=== PATIENT | female | born 1950 | race Caucasian/White ===

== ENCOUNTER 2017-03-11 03:55 | Emergency (ER) | payer MEDICARE ==
[2017-03-11] MEDS ORDERED: ETOMIDATE INJ/PF 20 MG/10 ML SDV IV ONE ×2 (04:20→04:28)
--- NOTE | 2017-03-11 04:35 | ER Document Report ---
ED General - General Chief Complaint: Back Pain Stated Complaint: SHOULDER PAIN Time Seen by Provider: 03/11/17 04:09 Notes: Patient is a 67-year-old female who says she woke up with diaphoresis and sweating and feeling pain to her shoulder blades. Chest pain. She did feel short of breath. When she arrived her blood pressure systolically was in the 70s and her EKG showed a wide complex tachycardia. Patient denies any history of SVT. She is unsure if she has a previous history of left bundle branch block. She does have history of coronary disease. She had 2 stents placed. She had coronary bypass approximately 8 years ago. No heart catheterization since then. This was performed in [place]. She only takes aspirin. No other blood thinners. No other complaints at this time. TRAVEL OUTSIDE OF THE [place] IN LAST 30 DAYS: No - Related Data Allergies/Adverse Reactions: Sulfa (Sulfonamide Antibiotics) Allergy (Verified 03/11/17 04:07) Past Medical History - Social History Smoking Status: Unknown if Ever Smoked Frequency of alcohol use: None Drug Abuse: None Family History: Reviewed & Not Pertinent Patient has suicidal ideation: No Patient has homicidal ideation: No Renal/ Medical History: Denies: Hx Peritoneal Dialysis Review of Systems - Review of Systems Notes: My Normal Review Basic REVIEW OF SYSTEMS: CONSTITUTIONAL : Denies fever, chills, or sweats. Denies recent illness. EENT: Denies eye, ear, throat, or mouth pain or symptoms. Denies nasal or sinus congestion. CARDIOVASCULAR: Denies chest pain. RESPIRATORY: Shortness of breath. GASTROINTESTINAL: Denies abdominal pain. Denies nausea, vomiting, or diarrhea. Denies constipation. Last BM: MUSCULOSKELETAL: Back pain. SKIN: Denies rash or skin lesions. NEUROLOGICAL: Denies altered mental status or loss of consciousness. Denies headache. Denies weakness or paralysis or loss of use of either side. Denies problems with gait or speech. Denies sensory or motor loss. ALL OTHER SYSTEMS REVIEWED AND NEGATIVE. Physical Exam - Vital signs Vitals: Pulse Resp BP Pulse Ox 78 24 H 77/51 L 98 03/11/17 04:03 03/11/17 04:03 03/11/17 04:03 03/11/17 04:03 - Notes Notes: General Appearance: Well nourished, alert, cooperative, no acute distress, no obvious discomfort. Vitals: reviewed, See vital signs table. Head: no swelling or tenderness to the head Eyes: PERRL, EOMI, Conjuctiva clear Mouth: No decreasd moisture Neck: Supple, no neck tenderness Lungs: No wheezing, No rales, No rhonci, No accessory muscle use, good air exchange bilaterally. Heart: Rapid rate, Regular rythm, No murmur, no rub Abdomen: Normal BS, soft, No rigidity, No abdominal tenderness, No guarding, no rebound, no abdominal masses, no organomegaly Extremities: strength 5/5 in all extremities, good pulses in all extremities, no swelling or tenderness in the extremities, no edema. Skin: warm, dry, appropriate color, no rash Neuro: speech clear, oriented x 3, normal affect, responds appropriately to questions. Course - Re-evaluation Re-evalutation: 03/11/17 04:51 After the cardioversion patient's abdomen is back in sinus rhythm. Her pain is completely resolved. She says she feels much improved and is asymptomatic at this time. 03/11/17 09:04 I initially spoke with Drs. Sawyer, hospitalist at [facility], who feels the patient should be in the ICU. I spoke with the explosive ordnance handler, Dr. Moe Flores, who agrees to accept the patient for transfer. I again explained to the patient however transferring her. Explained to her that there is a mass on the CT scan and this could potentially be irritating her heart and causing the ventricular tachycardia. Patient is understanding of this and agreeable to transfer. 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 The Ventricular tachycardia as well as history of coronary disease requires offset plate maker duration which may lead to cardiac catheterization. EKG the patient presented with was wide-complex tachycardia. This could represent SVT with aberrancy versus V. tach. I think SVT with aberrancy is unlikely being the patient has no history of SVT and is years old. After the patient was cardioverted she did not have left bundle branch block or aberrantly on her sinus rhythm. I suspect that she was indeed an ventricular tachycardia when she first arrived. Since cardioversion patient has been normotensive and asymptomatic. Dictation of this chart was performed using voice recognition software; therefore, there may be some unintended grammatical errors. - Vital Signs Vital signs: Temp Pulse Resp BP Pulse Ox 78 16 179/63 H 96 03/11/17 04:03 03/11/17 08:46 03/11/17 08:46 03/11/17 08:46 - Laboratory Result Diagrams: 03/11/17 04:15 03/11/17 05:50 Laboratory results interpreted by me: 03/11/17 03/11/17 04:15 05:50 MCHC 31.4 L Sodium 134.3 L Glucose 112 H AST 54 H Creatine Kinase 21 L - EKG Interpretation by Me Additional EKG results interpreted by me: 03/11/17 04:34 EKG #1 is reviewed and interpreted by me. EKG shows wide complex tachycardia with a rate of 187 bpm. Wide complexes consistent with possible left bundle branch block. QRS duration QT intervals are prolonged. No old EKG available for comparison. 03/11/17 04:41 EKG #2 is reviewed reviewed and interpreted by me. His EKG is post cardioversion. EKG shows sinus bradycardia with a rate of [address] segment elevation in lead III. ST segment depression in leads I and aVL.. IA interval, QRS duration, QTc intervals are within normal range. 03/11/17 05:59 T #3 is reviewed and interpreted by me. EKG shows a rate of [address] segment elevation or depression. No ischemic T-wave inversions. IA interval, QRS duration, QTc intervals are within normal range. No old EKG available for comparison. Procedures - Conscious Sedation Conscious sedation Consent obtained: Yes - verbal Indication: cardioversion Prior complications: Procedural sedation Pt with a severe systemic disease.: P3. - ASA Classification. Airway Evaluation: Normal anatomy Mallampati Classification: Class 1 Used during procedure: Suction available, IV access obtained, Pulse ox on pt., rollway worker on pt. Medications administered: Etomidate Reversal agents: None I personally performed/intraservice time: Sedation, 30 min or less Complications: No Notes: Patient given a total of 10mg of Etomidate. This provided good sedation for the cardioversion. - Additional Procedures Cardioversion/Defib Additional Procedures: Cardioversion/defib Notes: 03/11/17 05:46 Patient sedate and was synchronized cardioversion on the first attempt with 100J. Patient converted to sinus rythm. Discharge - Discharge Clinical Impression: Ventricular tachycardia, Pericardial mass Condition: Stable Disposition: [facility]
[2017-03-11 04:46] LABS: ABSOLUTE BASOPHILS # (AUTO) 0.1 10^3/uL (0.0-0.2); ABSOLUTE EOSINOPHILS # (AUTO) 0.1 10^3/uL (0.0-0.6); ABSOLUTE LYMPHOCYTES (AUTO) 2.5 10^3/uL (0.5-4.7); ABSOLUTE MONOCYTES (AUTO) 0.6 10^3/uL (0.1-1.4); ABSOLUTE NEUT (AUTO) 6.5 10^3/uL (1.7-8.2); BASOPHILS % (AUTO) 0.5 % (0-2); EOSINOPHILS % (AUTO) 1.3 % (0-6); HEMATOCRIT 38.8 % (36.0-47.0); HEMOGLOBIN 12.2 g/dL (12.0-15.5); HGB HCT DIFFERENCE -2.2; LYMPHOCYTES % (AUTO) 25.8 % (13-45); MEAN CORPUSCULAR HEMOGLOBIN 29.4 pg (27.0-33.4); MEAN CORPUSCULAR HGB CONC 31.4 g/dL (32.0-36.0); MEAN CORPUSCULAR VOLUME 94 fl (80-97); RED BLOOD COUNT 4.15 10^6/uL (3.72-5.28); SEGMENTED NEUTROPHILS % (AUTO) 66.4 % (42-78); WHITE BLOOD COUNT 9.8 10^3/uL (4.0-10.5)
--- NOTE | 2017-03-11 05:14 | RADIOLOGY REPORT (SQ) ---
EXAM DESCRIPTION: CHEST SINGLE VIEW COMPLETED DATE/TIME: 03/11/2017 4:53 am REASON FOR STUDY: ventricular tachycardia COMPARISON: None. EXAM PARAMETERS: NUMBER OF VIEWS: One view. TECHNIQUE: Single frontal radiographic view of the chest acquired. RADIATION DOSE: NA LIMITATIONS: A pacemaker pad is partially obscuring the right upper thorax. FINDINGS: LUNGS AND PLEURA: No pneumothorax or pleural effusion. There is a 3.8 x 2.1 cm oval shape opacity adjacent to the right cardiac border. MEDIASTINUM AND HILAR STRUCTURES: No obvious masses. HEART AND VASCULAR STRUCTURES: The heart is moderately enlarged. No overt vascular congestion. BONES: No acute findings. HARDWARE: Sternotomy wires are present. Pacemaker pad partially obscuring the right upper thorax. IMPRESSION: Moderate cardiomegaly, pericardial effusion is not excludable. 3.8 x 2.1 cm oval-shaped opacity adjacent to the right cardiac border, may represent an enlarged bloo d vessel versus a pulmonary mass. Evaluation with CT thorax may be worthwhile. TECHNICAL DOCUMENTATION: JOB ID: [id number]
[2017-03-11 06:12] LABS: ALANINE AMINOTRANSFERASE 38 U/L (9-52); ALBUMIN 3.6 g/dL (3.5-5.0); ALKALINE PHOSPHATASE 55 U/L (38-126); ANION GAP 9 (5-19); ASPARTATE AMINO TRANSFERASE 54 U/L (14-36); BILIRUBIN,DIRECT 0.2 mg/dL (0.0-0.4); BILIRUBIN,TOTAL 0.5 mg/dL (0.2-1.3); BLOOD UREA NITROGEN 13 mg/dL (7-20); CALCIUM 9.4 mg/dL (8.4-10.2); CARBON DIOXIDE 24 mmol/L (22-30); CHLORIDE 101 mmol/L (98-107); CREATINE KINASE 21 U/L (30-135); CREATININE RESULT 0.78 mg/dL (0.52-1.25); GLUCOSE 112 mg/dL (75-110); POTASSIUM 4.3 mmol/L (3.6-5.0); SODIUM 134.3 mmol/L (137-145); TOTAL PROTEIN 6.4 g/dL (6.3-8.2)
[2017-03-11] MEDS ORDERED: NORMAL SALINE 500 ML IV ONE (06:16)
[2017-03-11 06:23] LABS: CREATINE KINASE MB 0.7 ng/mL (<4.55)
[2017-03-11 06:26] LABS: TROPONIN I 0.056 ng/mL
--- NOTE | 2017-03-11 07:29 | RADIOLOGY REPORT (SQ) ---
EXAM DESCRIPTION: CTA CHEST COMPLETED DATE/TIME: 03/11/2017 7:05 am REASON FOR STUDY: abnormal finding on CXR. COMPARISON: Chest x-ray 03/11/2016. TECHNIQUE: CT scan of the chest performed using helical scanning technique with dynamic intravenous contrast injection. Images reviewed with lung, soft tissue and bone windows. Reconstructed coronal and sagittal MPR images reviewed. Additional 3 dimensional post-processing performed to develop Maximal Intensity Projection images (IL P). All images stored on PACS. All CT scanners at this facility use dose modulation, iterative reconstruction, and/or weight based d osing when appropriate to reduce radiation dose to as low as reasonably achievable (ALARA). [facility]: Dose Right [facility]: CareDose [facility]: Dose Right [facility]: Teradose 4D [facility]: 3DMGAME CONTRAST TYPE AND DOSE: contrast/concentration: Isovue 370.00 mg/ml; Total Contrast Delivered: 71.0 ml; Total Saline Delivered: 110.0 ml RENAL FUNCTION: Creatinine 0.78 RADIATION DOSE: Up-to-date CT equipment and radiation dose reduction techniques were employed. CTDIv ol: 18.4 - 23.2 mGy. DLP: 709 mGy-cm. . LIMITATIONS: None. FINDINGS: LUNGS AND PLEURA: There is a 4.8 x 4.2 cm lobulated mass extending inferiorly from the rig ht perihilar region along the medial aspect of the right lower lobe and the right heart border. Mild atelectatic changes at the bilateral lower lobes. No pleural effusion or pneumothorax. 5 mm nodule in the right upper lobe (image 19/134). 5 mm pleural-based nodule in the anterior right middle lobe (image 56/134). AORTA AND GREAT VESSELS: No thoracic aortic aneurysm. Calcified and noncalcified plaque within the a luciana. HEART: The patient is status post open heart surgery. The heart is moderately enlarged. No pericar dial effusion. PULMONARY ARTERIES: No emboli visualized in the main pulmonary arteries or the segmental branches. HILAR AND MEDIASTINAL STRUCTURES: Right paratracheal lymph node measuring 13 mm in short axis. Right hilar lymph node measuring 17 mm in short axis. Left hilar lymph node measuring 11 mm in short axis . HARDWARE: None in the chest. UPPER ABDOMEN: There is a 1.6 cm ill defined low-attenuation area in the left hepatic lobe (image 1 07/134). Mild pericholecystic soft tissue stranding. There is a small hiatal hernia. THYROID AND OTHER SOFT TISSUES: Small low-attenuation nodules in the right lobe of the thyroid gland measuring up to 8 mm. BONES: Degenerative changes in the spine. 3D MIPS: Confirm above findings. IMPRESSION: No pulmonary emboli. Soft tissue mass extending inferiorly from the right perihilar region along the medial aspect of the right lower lobe and along the right heart border, worrisome for malignancy. Mediastinal and hilar a denopathy, metastasis cannot be excluded. PET/CT recommended for further evaluation. 5 mm pulmonary nodules in the right lung. CT thorax in 6 months recommended to re-evaluate. Subcentimeter low-attenuation nodules in the right lobe of the thyroid gland. These can be better ev aluated with dedicated ultrasound. 1.6 cm ill-defined low attenuation area in the left hepatic lobe. Contrast enhanced MRI can be obtai lisa for further evaluation. Mild pericholecystic soft tissue stranding. Please correlate with concern for acute cholecystitis. Small hiatal hernia. TECHNICAL DOCUMENTATION: JOB ID: [id number] [facility] Quality ID # [id number]: Final reports with documentation of one or more dose reduction techniques (e.g., Au tomated exposure control, adjustment of the mA and/or kV according to patient size, use of iterative reconstruction technique) 2010 [employer]- All Rights Reserved
[2017-03-11] MEDS ORDERED: LEVALBUTEROL HCL NEB 0.63 MG/3 ML AMPUL NEB ONE (09:08)
--- NOTE | 2017-03-11 09:52 | EKG REPORT ---
SEVERITY:- ABNORMAL ECG - SINUS RHYTHM ATRIAL PREMATURE COMPLEX INFERIOR INFARCT, AGE INDETERMINATE CONSIDER ANTERIOR INFARCT : Confirmed by: Hunter Castañeda MD 11-Mar-2017 09:51:52
--- NOTE | 2017-03-11 09:53 | EKG REPORT ---
SEVERITY:- ABNORMAL ECG - SINUS RHYTHM RIGHT AXIS DEVIATION INFERIOR INFARCT, AGE INDETERMINATE CONSIDER ANTERIOR INFARCT : Confirmed by: Hunter Castañeda MD 11-Mar-2017 09:52:30
--- NOTE | 2017-03-11 09:54 | EKG REPORT ---
SEVERITY:- ABNORMAL ECG - WIDE COMPLEX TACHYCARDIA LEFT BUNDLE BRANCH BLOCK : Confirmed by: Hunter Castañeda MD 11-Mar-2017 09:53:25
[2017-03-11] MEDS ORDERED: CARVEDILOL 6.25 MG TABLET PO ONE (11:27)
[2017-03-11] MEDS ORDERED: DILTIAZEM HCL 240 MG CAPSULE.CR PO ONE (11:27)
[2017-03-11] MEDS ORDERED: HYDRALAZINE HCL 50 MG TABLET PO ONE (11:27)
[2017-03-11 11:44] VITALS: BP 180/63
== END 2017-03-11 12:28 | disposition short-term general hospital (02) ==
LOC: ER 03:55
DX: I47.2 Ventricular tachycardia (principal); R22.2 Localized swelling, mass and lump, trunk; M54.9 Dorsalgia, unspecified; M25.511 Pain in right shoulder; M25.512 Pain in left shoulder
CPT/HCPCS: 93005; 99285; 99153; 99152; 36415; 82553; 82962; 82550; 83735; 85025; 80053; 84484; 71010; 71275; 93010; A9270 ×4; J7040; J7614

== ENCOUNTER 2017-03-28 11:00 | Emergency (ER) | payer MEDICARE ==
--- NOTE | 2017-03-28 11:21 | ER Document Report ---
ED Syncope and Near Syncope - General Stated Complaint: DIFFICULTY BREATHING Time Seen by Provider: 03/28/17 11:08 Mode of Arrival: Stretcher Information source: Emergency Med Personnel TRAVEL OUTSIDE OF THE U.S. IN LAST 30 DAYS: No - HPI Patient complains to provider of: Fainting Episode witnessed (by whom): Yes - daughter Symptoms prior to episode: None Position/Activity at time of episode: Lying down Quality of pain: No pain Context: Became unresponsive Injury location: None Current symptoms: None/feels back to normal Notes: Patient is a 67-year-old female who presents to the emergency room via EMS for period of unresponsiveness, according to EMS patient's daughter found her unresponsive, with bluish discoloration, not breathing, patient is currently wearing a life pack that was recently placed while at [facility], daughter reports that the [employer] was alerting and advising not to touch patient that a shock would be delivered, however no shock was delivered, patient reports last thing she remembers is eating some toast, sitting on her bed and grabbing some water to take her pills, she does not have any recollection of nausea, vomiting , chest pain or shortness of breath, dizziness or lightheadedness prior to the syncopal event, at time of my evaluation she reports feeling no symptoms as well - Related Data Allergies/Adverse Reactions: Sulfa (Sulfonamide Antibiotics) Allergy (Verified 03/11/17 04:07) Home Medications: Current Home Medications Albuterol Sulfate [Albuterol Sulfate 2.5mg/3 mL] 2 puff IN Q6 03/28/17 [History] Amiodarone HCl [Cordarone 200 mg Tablet] 2 tab PO DAILY 03/28/17 [History] Amox Tr/Potassium Clavulanate [Augmentin 875-125 mg Tablet] 1 tab PO BID [History] Aspirin [Ecotrin 81 mg EC Tablet] 1 tab PO DAILY 03/28/17 [History] Budesonide/Formoterol Fumarate [Symbicort HFA 160-4.5 mcg Inhaler 6 gm] 2 puff IN BID 03/28/17 [History] Carvedilol 1 tab PO DAILY 03/28/17 [History] Hydralazine HCl 1 tab PO BID 03/28/17 [History] Magnesium Oxide 1 tab PO DAILY 03/28/17 [History] Metformin HCl 1 tab PO DAILY 03/28/17 [History] Simvastatin 1 tab PO DAILY 03/28/17 [History] Tiotropium Tionesta [Spiriva Handihaler 18 mcg/dose (30 Dose)] 1 puff IN DAILY [History] Past Medical History - General Information source: Patient, Emergency Med Personnel - Social History Smoking Status: Former Smoker Family History: Reviewed & Not Pertinent Renal/ Medical History: Denies: Hx Peritoneal Dialysis Review of Systems - Review of Systems Constitutional: No symptoms reported EENT: No symptoms reported Cardiovascular: Syncope Respiratory: No symptoms reported Gastrointestinal: No symptoms reported Genitourinary: No symptoms reported Female Genitourinary: No symptoms reported Musculoskeletal: No symptoms reported Skin: No symptoms reported Hematologic/Lymphatic: No symptoms reported Neurological/Psychological: No symptoms reported -: Yes All other systems reviewed and negative Physical Exam - Vital signs Vitals: Resp BP Pulse Ox 18 163/65 H 94 03/28/17 11:10 03/28/17 11:10 03/28/17 11:10 Interpretation: Normal - General General appearance: Appears well, Alert - HEENT Head: Normocephalic, Atraumatic Eyes: Normal Pupils: PERRL - Respiratory Respiratory status: No respiratory distress Chest status: Nontender Breath sounds: Normal Chest palpation: Normal - Cardiovascular Rhythm: Regular Heart sounds: Normal auscultation Murmur: No - Abdominal Inspection: Normal Distension: No distension Bowel sounds: Normal Tenderness: Nontender Organomegaly: No organomegaly - Back Back: Normal, Nontender - Extremities General upper extremity: Normal inspection, Nontender, Normal color, Normal ROM , Normal temperature General lower extremity: Normal inspection, Nontender, Normal color, Normal ROM , Normal temperature, Normal weight bearing. No: Charlie's sign - Neurological Neuro grossly intact: Yes Cognition: Normal Orientation: AAOx4 Toño Coma Scale Eye Opening: Spontaneous [place]ño Coma Scale Verbal: Oriented [place] Coma Scale Motor: Obeys Commands [place] Coma Scale Total: 15 Speech: Normal Motor strength normal: LUE, RUE, LLE, RLE Sensory: Normal - Psychological Associated symptoms: Normal affect, Normal mood - Skin Skin Temperature: Warm Skin Moisture: Dry Skin Color: Normal Course - Re-evaluation Re-evalutation: 03/28/17 14:46 A call was placed to [facility], discussed patient with Catalina, requested callback from EP physician Dr. Granados I received a call from IRVIN Andrea, works with Dr. Granados, patient's event strips were faxed over, requested callback once he has an opportunity to speak with Dr. Granados to formulate a plan regarding likely transfer of patient to [facility] 03/28/17 15:[address] Rodriguez from [facility], hospitalist, who states that she spoke with the EP service who requested patient be transferred to their hospital for further evaluation and treatment 03/28/17 18:24 Rhythm strips that were provided by [employer], short period of approximately 2 minutes where patient had EKG changes consistent with ventricular tachycardia, her daughter does report that the [employer] was advising that a shock would be delivered, patient regained consciousness just prior to this occurring, the report from [facility] confirms that patient did not receive a defibrillation, patient remained stable at this point in time with no complaints, awaiting transfer to [facility] - Vital Signs Vital signs: Temp Pulse Resp BP Pulse Ox 44 L 20 169/50 H 99 03/28/17 13:45 03/28/17 18:02 03/28/17 18:02 03/28/17 18:02 - Laboratory Result Diagrams: 03/28/17 13:06 03/28/17 12:10 Laboratory results interpreted by me: 03/28/17 03/28/17 03/28/17 12:10 12:10 13:06 RBC 3.50 L Hgb 10.6 L Hct 31.5 L Sodium 123.7 L Chloride 89 L Glucose 163 H Magnesium 1.4 L Urine Protein Ur Leukocyte Esterase 03/28/17 14:00 RBC Hgb Hct Sodium Chloride Glucose Magnesium Urine Protein >=500 H Ur Leukocyte Esterase LARGE H - Diagnostic Test Radiology reviewed: Image reviewed, Reports reviewed - EKG Interpretation by Me EKG shows normal: Sinus rhythm Rate: Bradycardia Critical Care Note - Critical Care Note Total time excluding time spent on procedures (mins): 45 Comments: EKG rhythm strips from [employer] life vest confirmed patient had a brief period of cardiac arrest with ventricular tachycardia, while in the emergency room required close monitoring, frequent reevaluation's, consultation with EP physician as well as transfer to tertiary care center Discharge - Discharge Clinical Impression: Nontraumatic cardiac arrest Condition: Stable Disposition: [facility]
[2017-03-28 12:51] LABS: ALANINE AMINOTRANSFERASE 28 U/L (9-52); ALBUMIN 3.5 g/dL (3.5-5.0); ALKALINE PHOSPHATASE 46 U/L (38-126); ANION GAP 10 (5-19); ASPARTATE AMINO TRANSFERASE 35 U/L (14-36); BILIRUBIN,DIRECT 0.4 mg/dL (0.0-0.4); BILIRUBIN,TOTAL 0.5 mg/dL (0.2-1.3); BLOOD UREA NITROGEN 9 mg/dL (7-20); CALCIUM 8.9 mg/dL (8.4-10.2); CARBON DIOXIDE 25 mmol/L (22-30); CHLORIDE 89 mmol/L (98-107); CREATINE KINASE 30 U/L (30-135); CREATININE RESULT 0.59 mg/dL (0.52-1.25); GLUCOSE 163 mg/dL (75-110); POTASSIUM 4.5 mmol/L (3.6-5.0); SODIUM 123.7 mmol/L (137-145); TOTAL PROTEIN 6.3 g/dL (6.3-8.2)
[2017-03-28] MEDS ORDERED: NORMAL SALINE 1000 ML 1,000 ML IV PRN (13:05)
[2017-03-28 13:07] LABS: CREATINE KINASE MB 0.83 ng/mL (<4.55)
[2017-03-28 13:10] LABS: TROPONIN I 0.04 ng/mL
[2017-03-28 13:13] LABS: ABSOLUTE BASOPHILS # (AUTO) 0.1 10^3/uL (0.0-0.2); ABSOLUTE LYMPHOCYTES (AUTO) 1.4 10^3/uL (0.5-4.7); ABSOLUTE MONOCYTES (AUTO) 0.5 10^3/uL (0.1-1.4); ABSOLUTE NEUT (AUTO) 6.6 10^3/uL (1.7-8.2); BASOPHILS % (AUTO) 0.6 % (0-2); EOSINOPHILS % (AUTO) 0.3 % (0-6); HEMATOCRIT 31.5 % (36.0-47.0); HEMOGLOBIN 10.6 g/dL (12.0-15.5); HGB HCT DIFFERENCE 0.3; LYMPHOCYTES % (AUTO) 15.9 % (13-45); MEAN CORPUSCULAR HEMOGLOBIN 30.3 pg (27.0-33.4); MEAN CORPUSCULAR HGB CONC 33.6 g/dL (32.0-36.0); MONOCYTES % (AUTO) 6.4 % (3-13); RED CELL DISTRIBUTION WIDTH 13.3 % (11.5-14.0); SEGMENTED NEUTROPHILS % (AUTO) 76.8 % (42-78); WHITE BLOOD COUNT 8.6 10^3/uL (4.0-10.5)
[2017-03-28 13:21] LABS: MEAN CORPUSCULAR VOLUME 90 fl (80-97)
--- NOTE | 2017-03-28 13:32 | RADIOLOGY REPORT (SQ) ---
EXAM DESCRIPTION: CHEST SINGLE VIEW COMPLETED DATE/TIME: 03/28/2017 1:22 pm REASON FOR STUDY: syncope COMPARISON: 03/11/2017 EXAM PARAMETERS: NUMBER OF VIEWS: One view. TECHNIQUE: Single frontal radiographic view of the chest acquired. RADIATION DOSE: NA LIMITATIONS: None. FINDINGS: LUNGS AND PLEURA: Again identified is the 3 cm ovoid shaped lesion seen in the right lung base. Small right-sided pleural effusion associated atelectasis. No pneumothorax. Left lung remain s clear. . MEDIASTINUM AND HILAR STRUCTURES: No masses. Contour normal. HEART AND VASCULAR STRUCTURES: Cardiomegaly. No vascular congestion BONES: No acute findings. HARDWARE: Median sternotomy wires noted and intact. EKG leads overlie the chest. OTHER: No other significant finding. IMPRESSION: Stable ovoid mass seen in the right lung base measuring approximately 3 cm. Small right -sided pleural effusion associated atelectasis. Stable cardiomegaly. TECHNICAL DOCUMENTATION: JOB ID: [id number]
[2017-03-28 14:20] LABS: APPEARANCE,URINE CLOUDY; BILIRUBIN,URINE NEGATIVE (NEGATIVE); GLUCOSE, URINE NEGATIVE (NEGATIVE); KETONES,URINE NEGATIVE (NEGATIVE); LEUKOCYTE ESTERASE,URINE LARGE (NEGATIVE); NITRITE,URINE NEGATIVE (NEGATIVE); PROTEIN,URINE >=500 mg/dL (NEGATIVE); URINE SPECIFIC GRAVITY 1.009; UROBILINOGEN,URINE NEGATIVE mg/dL (<2.0)
[2017-03-28] MEDS ORDERED: MAGNESIUM SULFATE/D5W 1 GM/100 ML RTUPB IV ONE (16:08)
[2017-03-28] MEDS ORDERED: ALBUTEROL SULFATE 0.083% NEB 2.5 MG/3 ML AMPUL NEB ONE (18:22)
[2017-03-28 21:21] VITALS: BP 189/66
--- NOTE | 2017-03-30 08:17 | EKG REPORT ---
SEVERITY:- ABNORMAL ECG - SINUS BRADYCARDIA INCOMPLETE RIGHT BUNDLE BRANCH BLOCK INFERIOR INFARCT, OLD NONSPECIFIC ST-T CHANGES LATERAL LEADS : Confirmed by: Hunter Castañeda MD 30-Mar-2017 08:17:15
== END 2017-03-28 21:32 | disposition short-term general hospital (02) ==
LOC: ER 11:00
DX: I46.9 Cardiac arrest, cause unspecified (principal); I47.2 Ventricular tachycardia; Z88.2 Allergy status to sulfonamides; Z87.891 Personal history of nicotine dependence; Z95.810 Presence of automatic (implantable) cardiac defibrillator
CPT/HCPCS: 93005; 94640; 99291; 96361; 96374; 36415; 82553; 82550; 83735; 85025; 80053; 81001; 84484; 71010; 93010; J3475; J7030; A9270

== ENCOUNTER 2017-05-18 13:01 | Outpatient (CLI) | payer MEDICARE ==
[~2017-05-18 13:01] MED LIST: PEGFILGRASTIM INJ 6 MG/0.6 ML DISP.SYRIN SUBCUT PRN
[2017-05-18 13:21] VITALS: BP 150/83
== END 2017-05-18 13:50 | disposition home or self-care (01) ==
LOC: II 13:01 → 5TH 13:06 → II 13:50
PROVIDERS: ATTEND Internal Medicine
PROC: 3E0130M Introduction of Antineoplastic, Monoclonal Antibody, into Subcutaneous Tissue, Percutaneous Approach (ICD-10-PCS; principal; 2017-05-18)
DX: Z76.89 Persons encountering health services in other specified circumstances (principal); C34.11 Malignant neoplasm of upper lobe, right bronchus or lung; D70.1 Agranulocytosis secondary to cancer chemotherapy
CPT/HCPCS: 96372; J2505

== ENCOUNTER 2017-06-01 13:01 | Outpatient (CLI) | payer MEDICARE ==
[~2017-06-01 13:01] MED LIST changes: +FERRIC CARBOXYMALTOSE 750 MG in NORMAL SALINE 250 ML IV PRN; +NORMAL SALINE 250 ML IV PRN; -PEGFILGRASTIM INJ 6 MG/0.6 ML DISP.SYRIN SUBCUT PRN
[2017-06-01 13:15] VITALS: BP 149/63
== END 2017-06-01 14:15 | disposition home or self-care (01) ==
LOC: II 13:01 → 5TH 13:05 → II 14:15
PROVIDERS: ATTEND Internal Medicine
PROC: 3E043GC Introduction of Other Therapeutic Substance into Central Vein, Percutaneous Approach (ICD-10-PCS; principal; 2017-06-01)
DX: D50.8 Other iron deficiency anemias (principal); K90.9 Intestinal malabsorption, unspecified
CPT/HCPCS: 96367; 96375; J7050; J1439; 96365

== ENCOUNTER 2017-06-08 14:01 | Outpatient (CLI) | payer MEDICARE ==
[~2017-06-08 14:01] MED LIST changes: +PEGFILGRASTIM INJ 6 MG/0.6 ML DISP.SYRIN SUBCUT PRN
[2017-06-08 14:47] VITALS: BP 138/53
== END 2017-06-08 14:54 | disposition home or self-care (01) ==
LOC: II 14:01 → 5TH 14:02 → II 14:54
PROVIDERS: ATTEND Internal Medicine
PROC: 3E0130M Introduction of Antineoplastic, Monoclonal Antibody, into Subcutaneous Tissue, Percutaneous Approach (ICD-10-PCS; principal; 2017-06-08)
PROC: 3E043GC Introduction of Other Therapeutic Substance into Central Vein, Percutaneous Approach (ICD-10-PCS; 2017-06-08)
DX: Z76.89 Persons encountering health services in other specified circumstances (principal); D50.8 Other iron deficiency anemias; K90.9 Intestinal malabsorption, unspecified; C34.11 Malignant neoplasm of upper lobe, right bronchus or lung; D70.1 Agranulocytosis secondary to cancer chemotherapy
CPT/HCPCS: 96367; 96375; J2505; J7050; J1439; 96372; 96374

== ENCOUNTER → 2017-06-22 | Outpatient (CLI) | payer MEDICARE ==
--- NOTE | 2017-06-22 12:37 | RADIOLOGY REPORT (SQ) ---
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 PET-CT from [facility] dated 04/04/2017. TECHNIQUE: CT scan of the chest performed using helical scanning technique with dynamic intravenous contrast injection. Images reviewed with lung, soft tissue and bone windows. Reconstructed coronal and sagittal MPR images reviewed. All images stored on PACS. All CT scanners at this facility use dose modulation, iterative reconstruction, and/or weight based d osing when appropriate to reduce radiation dose to as low as reasonably achievable (ALARA). [facility]: Dose Right [facility]: CareDose [facility]: Dose Right [facility]: Teradose 4D [facility]: Veosearch CONTRAST TYPE AND DOSE: 89 mL Isovue 370- low osmolar. RENAL FUNCTION: BUN 6 creatinine 0.6. RADIATION DOSE: . LIMITATIONS: None. FINDINGS: LUNGS AND PLEURA: The right perihilar mass has decreased in size. Current measurement 2.4 x 3.6 cm with prior measurement 4.2 x 4.8 cm (February 2017), and 5.1 x 5.3 cm (March 2017). Tiny, 3- 4 mm, subpleural nodules in the right upper lobe and right middle lobe are unchanged. Moderate right pleural effusion unchanged since the most recent study (March 2017). No new nodules or masses. HILAR AND MEDIASTINAL STRUCTURES: 1.2 cm right paratracheal lymph node unchanged, prior measurement 1 .3 cm. Borderline hilar adenopathy no longer present. These lymph nodes were not FDG avid on the re cent PET scan. HEART AND VASCULAR STRUCTURES: No aneurysm or dissection. No central pulmonary emboli. No pericardi al effusion. HARDWARE: Vascular access port, defibrillator, sternotomy wires. UPPER ABDOMEN: See separate report of the CT of the abdomen. THYROID AND OTHER SOFT TISSUES: No masses. No adenopathy. BONES: No significant finding. OTHER: No other significant finding. IMPRESSION: DECREASE IN SIZE OF THE RIGHT PERIHILAR MASS. MODERATE RIGHT PLEURAL EFFUSION UNCHANGED . NO NEW NODULES OR MASSES. NO OTHER SIGNIFICANT FINDINGS. TECHNICAL DOCUMENTATION: JOB ID: [id number] Quality ID # [id number]: Final reports with documentation of one or more dose reduction techniques (e.g., Au tomated exposure control, adjustment of the mA and/or kV according to patient size, use of iterative reconstruction technique) 2010 [employer]- All Rights Reserved
--- NOTE | 2017-06-22 12:56 | RADIOLOGY REPORT (SQ) ---
EXAM DESCRIPTION: CT ABD/PELVIS WITH IV ONLY COMPLETED DATE/TIME: 06/22/2017 10:26 am REASON FOR STUDY: LUNG CA C34.11 MALIGNANT NEOPLASM OF UPPER LOBE, RIGHT BRONCHUS OR L COMPAR[facility] TECHNIQUE: CT scan of the abdomen and pelvis performed using helical scanning technique with dynamic intravenous contrast injection. No oral contrast. Images reviewed with lung, soft tissue, and bone windows. Reconstructed coronal and sagittal MPR images reviewed. Delayed images for evaluation of the urinary system also acquired. All images stored on PACS. All CT scanners at this facility use dose modulation, iterative reconstruction, and/or weight based d osing when appropriate to reduce radiation dose to as low as reasonably achievable (ALARA). [facility]: Dose Right [facility]: CareDose [facility]: Dose Right [facility]: Teradose 4D [facility]: [employer] CONTRAST TYPE AND DOSE: contrast/concentration: Isovue 370.00 mg/ml; Total Contrast Delivered: 89.0 ml; Total Saline Delivered: 70.0 ml RENAL FUNCTION: BUN 6 creatinine 0.6. RADIATION DOSE: Up-to-date CT equipment and radiation dose reduction techniques were employed. CTDIv ol: 7.0 - 9.8 mGy. DLP: 1222 mGy-cm.. LIMITATIONS: None. FINDINGS: LOWER CHEST: See separate report of the CT of the chest. LIVER: Normal size. No masses. No dilated ducts. SPLEEN: Normal size. No focal lesions. PANCREAS: No masses. No significant calcifications. No adjacent inflammation or peripancreatic fluid collections. Pancreatic duct not dilated. GALLBLADDER: No identified stones by CT criteria. No inflammatory changes to suggest cholecystitis. ADRENAL GLANDS: No significant masses or asymmetry. RIGHT KIDNEY AND URETER: Ill-defined low-attenuation mass in the lower pole, measuring 3.7 cm. Not c ystic. No significant calcifications. No hydronephrosis or hydroureter. LEFT KIDNEY AND URETER: Ill-defined low-attenuation mass in the medial kidney, measuring 1.3 cm. Not clearly cystic. No significant calcifications. No hydronephrosis or hydroureter. AORTA AND VESSELS: No aneurysm. No dissection. Renal arteries, SMA, celiac without stenosis. RETROPERITONEUM: No retroperitoneal adenopathy, hemorrhage or masses. BOWEL AND PERITONEAL CAVITY: Scattered colonic diverticuli, particularly in the descending and sigmoi d colon. No masses or inflammatory changes. No free fluid or peritoneal masses. APPENDIX: Not visualized. PELVIS: No mass. No free fluid. Normal bladder. ABDOMINAL WALL: No masses. No hernias. BONES: No significant or acute findings. OTHER: No other significant finding. IMPRESSION: 1. ILL-DEFINED RENAL MASSES DESCRIBED. THESE APPEAR SOLID AND NOT CYSTIC. THESE WERE NOT ADEQUAT JACINTO VISUALIZED ON THE PRIOR PET-CT DUE TO ARTIFACT FROM THE PATIENT'S ARMS. MAY CONSIDER FURTHER JIMBO LUATION WITH ULTRASOUND. MR CONTRAINDICATED DUE TO DEFIBRILLATOR. 2. COLONIC DIVERTICULOSIS. NO CT FINDINGS OF ACUTE DIVERTICULITIS. 3. NO OTHER SIGNIFICANT OR ACUTE FINDING IN THE ABDOMEN OR PELVIS ON CT SCAN WITH IV CONTRAST. TECHNICAL DOCUMENTATION: JOB ID: [id number] Quality ID # [id number]: Final reports with documentation of one or more dose reduction techniques (e.g., Au tomated exposure control, adjustment of the mA and/or kV according to patient size, use of iterative reconstruction technique) 2010 [employer]- All Rights Reserved
== END ==
LOC: RAD 09:24
PROVIDERS: ATTEND Internal Medicine
DX: C34.11 Malignant neoplasm of upper lobe, right bronchus or lung (principal)
CPT/HCPCS: 71260; 74177

== ENCOUNTER 2017-08-13 09:27 | Outpatient (CLI) | payer MEDICARE ==
[~2017-08-13 09:27] MED LIST changes: +ACETAMINOPHEN 325 MG TABLET PO PRN; +DIPHENHYDRAMINE HCL 25 MG CAPSULE PO PRN; -FERRIC CARBOXYMALTOSE 750 MG in NORMAL SALINE 250 ML IV PRN; -NORMAL SALINE 250 ML IV PRN; -PEGFILGRASTIM INJ 6 MG/0.6 ML DISP.SYRIN SUBCUT PRN
[2017-08-13 10:51] LABS: HEMATOCRIT 25.8 % (36.0-47.0); HEMOGLOBIN 8.9 g/dL (12.0-15.5); HGB HCT DIFFERENCE 0.9; MEAN CORPUSCULAR HEMOGLOBIN 35.9 pg (27.0-33.4); MEAN CORPUSCULAR HGB CONC 34.5 g/dL (32.0-36.0); MEAN CORPUSCULAR VOLUME 104 fl (80-97); RED BLOOD COUNT 2.48 10^6/uL (3.72-5.28); RED CELL DISTRIBUTION WIDTH 18.4 % (11.5-14.0); WHITE BLOOD COUNT 4.2 10^3/uL (4.0-10.5)
[2017-08-13 15:53] VITALS: BP 127/58
== END 2017-08-13 15:35 | disposition home or self-care (01) ==
LOC: II 09:27 → 2N 10:34 → II 15:35
PROVIDERS: ATTEND Physician Assistant
PROC: 30233R1 Transfusion of Nonautologous Platelets into Peripheral Vein, Percutaneous Approach (ICD-10-PCS; principal; 2017-08-13)
DX: D69.6 Thrombocytopenia, unspecified (principal)
CPT/HCPCS: 86900; 86901; 36415; 36430; P9035; A9270 ×2

== ENCOUNTER 2017-08-15 11:18 | Outpatient (CLI) | payer MEDICARE ==
[2017-08-15 11:52] LABS: HEMATOCRIT 24.7 % (36.0-47.0); HEMOGLOBIN 8.7 g/dL (12.0-15.5); HGB HCT DIFFERENCE 1.4; MEAN CORPUSCULAR VOLUME 103 fl (80-97); RED BLOOD COUNT 2.41 10^6/uL (3.72-5.28); WHITE BLOOD COUNT 4.3 10^3/uL (4.0-10.5)
[2017-08-15] MEDS ORDERED: ACETAMINOPHEN 325 MG TABLET PO PRN (11:54)
[2017-08-15] MEDS ORDERED: DIPHENHYDRAMINE HCL 25 MG CAPSULE PO PRN (11:54)
[2017-08-15 13:10] VITALS: BP 125/51
[2017-08-15 14:21] LABS: HEMATOCRIT 24.3 % (36.0-47.0); HEMOGLOBIN 8.3 g/dL (12.0-15.5); HGB HCT DIFFERENCE 0.6; MEAN CORPUSCULAR HEMOGLOBIN 35.8 pg (27.0-33.4); MEAN CORPUSCULAR HGB CONC 34.3 g/dL (32.0-36.0); MEAN CORPUSCULAR VOLUME 104 fl (80-97); RED BLOOD COUNT 2.33 10^6/uL (3.72-5.28); RED CELL DISTRIBUTION WIDTH 17.8 % (11.5-14.0); WHITE BLOOD COUNT 4.9 10^3/uL (4.0-10.5)
[2017-08-15] MEDS ORDERED: NORMAL SALINE 250 ML IV PRN (15:03)
== END 2017-08-15 15:20 | disposition home or self-care (01) ==
LOC: II 11:18 → 2N 11:19 → II 15:20
PROVIDERS: ATTEND Internal Medicine Hematology & Oncology
PROC: 30243R1 Transfusion of Nonautologous Platelets into Central Vein, Percutaneous Approach (ICD-10-PCS; principal; 2017-08-15)
DX: D69.6 Thrombocytopenia, unspecified (principal)
CPT/HCPCS: 86900; 86901; 36415; 36430; 85027; P9035; A9270 ×2; J7050

== ENCOUNTER 2017-08-17 12:32 | Outpatient (CLI) | payer MEDICARE ==
[~2017-08-17 12:32] MED LIST changes: +FUROSEMIDE INJ/PF 20 MG/2 ML SDV IV PRN
[2017-08-17] MEDS ORDERED: NORMAL SALINE 250 ML IV PRN (13:17)
[2017-08-17 13:18] LABS: HEMATOCRIT 24.2 % (36.0-47.0); HEMOGLOBIN 8.4 g/dL (12.0-15.5); MEAN CORPUSCULAR HEMOGLOBIN 35.5 pg (27.0-33.4); MEAN CORPUSCULAR HGB CONC 34.7 g/dL (32.0-36.0); MEAN CORPUSCULAR VOLUME 102 fl (80-97); RED BLOOD COUNT 2.37 10^6/uL (3.72-5.28); RED CELL DISTRIBUTION WIDTH 17.2 % (11.5-14.0); WHITE BLOOD COUNT 3.6 10^3/uL (4.0-10.5)
[2017-08-17] MEDS ORDERED: DILTIAZEM HCL 30 MG TABLET PO ONE (16:00)
[2017-08-17 21:28] VITALS: BP 134/84
== END 2017-08-17 21:39 | disposition home or self-care (01) ==
LOC: II 12:32 → 5 12:37 → II 21:39
PROVIDERS: ATTEND Internal Medicine
PROC: 30243R1 Transfusion of Nonautologous Platelets into Central Vein, Percutaneous Approach (ICD-10-PCS; principal; 2017-08-17)
PROC: 30243N1 Transfusion of Nonautologous Red Blood Cells into Central Vein, Percutaneous Approach (ICD-10-PCS; 2017-08-17)
DX: D50.9 Iron deficiency anemia, unspecified (principal)
CPT/HCPCS: 86900; 86901; 36415; 36430; 86850; 86920; P9016; P9035; A9270 ×2

== ENCOUNTER 2017-08-21 09:33 | Outpatient (CLI) | payer MEDICARE ==
[~2017-08-21 09:33] MED LIST changes: -FUROSEMIDE INJ/PF 20 MG/2 ML SDV IV PRN
[2017-08-21 10:16] LABS: HEMATOCRIT 30.1 % (36.0-47.0); MEAN CORPUSCULAR HEMOGLOBIN 34.2 pg (27.0-33.4); MEAN CORPUSCULAR HGB CONC 33.3 g/dL (32.0-36.0); MEAN CORPUSCULAR VOLUME 103 fl (80-97); RED BLOOD COUNT 2.93 10^6/uL (3.72-5.28); RED CELL DISTRIBUTION WIDTH 19.3 % (11.5-14.0); WHITE BLOOD COUNT 3.9 10^3/uL (4.0-10.5)
[2017-08-21 10:52] LABS: PLATELET COUNT 9 10^3/uL (150-450)
[2017-08-21] MEDS ORDERED: NORMAL SALINE 250 ML IV PRN (11:04)
[2017-08-21 16:40] VITALS: BP 122/71
== END 2017-08-21 18:44 | disposition home or self-care (01) ==
LOC: II 09:33 → 4W 10:03 → II 10:03 → 4W 10:40 → II 18:44
PROVIDERS: ATTEND Internal Medicine
PROC: 30243R1 Transfusion of Nonautologous Platelets into Central Vein, Percutaneous Approach (ICD-10-PCS; principal; 2017-08-21)
DX: D69.6 Thrombocytopenia, unspecified (principal)
CPT/HCPCS: 86900; 86901; 36415; 36430; P9035; A9270 ×2

== ENCOUNTER 2017-08-24 11:28 | Outpatient (CLI) | payer MEDICARE ==
[2017-08-24 12:16] LABS: HEMATOCRIT 29.4 % (36.0-47.0); HEMOGLOBIN 9.9 g/dL (12.0-15.5); MEAN CORPUSCULAR HEMOGLOBIN 34.5 pg (27.0-33.4); MEAN CORPUSCULAR HGB CONC 33.8 g/dL (32.0-36.0); MEAN CORPUSCULAR VOLUME 102 fl (80-97); RED BLOOD COUNT 2.88 10^6/uL (3.72-5.28); RED CELL DISTRIBUTION WIDTH 18.7 % (11.5-14.0); WHITE BLOOD COUNT 4.3 10^3/uL (4.0-10.5)
[2017-08-24 12:36] LABS: PLATELET COUNT 12 10^3/uL (150-450)
[2017-08-24 13:50] VITALS: BP 117/74
== END 2017-08-24 14:25 | disposition home or self-care (01) ==
LOC: II 11:28 → 2N 11:29 → II 14:25
PROVIDERS: ATTEND Internal Medicine
PROC: 30243R1 Transfusion of Nonautologous Platelets into Central Vein, Percutaneous Approach (ICD-10-PCS; principal; 2017-08-24)
DX: D69.6 Thrombocytopenia, unspecified (principal)
CPT/HCPCS: 86900; 86901; 36415; 36430; P9035

== ENCOUNTER 2017-09-13 08:13 | Outpatient (CLI) | payer MEDICARE ==
[~2017-09-13 08:13] MED LIST changes: +DEXTROSE 5%-WATER 250 ML IV PRN; -DIPHENHYDRAMINE HCL 25 MG CAPSULE PO PRN; +DIPHENHYDRAMINE HCL 50 MG/ML VIAL IV PRN; +FUROSEMIDE INJ/PF 20 MG/2 ML SDV IV PRN; +IMMUNE GLOB GAM CAPRYLATE IV PRN; +NORMAL SALINE 250 ML IV PRN; +[UNRECOGNIZED DRUG - OTHER] IV PRN
[2017-09-13 08:59] VITALS: BP 105/63
== END 2017-09-13 12:42 | disposition home or self-care (01) ==
LOC: II 08:13 → 5TH 08:13 → II 12:42
PROVIDERS: ATTEND Internal Medicine
PROC: 30243S1 Transfusion of Nonautologous Globulin into Central Vein, Percutaneous Approach (ICD-10-PCS; principal; 2017-09-13)
PROC: 3E043GC Introduction of Other Therapeutic Substance into Central Vein, Percutaneous Approach (ICD-10-PCS; 2017-09-13)
DX: D69.3 Immune thrombocytopenic purpura (principal)
CPT/HCPCS: 96365; 96366; 96375; J1561 ×2; A9270 ×2; J1200; J1940; 96409; 96411; 96413; 96415; 96417; J3490

== ENCOUNTER 2017-09-16 05:54 | Inpatient (IN) | payer MEDICARE ==
[2017-09-16 06:57] LABS: ABSOLUTE LYMPHOCYTES (AUTO) 1.4 10^3/uL (0.5-4.7); ABSOLUTE MONOCYTES (AUTO) 0.6 10^3/uL (0.1-1.4); ABSOLUTE NEUT (AUTO) 2.1 10^3/uL (1.7-8.2); BASOPHILS % (AUTO) 0.6 % (0-2); EOSINOPHILS % (AUTO) 0.8 % (0-6); HEMOGLOBIN 10.5 g/dL (12.0-15.5); LYMPHOCYTES % (AUTO) 33.3 % (13-45); MEAN CORPUSCULAR HEMOGLOBIN 35.3 pg (27.0-33.4); MEAN CORPUSCULAR HGB CONC 33.8 g/dL (32.0-36.0); MEAN CORPUSCULAR VOLUME 104 fl (80-97); MONOCYTES % (AUTO) 13.9 % (3-13); RED BLOOD COUNT 2.97 10^6/uL (3.72-5.28); RED CELL DISTRIBUTION WIDTH 16.9 % (11.5-14.0); SEGMENTED NEUTROPHILS % (AUTO) 51.4 % (42-78); TOTAL CELLS COUNTED % (AUTO) 100 %; WHITE BLOOD COUNT 4.1 10^3/uL (4.0-10.5)
[2017-09-16 07:27] LABS: ALANINE AMINOTRANSFERASE 27 U/L (9-52); ALBUMIN 3.6 g/dL (3.5-5.0); ALKALINE PHOSPHATASE 126 U/L (38-126); ASPARTATE AMINO TRANSFERASE 35 U/L (14-36); BILIRUBIN,DIRECT 0.6 mg/dL (0.0-0.4); BILIRUBIN,TOTAL 1.1 mg/dL (0.2-1.3); BLOOD UREA NITROGEN 16 mg/dL (7-20); CARBON DIOXIDE 29 mmol/L (22-30); CHLORIDE 84 mmol/L (98-107); GLUCOSE 117 mg/dL (75-110); TOTAL PROTEIN 6.8 g/dL (6.3-8.2)
[2017-09-16 07:28] LABS: ANION GAP 5 (5-19)
[2017-09-16 07:31] LABS: SODIUM 117.6 mmol/L (137-145)
[2017-09-16 07:32] LABS: PLATELET COUNT 25 10^3/uL (150-450)
--- NOTE | 2017-09-16 08:15 | RADIOLOGY REPORT (SQ) ---
EXAM DESCRIPTION: CHEST PA/LAT COMPLETED DATE/TIME: 09/16/2017 7:08 am REASON FOR STUDY: resp distress COMPARISON: 03/28/2017 NUMBER OF VIEWS: Two views. TECHNIQUE: Frontal and lateral radiographic views of the chest acquired. LIMITATIONS: None. FINDINGS: LUNGS AND PLEURA: Interstitial edema with stable small to moderate right pleural effusion. Likely small left pleural effusion. Previous identified masses not confidently seen on this study. MEDIASTINUM AND HILAR STRUCTURES: Stable in size and contour. HEART AND VASCULAR STRUCTURES: Cardiac enlargement. Vascular congestion. BONES: No acute findings. HARDWARE: There has been interval placement of a right-sided port in good AICD. Hardware otherwise s table. OTHER: No other significant finding. IMPRESSION: CARDIAC ENLARGEMENT. VASCULAR CONGESTION WITH RIGHT GREATER THAN LEFT PLEURAL EFFUSIONS . TECHNICAL DOCUMENTATION: JOB ID: [id number] [employer] All Rights Reserved
[2017-09-16] MEDS ORDERED: FUROSEMIDE INJ/PF 40 MG/4 ML SDV IV ONE (08:34)
--- NOTE | 2017-09-16 08:38 | ER Document Report ---
ED General - General Chief Complaint: Respiratory Distress Stated Complaint: RESPIRATORY DISTRESS Time Seen by Provider: 09/16/17 06:02 Information source: Patient TRAVEL OUTSIDE OF THE [place] IN LAST 30 DAYS: No - HPI Patient complains to provider of: sob Onset: Just prior to arrival Onset/Duration: Gradual Quality of pain: No pain Associated symptoms: Leg swelling, Other - abd swelling Exacerbated by: Movement Relieved by: Denies Similar symptoms previously: Yes Recently seen / treated by doctor: Yes - chemo for lung cancer - Related Data Allergies/Adverse Reactions: Sulfa (Sulfonamide Antibiotics) Allergy (Verified 03/11/17 04:07) Past Medical History - General Information source: Patient - Social History Smoking Status: Former Smoker Chew tobacco use (# tins/day): No Frequency of alcohol use: None Drug Abuse: None Lives with: Family - daughter Family History: Reviewed & Not Pertinent Patient has suicidal ideation: No Patient has homicidal ideation: No - Past Medical History Cardiac Medical History: Reports: Hx Heart Attack, Hx Hypertension, Other - vtach/afib Denies: Hx Congestive Heart Failure Pulmonary Medical History: Reports: Hx COPD Denies: Hx Asthma, Hx Bronchitis, Hx Pneumonia, Hx Tuberculosis EENT Medical History: Reports: None Neurological Medical History: Reports: None. Denies: Hx Seizures Endocrine Medical History: Reports: Hx Diabetes Mellitus Type 2 Renal/ Medical History: Denies: Hx End Stage Renal Disease, Hx Kidney Stones, Hx Peritoneal Dialysis Malignancy Medical History: Reports: Hx Lung Cancer GI Medical History: Reports: None. Denies: Hx Cirrhosis, Hx Gastroesophageal Reflux Disease, Hx Ulcer Musculoskeltal Medical History: Denies Hx Arthritis, Denies Hx Multiple Sclerosis Skin Medical History: Reports None Psychiatric Medical History: Reports: None Denies: Hx Bipolar Disorder, Hx Depression, Hx Schizophrenia Traumatic Medical History: Reports: None Past Surgical History: Reports: Hx Cardiac Catheterization, Hx Cardiac Surgery - aicd - Immunizations Hx Diphtheria, Pertussis, Tetanus Vaccination: No Hx Pneumococcal Vaccination: 05/27/17 Review of Systems - Review of Systems Constitutional: Weakness EENT: No symptoms reported Cardiovascular: No symptoms reported Respiratory: See HPI Gastrointestinal: Abdomen distended Genitourinary: No symptoms reported Female Genitourinary: No symptoms reported Musculoskeletal: No symptoms reported Skin: No symptoms reported Hematologic/Lymphatic: Other - thrombocytopenia Neurological/Psychological: No symptoms reported Physical Exam - Vital signs Vitals: Resp BP Pulse Ox 11 L 139/80 H 99 09/16/17 06:00 09/16/17 06:00 09/16/17 06:00 - Notes Notes: PHYSICAL EXAMINATION: GENERAL: Chronically ill appearing Female sitting in bed in no acute distress. HEAD: Atraumatic, normocephalic. EYES: Pupils equal round and reactive to light, extraocular movements intact, conjunctiva are normal. ENT: Nares patent, oropharynx clear without exudates. Moist mucous membranes. NECK: Normal range of motion, supple without lymphadenopathy LUNGS:Bibasilar crackles no wheezing no rhonchi HEART: Regular rate and rhythm without murmurs ABDOMEN: Soft, nontender, nondistended abdomen. No guarding, no rebound. No masses appreciated. Female : deferred Musculoskeletal: Normal range of motion, Pitting edema bilateral lower extremities. No cyanosis. NEUROLOGICAL: Cranial nerves grossly intact. Normal sensory, motor exams PSYCH: Normal mood, normal affect. SKIN: Warm, Dry, normal turgor, no rashes or lesions noted. Scar left anterior upper chest wall where her AICD was placed. Scar right anterior chest wall or port was placed.Signs or symptoms of infection at either site. Course - Re-evaluation Re-evalutation: 09/16/17 08:56 Patient's daughter states patient states that aspirin for her A. fib.She states she seems to go into it when she is sick.She also states that patient is receiving infusions. For her low platelets and she is due for one on Sunday. She is questioning whether patient can receive it in the hospital if she is still here. I told her to discuss this with Dr. Tyson the admitting physician. - Vital Signs Vital signs: Temp Pulse Resp BP Pulse Ox 20 139/80 H 98 09/16/17 06:01 09/16/17 06:00 09/16/17 06:42 - Laboratory Result Diagrams: 09/16/17 06:30 09/16/17 06:30 Laboratory results interpreted by me: 09/16/17 09/16/17 09/16/17 06:30 06:30 06:30 RBC 2.97 L Hgb 10.5 L Hct 31.0 L MCV 104 H MCH 35.3 H RDW 16.9 H Plt Count 25 L* Monocytes % 13.9 H Sodium 117.6 L* Chloride 84 L Glucose 117 H Direct Bilirubin 0.6 H NT-Pro-B Natriuret Pep 7860 H - EKG Interpretation by Me Rhythm: A.Fib - 109 Discharge - Discharge Clinical Impression: CHF (congestive heart failure), Lung cancer, Hyponatremia, Thrombocytopenia, Atrial fibrillation Admitting Provider: Hospitalist - Dr. Tyson Unit Admitted: Telemetry Referrals: THALIA DAMICO MD [Primary Care Provider] - Follow up as needed
[2017-09-16 09:47] LABS: INTERNATIONAL RATION (INR) 1.01
[2017-09-16 09:48] LABS: PARTIAL THROMBOPLASTIN TIME 36.8 SEC (23.5-35.8)
[2017-09-16] MEDS ORDERED: ONDANSETRON 4 MG TAB.RAPDIS PO PRN (10:12)
[2017-09-16] MEDS ORDERED: DEXTROSE 50%-WATER 25 GM/50 ML DISP.SYRIN IV PRN ×2 (10:38)
[2017-09-16] MEDS ORDERED: DEXTROSE 40% GEL 15 GM TUBE PO PRN ×2 (10:38)
[2017-09-16] MEDS ORDERED: GLUCAGON,HUMAN RECOMB 1 MG INJ IM PRN (10:38)
--- NOTE | 2017-09-16 10:38 | PDOC H&P ---
History of Present Illness Admission Date/PCP: 09/16/17 09:53 THALIA DAMICO MD Patient complains of: Shortness of breath History of Present Illness: GINNA LOPEZ is a 67 year old female who has a history of lung cancer, coronary artery disease as well as atrial fibrillation who presents with progressive shortness of breath for the last month. Patient reports that her weight has gradually increased and she had worsening lower extremity edema. She also reports having dyspnea on exertion, orthopnea, PND as well as generalized decline and fatigue. The patient reports that she has gained over 30 pounds over the last month. The patient also has not been eating very much however she has been able to drink some. The patient denied have any chest pain associated with this. She has a history of H fibrillation but denies any tachycardia arrhythmias. The patient is found to have congestive heart failure. This is a new diagnosis for her. Patient does relate that she has a history of having ventricular tachycardia and had a defibrillator placed earlier in the year. Patient has been getting chemotherapy and reports that her last chemotherapy was done at the end of June for her lung cancer. Patient reports that she quit smoking in September of this year. Past Medical History Cardiac Medical History: Reports: Atrial Fibrillation, Coronary Artery Disease, Myocardial Infarction, Hypertension, Other - vtach/afib Denies: Congestive Heart Failure Pulmonary Medical History: Reports: Chronic Obstructive Pulmonary Disease (COPD) Denies: Asthma, Bronchitis, Pneumonia, Tuberculosis EENT Medical History: Reports: None Neurological Medical History: Reports: None Denies: Seizures Endocrine Medical History: Reports: Diabetes Mellitus Type 2 Renal/ Medical History: Denies: End Stage Renal Disease Malignancy Medical History: Reports: Lung Cancer GI Medical History: Reports: None Denies: Cirrhosis, Gastroesophageal Reflux Disease Musculoskeltal Medical History: Denies: Arthritis Skin Medical History: Reports: None Psychiatric Medical History: Reports: None Denies: Bipolar Disorder, Depression Traumatic Medical History: Reports: None Hematology: Reports: Anemia Denies: Bleeding Tendencies Past Surgical History Past Surgical History: Reports: Cardiac Catheterization, Coronary Artery Bypass Graft, Internal Defibrillator Social History Information Source: Patient Lives with: Family - daughter Smoking Status: Former Smoker Frequency of Alcohol Use: None Hx Recreational Drug Use: No Drugs: None Hx Prescription Drug Abuse: No - Advance Directive Resuscitation Status: Full Code Family History Family History: Mother at age 49 from complications of diabetes mellitus. Father in his 60s from leukemia. Parental Family History Reviewed: Yes Children Family History Reviewed: No Sibling(s) Family History Reviewed.: No Medication/Allergy Allergies/Adverse Reactions: Sulfa (Sulfonamide Antibiotics) Allergy (Verified 03/11/17 04:07) Review of Systems Constitutional: PRESENT: anorexia, fatigue, weight gain. ABSENT: chills, fever( s), headache(s) Eyes: ABSENT: visual disturbances Ears: ABSENT: hearing changes Cardiovascular: PRESENT: dyspnea on exertion, edema, orthropnea. ABSENT: chest pain, palpitations Respiratory: PRESENT: dyspnea. ABSENT: cough, hemoptysis, sputum Gastrointestinal: ABSENT: abdominal pain, constipation, diarrhea, hematemesis, hematochezia, nausea, vomiting Genitourinary: ABSENT: dysuria, hematuria Musculoskeletal: ABSENT: joint swelling Integumentary: ABSENT: rash, wounds Neurological: ABSENT: abnormal gait, abnormal speech, confusion, dizziness, focal weakness, syncope Psychiatric: ABSENT: anxiety, depression Endocrine: ABSENT: cold intolerance, heat intolerance, polydipsia, polyuria Hematologic/Lymphatic: ABSENT: easy bleeding, easy bruising Physical Exam Vital Signs: Temp Pulse Resp BP Pulse Ox 20 139/85 H 98 09/16/17 10:00 09/16/17 07:16 09/16/17 10:00 General appearance: PRESENT: no acute distress, obese Head exam: PRESENT: atraumatic, normocephalic Eye exam: PRESENT: conjunctiva pink, EOMI, PERRLA. ABSENT: scleral icterus Ear exam: PRESENT: normal external ear exam Mouth exam: PRESENT: moist, tongue midline Neck exam: ABSENT: carotid bruit, JVD, lymphadenopathy, thyromegaly Respiratory exam: PRESENT: crackles - Basis, decreased breath sounds - Decreased breath sounds in the bilateral bases.. ABSENT: rhonchi, wheezes Cardiovascular exam: PRESENT: irregular rhythm. ABSENT: diastolic murmur, rubs , systolic murmur Pulses: PRESENT: normal dorsalis pedis pul Vascular exam: PRESENT: normal capillary refill GI/Abdominal exam: PRESENT: normal bowel sounds, soft. ABSENT: distended, guarding, mass, organolmegaly, rebound, tenderness Rectal exam: PRESENT: deferred Extremities exam: PRESENT: pedal edema, +2 edema. ABSENT: calf tenderness, clubbing Neurological exam: PRESENT: alert, awake, oriented to person, oriented to place , oriented to time, oriented to situation, CN II-XII grossly intact. ABSENT: motor sensory deficit Psychiatric exam: PRESENT: appropriate affect Skin exam: PRESENT: dry, intact, warm. ABSENT: cyanosis, rash Results Impressions: Chest X-Ray 09/16/17 06:05 IMPRESSION: CARDIAC ENLARGEMENT. VASCULAR CONGESTION WITH RIGHT GREATER THAN LEFT PLEURAL EFFUSIONS. Assessment & Plan - Diagnosis (1) CHF (congestive heart failure) Is this a current diagnosis for this admission?: Yes Plan: The patient denies having any previous history of congestive heart failure. She does have a history of coronary artery disease, ventricular tachycardia and atrial fibrillation. We will treat with IV Lasix and obtain echocardiogram. Will check serial cardiac enzymes to make certain that she has not had an acute cardiac event. The patient relates a gradual increase in her weight and worsening of symptoms which makes it less likely that this is an acute event. No complaints of abdominal distention and has a fluid wave suggestive of peritoneal fluid with ascites. Will obtain an abdominal ultrasound and perform a paracentesis she does have a significant amount of fluid. She also does have bilateral pleural effusions but will wait on doing any type of thoracentesis and see how she responds with the IV Lasix first. (2) Coronary artery disease Is this a current diagnosis for this admission?: Yes Plan: The patient has a history of coronary artery disease but denies any chest pain. Will check serial cardiac enzymes as per above. (3) COPD (chronic obstructive pulmonary disease) Is this a current diagnosis for this admission?: Yes Plan: We will give nebulizers as needed. (4) Diabetes mellitus Is this a current diagnosis for this admission?: Yes Plan: We will cover with sliding scale insulin. (5) Ventricular tachycardia Is this a current diagnosis for this admission?: Yes Plan: Patient has had a defibrillator placed. She denies any discharge from her defibrillator. (6) Atrial fibrillation Is this a current diagnosis for this admission?: Yes Plan: The patient is currently rate controlled. (7) Hyponatremia Is this a current diagnosis for this admission?: Yes Plan: The patient has lung cancer as well as congestive heart failure. Both of these are probably contributing to the low sodium. Will put on a 1.5 L fluid restriction. We will also give Lasix for diuresis. (8) Lung cancer Is this a current diagnosis for this admission?: Yes Plan: Patient is followed by Dr. Cervantes. We will ask him to evaluate in the morning. Patient has low platelets most likely related to her underlying malignancy. She reports that her last chemotherapy was at the end of June. (9) Thrombocytopenia Is this a current diagnosis for this admission?: Yes Plan: We will hold off on any anticoagulation at this time because of her low platelets. No evidence for active bleeding. Dr. Cervantes is to see tomorrow. (10) Patient is full code Is this a current diagnosis for this admission?: Yes Plan: The patient requests to be a full code. - Time Time Spent: 50 to 70 Minutes - Inpatient Certification Medical Necessity: Need Close Monitoring Due to Risk of Patient Decompensation
--- NOTE | 2017-09-16 13:22 | RADIOLOGY REPORT (SQ) ---
EXAM DESCRIPTION: U/S ABDOMEN LIMITED W/O DOP COMPLETED DATE/TIME: 09/16/2017 1:05 pm REASON FOR STUDY: eval distention COMPARISON: None. TECHNIQUE: Limited Static and real time sanchez scale imaging performed of the 4 abdominal quadrants an d the midline. LIMITATIONS: None. FINDINGS: ASCITES: Trace fluid right upper quadrant. OTHER: No other significant finding. IMPRESSION: TRACE ASCITES RIGHT UPPER QUADRANT. TECHNICAL DOCUMENTATION: JOB ID: [id number] [employer]- All Rights Reserved
[2017-09-16] MEDS: ONDANSETRON HCL INJ/PF 4 MG/2 ML SDV IV PRN (14:11)
[2017-09-16] MEDS: ACETAMINOPHEN 325 MG TABLET PO PRN (14:43)
[2017-09-16 15:45] LABS: CREATINE KINASE MB 0.38 ng/mL (<4.55)
[2017-09-16 15:47] LABS: TROPONIN I < 0.012 ng/mL
[2017-09-16] MEDS: OXYCODONE HCL IR 5 MG TABLET PO PRN ×2 (16:24→21:26)
[2017-09-16] MEDS: FUROSEMIDE INJ/PF 100 MG/10 ML SDV IV SCH (19:11)
--- NOTE | 2017-09-16 19:44 | EKG REPORT ---
SEVERITY:- ABNORMAL ECG - ATRIAL FLUTTER, A-RATE 333 MULTIFORM VENTRICULAR PREMATURE COMPLEXES LEFT POSTERIOR FASCICULAR BLOCK CONSIDER ANTERIOR INFARCT MINIMAL ST DEPRESSION, INFERIOR LEADS : Confirmed by: Christiano Merino 16-Sep-2017 19:43:55
[2017-09-16] MEDS: FAMOTIDINE 20 MG TABLET PO SCH (21:27)
[2017-09-16 21:54] LABS: CREATINE KINASE MB 0.53 ng/mL (<4.55)
[2017-09-16 21:57] LABS: TROPONIN I < 0.012 ng/mL
[2017-09-17] MEDS: OXYCODONE HCL IR 5 MG TABLET PO PRN ×3 (02:13→19:33)
[2017-09-17 03:30] LABS: ABSOLUTE LYMPHOCYTES (AUTO) 1.8 10^3/uL (0.5-4.7); ABSOLUTE MONOCYTES (AUTO) 0.7 10^3/uL (0.1-1.4); ABSOLUTE NEUT (AUTO) 2.1 10^3/uL (1.7-8.2); BASOPHILS % (AUTO) 0.4 % (0-2); EOSINOPHILS % (AUTO) 0.7 % (0-6); HEMATOCRIT 31.7 % (36.0-47.0); HEMOGLOBIN 10.5 g/dL (12.0-15.5); LYMPHOCYTES % (AUTO) 38.9 % (13-45); MEAN CORPUSCULAR HEMOGLOBIN 34.7 pg (27.0-33.4); MEAN CORPUSCULAR HGB CONC 33.1 g/dL (32.0-36.0); MEAN CORPUSCULAR VOLUME 105 fl (80-97); MONOCYTES % (AUTO) 14.5 % (3-13); RED BLOOD COUNT 3.02 10^6/uL (3.72-5.28); RED CELL DISTRIBUTION WIDTH 16.7 % (11.5-14.0); SEGMENTED NEUTROPHILS % (AUTO) 45.5 % (42-78); TOTAL CELLS COUNTED % (AUTO) 100 %; WHITE BLOOD COUNT 4.6 10^3/uL (4.0-10.5)
[2017-09-17 03:34] LABS: PLATELET COUNT 24 10^3/uL (150-450)
[2017-09-17 04:10] LABS: ANION GAP 7 (5-19); BLOOD UREA NITROGEN 15 mg/dL (7-20); CALCIUM 9.7 mg/dL (8.4-10.2); CARBON DIOXIDE 28 mmol/L (22-30); CHLORIDE 86 mmol/L (98-107); GLUCOSE 97 mg/dL (75-110); MAGNESIUM 1.3 mg/dL (1.6-2.3); POTASSIUM 4.9 mmol/L (3.6-5.0); SODIUM 121.3 mmol/L (137-145)
[2017-09-17 04:21] LABS: CREATINE KINASE MB 0.63 ng/mL (<4.55)
[2017-09-17 04:27] LABS: TROPONIN I < 0.012 ng/mL
[2017-09-17] MEDS: FUROSEMIDE INJ/PF 100 MG/10 ML SDV IV SCH ×2 (06:52→18:56)
[2017-09-17] MEDS: ACETAMINOPHEN 325 MG TABLET PO PRN (08:10)
[2017-09-17] MEDS: IPRATROPIUM/ALBUTEROL 0.5-2.5 MG/3 ML AMPUL NEB PRN ×2 (08:46→21:18)
--- NOTE | 2017-09-17 08:46 | PDOC CONSULTATION ---
Consultation Consult Date: 09/17/17 Attending physician:: NESSA AHUMADA Consult reason:: Stage III lung cancer with persistent thrombocytopenia and heart failure History of Present Illness Admission Date/PCP: 09/16/17 09:53 THALIA DAMICO MD Patient complains of: Anasarca, shortness of breath, weakness, lung cancer, thrombocytopenia History of Present Illness: 67-year-old female well-known to our oncology clinic with recent diagnosis of stage III lung cancer, who was initiated on weekly carboplatin/Taxol, prior to initiation she did have a normal platelet count, she was diagnosed in May and started in June with concurrent chemoradiation, and she only received 3 weekly cycles of chemotherapy and then her platelet count dropped at the beginning of July, and ultimately we had to hold chemotherapy since then. So she has not really received any treatment for about 6 weeks. We are hoping that it was myelosuppression from chemotherapy, she was given a course of steroids along with IVIG last week and unfortunately her platelet count has not recovered. Over that time. She also has gained quite a bit of weight, does appear anasarca and does appear to be in overt heart failure at this point. Past Medical History Cardiac Medical History: Reports: Atrial Fibrillation, Coronary Artery Disease, Myocardial Infarction, Hypertension, Other - vtach/afib Denies: Congestive Heart Failure Pulmonary Medical History: Reports: Chronic Obstructive Pulmonary Disease (COPD) Denies: Asthma, Bronchitis, Pneumonia, Tuberculosis EENT Medical History: Reports: None Neurological Medical History: Reports: None Denies: Seizures Endocrine Medical History: Reports: Diabetes Mellitus Type 2 Renal/ Medical History: Denies: End Stage Renal Disease Malignancy Medical History: Reports: Lung Cancer GI Medical History: Reports: None Denies: Cirrhosis, Gastroesophageal Reflux Disease Musculoskeltal Medical History: Denies: Arthritis Skin Medical History: Reports: None Psychiatric Medical History: Reports: None Denies: Bipolar Disorder, Depression Traumatic Medical History: Reports: None Hematology: Reports: Anemia Denies: Bleeding Tendencies Past Surgical History Past Surgical History: Reports: Cardiac Catheterization, Coronary Artery Bypass Graft, Internal Defibrillator Social History Information Source: Patient Lives with: Family - daughter Smoking Status: Former Smoker Frequency of Alcohol Use: None Hx Recreational Drug Use: No Drugs: None Hx Prescription Drug Abuse: No - Advance Directive Resuscitation Status: Full Code Family History Family History: Reviewed & Not Pertinent Parental Family History Reviewed: Yes Children Family History Reviewed: Yes Sibling(s) Family History Reviewed.: Yes Medication/Allergy Home Medications: Aspirin [Aspirin EC] 81 mg PO DAILY 09/16/17 Budesonide/Formoterol Fumarate [Symbicort Hfa 160-4.5 Mcg Inhaler 6 gm] 2 puff IH Q12 09/16/17 Carvedilol [Coreg 25 mg Tablet] 25 mg PO Q12 09/16/17 Diltiazem HCl [Cardizem 30 mg Tablet] 30 mg PO Q6 09/16/17 Furosemide [Lasix 40 mg Tablet] 40 mg PO Q12 09/16/17 Hydralazine HCl 100 mg PO Q8 09/16/17 Losartan Potassium [Cozaar 100 mg Tablet] 100 mg PO DAILY 09/16/17 Metformin HCl [Glucophage 500 mg Tablet] 1,000 mg PO Q12 09/16/17 Ondansetron HCl [Zofran 8 mg Tablet] 8 mg PO Q8HP PRN 09/16/17 Oxycodone HCl [Oxy-Ir 5 mg Tablet] 5 mg PO Q8HP PRN 09/16/17 Promethazine HCl [Phenergan 25 mg Tablet] 25 mg PO Q6HP PRN 09/16/17 Simvastatin [Zocor 40 mg Tablet] 40 mg PO QHS 09/16/17 Umeclidinium [place] [Incruse Ellipta] 1 puff IH DAILY 09/16/17 Allergies/Adverse Reactions: Sulfa (Sulfonamide Antibiotics) Allergy (Verified 03/11/17 04:07) Review of Systems Constitutional: PRESENT: fatigue, weakness, weight gain Cardiovascular: PRESENT: dyspnea on exertion, edema, orthropnea Gastrointestinal: PRESENT: bloating, nausea Neurological: ABSENT: abnormal gait, abnormal speech, confusion, dizziness, focal weakness, syncope Physical Exam Vital Signs: Temp Pulse Resp BP Pulse Ox 97.5 F 21 H 115/70 98 09/17/17 06:21 09/17/17 07:01 09/17/17 07:00 09/17/17 07:01 Intake & Output 09/16/17 09/17/17 09/18/17 06:59 06:59 06:59 Intake Total 0 Output Total 900 Balance -900 Weight 100 kg General appearance: PRESENT: mild distress Head exam: PRESENT: atraumatic Respiratory exam: PRESENT: accessory muscle use, crackles, tachypnea Cardiovascular exam: PRESENT: tachycardia GI/Abdominal exam: PRESENT: ascites, distended Rectal exam: PRESENT: deferred Extremities exam: PRESENT: pedal edema, +2 edema Neurological exam: PRESENT: alert, altered, awake, oriented to person, oriented to place, oriented to time, oriented to situation Skin exam: PRESENT: intact Results Laboratory Results: 09/17/17 03:10 09/17/17 03:10 09/17/17 09/17/17 03:10 03:10 WBC 4.6 RBC 3.02 L Hgb 10.5 L Hct 31.7 L MCV 105 H MCH 34.7 H MCHC 33.1 RDW 16.7 H Plt Count 24 L* Seg Neutrophils % 45.5 Lymphocytes % 38.9 Monocytes % 14.5 H Eosinophils % 0.7 Basophils % 0.4 Absolute Neutrophils 2.1 Absolute Lymphocytes 1.8 Absolute Monocytes 0.7 Absolute Eosinophils 0.0 Absolute Basophils 0.0 Sodium 121.3 L Potassium 4.9 Chloride 86 L Carbon Dioxide 28 Anion Gap 7 BUN 15 Creatinine 0.66 Est GFR ( Amer) > 60 Est GFR (Non-Af Amer) > 60 Glucose 97 Calcium 9.7 Magnesium 1.3 L 09/16/17 09/16/17 09/16/17 14:59 14:59 21:15 Creatine Kinase < 20 L < 20 L CK-MB (CK-2) 0.38 Troponin I < 0.012 09/16/17 09/17/17 09/17/17 21:15 03:10 03:10 Creatine Kinase < 20 L CK-MB (CK-2) 0.53 0.63 Troponin I < 0.012 < 0.012 Impressions: Abdomen Ultrasound 09/16/17 00:00 IMPRESSION: TRACE ASCITES RIGHT UPPER QUADRANT. Chest X-Ray 09/16/17 06:05 IMPRESSION: CARDIAC ENLARGEMENT. VASCULAR CONGESTION WITH RIGHT GREATER THAN LEFT PLEURAL EFFUSIONS. Status: Image reviewed by me Assessment & Plan - Diagnosis (1) Thrombocytopenia Is this a current diagnosis for this admission?: Yes Plan: Platelet count is in the 20,000 range and stable, however we have given her treatment for immune mediated causes, and that has not helped, I think at this point we need to do a bone marrow biopsy, I would like to set that up while she is here. We will get that done through radiology, and we will coordinate through our office. (2) Lung cancer Qualifiers: Laterality: right Lung location: upper lobe of lung Qualified Code(s): C34.11 - Malignant neoplasm of upper lobe, right bronchus or lung Is this a current diagnosis for this admission?: Yes Plan: Patient with stage III lung cancer, at this point no further treatment can be done because of her functional status as well as severe thrombocytopenia. We will plan for further imaging once both her functional status as well as thrombocytopenia improved. - Time Time Spent: Greater than 70 Minutes - Inpatient Certification Based on my medical assessment, after consideration of the patient's comorbidities, presenting symptoms, or acuity I expect that the services needed warrant INPATIENT care.: Yes I certify that my determination is in accordance with my understanding of Medicare's requirements for reasonable and necessary INPATIENT services [42 CFR 412.3e].: Yes Medical Necessity: Risk of Complication if Not Cared For in Hospital
[2017-09-17] MEDS: FAMOTIDINE 20 MG TABLET PO SCH ×2 (11:33→22:05)
--- NOTE | 2017-09-17 16:17 | PDOC PROGRESS REPORT ---
Subjective Progress Note for:: 09/17/17 Subjective:: Complains of back pain this morning. Reason For Visit: CONGESTIVE HEART FAILURE Physical Exam Vital Signs: Temp Pulse Resp BP Pulse Ox 97.5 F 105 H 20 124/83 96 09/17/17 06:21 09/17/17 11:56 09/17/17 14:01 09/17/17 14:01 09/17/17 13:58 Intake & Output 09/16/17 09/17/17 09/18/17 06:59 06:59 06:59 Intake Total 0 Output Total 900 Balance -900 Weight 100 kg General appearance: PRESENT: no acute distress Eye exam: PRESENT: conjunctiva pink. ABSENT: scleral icterus Mouth exam: PRESENT: moist, tongue midline Neck exam: ABSENT: JVD Respiratory exam: PRESENT: clear to auscultation isaura. ABSENT: rales, rhonchi, wheezes Cardiovascular exam: PRESENT: RRR. ABSENT: diastolic murmur, rubs, systolic murmur GI/Abdominal exam: PRESENT: normal bowel sounds, soft. ABSENT: distended, guarding, mass, organolmegaly, rebound, tenderness Extremities exam: ABSENT: calf tenderness, clubbing, pedal edema Neurological exam: PRESENT: alert, awake, oriented to person, oriented to place , oriented to time, oriented to situation, CN II-XII grossly intact. ABSENT: motor sensory deficit Psychiatric exam: PRESENT: appropriate affect Skin exam: PRESENT: dry, intact, warm. ABSENT: cyanosis, rash Results Laboratory Results: 09/17/17 03:10 09/17/17 03:10 09/17/17 09/17/17 03:10 03:10 WBC 4.6 RBC 3.02 L Hgb 10.5 L Hct 31.7 L MCV 105 H MCH 34.7 H MCHC 33.1 RDW 16.7 H Plt Count 24 L* Seg Neutrophils % 45.5 Lymphocytes % 38.9 Monocytes % 14.5 H Eosinophils % 0.7 Basophils % 0.4 Absolute Neutrophils 2.1 Absolute Lymphocytes 1.8 Absolute Monocytes 0.7 Absolute Eosinophils 0.0 Absolute Basophils 0.0 Sodium 121.3 L Potassium 4.9 Chloride 86 L Carbon Dioxide 28 Anion Gap 7 BUN 15 Creatinine 0.66 Est GFR ( Amer) > 60 Est GFR (Non-Af Amer) > 60 Glucose 97 Calcium 9.7 Magnesium 1.3 L 09/16/17 09/16/17 09/16/17 14:59 14:59 21:15 Creatine Kinase < 20 L < 20 L CK-MB (CK-2) 0.38 Troponin I < 0.012 09/16/17 09/17/17 09/17/17 21:15 03:10 03:10 Creatine Kinase < 20 L CK-MB (CK-2) 0.53 0.63 Troponin I < 0.012 < 0.012 Impressions: Abdomen Ultrasound 09/16/17 00:00 IMPRESSION: TRACE ASCITES RIGHT UPPER QUADRANT. Chest X-Ray 09/16/17 06:05 IMPRESSION: CARDIAC ENLARGEMENT. VASCULAR CONGESTION WITH RIGHT GREATER THAN LEFT PLEURAL EFFUSIONS. Assessment & Plan - Diagnosis (1) CHF (congestive heart failure) Is this a current diagnosis for this admission?: Yes Plan: The patient denies having any previous history of congestive heart failure. She does have a history of coronary artery disease, ventricular tachycardia and atrial fibrillation. We will treat with IV Lasix and obtain echocardiogram. The patient relates a gradual increase in her weight and worsening of symptoms which makes it less likely that this is an acute event. She also does have bilateral pleural effusions but will wait on doing any type of thoracentesis and see how she responds with the IV Lasix first. (2) Coronary artery disease Is this a current diagnosis for this admission?: Yes Plan: The patient has a history of coronary artery disease but denies any chest pain. Will check serial cardiac enzymes as per above. (3) COPD (chronic obstructive pulmonary disease) Is this a current diagnosis for this admission?: Yes Plan: We will give nebulizers as needed. (4) Diabetes mellitus Is this a current diagnosis for this admission?: Yes Plan: We will cover with sliding scale insulin. (5) Ventricular tachycardia Is this a current diagnosis for this admission?: Yes Plan: Patient has had a defibrillator placed. She denies any discharge from her defibrillator. (6) Atrial fibrillation Is this a current diagnosis for this admission?: Yes Plan: The patient is currently rate controlled. (7) Hyponatremia Is this a current diagnosis for this admission?: Yes Plan: The patient has lung cancer as well as congestive heart failure. Both of these are probably contributing to the low sodium. Will continue on a 1.5 L fluid restriction. We will also give Lasix for diuresis. (8) Lung cancer Qualifiers: Laterality: right Lung location: upper lobe of lung Qualified Code(s): C34.11 - Malignant neoplasm of upper lobe, right bronchus or lung Is this a current diagnosis for this admission?: Yes Plan: Patient is followed by Dr. Cervantes. We appreciate his input. She reports that her last chemotherapy was at the end of June. (9) Thrombocytopenia Is this a current diagnosis for this admission?: Yes Plan: We will hold off on any anticoagulation at this time because of her low platelets. No evidence for active bleeding. Dr. Cervantes has evaluated the patient and is recommending a bone marrow biopsy. (10) Patient is full code Is this a current diagnosis for this admission?: Yes Plan: The patient requests to be a full code. - Time Time Spent with patient: 25-34 minutes - Inpatient Certification Medical Necessity: Need Close Monitoring Due to Risk of Patient Decompensation
[2017-09-17] MEDS ORDERED: DILTIAZEM HCL 60 MG TABLET PO ONE (20:30)
[2017-09-17] MEDS: CARVEDILOL 12.5 MG TABLET PO SCH (22:05)
[2017-09-18] MEDS: DILTIAZEM HCL 30 MG TABLET PO SCH ×4 (01:10→18:19)
[2017-09-18] MEDS: FUROSEMIDE INJ/PF 100 MG/10 ML SDV IV SCH ×2 (05:04→18:19)
[2017-09-18 06:06] LABS: HEMATOCRIT 29.3 % (36.0-47.0); HEMOGLOBIN 9.8 g/dL (12.0-15.5); MEAN CORPUSCULAR HEMOGLOBIN 35.1 pg (27.0-33.4); MEAN CORPUSCULAR HGB CONC 33.3 g/dL (32.0-36.0); MEAN CORPUSCULAR VOLUME 105 fl (80-97); RED BLOOD COUNT 2.79 10^6/uL (3.72-5.28); RED CELL DISTRIBUTION WIDTH 16.7 % (11.5-14.0); WHITE BLOOD COUNT 4.1 10^3/uL (4.0-10.5)
[2017-09-18 06:19] LABS: ANION GAP 6 (5-19); BLOOD UREA NITROGEN 16 mg/dL (7-20); CALCIUM 9.1 mg/dL (8.4-10.2); CARBON DIOXIDE 31 mmol/L (22-30); CHLORIDE 83 mmol/L (98-107); GLUCOSE 91 mg/dL (75-110); POTASSIUM 4.6 mmol/L (3.6-5.0)
[2017-09-18 06:55] LABS: SODIUM 119.6 mmol/L (137-145)
[2017-09-18 07:12] LABS: ABSOLUTE LYMPHOCYTES# (MANUAL) 1.9 10^3/uL (0.5-4.7); ABSOLUTE MONOCYTES # (MANUAL) 0.4 10^3/uL (0.1-1.4); ABSOLUTE NEUTROPHILS# (MANUAL) 1.8 10^3/uL (1.7-8.2); BAND NEUTROPHILS % (MANUAL) 1 % (3-5); BASOPHILS % (MANUAL) 0 % (0-2); EOSINOPHILS % (MANUAL) 1 % (0-6); LYMPHOCYTES % (MANUAL) 46 % (13-45); MONOCYTES % (MANUAL) 9 % (3-13); SEGMENTED NEUTROPHILS % (MAN) 39 % (42-78); TOTAL CELLS COUNTED 100
[2017-09-18 07:14] LABS: TOXIC GRANULATION 1+
[2017-09-18 07:15] LABS: ANISOCYTOSIS 1+; BURR CELLS 1+; HELMET CELLS SLIGHT; POIKILOCYTOSIS 1+
[2017-09-18 07:16] LABS: OVALOCYTES SLIGHT; PLATELET COMMENT DECREASED; PLATELET LARGE PRESENT; SCHISTOCYTES 1+; TEAR DROP CELLS SLIGHT
[2017-09-18 07:23] LABS: METAMYELOCYTES % (MANUAL) 3 % (0); PLATELET COUNT 18 10^3/uL (150-450)
--- NOTE | 2017-09-18 08:49 | PDOC PROGRESS REPORT ---
Subjective Progress Note for:: 09/18/17 Subjective:: Patient is doing better today, less short of breath, anasarca is greatly improved, platelet count is 18 today but patient is not actively bleeding. Reason For Visit: CONGESTIVE HEART FAILURE Physical Exam Vital Signs: Temp Pulse Resp BP Pulse Ox 97.6 F 93 18 105/68 100 09/18/17 04:00 09/18/17 04:00 09/18/17 04:00 09/18/17 04:00 09/18/17 04:00 Intake & Output 09/17/17 09/18/17 09/19/17 06:59 06:59 06:59 Intake Total 0 374 Output Total 900 1275 Balance -900 -901 Weight 100 kg 102.3 kg General appearance: PRESENT: no acute distress, well-developed, well-nourished Head exam: PRESENT: atraumatic, normocephalic Eye exam: PRESENT: conjunctiva pink, EOMI, PERRLA. ABSENT: scleral icterus Ear exam: PRESENT: normal external ear exam Mouth exam: PRESENT: moist, tongue midline Neck exam: ABSENT: carotid bruit, JVD, lymphadenopathy, thyromegaly Respiratory exam: PRESENT: clear to auscultation isaura. ABSENT: rales, rhonchi, wheezes Cardiovascular exam: PRESENT: RRR. ABSENT: diastolic murmur, rubs, systolic murmur Pulses: PRESENT: normal dorsalis pedis pul Vascular exam: PRESENT: normal capillary refill GI/Abdominal exam: PRESENT: normal bowel sounds, soft. ABSENT: distended, guarding, mass, organolmegaly, rebound, tenderness Rectal exam: PRESENT: deferred Extremities exam: PRESENT: full ROM. ABSENT: calf tenderness, clubbing, pedal edema Neurological exam: PRESENT: alert, awake, oriented to person, oriented to place , oriented to time, oriented to situation, CN II-XII grossly intact. ABSENT: motor sensory deficit Psychiatric exam: PRESENT: appropriate affect, normal mood. ABSENT: homicidal ideation, suicidal ideation Skin exam: PRESENT: dry, intact, warm. ABSENT: cyanosis, rash Results Laboratory Results: 09/18/17 05:00 09/18/17 05:00 09/18/17 09/18/17 05:00 05:00 WBC 4.1 RBC 2.79 L Hgb 9.8 L Hct 29.3 L MCV 105 H MCH 35.1 H MCHC 33.3 RDW 16.7 H Plt Count 18 L* Seg Neutrophils % Not Reportable Lymphocytes % Not Reportable Monocytes % Not Reportable Eosinophils % Not Reportable Basophils % Not Reportable Absolute Neutrophils Not Reportable Absolute Lymphocytes Not Reportable Absolute Monocytes Not Reportable Absolute Eosinophils Not Reportable Absolute Basophils Not Reportable Sodium 119.6 L* Potassium 4.6 Chloride 83 L Carbon Dioxide 31 H Anion Gap 6 BUN 16 Creatinine 0.70 Est GFR ( Amer) > 60 Est GFR (Non-Af Amer) > 60 Glucose 91 Calcium 9.1 09/16/17 09/16/17 09/16/17 14:59 14:59 21:15 Creatine Kinase < 20 L < 20 L CK-MB (CK-2) 0.38 Troponin I < 0.012 09/16/17 09/17/17 09/17/17 21:15 03:10 03:10 Creatine Kinase < 20 L CK-MB (CK-2) 0.53 0.63 Troponin I < 0.012 < 0.012 Impressions: Abdomen Ultrasound 09/16/17 00:00 IMPRESSION: TRACE ASCITES RIGHT UPPER QUADRANT. Chest X-Ray 09/16/17 06:05 IMPRESSION: CARDIAC ENLARGEMENT. VASCULAR CONGESTION WITH RIGHT GREATER THAN LEFT PLEURAL EFFUSIONS. Assessment & Plan - Diagnosis (1) Thrombocytopenia Is this a current diagnosis for this admission?: Yes Plan: Still believe it is most likely myelosuppression from previous chemoradiation, but we need to do bone marrow biopsy, we have exhausted all of our immunotherapy options in terms of improving the platelet count, I will taper off prednisone this week, will set her up for bone marrow biopsy today. (2) Lung cancer Qualifiers: Laterality: right Lung location: upper lobe of lung Qualified Code(s): C34.11 - Malignant neoplasm of upper lobe, right bronchus or lung Is this a current diagnosis for this admission?: Yes Plan: Treatment still on hold because of myelosuppression - Time Time Spent with patient: 35 or more minutes - Inpatient Certification Based on my medical assessment, after consideration of the patient's comorbidities, presenting symptoms, or acuity I expect that the services needed warrant INPATIENT care.: Yes I certify that my determination is in accordance with my understanding of Medicare's requirements for reasonable and necessary INPATIENT services [42 CFR 412.3e].: Yes Medical Necessity: Risk of Complication if Not Cared For in Hospital
[2017-09-18] MEDS ORDERED: TOLVAPTAN 15 MG TABLET PO ONE ×2 (10:00→15:45)
[2017-09-18] MEDS ORDERED: FENTANYL CITRATE INJ/PF 100 MCG/2 ML AMPUL ONE (11:21)
[2017-09-18] MEDS ORDERED: MIDAZOLAM 2 MG/2 ML INJ ONE (11:21)
--- NOTE | 2017-09-18 12:41 | RADIOLOGY REPORT (SQ) ---
EXAM DESCRIPTION: CT BIOPSY BONE MARROW, NEEDLE; CT NEEDLE PLACEMENT COMPLETED DATE/TIME: 09/18/2017 12:20 pm REASON FOR STUDY: SEVERE THROMBOCYTOPENIA COMPARISON: CT abdomen pelvis 06/22/2017 Abdominal ultrasound 09/16/2017 TECHNIQUE: CT guided biopsy of the right posterior iliac crest bone marrow performed with IV pain co ntrol CT Fluoroscopy Time: 2.[address] scanners at this facility use dose modulation, iterative reconstruction, and/or weight based d osing when appropriate to reduce radiation dose to as low as reasonably achievable (ALARA). [facility]: Dose Right [facility]: CareDose [facility]: Dose Right [facility]: Teradose 4D [facility]: [employer] RADIATION DOSE: mGy. FINDINGS: The procedure was discussed with the patient and the patient agreed to the procedure. Prio r to the procedure, a time out was performed to verify the patient's identity and planned procedure. IV sedation was administered and physician direction by the registered nurse using 75 micrograms of f entanyl. Physiologic monitoring was provided before, during, and after sedation. The total sedation t [place] was 15 minutes. Documentation face to face time, the performing proceduralist, spent monitoring the patient: [address] scanning was performed to localize the percutaneous site for the biopsy approach. After sterile skin prep and local lidocaine for skin and deep tissue anesthesia, a 14 gauge bone biop sy biopsy needle was used to obtain a bone marrow aspirate and bone marrow core of tissue. Specimens were given to Aracelis from cytology The biopsy tissue was submitted to the lab in formalin. There wer e no immediate complications. Pathology is pending at the time of dictation. IMPRESSION: CT GUIDED BIOPSY OF THE POSTERIOR RIGHT ILIAC CREST PERFORMED WITHOUT IMMEDIATE COMPLICA TION. PATHOLOGY PENDING. COMMENT: Quality ID [id number]: Final reports for procedures using fluoroscopy that document radiation exp osure indices, or exposure time and number of fluorographic images (if radiation exposure indices are not available) Patient medication list reviewed: Yes- Quality ID# [id number]:Eligible professional attests to documenting i n the medical record they obtained, updated, or reviewed the patient's current medications.. TECHNICAL DOCUMENTATION: JOB ID: [id number] Quality ID# [id number]: Final reports with documentation of one or more dose reduction techniques (e.g., Aut omated exposure control, adjustment of the mA and/or kV according to patient size, use of iterative r econstruction technique) 2010 [facility], [place] [employer]- All Rights Reserved
--- NOTE | 2017-09-18 12:41 | RADIOLOGY REPORT (SQ) ---
EXAM DESCRIPTION: CT BIOPSY BONE MARROW, NEEDLE; CT NEEDLE PLACEMENT COMPLETED DATE/TIME: 09/18/2017 12:20 pm REASON FOR STUDY: SEVERE THROMBOCYTOPENIA COMPARISON: CT abdomen pelvis 06/22/2017 Abdominal ultrasound 09/16/2017 TECHNIQUE: CT guided biopsy of the right posterior iliac crest bone marrow performed with IV pain co ntrol CT Fluoroscopy Time: 2.[address] scanners at this facility use dose modulation, iterative reconstruction, and/or weight based d osing when appropriate to reduce radiation dose to as low as reasonably achievable (ALARA). [facility]: Dose Right [facility]: CareDose [facility]: Dose Right [facility]: Teradose 4D [facility]: [employer] RADIATION DOSE: mGy. FINDINGS: The procedure was discussed with the patient and the patient agreed to the procedure. Prio r to the procedure, a time out was performed to verify the patient's identity and planned procedure. IV sedation was administered and physician direction by the registered nurse using 75 micrograms of f entanyl. Physiologic monitoring was provided before, during, and after sedation. The total sedation t [place] was 15 minutes. Documentation face to face time, the performing proceduralist, spent monitoring the patient: [address] scanning was performed to localize the percutaneous site for the biopsy approach. After sterile skin prep and local lidocaine for skin and deep tissue anesthesia, a 14 gauge bone biop sy biopsy needle was used to obtain a bone marrow aspirate and bone marrow core of tissue. Specimens were given to Aracelis from cytology The biopsy tissue was submitted to the lab in formalin. There wer e no immediate complications. Pathology is pending at the time of dictation. IMPRESSION: CT GUIDED BIOPSY OF THE POSTERIOR RIGHT ILIAC CREST PERFORMED WITHOUT IMMEDIATE COMPLICA TION. PATHOLOGY PENDING. COMMENT: Quality ID [id number]: Final reports for procedures using fluoroscopy that document radiation exp osure indices, or exposure time and number of fluorographic images (if radiation exposure indices are not available) Patient medication list reviewed: Yes- Quality ID# [id number]:Eligible professional attests to documenting i n the medical record they obtained, updated, or reviewed the patient's current medications.. TECHNICAL DOCUMENTATION: JOB ID: [id number] Quality ID# [id number]: Final reports with documentation of one or more dose reduction techniques (e.g., Aut omated exposure control, adjustment of the mA and/or kV according to patient size, use of iterative r econstruction technique) 2010 [facility], [place] [employer]- All Rights Reserved
[2017-09-18] MEDS: CARVEDILOL 12.5 MG TABLET PO SCH ×2 (14:59→22:44)
[2017-09-18] MEDS: FAMOTIDINE 20 MG TABLET PO SCH ×2 (15:00→21:39)
[2017-09-18] MEDS: PREDNISONE 10 MG TABLET PO SCH (15:01)
--- NOTE | 2017-09-18 17:31 | PDOC PROGRESS REPORT ---
Subjective Progress Note for:: 09/18/17 Subjective:: REsting. s/p bone marrow biopsy. Reason For Visit: CONGESTIVE HEART FAILURE Physical Exam Vital Signs: Temp Pulse Resp BP Pulse Ox 98.3 F 139 H 13 114/54 L 99 09/18/17 15:14 09/18/17 15:14 09/18/17 15:14 09/18/17 15:14 09/18/17 15:14 Intake & Output 09/17/17 09/18/17 09/19/17 06:59 06:59 06:59 Intake Total 0 374 0 Output Total 900 1275 600 Balance -900 -901 -600 Weight 100 kg 102.3 kg General appearance: PRESENT: no acute distress, obese Head exam: PRESENT: atraumatic, normocephalic Eye exam: PRESENT: conjunctiva pink, EOMI, PERRLA. ABSENT: scleral icterus Neck exam: ABSENT: carotid bruit, JVD, lymphadenopathy, thyromegaly Respiratory exam: PRESENT: clear to auscultation isaura, unlabored. ABSENT: rales , rhonchi, wheezes Cardiovascular exam: PRESENT: RRR. ABSENT: diastolic murmur, rubs, systolic murmur GI/Abdominal exam: PRESENT: normal bowel sounds, soft. ABSENT: distended, guarding, mass, organolmegaly, rebound, tenderness Rectal exam: PRESENT: deferred Extremities exam: PRESENT: full ROM. ABSENT: calf tenderness, clubbing, pedal edema Neurological exam: PRESENT: alert, awake, oriented to person, oriented to place , oriented to time, oriented to situation, CN II-XII grossly intact. ABSENT: motor sensory deficit Psychiatric exam: PRESENT: appropriate affect, normal mood. ABSENT: homicidal ideation, suicidal ideation Skin exam: PRESENT: dry, intact, warm. ABSENT: cyanosis, rash Results Laboratory Results: 09/18/17 05:00 09/18/17 05:00 09/18/17 09/18/17 05:00 05:00 WBC 4.1 RBC 2.79 L Hgb 9.8 L Hct 29.3 L MCV 105 H MCH 35.1 H MCHC 33.3 RDW 16.7 H Plt Count 18 L* Seg Neutrophils % Not Reportable Lymphocytes % Not Reportable Monocytes % Not Reportable Eosinophils % Not Reportable Basophils % Not Reportable Absolute Neutrophils Not Reportable Absolute Lymphocytes Not Reportable Absolute Monocytes Not Reportable Absolute Eosinophils Not Reportable Absolute Basophils Not Reportable Sodium 119.6 L* Potassium 4.6 Chloride 83 L Carbon Dioxide 31 H Anion Gap 6 BUN 16 Creatinine 0.70 Est GFR ( Amer) > 60 Est GFR (Non-Af Amer) > 60 Glucose 91 Calcium 9.1 09/16/17 09/16/17 09/16/17 14:59 14:59 21:15 Creatine Kinase < 20 L < 20 L CK-MB (CK-2) 0.38 Troponin I < 0.012 09/16/17 09/17/17 09/17/17 21:15 03:10 03:10 Creatine Kinase < 20 L CK-MB (CK-2) 0.53 0.63 Troponin I < 0.012 < 0.012 Impressions: Abdomen Ultrasound 09/16/17 00:00 IMPRESSION: TRACE ASCITES RIGHT UPPER QUADRANT. Chest X-Ray 09/16/17 06:05 IMPRESSION: CARDIAC ENLARGEMENT. VASCULAR CONGESTION WITH RIGHT GREATER THAN LEFT PLEURAL EFFUSIONS. Bone Marrow Biopsy w/ CT 09/18/17 00:00 IMPRESSION: CT GUIDED BIOPSY OF THE POSTERIOR RIGHT ILIAC CREST PERFORMED WITHOUT IMMEDIATE COMPLICATION. PATHOLOGY PENDING. Guidance Needle Placement CT 09/18/17 00:00 IMPRESSION: CT GUIDED BIOPSY OF THE POSTERIOR RIGHT ILIAC CREST PERFORMED WITHOUT IMMEDIATE COMPLICATION. PATHOLOGY PENDING. Assessment & Plan - Diagnosis (1) CHF (congestive heart failure) Qualifiers: Congestive heart failure type: unspecified Congestive heart failure chronicity: unspecified Qualified Code(s): I50.9 - Heart failure, unspecified Is this a current diagnosis for this admission?: Yes Plan: She appears to be compensated at this time. Check echocardiogram to assess LV function. (2) Thrombocytopenia Is this a current diagnosis for this admission?: Yes Plan: We will hold off on any anticoagulation at this time because of her low platelets. No evidence for active bleeding. Dr. Cervantes has evaluated the patient and is recommending a bone marrow biopsy, which she underwent today. (3) Lung cancer Qualifiers: Laterality: right Lung location: upper lobe of lung Qualified Code(s): C34.11 - Malignant neoplasm of upper lobe, right bronchus or lung Is this a current diagnosis for this admission?: Yes Plan: Patient is followed by Dr. Cervantes. We appreciate his input. She reports that her last chemotherapy was at the end of June. (4) Hyponatremia Is this a current diagnosis for this admission?: Yes Plan: he patient has lung cancer as well as congestive heart failure. Both of these are probably contributing to the low sodium. Will continue on a 1.5 L fluid restriction. We will also give Lasix for diuresis. Samsca 15 mg ordered for today. Recheck sodium in a.m. (5) Atrial fibrillation Qualifiers: Atrial fibrillation type: chronic Qualified Code(s): I48.2 - Chronic atrial fibrillation Is this a current diagnosis for this admission?: Yes Plan: Rate controlled. (6) Ventricular tachycardia Is this a current diagnosis for this admission?: Yes Plan: She has a defibrillator placed. (7) Diabetes mellitus Qualifiers: Diabetes mellitus type: type 2 Diabetes mellitus complication status: without complication Diabetes mellitus assisted insulin use: without exterminator helper termite use Qualified Code(s): E11.9 - Type 2 diabetes mellitus without complications Is this a current diagnosis for this admission?: Yes Plan: Continue sliding scale insulin coverage. (8) COPD (chronic obstructive pulmonary disease) Qualifiers: Emphysema type: unspecified Is this a current diagnosis for this admission?: Yes Plan: Without exacerbation. Continue nebulized therapy. - Time Time Spent with patient: 25-34 minutes Medications reviewed and adjusted accordingly: Yes Anticipated discharge: Home
[2017-09-18] MEDS: OXYCODONE HCL IR 5 MG TABLET PO PRN (21:39)
[2017-09-18] MEDS: INSULIN LISPRO 100 UNIT/ML 3 ML VIAL SUBCUT PRN (21:39)
[2017-09-19] MEDS: DILTIAZEM HCL 30 MG TABLET PO SCH ×4 (01:55→19:02)
[2017-09-19] MEDS: FUROSEMIDE INJ/PF 100 MG/10 ML SDV IV SCH ×2 (06:02→19:01)
--- NOTE | 2017-09-19 08:18 | PDOC PROGRESS REPORT ---
Subjective Progress Note for:: 09/19/17 Subjective:: Patient states that the bone marrow yesterday did not hurt. She is feeling a bit better today. However, she has been unable to sleep and requests something to help with this. She is awaiting her breakfast and has a good appetite. ROS : Some nausea. No constipation. No chest pain. No bleeding, swelling in ankles remains. Reason For Visit: CONGESTIVE HEART FAILURE Physical Exam Vital Signs: Temp Pulse Resp BP Pulse Ox 98.2 F 82 20 134/64 H 98 09/19/17 00:38 09/19/17 02:00 09/19/17 00:38 09/19/17 00:38 09/19/17 00:38 Intake & Output 09/18/17 09/19/17 09/20/17 06:59 06:59 06:59 Intake Total 374 364 Output Total 1275 1310 Balance -901 -0833 Weight 102.3 kg 104.5 kg General appearance: PRESENT: no acute distress, obese Respiratory exam: PRESENT: unlabored Cardiovascular exam: PRESENT: RRR. ABSENT: systolic murmur GI/Abdominal exam: PRESENT: normal bowel sounds, soft Extremities exam: PRESENT: other - 3+ pedal and ankles edema bilaterally. Skin exam: PRESENT: normal color. ABSENT: erythema Results Laboratory Results: 09/18/17 05:00 09/18/17 05:00 09/16/17 09/16/17 09/16/17 14:59 14:59 21:15 Creatine Kinase < 20 L < 20 L CK-MB (CK-2) 0.38 Troponin I < 0.012 09/16/17 09/17/17 09/17/17 21:15 03:10 03:10 Creatine Kinase < 20 L CK-MB (CK-2) 0.53 0.63 Troponin I < 0.012 < 0.012 Impressions: Abdomen Ultrasound 09/16/17 00:00 IMPRESSION: TRACE ASCITES RIGHT UPPER QUADRANT. Chest X-Ray 09/16/17 06:05 IMPRESSION: CARDIAC ENLARGEMENT. VASCULAR CONGESTION WITH RIGHT GREATER THAN LEFT PLEURAL EFFUSIONS. Bone Marrow Biopsy w/ CT 09/18/17 00:00 IMPRESSION: CT GUIDED BIOPSY OF THE POSTERIOR RIGHT ILIAC CREST PERFORMED WITHOUT IMMEDIATE COMPLICATION. PATHOLOGY PENDING. Guidance Needle Placement CT 09/18/17 00:00 IMPRESSION: CT GUIDED BIOPSY OF THE POSTERIOR RIGHT ILIAC CREST PERFORMED WITHOUT IMMEDIATE COMPLICATION. PATHOLOGY PENDING. Assessment & Plan - Diagnosis (1) Breast cancer Is this a current diagnosis for this admission?: Yes Plan: Continues on Aromatase Inhibitor. Will continue this for now. (2) CHF (congestive heart failure) Qualifiers: Congestive heart failure type: unspecified Congestive heart failure chronicity: unspecified Qualified Code(s): I50.9 - Heart failure, unspecified Is this a current diagnosis for this admission?: Yes Plan: Agree with current management. (3) Thrombocytopenia Is this a current diagnosis for this admission?: Yes Plan: Await bone marrow results. No indication for transfusion at this time. No DVT prophylaxis until PLT >50.
[2017-09-19 09:04] LABS: ANION GAP 6 (5-19); BLOOD UREA NITROGEN 17 mg/dL (7-20); CALCIUM 9.4 mg/dL (8.4-10.2); CARBON DIOXIDE 31 mmol/L (22-30); CHLORIDE 87 mmol/L (98-107); GLUCOSE 108 mg/dL (75-110); POTASSIUM 4.5 mmol/L (3.6-5.0); SODIUM 124.1 mmol/L (137-145)
[2017-09-19] MEDS: CARVEDILOL 12.5 MG TABLET PO SCH ×2 (10:34→22:07)
[2017-09-19] MEDS: FAMOTIDINE 20 MG TABLET PO SCH ×2 (10:35→22:07)
[2017-09-19] MEDS: SENNOSIDES/DOCUSATE 8.6-50 MG 1 EACH TABLET PO SCH ×2 (10:35→19:00)
[2017-09-19] MEDS: PREDNISONE 10 MG TABLET PO SCH (10:36)
[2017-09-19] MEDS: BUDESONIDE/FORMOTEROL 160-4.5 MCG 60 PUFF/6 GM MDI IH SCH ×2 (10:36→22:09)
[2017-09-19] MEDS: ACETAMINOPHEN 325 MG TABLET PO PRN (12:56)
[2017-09-19] MEDS: INSULIN LISPRO 100 UNIT/ML 3 ML VIAL SUBCUT PRN ×2 (15:03→19:03)
[2017-09-19] MEDS: OXYCODONE HCL IR 5 MG TABLET PO PRN (15:03)
--- NOTE | 2017-09-19 17:20 | PDOC PROGRESS REPORT ---
Subjective Progress Note for:: 09/19/17 Subjective:: Sitting in chair. Neck is sore. No chest pain. No SOB Reason For Visit: CONGESTIVE HEART FAILURE Physical Exam Vital Signs: Temp Pulse Resp BP Pulse Ox 98.4 F 78 12 119/62 99 09/19/17 11:10 09/19/17 14:00 09/19/17 08:00 09/19/17 11:10 09/19/17 11:10 Intake & Output 09/18/17 09/19/17 09/20/17 06:59 06:59 06:59 Intake Total 374 364 Output Total 1277 2040 Balance -901 -2380 Weight 102.3 kg 104.5 kg General appearance: PRESENT: no acute distress, obese Head exam: PRESENT: atraumatic, normocephalic Neck exam: PRESENT: full ROM, tenderness - posterior. ABSENT: meningismus Respiratory exam: PRESENT: clear to auscultation isaura. ABSENT: rales, rhonchi, wheezes Cardiovascular exam: PRESENT: RRR. ABSENT: diastolic murmur, rubs, systolic murmur GI/Abdominal exam: PRESENT: soft. ABSENT: tenderness Extremities exam: PRESENT: +2 edema Musculoskeletal exam: PRESENT: ambulatory Neurological exam: PRESENT: alert, awake, oriented to person, oriented to place , oriented to time, oriented to situation, CN II-XII grossly intact. ABSENT: motor sensory deficit Psychiatric exam: PRESENT: appropriate affect, normal mood. ABSENT: homicidal ideation, suicidal ideation Skin exam: PRESENT: dry, intact, warm. ABSENT: cyanosis, rash Results Laboratory Results: 09/18/17 05:00 09/19/17 08:36 09/19/17 08:36 Sodium 124.1 L Potassium 4.5 Chloride 87 L Carbon Dioxide 31 H Anion Gap 6 BUN 17 Creatinine 0.68 Est GFR ( Amer) > 60 Est GFR (Non-Af Amer) > 60 Glucose 108 Calcium 9.4 09/16/17 09/16/17 09/16/17 14:59 14:59 21:15 Creatine Kinase < 20 L < 20 L CK-MB (CK-2) 0.38 Troponin I < 0.012 09/16/17 09/17/17 09/17/17 21:15 03:10 03:10 Creatine Kinase < 20 L CK-MB (CK-2) 0.53 0.63 Troponin I < 0.012 < 0.012 Impressions: Abdomen Ultrasound 09/16/17 00:00 IMPRESSION: TRACE ASCITES RIGHT UPPER QUADRANT. Chest X-Ray 09/16/17 06:05 IMPRESSION: CARDIAC ENLARGEMENT. VASCULAR CONGESTION WITH RIGHT GREATER THAN LEFT PLEURAL EFFUSIONS. Bone Marrow Biopsy w/ CT 09/18/17 00:00 IMPRESSION: CT GUIDED BIOPSY OF THE POSTERIOR RIGHT ILIAC CREST PERFORMED WITHOUT IMMEDIATE COMPLICATION. PATHOLOGY PENDING. Guidance Needle Placement CT 09/18/17 00:00 IMPRESSION: CT GUIDED BIOPSY OF THE POSTERIOR RIGHT ILIAC CREST PERFORMED WITHOUT IMMEDIATE COMPLICATION. PATHOLOGY PENDING. Assessment & Plan - Diagnosis (1) CHF (congestive heart failure) Qualifiers: Congestive heart failure type: unspecified Congestive heart failure chronicity: unspecified Qualified Code(s): I50.9 - Heart failure, unspecified Is this a current diagnosis for this admission?: Yes Plan: She appears to be compensated at this time. Check echocardiogram to assess LV function. (2) Thrombocytopenia Is this a current diagnosis for this admission?: Yes Plan: We will hold off on any anticoagulation at this time because of her low platelets. No evidence for active bleeding. Dr. Cervantes has evaluated the patient and is recommending a bone marrow biopsy, which she underwent 09/18/17. (3) Lung cancer Qualifiers: Laterality: right Lung location: upper lobe of lung Qualified Code(s): C34.11 - Malignant neoplasm of upper lobe, right bronchus or lung Is this a current diagnosis for this admission?: Yes Plan: Patient is followed by Dr. Cervantes. We appreciate his input. She reports that her last chemotherapy was at the end of June. (4) Hyponatremia Is this a current diagnosis for this admission?: Yes Plan: he patient has lung cancer as well as congestive heart failure. Both of these are probably contributing to the low sodium. Will continue on a 1.5 L fluid restriction. We will also give Lasix for diuresis. She received Samsca yesterday. Na improved today. (5) Atrial fibrillation Qualifiers: Atrial fibrillation type: chronic Qualified Code(s): I48.2 - Chronic atrial fibrillation Is this a current diagnosis for this admission?: Yes Plan: Rate controlled. (6) Ventricular tachycardia Is this a current diagnosis for this admission?: Yes Plan: She has a defibrillator placed. (7) Diabetes mellitus Qualifiers: Diabetes mellitus type: type 2 Diabetes mellitus complication status: without complication Diabetes mellitus intermediate insulin use: without adjunct faculty for medical terminology use Qualified Code(s): E11.9 - Type 2 diabetes mellitus without complications Is this a current diagnosis for this admission?: Yes Plan: Continue sliding scale insulin coverage. (8) COPD (chronic obstructive pulmonary disease) Qualifiers: Emphysema type: unspecified Is this a current diagnosis for this admission?: Yes Plan: Without exacerbation. Continue nebulized therapy. - Time Time Spent with patient: 15-24 minutes Medications reviewed and adjusted accordingly: Yes Anticipated discharge: Home - Inpatient Certification Medical Necessity: Failure to Improve With Outpatient Therapy, Significant Comorbidiites Make Outpatient Treatment Too Risky
[2017-09-20] MEDS: DILTIAZEM HCL 30 MG TABLET PO SCH ×5 (00:22→23:54)
[2017-09-20] MEDS: FUROSEMIDE INJ/PF 100 MG/10 ML SDV IV SCH ×2 (06:14→17:38)
[2017-09-20] MEDS: ACETAMINOPHEN 325 MG TABLET PO PRN (09:20)
[2017-09-20 09:39] LABS: ABSOLUTE LYMPHOCYTES (AUTO) 1.5 10^3/uL (0.5-4.7); ABSOLUTE MONOCYTES (AUTO) 0.6 10^3/uL (0.1-1.4); ABSOLUTE NEUT (AUTO) 2.8 10^3/uL (1.7-8.2); BASOPHILS % (AUTO) 0.3 % (0-2); EOSINOPHILS % (AUTO) 0.6 % (0-6); HEMATOCRIT 31.1 % (36.0-47.0); HEMOGLOBIN 10.4 g/dL (12.0-15.5); LYMPHOCYTES % (AUTO) 30.8 % (13-45); MEAN CORPUSCULAR HEMOGLOBIN 35.1 pg (27.0-33.4); MEAN CORPUSCULAR HGB CONC 33.5 g/dL (32.0-36.0); MEAN CORPUSCULAR VOLUME 105 fl (80-97); MONOCYTES % (AUTO) 11.7 % (3-13); RED BLOOD COUNT 2.97 10^6/uL (3.72-5.28); RED CELL DISTRIBUTION WIDTH 17.1 % (11.5-14.0); SEGMENTED NEUTROPHILS % (AUTO) 56.6 % (42-78); TOTAL CELLS COUNTED % (AUTO) 100 %
[2017-09-20 10:04] LABS: ALANINE AMINOTRANSFERASE 77 U/L (9-52); ALBUMIN 3.4 g/dL (3.5-5.0); ALKALINE PHOSPHATASE 121 U/L (38-126); ANION GAP 7 (5-19); ASPARTATE AMINO TRANSFERASE 84 U/L (14-36); BILIRUBIN,DIRECT 0.7 mg/dL (0.0-0.4); BILIRUBIN,TOTAL 1.2 mg/dL (0.2-1.3); BLOOD UREA NITROGEN 17 mg/dL (7-20); CALCIUM 9.4 mg/dL (8.4-10.2); CARBON DIOXIDE 32 mmol/L (22-30); CHLORIDE 87 mmol/L (98-107); GLUCOSE 149 mg/dL (75-110); POTASSIUM 4.5 mmol/L (3.6-5.0); TOTAL PROTEIN 6.2 g/dL (6.3-8.2)
[2017-09-20 10:31] LABS: POLYCHROMASIA 1+
[2017-09-20 10:32] LABS: ANISOCYTOSIS 2+; PLATELET COMMENT DECREASED
[2017-09-20 10:39] LABS: PLATELET COUNT 24 10^3/uL (150-450)
[2017-09-20] MEDS: SENNOSIDES/DOCUSATE 8.6-50 MG 1 EACH TABLET PO SCH ×2 (10:42→17:38)
[2017-09-20] MEDS: FAMOTIDINE 20 MG TABLET PO SCH ×2 (10:42→22:29)
[2017-09-20] MEDS: PREDNISONE 10 MG TABLET PO SCH (10:43)
[2017-09-20] MEDS: CARVEDILOL 12.5 MG TABLET PO SCH ×2 (10:43→22:29)
[2017-09-20] MEDS: BUDESONIDE/FORMOTEROL 160-4.5 MCG 60 PUFF/6 GM MDI IH SCH ×2 (10:43→22:29)
--- NOTE | 2017-09-20 12:20 | PDOC PROGRESS REPORT ---
Subjective Progress Note for:: 09/20/17 Subjective:: Patient belives her stomach may be getting a bit better. She is anxious to have her coffee this morning. No new complaints voiced. Reason For Visit: CONGESTIVE HEART FAILURE Physical Exam Vital Signs: Temp Pulse Resp BP Pulse Ox 98.0 F 66 18 117/67 99 09/20/17 08:00 09/20/17 08:00 09/20/17 08:00 09/20/17 08:00 09/20/17 08:00 Intake & Output 09/19/17 09/20/17 09/21/17 06:59 06:59 06:59 Intake Total 364 1162 Output Total 2750 1700 Balance -2386 -538 Weight 104.5 kg 116.1 kg General appearance: PRESENT: no acute distress, morbidly obese Respiratory exam: PRESENT: clear to auscultation isaura, unlabored Cardiovascular exam: PRESENT: RRR GI/Abdominal exam: PRESENT: ascites, firm Extremities exam: PRESENT: other - 3+ pitting edema bilateral ankles. Unchanged. Neurological exam: PRESENT: alert, awake, oriented to person, oriented to place Psychiatric exam: PRESENT: appropriate affect Results Laboratory Results: 09/20/17 09:00 09/20/17 09:00 09/20/17 09/20/17 09:00 09:00 WBC 5.0 RBC 2.97 L Hgb 10.4 L Hct 31.1 L MCV 105 H MCH 35.1 H MCHC 33.5 RDW 17.1 H Plt Count 24 L* Seg Neutrophils % 56.6 Lymphocytes % 30.8 Monocytes % 11.7 Eosinophils % 0.6 Basophils % 0.3 Absolute Neutrophils 2.8 Absolute Lymphocytes 1.5 Absolute Monocytes 0.6 Absolute Eosinophils 0.0 Absolute Basophils 0.0 Sodium 126.0 L Potassium 4.5 Chloride 87 L Carbon Dioxide 32 H Anion Gap 7 BUN 17 Creatinine 0.72 Est GFR ( Amer) > 60 Est GFR (Non-Af Amer) > 60 Glucose 149 H Calcium 9.4 Total Bilirubin 1.2 AST 84 H ALT 77 H Alkaline Phosphatase 121 Total Protein 6.2 L Albumin 3.4 L 09/17/17 22:00 Sputum Gram Stain - Final 09/17/17 22:00 Sputum Sputum Culture - Final NORMAL ROSANA 01/21/18 01/21/18 01/21/18 14:59 14:59 21:15 Creatine Kinase < 20 L < 20 L CK-MB (CK-2) 0.38 Troponin I < 0.012 09/16/17 09/17/17 09/17/17 21:15 03:10 03:10 Creatine Kinase < 20 L CK-MB (CK-2) 0.53 0.63 Troponin I < 0.012 < 0.012 Impressions: Abdomen Ultrasound 09/16/17 00:00 IMPRESSION: TRACE ASCITES RIGHT UPPER QUADRANT. Chest X-Ray 09/16/17 06:05 IMPRESSION: CARDIAC ENLARGEMENT. VASCULAR CONGESTION WITH RIGHT GREATER THAN LEFT PLEURAL EFFUSIONS. Bone Marrow Biopsy w/ CT 09/18/17 00:00 IMPRESSION: CT GUIDED BIOPSY OF THE POSTERIOR RIGHT ILIAC CREST PERFORMED WITHOUT IMMEDIATE COMPLICATION. PATHOLOGY PENDING. Guidance Needle Placement CT 09/18/17 00:00 IMPRESSION: CT GUIDED BIOPSY OF THE POSTERIOR RIGHT ILIAC CREST PERFORMED WITHOUT IMMEDIATE COMPLICATION. PATHOLOGY PENDING. Assessment & Plan - Diagnosis (1) Breast cancer Is this a current diagnosis for this admission?: Yes (2) CHF (congestive heart failure) Qualifiers: Congestive heart failure type: unspecified Congestive heart failure chronicity: unspecified Qualified Code(s): I50.9 - Heart failure, unspecified Is this a current diagnosis for this admission?: Yes Plan: Anasarca continues. (3) Thrombocytopenia Is this a current diagnosis for this admission?: Yes Plan: Await bone marrow biopsy. Her plt count today appears stable. No obvious bleeding. - Plan Summary Plan Summary: Blood counts currently stable. I will continue to follow. Dr. Cervantes to return in AM.
--- NOTE | 2017-09-20 15:14 | PDOC PROGRESS REPORT ---
Subjective Progress Note for:: 09/20/17 Subjective:: Laying supine in bed. No chest pain. No SOB Reason For Visit: CONGESTIVE HEART FAILURE Physical Exam Vital Signs: Temp Pulse Resp BP Pulse Ox 98.5 F 82 22 H 121/66 100 09/20/17 11:33 09/20/17 14:00 09/20/17 11:33 09/20/17 11:33 09/20/17 11:33 Intake & Output 09/19/17 09/20/17 09/21/17 06:59 06:59 06:59 Intake Total 364 1162 Output Total 2750 1700 Balance -6207 -523 Weight 104.5 kg 116.1 kg 116.1 kg General appearance: PRESENT: no acute distress, obese Head exam: PRESENT: atraumatic, normocephalic Eye exam: PRESENT: EOMI, PERRLA. ABSENT: periorbital swelling Neck exam: ABSENT: JVD Respiratory exam: PRESENT: clear to auscultation isaura. ABSENT: rales, rhonchi, wheezes Cardiovascular exam: PRESENT: RRR. ABSENT: diastolic murmur, rubs, systolic murmur GI/Abdominal exam: PRESENT: normal bowel sounds, soft. ABSENT: distended, guarding, mass, organolmegaly, rebound, tenderness Extremities exam: PRESENT: other - anasarca Musculoskeletal exam: PRESENT: ambulatory Neurological exam: PRESENT: alert, awake, oriented to person, oriented to place , oriented to time, oriented to situation, CN II-XII grossly intact. ABSENT: motor sensory deficit Psychiatric exam: PRESENT: appropriate affect, normal mood. ABSENT: homicidal ideation, suicidal ideation Skin exam: PRESENT: dry, intact, warm. ABSENT: cyanosis, rash Results Laboratory Results: 09/20/17 09:00 09/20/17 09:00 09/20/17 09/20/17 09:00 09:00 WBC 5.0 RBC 2.97 L Hgb 10.4 L Hct 31.1 L MCV 105 H MCH 35.1 H MCHC 33.5 RDW 17.1 H Plt Count 24 L* Seg Neutrophils % 56.6 Lymphocytes % 30.8 Monocytes % 11.7 Eosinophils % 0.6 Basophils % 0.3 Absolute Neutrophils 2.8 Absolute Lymphocytes 1.5 Absolute Monocytes 0.6 Absolute Eosinophils 0.0 Absolute Basophils 0.0 Sodium 126.0 L Potassium 4.5 Chloride 87 L Carbon Dioxide 32 H Anion Gap 7 BUN 17 Creatinine 0.72 Est GFR ( Amer) > 60 Est GFR (Non-Af Amer) > 60 Glucose 149 H Calcium 9.4 Total Bilirubin 1.2 AST 84 H ALT 77 H Alkaline Phosphatase 121 Total Protein 6.2 L Albumin 3.4 L 09/17/17 22:00 Sputum Gram Stain - Final 09/17/17 22:00 Sputum Sputum Culture - Final NORMAL ROSANA 09/16/17 09/16/17 09/16/17 14:59 14:59 21:15 Creatine Kinase < 20 L < 20 L CK-MB (CK-2) 0.38 Troponin I < 0.012 09/16/17 09/17/17 09/17/17 21:15 03:10 03:10 Creatine Kinase < 20 L CK-MB (CK-2) 0.53 0.63 Troponin I < 0.012 < 0.012 Impressions: Abdomen Ultrasound 09/16/17 00:00 IMPRESSION: TRACE ASCITES RIGHT UPPER QUADRANT. Chest X-Ray 09/16/17 06:05 IMPRESSION: CARDIAC ENLARGEMENT. VASCULAR CONGESTION WITH RIGHT GREATER THAN LEFT PLEURAL EFFUSIONS. Bone Marrow Biopsy w/ CT 09/18/17 00:00 IMPRESSION: CT GUIDED BIOPSY OF THE POSTERIOR RIGHT ILIAC CREST PERFORMED WITHOUT IMMEDIATE COMPLICATION. PATHOLOGY PENDING. Guidance Needle Placement CT 09/18/17 00:00 IMPRESSION: CT GUIDED BIOPSY OF THE POSTERIOR RIGHT ILIAC CREST PERFORMED WITHOUT IMMEDIATE COMPLICATION. PATHOLOGY PENDING. Assessment & Plan - Diagnosis (1) CHF (congestive heart failure) Qualifiers: Congestive heart failure type: unspecified Congestive heart failure chronicity: unspecified Qualified Code(s): I50.9 - Heart failure, unspecified Is this a current diagnosis for this admission?: Yes Plan: She appears to be compensated at this time. She clearly has peripheral edema. An echo has been ordered. (2) Thrombocytopenia Is this a current diagnosis for this admission?: Yes Plan: We will hold off on any anticoagulation at this time because of her low platelets. No evidence for active bleeding. Dr. Cervantes has evaluated the patient and is recommending a bone marrow biopsy, which she underwent 09/18/17. Her platelets are stable. (3) Lung cancer Qualifiers: Laterality: right Lung location: upper lobe of lung Qualified Code(s): C34.11 - Malignant neoplasm of upper lobe, right bronchus or lung Is this a current diagnosis for this admission?: Yes Plan: Patient is followed by Dr. Cervantes. We appreciate his input. She reports that her last chemotherapy was at the end of June. (4) Hyponatremia Is this a current diagnosis for this admission?: Yes Plan: he patient has lung cancer as well as congestive heart failure. Both of these are probably contributing to the low sodium. Will continue on a 1.5 L fluid restriction. We will also give Lasix for diuresis. She received Samsca. Na continues to improve. (5) Atrial fibrillation Qualifiers: Atrial fibrillation type: chronic Qualified Code(s): I48.2 - Chronic atrial fibrillation Is this a current diagnosis for this admission?: Yes Plan: Rate controlled. (6) Ventricular tachycardia Is this a current diagnosis for this admission?: Yes Plan: She has a defibrillator placed. (7) Diabetes mellitus Qualifiers: Diabetes mellitus type: type 2 Diabetes mellitus complication status: without complication Diabetes mellitus shelter insulin use: without termite control servicer use Qualified Code(s): E11.9 - Type 2 diabetes mellitus without complications Is this a current diagnosis for this admission?: Yes Plan: Continue sliding scale insulin coverage. (8) COPD (chronic obstructive pulmonary disease) Qualifiers: Emphysema type: unspecified Is this a current diagnosis for this admission?: Yes Plan: Without exacerbation. Continue nebulized therapy. - Time Time Spent with patient: 15-24 minutes Medications reviewed and adjusted accordingly: Yes Anticipated discharge: Home - Inpatient Certification Based on my medical assessment, after consideration of the patient's comorbidities, presenting symptoms, or acuity I expect that the services needed warrant INPATIENT care.: Yes I certify that my determination is in accordance with my understanding of Medicare's requirements for reasonable and necessary INPATIENT services [42 CFR 412.3e].: Yes Medical Necessity: Failure to Improve With Outpatient Therapy, Significant Comorbidiites Make Outpatient Treatment Too Risky, Need Close Monitoring Due to Risk of Patient Decompensation
[2017-09-20] MEDS: OXYCODONE HCL IR 5 MG TABLET PO PRN ×2 (15:50→23:54)
[2017-09-20] MEDS: INSULIN LISPRO 100 UNIT/ML 3 ML VIAL SUBCUT PRN (23:54)
[2017-09-21] MEDS: DILTIAZEM HCL 30 MG TABLET PO SCH ×4 (06:19→23:49)
[2017-09-21] MEDS: FUROSEMIDE INJ/PF 100 MG/10 ML SDV IV SCH ×2 (06:19→17:49)
--- NOTE | 2017-09-21 08:33 | PDOC PROGRESS REPORT ---
Subjective Progress Note for:: 09/21/17 Subjective:: No acute events overnight, pt doing better overall in terms of fluid status, being diuresed appropriately, awaiting bmbx results but told pt that I haven't yet received call from path that they see blasts, etc or anything concerning for acute leukemia/lymphoma type process. Reason For Visit: CONGESTIVE HEART FAILURE Physical Exam Vital Signs: Temp Pulse Resp BP Pulse Ox 97.5 F 78 13 116/83 99 09/21/17 03:51 09/21/17 07:00 09/21/17 03:51 09/21/17 03:51 09/21/17 03:51 Intake & Output 09/20/17 09/21/17 09/22/17 06:59 06:59 06:59 Intake Total 1162 740 Output Total 1700 1300 Balance -538 -560 Weight 116.1 kg 110.8 kg General appearance: PRESENT: no acute distress, well-developed, well-nourished Head exam: PRESENT: atraumatic, normocephalic Eye exam: PRESENT: conjunctiva pink, EOMI, PERRLA. ABSENT: scleral icterus Ear exam: PRESENT: normal external ear exam Mouth exam: PRESENT: moist, tongue midline Neck exam: ABSENT: carotid bruit, JVD, lymphadenopathy, thyromegaly Respiratory exam: PRESENT: clear to auscultation isaura. ABSENT: rales, rhonchi, wheezes Cardiovascular exam: PRESENT: RRR. ABSENT: diastolic murmur, rubs, systolic murmur Pulses: PRESENT: normal dorsalis pedis pul Vascular exam: PRESENT: normal capillary refill GI/Abdominal exam: PRESENT: normal bowel sounds, soft. ABSENT: distended, guarding, mass, organolmegaly, rebound, tenderness Rectal exam: PRESENT: deferred Extremities exam: PRESENT: full ROM. ABSENT: calf tenderness, clubbing, pedal edema Neurological exam: PRESENT: alert, awake, oriented to person, oriented to place , oriented to time, oriented to situation, CN II-XII grossly intact. ABSENT: motor sensory deficit Psychiatric exam: PRESENT: appropriate affect, normal mood. ABSENT: homicidal ideation, suicidal ideation Skin exam: PRESENT: dry, intact, warm. ABSENT: cyanosis, rash Results Laboratory Results: 09/20/17 09:00 09/20/17 09:00 09/20/17 09/20/17 09:00 09:00 WBC 5.0 RBC 2.97 L Hgb 10.4 L Hct 31.1 L MCV 105 H MCH 35.1 H MCHC 33.5 RDW 17.1 H Plt Count 24 L* Seg Neutrophils % 56.6 Lymphocytes % 30.8 Monocytes % 11.7 Eosinophils % 0.6 Basophils % 0.3 Absolute Neutrophils 2.8 Absolute Lymphocytes 1.5 Absolute Monocytes 0.6 Absolute Eosinophils 0.0 Absolute Basophils 0.0 Sodium 126.0 L Potassium 4.5 Chloride 87 L Carbon Dioxide 32 H Anion Gap 7 BUN 17 Creatinine 0.72 Est GFR ( Amer) > 60 Est GFR (Non-Af Amer) > 60 Glucose 149 H Calcium 9.4 Total Bilirubin 1.2 AST 84 H ALT 77 H Alkaline Phosphatase 121 Total Protein 6.2 L Albumin 3.4 L 09/17/17 22:00 Sputum Gram Stain - Final 09/17/17 22:00 Sputum Sputum Culture - Final NORMAL ROSANA 09/16/17 09/16/17 09/16/17 14:59 14:59 21:15 Creatine Kinase < 20 L < 20 L CK-MB (CK-2) 0.38 Troponin I < 0.012 09/16/17 09/17/17 09/17/17 21:15 03:10 03:10 Creatine Kinase < 20 L CK-MB (CK-2) 0.53 0.63 Troponin I < 0.012 < 0.012 Impressions: Abdomen Ultrasound 09/16/17 00:00 IMPRESSION: TRACE ASCITES RIGHT UPPER QUADRANT. Chest X-Ray 09/16/17 06:05 IMPRESSION: CARDIAC ENLARGEMENT. VASCULAR CONGESTION WITH RIGHT GREATER THAN LEFT PLEURAL EFFUSIONS. Bone Marrow Biopsy w/ CT 09/18/17 00:00 IMPRESSION: CT GUIDED BIOPSY OF THE POSTERIOR RIGHT ILIAC CREST PERFORMED WITHOUT IMMEDIATE COMPLICATION. PATHOLOGY PENDING. Guidance Needle Placement CT 09/18/17 00:00 IMPRESSION: CT GUIDED BIOPSY OF THE POSTERIOR RIGHT ILIAC CREST PERFORMED WITHOUT IMMEDIATE COMPLICATION. PATHOLOGY PENDING. Assessment & Plan - Diagnosis (1) Thrombocytopenia Is this a current diagnosis for this admission?: Yes Plan: Most likely therapy related but BMBx pending to rule out other causes, not an immune mediated process so d/c'd that approach. Continue to taper off steroids. (2) Lung cancer Qualifiers: Laterality: right Lung location: upper lobe of lung Qualified Code(s): C34.11 - Malignant neoplasm of upper lobe, right bronchus or lung Is this a current diagnosis for this admission?: Yes Plan: All treatment on hold until pt recovers. Will do some imaging as outpt in a few weeks to restage - Time Time Spent with patient: 35 or more minutes - Inpatient Certification Based on my medical assessment, after consideration of the patient's comorbidities, presenting symptoms, or acuity I expect that the services needed warrant INPATIENT care.: Yes I certify that my determination is in accordance with my understanding of Medicare's requirements for reasonable and necessary INPATIENT services [42 CFR 412.3e].: Yes Medical Necessity: Failure to Improve With Outpatient Therapy, Risk of Complication if Not Cared For in Hospital
[2017-09-21] MEDS: PREDNISONE 10 MG TABLET PO SCH (09:50)
[2017-09-21] MEDS: FAMOTIDINE 20 MG TABLET PO SCH ×2 (09:51→21:17)
[2017-09-21] MEDS: SENNOSIDES/DOCUSATE 8.6-50 MG 1 EACH TABLET PO SCH ×2 (09:51→17:48)
[2017-09-21] MEDS: CARVEDILOL 12.5 MG TABLET PO SCH ×2 (09:51→21:17)
[2017-09-21] MEDS: BUDESONIDE/FORMOTEROL 160-4.5 MCG 60 PUFF/6 GM MDI IH SCH ×2 (09:51→21:18)
--- NOTE | 2017-09-21 17:24 | PDOC PROGRESS REPORT ---
Subjective Progress Note for:: 09/21/17 Subjective:: Pt states that her leg are still swollen. Pt states that her breathing is improving. Pt states that her appetite is improving. Pt was sitting in chair at time of encounter. Reason For Visit: CONGESTIVE HEART FAILURE Physical Exam Vital Signs: Temp Pulse Resp BP Pulse Ox 97.4 F 71 22 H 119/71 98 09/21/17 12:15 09/21/17 14:00 09/21/17 12:15 09/21/17 12:15 09/21/17 16:33 Intake & Output 09/20/17 09/21/17 09/22/17 06:59 06:59 06:59 Intake Total 1162 740 320 Output Total 1700 1300 490 Balance -538 -560 -170 Weight 116.1 kg 110.8 kg General appearance: PRESENT: no acute distress, well-developed, well-nourished Head exam: PRESENT: atraumatic, normocephalic Eye exam: PRESENT: conjunctiva pink, EOMI. ABSENT: scleral icterus Ear exam: PRESENT: normal external ear exam Mouth exam: PRESENT: moist, tongue midline Neck exam: ABSENT: carotid bruit, JVD, lymphadenopathy, thyromegaly Respiratory exam: PRESENT: other - good breath sounds upper lobes, + diminished breath sounds at bases Cardiovascular exam: PRESENT: RRR. ABSENT: diastolic murmur, rubs, systolic murmur Vascular exam: PRESENT: normal capillary refill GI/Abdominal exam: PRESENT: normal bowel sounds, soft. ABSENT: distended, guarding, mass, organolmegaly, rebound, tenderness Rectal exam: PRESENT: deferred Extremities exam: PRESENT: +2 edema, other - + 2-3 pitting edema to abd, Musculoskeletal exam: PRESENT: full ROM Neurological exam: PRESENT: alert, awake, oriented to person, oriented to place , oriented to time, oriented to situation, CN II-XII grossly intact. ABSENT: motor sensory deficit Psychiatric exam: PRESENT: appropriate affect, normal mood. ABSENT: homicidal ideation, suicidal ideation Skin exam: PRESENT: dry, intact, warm. ABSENT: cyanosis, rash Results Laboratory Results: 09/20/17 09:00 09/20/17 09:00 09/16/17 10:30 Blood Blood Culture - Final NO GROWTH IN 5 DAYS 09/16/17 09:54 Blood Blood Culture - Final NO GROWTH IN 5 DAYS 09/16/17 09/16/17 09/16/17 14:59 14:59 21:15 Creatine Kinase < 20 L < 20 L CK-MB (CK-2) 0.38 Troponin I < 0.012 09/16/17 09/17/17 09/17/17 21:15 03:10 03:10 Creatine Kinase < 20 L CK-MB (CK-2) 0.53 0.63 Troponin I < 0.012 < 0.012 Impressions: Abdomen Ultrasound 09/16/17 00:00 IMPRESSION: TRACE ASCITES RIGHT UPPER QUADRANT. Chest X-Ray 09/16/17 06:05 IMPRESSION: CARDIAC ENLARGEMENT. VASCULAR CONGESTION WITH RIGHT GREATER THAN LEFT PLEURAL EFFUSIONS. Bone Marrow Biopsy w/ CT 09/18/17 00:00 IMPRESSION: CT GUIDED BIOPSY OF THE POSTERIOR RIGHT ILIAC CREST PERFORMED WITHOUT IMMEDIATE COMPLICATION. PATHOLOGY PENDING. Guidance Needle Placement CT 09/18/17 00:00 IMPRESSION: CT GUIDED BIOPSY OF THE POSTERIOR RIGHT ILIAC CREST PERFORMED WITHOUT IMMEDIATE COMPLICATION. PATHOLOGY PENDING. Assessment & Plan - Diagnosis (1) CHF (congestive heart failure) Qualifiers: Congestive heart failure type: unspecified Congestive heart failure chronicity: unspecified Qualified Code(s): I50.9 - Heart failure, unspecified Is this a current diagnosis for this admission?: Yes Plan: Will continue Lasix. 2 D Echo Pending. Will place on TEDS. (2) Atrial fibrillation Qualifiers: Atrial fibrillation type: chronic Qualified Code(s): I48.2 - Chronic atrial fibrillation Is this a current diagnosis for this admission?: Yes Plan: Continue current medications. (3) COPD (chronic obstructive pulmonary disease) Qualifiers: Emphysema type: unspecified Is this a current diagnosis for this admission?: Yes Plan: Without exacerbation: Will continue current treatment. (4) Diabetes mellitus Qualifiers: Diabetes mellitus type: type 2 Diabetes mellitus complication status: without complication Diabetes mellitus emt intermediate insulin use: without emt intermediate use Qualified Code(s): E11.9 - Type 2 diabetes mellitus without complications Is this a current diagnosis for this admission?: Yes Plan: Will continue SSI. (5) Hyponatremia Is this a current diagnosis for this admission?: Yes Plan: Will continue to monitor. (6) Lung cancer Qualifiers: Laterality: right Lung location: upper lobe of lung Qualified Code(s): C34.11 - Malignant neoplasm of upper lobe, right bronchus or lung Is this a current diagnosis for this admission?: Yes Plan: Pt followed by Dr. Cervantes. (7) Thrombocytopenia Is this a current diagnosis for this admission?: Yes Plan: Chronic: Will continue to monitor. (8) Ventricular tachycardia Is this a current diagnosis for this admission?: Yes Plan: Will continue to monitor. (9) Patient is full code Is this a current diagnosis for this admission?: Yes - Time Time Spent with patient: 15-24 minutes - Will place TEDs, check CMP and CBC.
--- NOTE | 2017-09-21 19:37 | XCELERA REPORT ---
[address] [address] Transthoracic Echocardiogram Report Name: GINNA LOPEZ Age: 67 yrs Gender: Female : 1950 Patient Status: Inpatient Patient Location: [address] [place], [place] [address] Study Date: 09/21/2017 10:16 AM Height: 63 in Weight: 230 lb BSA: 2.1 m2 Procedure: A complete two-dimensional transthoracic echocardiogram was performed (2D, M-mode, spectral and color flow Doppler). The study was technically difficult with many images being suboptimal in quality. Reason For Study: CHF Ordering Physician: KATTY POSADAS Performed By: Adilia King Interpretation Summary LV EF is 55% Left ventricular systolic function is borderline reduced. There is mild concentric left ventricular hypertrophy. The left ventricle is grossly normal size. Doppler measurements suggest pseudonormalized left ventricular relaxation, which is associated with grade II/IV or mild to moderate diastolic dysfunction There is borderline global hypokinesis of the left ventricle. Right ventricular function cannot be assessed due to poor image quality. The right ventricle is mild to moderately dilated. The right atrium is moderately dilated. The left atrium is moderately dilated. There is mild mitral leaflet calcification. There is mild mitral annular calcification. There is a moderate to severe amount of mitral regurgitation There is no aortic valve stenosis No aortic regurgitation is present. There is a moderate to severe amount of tricuspid regurgitation There is moderate pulmonary hypertension by echo Right ventricular systolic pressure is estimated to be elevated at 50- 60mmHg. The aortic root is not well visualized but is probably normal size. The inferior vena cava appeared normal and decreased < 50% with respiration (RAP 10-15 mmHg) There is no pericardial effusion. Pacemaker wire noted. MMode/2D Measurements & Calculations RVDd: 4.7 cm LVIDd: 5.3 cm FS: 27.5 % MV Diam: IVSd: 0.97 cm LVIDs: 3.9 cm EDV(Teich): 2.8 cm LVPWd: 1.0 cm 137.1 ml ESV(Teich): 64.5 ml EF(Teich): 53.0 % Ao root diam: LVOT diam: 1.9 cm LA A2Cs: 38.3 cm2LA A4Cs: 2.7 cm LVOT area: 2.9 cm2 36.8 cm2 Ao root area: 5.6 cm2 LA dimension: 5.0 cm LA length: 7.8 cm LA Vol Index (BP): LA Volume: 154.2 ml 75.1 ml/m2 Doppler Measurements & Calculations MV E max marilynn: MV area (1 diam): MV P1/2t max marilynn: Ao V2 max: 165.4 cm/sec 6.3 cm2 167.8 cm/sec 126.1 cm/sec MV Flow area MV P1/2t: 64.1 msec Ao max PG: MVA(P1/2t): 3.4 cm2 6.4 mmHg (1diam): 6.3 cm2 MV dec slope: MACIEJ(V,D): 1.7 cm2 767.0 cm/sec2 LV V1 max PG: MR max marilynn: PA V2 max: PI end-d marilynn: 2.3 mmHg 436.0 cm/sec 90.1 cm/sec 142.5 cm/sec LV V1 max: MR max PG: PA max P.2 mmHg 75.6 cm/sec 76.1 mmHg LV dP/dt: 478.0 mmHg/s TR max marilynn: 310.8 cm/sec TR max P.6 mmHg Left Ventricle The left ventricle is grossly normal size. There is mild concentric left ventricular hypertrophy. Left ventricular systolic function is borderline reduced. LV EF is 55%. Doppler measurements suggest pseudonormalized left ventricular relaxation, which is associated with grade II/IV or mild to moderate diastolic dysfunction. There is borderline global hypokinesis of the left ventricle. Right Ventricle The right ventricle is mild to moderately dilated. There is normal right ventricular wall thickness. Right ventricular function cannot be assessed due to poor image quality. Atria The right atrium is moderately dilated. The left atrium is moderately dilated. Interarterial septum not well visualized and not well dopplered. Cannot comment on ASD/PFO presence. Mitral Valve There is mild mitral leaflet calcification. There is mild mitral annular calcification. There is no mitral valve stenosis. There is a moderate to severe amount of mitral regurgitation. Aortic Valve The aortic valve is not well visualized secondary to technical limitations. A bicuspid aortic valve cannot be excluded. There is no aortic valve stenosis. No aortic regurgitation is present. Tricuspid Valve The tricuspid valve is not well visualized, but is grossly normal. There is no tricuspid stenosis. There is a moderate to severe amount of tricuspid regurgitation. There is moderate pulmonary hypertension by echo. Right ventricular systolic pressure is estimated to be elevated at 50-60mmHg. Pulmonic Valve The pulmonic valve is not well visualized. Great Vessels The aortic root is not well visualized but is probably normal size. The inferior vena cava appeared normal and decreased < 50% with respiration (RAP 10-15 mmHg). Effusions There is no pericardial effusion. Incidental Findings Pacemaker wire noted. : KATTY POSADAS > Christiano Merino
[2017-09-21] MEDS: OXYCODONE HCL IR 5 MG TABLET PO PRN (22:47)
[2017-09-22] MEDS: DILTIAZEM HCL 30 MG TABLET PO SCH ×3 (05:39→17:30)
[2017-09-22] MEDS: FUROSEMIDE INJ/PF 100 MG/10 ML SDV IV SCH ×2 (05:39→17:29)
[2017-09-22 06:34] LABS: ABSOLUTE LYMPHOCYTES (AUTO) 1.4 10^3/uL (0.5-4.7); ABSOLUTE MONOCYTES (AUTO) 0.6 10^3/uL (0.1-1.4); ABSOLUTE NEUT (AUTO) 2.7 10^3/uL (1.7-8.2); BASOPHILS % (AUTO) 0.5 % (0-2); HEMATOCRIT 30.3 % (36.0-47.0); HEMOGLOBIN 10.1 g/dL (12.0-15.5); LYMPHOCYTES % (AUTO) 29.6 % (13-45); MEAN CORPUSCULAR HEMOGLOBIN 35.5 pg (27.0-33.4); MEAN CORPUSCULAR HGB CONC 33.4 g/dL (32.0-36.0); MEAN CORPUSCULAR VOLUME 106 fl (80-97); MONOCYTES % (AUTO) 12.6 % (3-13); RED BLOOD COUNT 2.85 10^6/uL (3.72-5.28); RED CELL DISTRIBUTION WIDTH 17.1 % (11.5-14.0); SEGMENTED NEUTROPHILS % (AUTO) 56.3 % (42-78); TOTAL CELLS COUNTED % (AUTO) 100 %; WHITE BLOOD COUNT 4.8 10^3/uL (4.0-10.5)
[2017-09-22 06:47] LABS: ALANINE AMINOTRANSFERASE 57 U/L (9-52); ALBUMIN 3.4 g/dL (3.5-5.0); ALKALINE PHOSPHATASE 132 U/L (38-126); ANION GAP 8 (5-19); ASPARTATE AMINO TRANSFERASE 50 U/L (14-36); BILIRUBIN,DIRECT 0.8 mg/dL (0.0-0.4); BILIRUBIN,TOTAL 1.2 mg/dL (0.2-1.3); BLOOD UREA NITROGEN 20 mg/dL (7-20); CALCIUM 8.7 mg/dL (8.4-10.2); CARBON DIOXIDE 34 mmol/L (22-30); CHLORIDE 86 mmol/L (98-107); GLUCOSE 134 mg/dL (75-110); POTASSIUM 4.5 mmol/L (3.6-5.0); SODIUM 127.9 mmol/L (137-145); TOTAL PROTEIN 6.1 g/dL (6.3-8.2)
[2017-09-22 07:09] LABS: PLATELET COUNT 24 10^3/uL (150-450)
--- NOTE | 2017-09-22 07:33 | PDOC PROGRESS REPORT ---
Subjective Progress Note for:: 09/22/17 Subjective:: Patient asks about results of bone marrow. She is very frustrated with the amount of fluid and her continued need for hospitalization. She denies any pain. She states that she has not been able to get any sleep because she is getting the lasix in the evening and this causes her to be up all night using the bathroom. ROS: No bleeding. No Dyspnea. Reason For Visit: Hem/Onc consult was requested for Lung cancer and Thrombocytopenia Physical Exam Vital Signs: Temp Pulse Resp BP Pulse Ox 98.5 F 79 18 113/62 100 09/22/17 03:36 09/22/17 03:36 09/22/17 03:36 09/22/17 03:36 09/22/17 03:36 Intake & Output 09/21/17 09/22/17 09/23/17 06:59 06:59 06:59 Intake Total 740 976 Output Total 1300 1890 Balance -560 -914 Weight 110.8 kg 110.9 kg General appearance: PRESENT: no acute distress Head exam: PRESENT: atraumatic GI/Abdominal exam: PRESENT: ascites, firm Extremities exam: PRESENT: other - 3+ edema remains throughout. Neurological exam: PRESENT: alert, awake, oriented to person, oriented to place Psychiatric exam: PRESENT: appropriate affect Results Laboratory Results: 09/22/17 05:10 09/22/17 05:10 09/22/17 09/22/17 05:10 05:10 WBC 4.8 RBC 2.85 L Hgb 10.1 L Hct 30.3 L MCV 106 H MCH 35.5 H MCHC 33.4 RDW 17.1 H Plt Count 24 L* Seg Neutrophils % 56.3 Lymphocytes % 29.6 Monocytes % 12.6 Eosinophils % 1.0 Basophils % 0.5 Absolute Neutrophils 2.7 Absolute Lymphocytes 1.4 Absolute Monocytes 0.6 Absolute Eosinophils 0.0 Absolute Basophils 0.0 Sodium 127.9 L Potassium 4.5 Chloride 86 L Carbon Dioxide 34 H Anion Gap 8 BUN 20 Creatinine 0.67 Est GFR ( Amer) > 60 Est GFR (Non-Af Amer) > 60 Glucose 134 H Calcium 8.7 Total Bilirubin 1.2 AST 50 H ALT 57 H Alkaline Phosphatase 132 H Total Protein 6.1 L Albumin 3.4 L 09/16/17 10:30 Blood Blood Culture - Final NO GROWTH IN 5 DAYS 09/16/17 09:54 Blood Blood Culture - Final NO GROWTH IN 5 DAYS 09/16/17 09/16/17 09/16/17 14:59 14:59 21:15 Creatine Kinase < 20 L < 20 L CK-MB (CK-2) 0.38 Troponin I < 0.012 09/16/17 09/17/17 09/17/17 21:15 03:10 03:10 Creatine Kinase < 20 L CK-MB (CK-2) 0.53 0.63 Troponin I < 0.012 < 0.012 Impressions: Abdomen Ultrasound 09/16/17 00:00 IMPRESSION: TRACE ASCITES RIGHT UPPER QUADRANT. Chest X-Ray 09/16/17 06:05 IMPRESSION: CARDIAC ENLARGEMENT. VASCULAR CONGESTION WITH RIGHT GREATER THAN LEFT PLEURAL EFFUSIONS. Bone Marrow Biopsy w/ CT 09/18/17 00:00 IMPRESSION: CT GUIDED BIOPSY OF THE POSTERIOR RIGHT ILIAC CREST PERFORMED WITHOUT IMMEDIATE COMPLICATION. PATHOLOGY PENDING. Guidance Needle Placement CT 09/18/17 00:00 IMPRESSION: CT GUIDED BIOPSY OF THE POSTERIOR RIGHT ILIAC CREST PERFORMED WITHOUT IMMEDIATE COMPLICATION. PATHOLOGY PENDING. Assessment & Plan - Diagnosis (1) Breast cancer Is this a current diagnosis for this admission?: Yes Plan: Treatment to be resumed as outpatient. (2) CHF (congestive heart failure) Qualifiers: Congestive heart failure type: unspecified Congestive heart failure chronicity: unspecified Qualified Code(s): I50.9 - Heart failure, unspecified Is this a current diagnosis for this admission?: Yes Plan: Still receiving Lasix, but her overall weight has increased since admission. Her edema has not significantly changed. She has requested that Lasix dose be changed to q AM and q noon instead of BID. (3) Thrombocytopenia Is this a current diagnosis for this admission?: Yes Plan: Final Bone Marrow report not yet available. However, prelim did not show any acute process. Her PLT have been stable and are not expected to change greatly over the next few days. No treatment indicated unless evidence of active bleeding.
[2017-09-22] MEDS: BUDESONIDE/FORMOTEROL 160-4.5 MCG 60 PUFF/6 GM MDI IH SCH ×2 (09:56→21:30)
[2017-09-22] MEDS: FAMOTIDINE 20 MG TABLET PO SCH ×2 (09:56→21:30)
[2017-09-22] MEDS: SENNOSIDES/DOCUSATE 8.6-50 MG 1 EACH TABLET PO SCH ×2 (09:57→17:29)
[2017-09-22] MEDS: CARVEDILOL 12.5 MG TABLET PO SCH ×2 (09:57→21:30)
[2017-09-22] MEDS: PREDNISONE 10 MG TABLET PO SCH (09:57)
[2017-09-22] MEDS: INSULIN LISPRO 100 UNIT/ML 3 ML VIAL SUBCUT PRN ×2 (13:11→21:42)
[2017-09-22] MEDS: ACETAMINOPHEN 325 MG TABLET PO PRN (15:08)
--- NOTE | 2017-09-22 20:01 | PDOC PROGRESS REPORT ---
Subjective Progress Note for:: 09/22/17 Subjective:: Nursing states that her urine output good. Pt states that her breathing has improved. Reason For Visit: CONGESTIVE HEART FAILURE Physical Exam Vital Signs: Temp Pulse Resp BP Pulse Ox 97.5 F 80 17 143/83 H 100 09/22/17 15:46 09/22/17 19:00 09/22/17 15:46 09/22/17 15:46 09/22/17 15:46 Intake & Output 09/21/17 09/22/17 09/23/17 06:59 06:59 06:59 Intake Total 740 976 480 Output Total 1300 1890 1650 Balance -560 -914 -1170 Weight 110.8 kg 110.9 kg General appearance: PRESENT: no acute distress, well-developed, well-nourished Head exam: PRESENT: atraumatic, normocephalic Eye exam: PRESENT: conjunctiva pink, EOMI. ABSENT: scleral icterus Ear exam: PRESENT: normal external ear exam Mouth exam: PRESENT: moist, tongue midline Neck exam: ABSENT: carotid bruit, JVD, lymphadenopathy, thyromegaly Respiratory exam: PRESENT: crackles, decreased breath sounds. ABSENT: rales, rhonchi, wheezes Cardiovascular exam: PRESENT: RRR. ABSENT: diastolic murmur, rubs, systolic murmur Pulses: PRESENT: normal dorsalis pedis pul Vascular exam: PRESENT: normal capillary refill GI/Abdominal exam: PRESENT: normal bowel sounds, soft. ABSENT: distended, guarding, mass, organolmegaly, rebound, tenderness Rectal exam: PRESENT: deferred Extremities exam: PRESENT: full ROM, pedal edema, +2 edema. ABSENT: calf tenderness, clubbing Musculoskeletal exam: PRESENT: full ROM Neurological exam: PRESENT: alert, awake, oriented to person, oriented to place , oriented to time, oriented to situation, CN II-XII grossly intact. ABSENT: motor sensory deficit Psychiatric exam: PRESENT: appropriate affect, normal mood. ABSENT: homicidal ideation, suicidal ideation Skin exam: PRESENT: dry, intact, warm. ABSENT: cyanosis, rash Results Laboratory Results: 09/22/17 05:10 09/22/17 05:10 09/22/17 09/22/17 05:10 05:10 WBC 4.8 RBC 2.85 L Hgb 10.1 L Hct 30.3 L MCV 106 H MCH 35.5 H MCHC 33.4 RDW 17.1 H Plt Count 24 L* Seg Neutrophils % 56.3 Lymphocytes % 29.6 Monocytes % 12.6 Eosinophils % 1.0 Basophils % 0.5 Absolute Neutrophils 2.7 Absolute Lymphocytes 1.4 Absolute Monocytes 0.6 Absolute Eosinophils 0.0 Absolute Basophils 0.0 Sodium 127.9 L Potassium 4.5 Chloride 86 L Carbon Dioxide 34 H Anion Gap 8 BUN 20 Creatinine 0.67 Est GFR ( Amer) > 60 Est GFR (Non-Af Amer) > 60 Glucose 134 H Calcium 8.7 Total Bilirubin 1.2 AST 50 H ALT 57 H Alkaline Phosphatase 132 H Total Protein 6.1 L Albumin 3.4 L 09/16/17 09/16/17 09/16/17 14:59 14:59 21:15 Creatine Kinase < 20 L < 20 L CK-MB (CK-2) 0.38 Troponin I < 0.012 09/16/17 09/17/17 09/17/17 21:15 03:10 03:10 Creatine Kinase < 20 L CK-MB (CK-2) 0.53 0.63 Troponin I < 0.012 < 0.012 Impressions: Abdomen Ultrasound 09/16/17 00:00 IMPRESSION: TRACE ASCITES RIGHT UPPER QUADRANT. Chest X-Ray 09/16/17 06:05 IMPRESSION: CARDIAC ENLARGEMENT. VASCULAR CONGESTION WITH RIGHT GREATER THAN LEFT PLEURAL EFFUSIONS. Bone Marrow Biopsy w/ CT 09/18/17 00:00 IMPRESSION: CT GUIDED BIOPSY OF THE POSTERIOR RIGHT ILIAC CREST PERFORMED WITHOUT IMMEDIATE COMPLICATION. PATHOLOGY PENDING. Guidance Needle Placement CT 09/18/17 00:00 IMPRESSION: CT GUIDED BIOPSY OF THE POSTERIOR RIGHT ILIAC CREST PERFORMED WITHOUT IMMEDIATE COMPLICATION. PATHOLOGY PENDING. Assessment & Plan - Diagnosis (1) CHF (congestive heart failure) Qualifiers: Congestive heart failure type: unspecified Congestive heart failure chronicity: unspecified Qualified Code(s): I50.9 - Heart failure, unspecified Is this a current diagnosis for this admission?: Yes Plan: Acute on Chronic Diastolic CHF: Will increase Lasix 60 mg IV BID. (2) Atrial fibrillation Qualifiers: Atrial fibrillation type: chronic Qualified Code(s): I48.2 - Chronic atrial fibrillation Is this a current diagnosis for this admission?: Yes Plan: Continue current medications. (3) COPD (chronic obstructive pulmonary disease) Qualifiers: Emphysema type: unspecified Is this a current diagnosis for this admission?: Yes Plan: Without exacerbation: Will continue current treatment. 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 (5) Hyponatremia Is this a current diagnosis for this admission?: Yes Plan: Secondary to Hypervolemia: Will increase Lasix 60mg IV BID (6) Lung cancer Qualifiers: Laterality: right Lung location: upper lobe of lung Qualified Code(s): C34.11 - Malignant neoplasm of upper lobe, right bronchus or lung Is this a current diagnosis for this admission?: Yes Plan: Pt followed by Dr. Cervantes. (7) Thrombocytopenia Is this a current diagnosis for this admission?: Yes Plan: Chronic: Will continue to monitor. (8) Ventricular tachycardia Is this a current diagnosis for this admission?: Yes Plan: Will continue to monitor. (9) Patient is full code Is this a current diagnosis for this admission?: Yes - Time Time Spent with patient: 15-24 minutes
[2017-09-22] MEDS ORDERED: FUROSEMIDE INJ/PF 20 MG/2 ML SDV IV ONE (20:15)
[2017-09-22] MEDS: OXYCODONE HCL IR 5 MG TABLET PO PRN (21:42)
[2017-09-22] MEDS: TEMAZEPAM 7.5 MG CAPSULE PO PRN (21:42)
[2017-09-23] MEDS: DILTIAZEM HCL 30 MG TABLET PO SCH ×5 (00:07→23:09)
[2017-09-23] MEDS ORDERED: FUROSEMIDE INJ/PF 100 MG/10 ML SDV IV SCH (06:00)
[2017-09-23] MEDS: CARVEDILOL 12.5 MG TABLET PO SCH ×2 (10:03→22:29)
[2017-09-23] MEDS: BUDESONIDE/FORMOTEROL 160-4.5 MCG 60 PUFF/6 GM MDI IH SCH ×2 (10:04→22:29)
[2017-09-23] MEDS: SENNOSIDES/DOCUSATE 8.6-50 MG 1 EACH TABLET PO SCH ×2 (10:04→17:25)
[2017-09-23] MEDS: ONDANSETRON HCL INJ/PF 4 MG/2 ML SDV IV PRN (10:04)
[2017-09-23] MEDS: FAMOTIDINE 20 MG TABLET PO SCH ×2 (10:04→22:29)
[2017-09-23] MEDS: ACETAMINOPHEN 325 MG TABLET PO PRN (14:20)
[2017-09-23] MEDS ORDERED: FUROSEMIDE INJ/PF 20 MG/2 ML SDV IV ONE (15:30)
[2017-09-23] MEDS: INSULIN LISPRO 100 UNIT/ML 3 ML VIAL SUBCUT PRN ×2 (17:25→22:37)
--- NOTE | 2017-09-23 17:32 | PDOC PROGRESS REPORT ---
Subjective Progress Note for:: 09/23/17 Subjective:: Pt states that her breathing has improved. Pt states that she would like for her lasix time to be changed. Reason For Visit: CONGESTIVE HEART FAILURE Physical Exam Vital Signs: Temp Pulse Resp BP Pulse Ox 98.7 F 82 16 118/67 100 09/23/17 15:46 09/23/17 15:46 09/23/17 15:46 09/23/17 15:46 09/23/17 15:46 Intake & Output 09/22/17 09/23/17 09/24/17 06:59 06:59 06:59 Intake Total 976 1700 237 Output Total 1890 5150 Balance -914 -3450 237 Weight 110.9 kg 102.2 kg General appearance: PRESENT: no acute distress, well-developed, well-nourished Head exam: PRESENT: atraumatic, normocephalic Eye exam: PRESENT: conjunctiva pink, EOMI. ABSENT: scleral icterus Ear exam: PRESENT: normal external ear exam Mouth exam: PRESENT: moist, tongue midline Neck exam: ABSENT: carotid bruit, JVD, lymphadenopathy, thyromegaly Respiratory exam: PRESENT: decreased breath sounds, rhonchi. ABSENT: rales, wheezes Cardiovascular exam: PRESENT: RRR. ABSENT: diastolic murmur, rubs, systolic murmur Pulses: PRESENT: normal dorsalis pedis pul Vascular exam: PRESENT: normal capillary refill GI/Abdominal exam: PRESENT: normal bowel sounds, soft. ABSENT: distended, guarding, mass, organolmegaly, rebound, tenderness Rectal exam: PRESENT: deferred Extremities exam: PRESENT: +2 edema - + 2 edema up to abd. Musculoskeletal exam: PRESENT: full ROM Neurological exam: PRESENT: alert, awake, oriented to person, oriented to place , oriented to time, oriented to situation, CN II-XII grossly intact. ABSENT: motor sensory deficit Psychiatric exam: PRESENT: appropriate affect, normal mood. ABSENT: homicidal ideation, suicidal ideation Skin exam: PRESENT: dry, intact, warm. ABSENT: cyanosis, rash Results Laboratory Results: 09/22/17 05:10 09/22/17 05:10 09/16/17 09/16/17 09/16/17 14:59 14:59 21:15 Creatine Kinase < 20 L < 20 L CK-MB (CK-2) 0.38 Troponin I < 0.012 09/16/17 09/17/17 09/17/17 21:15 03:10 03:10 Creatine Kinase < 20 L CK-MB (CK-2) 0.53 0.63 Troponin I < 0.012 < 0.012 Impressions: Abdomen Ultrasound 09/16/17 00:00 IMPRESSION: TRACE ASCITES RIGHT UPPER QUADRANT. Chest X-Ray 09/16/17 06:05 IMPRESSION: CARDIAC ENLARGEMENT. VASCULAR CONGESTION WITH RIGHT GREATER THAN LEFT PLEURAL EFFUSIONS. Bone Marrow Biopsy w/ CT 09/18/17 00:00 IMPRESSION: CT GUIDED BIOPSY OF THE POSTERIOR RIGHT ILIAC CREST PERFORMED WITHOUT IMMEDIATE COMPLICATION. PATHOLOGY PENDING. Guidance Needle Placement CT 09/18/17 00:00 IMPRESSION: CT GUIDED BIOPSY OF THE POSTERIOR RIGHT ILIAC CREST PERFORMED WITHOUT IMMEDIATE COMPLICATION. PATHOLOGY PENDING. Assessment & Plan - Diagnosis (1) CHF (congestive heart failure) Qualifiers: Congestive heart failure type: unspecified Congestive heart failure chronicity: unspecified Qualified Code(s): I50.9 - Heart failure, unspecified Is this a current diagnosis for this admission?: Yes Plan: Acute on Chronic Diastolic CHF: Will continue Lasix 60 mg IV BID. (2) Atrial fibrillation Qualifiers: Atrial fibrillation type: chronic Qualified Code(s): I48.2 - Chronic atrial fibrillation Is this a current diagnosis for this admission?: Yes Plan: Continue current medications. (3) COPD (chronic obstructive pulmonary disease) Qualifiers: Emphysema type: unspecified Is this a current diagnosis for this admission?: Yes Plan: Without exacerbation: Will continue current treatment. (4) Diabetes mellitus Qualifiers: Diabetes mellitus type: type 2 Diabetes mellitus complication status: without complication Diabetes mellitus care home insulin use: without care home use Qualified Code(s): E11.9 - Type 2 diabetes mellitus without complications Is this a current diagnosis for this admission?: Yes Plan: Will continue SSI. (5) Hyponatremia Is this a current diagnosis for this admission?: Yes Plan: Secondary to Hypervolemia: Will continue Lasix 60mg IV BID (6) Lung cancer Qualifiers: Laterality: right Lung location: upper lobe of lung Qualified Code(s): C34.11 - Malignant neoplasm of upper lobe, right bronchus or lung Is this a current diagnosis for this admission?: Yes Plan: Pt followed by Dr. Cervantes. (7) Thrombocytopenia Is this a current diagnosis for this admission?: Yes Plan: Chronic: Will continue to monitor. (8) Ventricular tachycardia Is this a current diagnosis for this admission?: Yes Plan: Will continue to monitor. (9) Patient is full code Is this a current diagnosis for this admission?: Yes - Time Time Spent with patient: 15-24 minutes
[2017-09-23] MEDS: TEMAZEPAM 7.5 MG CAPSULE PO PRN (22:29)
[2017-09-24] MEDS: ONDANSETRON HCL INJ/PF 4 MG/2 ML SDV IV PRN (02:54)
[2017-09-24] MEDS: DILTIAZEM HCL 30 MG TABLET PO SCH ×3 (05:26→17:46)
[2017-09-24] MEDS: FUROSEMIDE INJ/PF 100 MG/10 ML SDV IV SCH ×2 (05:26→14:48)
[2017-09-24 06:56] LABS: ABSOLUTE EOSINOPHILS # (AUTO) 0.1 10^3/uL (0.0-0.6); ABSOLUTE LYMPHOCYTES (AUTO) 1.2 10^3/uL (0.5-4.7); ABSOLUTE MONOCYTES (AUTO) 0.5 10^3/uL (0.1-1.4); ABSOLUTE NEUT (AUTO) 3.2 10^3/uL (1.7-8.2); BASOPHILS % (AUTO) 0.4 % (0-2); EOSINOPHILS % (AUTO) 1.2 % (0-6); HEMATOCRIT 30.5 % (36.0-47.0); HEMOGLOBIN 10.1 g/dL (12.0-15.5); LYMPHOCYTES % (AUTO) 24.5 % (13-45); MEAN CORPUSCULAR HEMOGLOBIN 35.2 pg (27.0-33.4); MEAN CORPUSCULAR HGB CONC 33.1 g/dL (32.0-36.0); MEAN CORPUSCULAR VOLUME 106 fl (80-97); RED BLOOD COUNT 2.88 10^6/uL (3.72-5.28); RED CELL DISTRIBUTION WIDTH 16.8 % (11.5-14.0); SEGMENTED NEUTROPHILS % (AUTO) 63.9 % (42-78); TOTAL CELLS COUNTED % (AUTO) 100 %; WHITE BLOOD COUNT 4.9 10^3/uL (4.0-10.5)
[2017-09-24 07:09] LABS: ALANINE AMINOTRANSFERASE 43 U/L (9-52); ALBUMIN 3.2 g/dL (3.5-5.0); ALKALINE PHOSPHATASE 125 U/L (38-126); ANION GAP 8 (5-19); ASPARTATE AMINO TRANSFERASE 33 U/L (14-36); BILIRUBIN,DIRECT 0.7 mg/dL (0.0-0.4); BILIRUBIN,TOTAL 1.2 mg/dL (0.2-1.3); BLOOD UREA NITROGEN 17 mg/dL (7-20); CALCIUM 8.4 mg/dL (8.4-10.2); CARBON DIOXIDE 37 mmol/L (22-30); CHLORIDE 86 mmol/L (98-107); GLUCOSE 124 mg/dL (75-110); POTASSIUM 3.8 mmol/L (3.6-5.0); SODIUM 130.5 mmol/L (137-145); TOTAL PROTEIN 5.9 g/dL (6.3-8.2)
[2017-09-24 07:45] LABS: PLATELET COUNT 25 10^3/uL (150-450)
--- NOTE | 2017-09-24 08:54 | PDOC PROGRESS REPORT ---
Subjective Progress Note for:: 09/24/17 Subjective:: No acute events overnight Reason For Visit: CONGESTIVE HEART FAILURE Physical Exam Vital Signs: Temp Pulse Resp BP Pulse Ox 98.3 F 85 18 130/76 H 97 09/24/17 07:55 09/24/17 07:55 09/24/17 07:55 09/24/17 07:55 09/24/17 07:55 Intake & Output 09/23/17 09/24/17 09/25/17 06:59 06:59 06:59 Intake Total 1700 237 Output Total 5150 Balance -3450 237 Weight 102.2 kg General appearance: PRESENT: no acute distress, well-developed, well-nourished Head exam: PRESENT: atraumatic, normocephalic Eye exam: PRESENT: conjunctiva pink, EOMI, PERRLA. ABSENT: scleral icterus Ear exam: PRESENT: normal external ear exam Mouth exam: PRESENT: moist, tongue midline Neck exam: ABSENT: carotid bruit, JVD, lymphadenopathy, thyromegaly Respiratory exam: PRESENT: clear to auscultation isaura. ABSENT: rales, rhonchi, wheezes Cardiovascular exam: PRESENT: RRR. ABSENT: diastolic murmur, rubs, systolic murmur Pulses: PRESENT: normal dorsalis pedis pul Vascular exam: PRESENT: normal capillary refill GI/Abdominal exam: PRESENT: normal bowel sounds, soft. ABSENT: distended, guarding, mass, organolmegaly, rebound, tenderness Rectal exam: PRESENT: deferred Extremities exam: PRESENT: full ROM. ABSENT: calf tenderness, clubbing, pedal edema Neurological exam: PRESENT: alert, awake, oriented to person, oriented to place , oriented to time, oriented to situation, CN II-XII grossly intact. ABSENT: motor sensory deficit Psychiatric exam: PRESENT: appropriate affect, normal mood. ABSENT: homicidal ideation, suicidal ideation Skin exam: PRESENT: dry, intact, warm. ABSENT: cyanosis, rash Results Laboratory Results: 09/24/17 05:15 09/24/17 05:15 09/24/17 09/24/17 05:15 05:15 WBC 4.9 RBC 2.88 L Hgb 10.1 L Hct 30.5 L MCV 106 H MCH 35.2 H MCHC 33.1 RDW 16.8 H Plt Count 25 L* Seg Neutrophils % 63.9 Lymphocytes % 24.5 Monocytes % 10.0 Eosinophils % 1.2 Basophils % 0.4 Absolute Neutrophils 3.2 Absolute Lymphocytes 1.2 Absolute Monocytes 0.5 Absolute Eosinophils 0.1 Absolute Basophils 0.0 Sodium 130.5 L Potassium 3.8 Chloride 86 L Carbon Dioxide 37 H Anion Gap 8 BUN 17 Creatinine 0.64 Est GFR ( Amer) > 60 Est GFR (Non-Af Amer) > 60 Glucose 124 H Calcium 8.4 Total Bilirubin 1.2 AST 33 ALT 43 Alkaline Phosphatase 125 Total Protein 5.9 L Albumin 3.2 L 09/16/17 09/16/17 09/16/17 14:59 14:59 21:15 Creatine Kinase < 20 L < 20 L CK-MB (CK-2) 0.38 Troponin I < 0.012 09/16/17 09/17/17 09/17/17 21:15 03:10 03:10 Creatine Kinase < 20 L CK-MB (CK-2) 0.53 0.63 Troponin I < 0.012 < 0.012 Impressions: Abdomen Ultrasound 09/16/17 00:00 IMPRESSION: TRACE ASCITES RIGHT UPPER QUADRANT. Chest X-Ray 09/16/17 06:05 IMPRESSION: CARDIAC ENLARGEMENT. VASCULAR CONGESTION WITH RIGHT GREATER THAN LEFT PLEURAL EFFUSIONS. Bone Marrow Biopsy w/ CT 09/18/17 00:00 IMPRESSION: CT GUIDED BIOPSY OF THE POSTERIOR RIGHT ILIAC CREST PERFORMED WITHOUT IMMEDIATE COMPLICATION. PATHOLOGY PENDING. Guidance Needle Placement CT 09/18/17 00:00 IMPRESSION: CT GUIDED BIOPSY OF THE POSTERIOR RIGHT ILIAC CREST PERFORMED WITHOUT IMMEDIATE COMPLICATION. PATHOLOGY PENDING. Assessment & Plan - Diagnosis (1) Thrombocytopenia Is this a current diagnosis for this admission?: Yes Plan: Awaiting final results of bmbx but no acute leukemia or lymphoma noted thus far. (2) Lung cancer Qualifiers: Laterality: right Lung location: upper lobe of lung Qualified Code(s): C34.11 - Malignant neoplasm of upper lobe, right bronchus or lung Is this a current diagnosis for this admission?: Yes Plan: All rx on hold until pt recovers - Time Time Spent with patient: 25-34 minutes
[2017-09-24] MEDS: BUDESONIDE/FORMOTEROL 160-4.5 MCG 60 PUFF/6 GM MDI IH SCH ×2 (10:03→22:19)
[2017-09-24] MEDS: CARVEDILOL 12.5 MG TABLET PO SCH ×2 (10:03→22:19)
[2017-09-24] MEDS: FAMOTIDINE 20 MG TABLET PO SCH ×2 (10:03→22:19)
[2017-09-24] MEDS: SENNOSIDES/DOCUSATE 8.6-50 MG 1 EACH TABLET PO SCH ×2 (10:03→17:46)
--- NOTE | 2017-09-24 16:07 | PDOC PROGRESS REPORT ---
Subjective Progress Note for:: 09/24/17 Subjective:: Patient states that her breathing is much improved. Nurse reports that patient has had out approximately 3600 cc of urine out Reason For Visit: CONGESTIVE HEART FAILURE Physical Exam Vital Signs: Temp Pulse Resp BP Pulse Ox 98.6 F 78 16 98/51 L 100 09/24/17 12:00 09/24/17 14:00 09/24/17 12:00 09/24/17 12:00 09/24/17 12:00 Intake & Output 09/23/17 09/24/17 09/25/17 06:59 06:59 06:59 Intake Total 1700 237 Output Total 5150 Balance -3450 237 Weight 102.2 kg 100.9 kg General appearance: PRESENT: mild distress, morbidly obese, well-developed, well -nourished Head exam: PRESENT: atraumatic, normocephalic Eye exam: PRESENT: conjunctiva pink, EOMI. ABSENT: scleral icterus Ear exam: PRESENT: normal external ear exam Mouth exam: PRESENT: moist, tongue midline Neck exam: ABSENT: carotid bruit, JVD, lymphadenopathy, thyromegaly Respiratory exam: PRESENT: clear to auscultation isaura. ABSENT: rales, rhonchi, wheezes Cardiovascular exam: PRESENT: RRR. ABSENT: diastolic murmur, rubs, systolic murmur Pulses: PRESENT: normal dorsalis pedis pul Vascular exam: PRESENT: normal capillary refill GI/Abdominal exam: PRESENT: normal bowel sounds, soft. ABSENT: distended, guarding, mass, organolmegaly, rebound, tenderness Rectal exam: PRESENT: deferred Extremities exam: PRESENT: pedal edema, +2 edema. ABSENT: calf tenderness, clubbing Neurological exam: PRESENT: alert, awake, oriented to person, oriented to place , oriented to time, oriented to situation, CN II-XII grossly intact. ABSENT: motor sensory deficit Psychiatric exam: PRESENT: anxious Skin exam: PRESENT: dry, intact, warm. ABSENT: cyanosis, rash Results Laboratory Results: 09/24/17 05:15 09/24/17 05:15 09/24/17 09/24/17 05:15 05:15 WBC 4.9 RBC 2.88 L Hgb 10.1 L Hct 30.5 L MCV 106 H MCH 35.2 H MCHC 33.1 RDW 16.8 H Plt Count 25 L* Seg Neutrophils % 63.9 Lymphocytes % 24.5 Monocytes % 10.0 Eosinophils % 1.2 Basophils % 0.4 Absolute Neutrophils 3.2 Absolute Lymphocytes 1.2 Absolute Monocytes 0.5 Absolute Eosinophils 0.1 Absolute Basophils 0.0 Sodium 130.5 L Potassium 3.8 Chloride 86 L Carbon Dioxide 37 H Anion Gap 8 BUN 17 Creatinine 0.64 Est GFR ( Amer) > 60 Est GFR (Non-Af Amer) > 60 Glucose 124 H Calcium 8.4 Total Bilirubin 1.2 AST 33 ALT 43 Alkaline Phosphatase 125 Total Protein 5.9 L Albumin 3.2 L 09/16/17 09/16/17 09/16/17 14:59 14:59 21:15 Creatine Kinase < 20 L < 20 L CK-MB (CK-2) 0.38 Troponin I < 0.012 09/16/17 09/17/17 09/17/17 21:15 03:10 03:10 Creatine Kinase < 20 L CK-MB (CK-2) 0.53 0.63 Troponin I < 0.012 < 0.012 Impressions: Abdomen Ultrasound 09/16/17 00:00 IMPRESSION: TRACE ASCITES RIGHT UPPER QUADRANT. Chest X-Ray 09/16/17 06:05 IMPRESSION: CARDIAC ENLARGEMENT. VASCULAR CONGESTION WITH RIGHT GREATER THAN LEFT PLEURAL EFFUSIONS. Bone Marrow Biopsy w/ CT 09/18/17 00:00 IMPRESSION: CT GUIDED BIOPSY OF THE POSTERIOR RIGHT ILIAC CREST PERFORMED WITHOUT IMMEDIATE COMPLICATION. PATHOLOGY PENDING. Guidance Needle Placement CT 09/18/17 00:00 IMPRESSION: CT GUIDED BIOPSY OF THE POSTERIOR RIGHT ILIAC CREST PERFORMED WITHOUT IMMEDIATE COMPLICATION. PATHOLOGY PENDING. Assessment & Plan - Diagnosis (1) CHF (congestive heart failure) Qualifiers: Congestive heart failure type: unspecified Congestive heart failure chronicity: unspecified Qualified Code(s): I50.9 - Heart failure, unspecified Is this a current diagnosis for this admission?: Yes Plan: Acute on Chronic Diastolic CHF: Will continue Lasix 60 mg IV BID. Pt having good urine output. Will continue to monitor. (2) Atrial fibrillation Qualifiers: Atrial fibrillation type: chronic Qualified Code(s): I48.2 - Chronic atrial fibrillation Is this a current diagnosis for this admission?: Yes Plan: Continue current medications. (3) COPD (chronic obstructive pulmonary disease) Qualifiers: Emphysema type: unspecified Is this a current diagnosis for this admission?: Yes Plan: Without exacerbation: Will continue current treatment. (4) Diabetes mellitus Qualifiers: Diabetes mellitus type: type 2 Diabetes mellitus complication status: without complication Diabetes mellitus custodial insulin use: without custodial use Qualified Code(s): E11.9 - Type 2 diabetes mellitus without complications Is this a current diagnosis for this admission?: Yes Plan: Will continue SSI. (5) Hyponatremia Is this a current diagnosis for this admission?: Yes Plan: Secondary to Hypervolemia: Will continue Lasix 60mg IV BID. Pt sodium continue to improve. (6) Lung cancer Qualifiers: Laterality: right Lung location: upper lobe of lung Qualified Code(s): C34.11 - Malignant neoplasm of upper lobe, right bronchus or lung Is this a current diagnosis for this admission?: Yes Plan: Pt followed by Dr. Cervantes. (7) Thrombocytopenia Is this a current diagnosis for this admission?: Yes Plan: Chronic: Will continue to monitor. (8) Ventricular tachycardia Is this a current diagnosis for this admission?: Yes Plan: Will continue to monitor. (9) Patient is full code Is this a current diagnosis for this admission?: Yes - Time Time Spent with patient: 15-24 minutes
[2017-09-24] MEDS: INSULIN LISPRO 100 UNIT/ML 3 ML VIAL SUBCUT PRN (22:19)
[2017-09-24] MEDS: OXYCODONE HCL IR 5 MG TABLET PO PRN (22:23)
[2017-09-25] MEDS: DILTIAZEM HCL 30 MG TABLET PO SCH ×4 (00:44→18:04)
[2017-09-25] MEDS: FUROSEMIDE INJ/PF 100 MG/10 ML SDV IV SCH ×2 (05:40→13:44)
[2017-09-25 06:08] LABS: ABSOLUTE EOSINOPHILS # (AUTO) 0.1 10^3/uL (0.0-0.6); ABSOLUTE LYMPHOCYTES (AUTO) 1.3 10^3/uL (0.5-4.7); ABSOLUTE MONOCYTES (AUTO) 0.6 10^3/uL (0.1-1.4); ABSOLUTE NEUT (AUTO) 2.6 10^3/uL (1.7-8.2); BASOPHILS % (AUTO) 0.4 % (0-2); EOSINOPHILS % (AUTO) 1.5 % (0-6); HEMATOCRIT 30.1 % (36.0-47.0); LYMPHOCYTES % (AUTO) 28.6 % (13-45); MEAN CORPUSCULAR HEMOGLOBIN 35.1 pg (27.0-33.4); MEAN CORPUSCULAR HGB CONC 33.3 g/dL (32.0-36.0); MEAN CORPUSCULAR VOLUME 106 fl (80-97); MONOCYTES % (AUTO) 12.1 % (3-13); RED BLOOD COUNT 2.85 10^6/uL (3.72-5.28); RED CELL DISTRIBUTION WIDTH 16.6 % (11.5-14.0); SEGMENTED NEUTROPHILS % (AUTO) 57.4 % (42-78); TOTAL CELLS COUNTED % (AUTO) 100 %; WHITE BLOOD COUNT 4.6 10^3/uL (4.0-10.5)
[2017-09-25 06:18] LABS: ANION GAP 8 (5-19); BLOOD UREA NITROGEN 16 mg/dL (7-20); CALCIUM 8.6 mg/dL (8.4-10.2); CARBON DIOXIDE 38 mmol/L (22-30); CHLORIDE 85 mmol/L (98-107); GLUCOSE 115 mg/dL (75-110); POTASSIUM 3.8 mmol/L (3.6-5.0); SODIUM 130.7 mmol/L (137-145)
[2017-09-25 07:02] LABS: PLATELET COUNT 28 10^3/uL (150-450)
--- NOTE | 2017-09-25 08:28 | PDOC PROGRESS REPORT ---
Subjective Progress Note for:: 09/25/17 Subjective:: No acute events overnight, pt feels better today Reason For Visit: CONGESTIVE HEART FAILURE Physical Exam Vital Signs: Temp Pulse Resp BP Pulse Ox 98.1 F 79 16 108/58 L 99 09/25/17 07:48 09/25/17 07:48 09/25/17 07:48 09/25/17 07:48 09/25/17 07:48 Intake & Output 09/24/17 09/25/17 09/26/17 06:59 06:59 06:59 Intake Total 237 2053 Output Total 4800 600 Balance 639 -8071 -600 Weight 100.9 kg 99.9 kg General appearance: PRESENT: no acute distress, well-developed, well-nourished Head exam: PRESENT: atraumatic, normocephalic Eye exam: PRESENT: conjunctiva pink, EOMI, PERRLA. ABSENT: scleral icterus Ear exam: PRESENT: normal external ear exam Mouth exam: PRESENT: moist, tongue midline Neck exam: ABSENT: carotid bruit, JVD, lymphadenopathy, thyromegaly Respiratory exam: PRESENT: clear to auscultation isaura. ABSENT: rales, rhonchi, wheezes Cardiovascular exam: PRESENT: RRR. ABSENT: diastolic murmur, rubs, systolic murmur Pulses: PRESENT: normal dorsalis pedis pul Vascular exam: PRESENT: normal capillary refill GI/Abdominal exam: PRESENT: normal bowel sounds, soft. ABSENT: distended, guarding, mass, organolmegaly, rebound, tenderness Rectal exam: PRESENT: deferred Extremities exam: PRESENT: full ROM. ABSENT: calf tenderness, clubbing, pedal edema Neurological exam: PRESENT: alert, awake, oriented to person, oriented to place , oriented to time, oriented to situation, CN II-XII grossly intact. ABSENT: motor sensory deficit Psychiatric exam: PRESENT: appropriate affect, normal mood. ABSENT: homicidal ideation, suicidal ideation Skin exam: PRESENT: dry, intact, warm. ABSENT: cyanosis, rash Results Laboratory Results: 09/25/17 04:23 09/25/17 04:23 09/25/17 09/25/17 04:23 04:23 WBC 4.6 RBC 2.85 L Hgb 10.0 L Hct 30.1 L MCV 106 H MCH 35.1 H MCHC 33.3 RDW 16.6 H Plt Count 28 L* Seg Neutrophils % 57.4 Lymphocytes % 28.6 Monocytes % 12.1 Eosinophils % 1.5 Basophils % 0.4 Absolute Neutrophils 2.6 Absolute Lymphocytes 1.3 Absolute Monocytes 0.6 Absolute Eosinophils 0.1 Absolute Basophils 0.0 Sodium 130.7 L Potassium 3.8 Chloride 85 L Carbon Dioxide 38 H Anion Gap 8 BUN 16 Creatinine 0.63 Est GFR ( Amer) > 60 Est GFR (Non-Af Amer) > 60 Glucose 115 H Calcium 8.6 09/16/17 09/16/17 09/16/17 14:59 14:59 21:15 Creatine Kinase < 20 L < 20 L CK-MB (CK-2) 0.38 Troponin I < 0.012 09/16/17 09/17/17 09/17/17 21:15 03:10 03:10 Creatine Kinase < 20 L CK-MB (CK-2) 0.53 0.63 Troponin I < 0.012 < 0.012 Impressions: Abdomen Ultrasound 09/16/17 00:00 IMPRESSION: TRACE ASCITES RIGHT UPPER QUADRANT. Chest X-Ray 09/16/17 06:05 IMPRESSION: CARDIAC ENLARGEMENT. VASCULAR CONGESTION WITH RIGHT GREATER THAN LEFT PLEURAL EFFUSIONS. Bone Marrow Biopsy w/ CT 09/18/17 00:00 IMPRESSION: CT GUIDED BIOPSY OF THE POSTERIOR RIGHT ILIAC CREST PERFORMED WITHOUT IMMEDIATE COMPLICATION. PATHOLOGY PENDING. Guidance Needle Placement CT 09/18/17 00:00 IMPRESSION: CT GUIDED BIOPSY OF THE POSTERIOR RIGHT ILIAC CREST PERFORMED WITHOUT IMMEDIATE COMPLICATION. PATHOLOGY PENDING. Assessment & Plan - Diagnosis (1) Thrombocytopenia Is this a current diagnosis for this admission?: Yes Plan: Awaiting full bmbx results, will review w/ pt as outpt (2) Lung cancer Qualifiers: Laterality: right Lung location: upper lobe of lung Qualified Code(s): C34.11 - Malignant neoplasm of upper lobe, right bronchus or lung Is this a current diagnosis for this admission?: Yes Plan: All rx on hold, plan for re-eval as oupt
[2017-09-25] MEDS: SENNOSIDES/DOCUSATE 8.6-50 MG 1 EACH TABLET PO SCH ×2 (09:40→18:04)
[2017-09-25] MEDS: BUDESONIDE/FORMOTEROL 160-4.5 MCG 60 PUFF/6 GM MDI IH SCH ×2 (09:41→22:59)
[2017-09-25] MEDS: FAMOTIDINE 20 MG TABLET PO SCH ×2 (09:41→22:57)
[2017-09-25] MEDS: CARVEDILOL 12.5 MG TABLET PO SCH ×2 (09:41→22:58)
--- NOTE | 2017-09-25 10:23 | RADIOLOGY REPORT (SQ) ---
EXAM DESCRIPTION: CHEST SINGLE VIEW COMPLETED DATE/TIME: 09/25/2017 10:01 am REASON FOR STUDY: dyspnea COMPARISON: CT chest 06/22/2017 EXAM PARAMETERS: NUMBER OF VIEWS: One view. TECHNIQUE: Single frontal radiographic view of the chest acquired. RADIATION DOSE: NA LIMITATIONS: None. FINDINGS: LUNGS AND PLEURA: The mass seen on CT in the right lower lobe between the hilum and hemidi aphragm is difficult to appreciate by plain film. There is bandlike scarring or atelectasis along the inferior aspect of the right lower lobe. No gross acute infiltrates or pleural effusions. No pneumothorax. MEDIASTINUM AND HILAR STRUCTURES: No masses. Contour normal. HEART AND VASCULAR STRUCTURES: Massive cardiomegaly enlargement of the central pulmonary arteries. O ld sternotomy for CABG. BONES: No acute findings. 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 Left-sided dual lead pacemaker. OTHER: No other significant finding. IMPRESSION: Since 09/16/2017, there is been improvement in pulmonary vascular congestion and clearing of the small right pleural effusion. Right lower lobe mass between the right hilum and hemidiaphragm seen on CT 06/22/2017 is difficult to appreciate by plain film Massive cardiomegaly with stable pacemaker TECHNICAL DOCUMENTATION: JOB ID: [id number] [employer]- All Rights Reserved
--- NOTE | 2017-09-25 14:07 | PDOC PROGRESS REPORT ---
Subjective Progress Note for:: 09/25/17 Subjective:: The patient is a 67-year-old female with a past medical history of lung cancer, coronary artery disease, atrial fibrillation who was admitted on 09/16/17 for congestive heart failure. The patient is seen on morning rounds. She was found resting in bed comfortably on supplemental oxygen at 2 Lpm which is her baseline oxygen requirement. She reports that her breathing is much improved. She denies dyspnea at rest and orthopnea; she does feel slightly short of breath when ambulatory, however, is independent to the bathroom at this time. She denies cough, chest pain, palpitations. She does complain of continued bilateral lower leg edema. Reason For Visit: CONGESTIVE HEART FAILURE Physical Exam Vital Signs: Temp Pulse Resp BP Pulse Ox 98.3 F 76 18 112/60 99 09/25/17 11:33 09/25/17 11:33 09/25/17 11:33 09/25/17 11:33 09/25/17 11:33 Intake & Output 09/24/17 09/25/17 09/26/17 06:59 06:59 06:59 Intake Total 237 2053 Output Total 4490 600 Balance 237 -4191 -600 Weight 100.9 kg 99.9 kg General appearance: PRESENT: no acute distress, obese, well-developed, well- nourished Head exam: PRESENT: atraumatic, normocephalic Eye exam: PRESENT: conjunctiva pink, EOMI, PERRLA. ABSENT: scleral icterus Ear exam: PRESENT: normal external ear exam Mouth exam: PRESENT: moist, tongue midline Neck exam: ABSENT: carotid bruit, JVD, lymphadenopathy, thyromegaly Respiratory exam: PRESENT: crackles - Throughout, symmetrical, unlabored, other - Supplemental oxygen via nasal cannula. ABSENT: rales, rhonchi, wheezes Cardiovascular exam: PRESENT: RRR, +S1, +S2. ABSENT: diastolic murmur, rubs, systolic murmur Pulses: PRESENT: normal dorsalis pedis pul Vascular exam: PRESENT: normal capillary refill GI/Abdominal exam: PRESENT: normal bowel sounds, soft. ABSENT: distended, guarding, mass, organolmegaly, rebound, tenderness Rectal exam: PRESENT: deferred Extremities exam: PRESENT: full ROM, pedal edema, +2 edema - Bilateral. ABSENT : calf tenderness, clubbing Neurological exam: PRESENT: alert, awake, oriented to person, oriented to place , oriented to time, oriented to situation, CN II-XII grossly intact. ABSENT: motor sensory deficit Psychiatric exam: PRESENT: appropriate affect, normal mood. ABSENT: homicidal ideation, suicidal ideation Skin exam: PRESENT: dry, intact, warm. ABSENT: cyanosis, rash Results Laboratory Results: 09/25/17 04:23 09/25/17 04:23 09/25/17 09/25/17 04:23 04:23 WBC 4.6 RBC 2.85 L Hgb 10.0 L Hct 30.1 L MCV 106 H MCH 35.1 H MCHC 33.3 RDW 16.6 H Plt Count 28 L* Seg Neutrophils % 57.4 Lymphocytes % 28.6 Monocytes % 12.1 Eosinophils % 1.5 Basophils % 0.4 Absolute Neutrophils 2.6 Absolute Lymphocytes 1.3 Absolute Monocytes 0.6 Absolute Eosinophils 0.1 Absolute Basophils 0.0 Sodium 130.7 L Potassium 3.8 Chloride 85 L Carbon Dioxide 38 H Anion Gap 8 BUN 16 Creatinine 0.63 Est GFR ( Amer) > 60 Est GFR (Non-Af Amer) > 60 Glucose 115 H Calcium 8.6 09/16/17 09/16/17 09/16/17 14:59 14:59 21:15 Creatine Kinase < 20 L < 20 L CK-MB (CK-2) 0.38 Troponin I < 0.012 NT-Pro-B Natriuret Pep 09/16/17 09/17/17 09/17/17 21:15 03:10 03:10 Creatine Kinase < 20 L CK-MB (CK-2) 0.53 0.63 Troponin I < 0.012 < 0.012 NT-Pro-B Natriuret Pep 09/25/17 04:23 Creatine Kinase CK-MB (CK-2) Troponin I NT-Pro-B Natriuret Pep 5460 H Impressions: Abdomen Ultrasound 09/16/17 00:00 IMPRESSION: TRACE ASCITES RIGHT UPPER QUADRANT. Bone Marrow Biopsy w/ CT 09/18/17 00:00 IMPRESSION: CT GUIDED BIOPSY OF THE POSTERIOR RIGHT ILIAC CREST PERFORMED WITHOUT IMMEDIATE COMPLICATION. PATHOLOGY PENDING. Guidance Needle Placement CT 09/18/17 00:00 IMPRESSION: CT GUIDED BIOPSY OF THE POSTERIOR RIGHT ILIAC CREST PERFORMED WITHOUT IMMEDIATE COMPLICATION. PATHOLOGY PENDING. Chest X-Ray 09/25/17 00:00 IMPRESSION: Since 09/16/2017, there is been improvement in pulmonary vascular congestion and clearing of the small right pleural effusion. Right lower lobe mass between the right hilum and hemidiaphragm seen on CT 06/22 is difficult to appreciate by plain film Massive cardiomegaly with stable pacemaker Assessment & Plan - Diagnosis (1) CHF (congestive heart failure) Qualifiers: Congestive heart failure type: unspecified Congestive heart failure chronicity: unspecified Qualified Code(s): I50.9 - Heart failure, unspecified Is this a current diagnosis for this admission?: Yes Plan: ProBNP has trended down slightly from 2650-1157 with the furosemide. Echocardiogram demonstrates LVEF is 55% with mild left ventricular atrophy, mild to moderate diastolic dysfunction and borderline reduced systolic function. Repeat chest x-ray today shows improvement in pulmonary vascular congestion and clearing of the right pleural effusion with massive cardiomegaly as noted on previous imaging. Continue Coreg and Cardizem. Continue IV furosemide. (2) Atrial fibrillation Qualifiers: Atrial fibrillation type: chronic Qualified Code(s): I48.2 - Chronic atrial fibrillation Is this a current diagnosis for this admission?: Yes Plan: Continue home dose diltiazem. Anticoagulant is contraindicated secondary to thrombocytopenia. (3) COPD (chronic obstructive pulmonary disease) Qualifiers: Emphysema type: unspecified Is this a current diagnosis for this admission?: Yes Plan: Without exacerbation. Continue scheduled Symbicort with DuoNeb treatments every 6 hours as needed for wheezing or shortness of breath. (4) Diabetes mellitus Qualifiers: Diabetes mellitus type: type 2 Diabetes mellitus complication status: without complication Diabetes mellitus prison insulin use: without termite control technician use Qualified Code(s): E11.9 - Type 2 diabetes mellitus without complications Is this a current diagnosis for this admission?: Yes Plan: Accu-Cheks before meals and at bedtime with Humalog for sliding scale coverage. (5) Hyponatremia Is this a current diagnosis for this admission?: Yes Plan: Improving; secondary to hypervolemia. Continue IV furosemide. (6) Lung cancer Qualifiers: Laterality: right Lung location: upper lobe of lung Qualified Code(s): C34.11 - Malignant neoplasm of upper lobe, right bronchus or lung Is this a current diagnosis for this admission?: Yes Plan: Dr. Cervantes has been consulted; appreciate his assistance and recommendations. (7) Thrombocytopenia Is this a current diagnosis for this admission?: Yes Plan: Chronic. Followed by Dr. Cervantes. (8) Ventricular tachycardia Is this a current diagnosis for this admission?: Yes Plan: We will continue to monitor. (9) Patient is full code Is this a current diagnosis for this admission?: Yes - Time Time Spent with patient: 25-34 minutes Anticipated discharge: Home with Homehealth Within: within 24 hours
[2017-09-25] MEDS: ACETAMINOPHEN 325 MG TABLET PO PRN (15:43)
[2017-09-25] MEDS: INSULIN LISPRO 100 UNIT/ML 3 ML VIAL SUBCUT PRN (22:57)
[2017-09-25] MEDS: OXYCODONE HCL IR 5 MG TABLET PO PRN (22:59)
[2017-09-26] MEDS: DILTIAZEM HCL 30 MG TABLET PO SCH ×4 (01:08→17:00)
[2017-09-26] MEDS: FUROSEMIDE INJ/PF 100 MG/10 ML SDV IV SCH (05:50)
[2017-09-26 06:45] LABS: HEMATOCRIT 29.8 % (36.0-47.0); HEMOGLOBIN 9.9 g/dL (12.0-15.5); MEAN CORPUSCULAR HEMOGLOBIN 35.2 pg (27.0-33.4); MEAN CORPUSCULAR HGB CONC 33.4 g/dL (32.0-36.0); MEAN CORPUSCULAR VOLUME 106 fl (80-97); RED BLOOD COUNT 2.82 10^6/uL (3.72-5.28); RED CELL DISTRIBUTION WIDTH 16.2 % (11.5-14.0); WHITE BLOOD COUNT 4.3 10^3/uL (4.0-10.5)
[2017-09-26 06:51] LABS: BLOOD UREA NITROGEN 15 mg/dL (7-20); CALCIUM 8.7 mg/dL (8.4-10.2); CHLORIDE 86 mmol/L (98-107); GLUCOSE 121 mg/dL (75-110); POTASSIUM 3.7 mmol/L (3.6-5.0); SODIUM 130.9 mmol/L (137-145)
[2017-09-26 06:59] LABS: ANION GAP 7 (5-19); CARBON DIOXIDE 38 mmol/L (22-30)
[2017-09-26 07:12] LABS: PLATELET COUNT 27 10^3/uL (150-450)
--- NOTE | 2017-09-26 07:59 | PDOC PROGRESS REPORT ---
Subjective Progress Note for:: 09/26/17 Subjective:: Feeling good this am, hoping to leave soon Reason For Visit: CONGESTIVE HEART FAILURE Physical Exam Vital Signs: Temp Pulse Resp BP Pulse Ox 97.9 F 86 20 114/69 95 09/26/17 07:49 09/26/17 07:49 09/26/17 07:49 09/26/17 07:49 09/26/17 07:49 Intake & Output 09/25/17 09/26/17 09/27/17 06:59 06:59 06:59 Intake Total 4 9909 Output Total 3492 2219 Balance -9714 -5588 Weight 99.9 kg 97.9 kg General appearance: PRESENT: no acute distress, well-developed, well-nourished Head exam: PRESENT: atraumatic, normocephalic Eye exam: PRESENT: conjunctiva pink, EOMI, PERRLA. ABSENT: scleral icterus Ear exam: PRESENT: normal external ear exam Mouth exam: PRESENT: moist, tongue midline Neck exam: ABSENT: carotid bruit, JVD, lymphadenopathy, thyromegaly Respiratory exam: PRESENT: clear to auscultation isaura. ABSENT: rales, rhonchi, wheezes Cardiovascular exam: PRESENT: RRR. ABSENT: diastolic murmur, rubs, systolic murmur Pulses: PRESENT: normal dorsalis pedis pul Vascular exam: PRESENT: normal capillary refill GI/Abdominal exam: PRESENT: normal bowel sounds, soft. ABSENT: distended, guarding, mass, organolmegaly, rebound, tenderness Rectal exam: PRESENT: deferred Extremities exam: PRESENT: full ROM. ABSENT: calf tenderness, clubbing, pedal edema Neurological exam: PRESENT: alert, awake, oriented to person, oriented to place , oriented to time, oriented to situation, CN II-XII grossly intact. ABSENT: motor sensory deficit Psychiatric exam: PRESENT: appropriate affect, normal mood. ABSENT: homicidal ideation, suicidal ideation Skin exam: PRESENT: dry, intact, warm. ABSENT: cyanosis, rash Results Laboratory Results: 09/26/17 05:56 09/26/17 05:56 09/26/17 09/26/17 05:56 05:56 WBC 4.3 RBC 2.82 L Hgb 9.9 L Hct 29.8 L MCV 106 H MCH 35.2 H MCHC 33.4 RDW 16.2 H Plt Count 27 L* Sodium 130.9 L Potassium 3.7 Chloride 86 L Carbon Dioxide 38 H Anion Gap 7 BUN 15 Creatinine 0.64 Est GFR ( Amer) > 60 Est GFR (Non-Af Amer) > 60 Glucose 121 H Calcium 8.7 09/16/17 09/16/17 09/16/17 14:59 14:59 21:15 Creatine Kinase < 20 L < 20 L CK-MB (CK-2) 0.38 Troponin I < 0.012 NT-Pro-B Natriuret Pep 09/16/17 09/17/17 09/17/17 21:15 03:10 03:10 Creatine Kinase < 20 L CK-MB (CK-2) 0.53 0.63 Troponin I < 0.012 < 0.012 NT-Pro-B Natriuret Pep 09/25/17 04:23 Creatine Kinase CK-MB (CK-2) Troponin I NT-Pro-B Natriuret Pep 5460 H Impressions: Abdomen Ultrasound 09/16/17 00:00 IMPRESSION: TRACE ASCITES RIGHT UPPER QUADRANT. Bone Marrow Biopsy w/ CT 09/18/17 00:00 IMPRESSION: CT GUIDED BIOPSY OF THE POSTERIOR RIGHT ILIAC CREST PERFORMED WITHOUT IMMEDIATE COMPLICATION. PATHOLOGY PENDING. Guidance Needle Placement CT 09/18/17 00:00 IMPRESSION: CT GUIDED BIOPSY OF THE POSTERIOR RIGHT ILIAC CREST PERFORMED WITHOUT IMMEDIATE COMPLICATION. PATHOLOGY PENDING. Chest X-Ray 09/25/17 00:00 IMPRESSION: Since 09/16/2017, there is been improvement in pulmonary vascular congestion and clearing of the small right pleural effusion. Right lower lobe mass between the right hilum and hemidiaphragm seen on CT 06/22 is difficult to appreciate by plain film Massive cardiomegaly with stable pacemaker Assessment & Plan - Diagnosis (1) Thrombocytopenia Is this a current diagnosis for this admission?: Yes Plan: We will have f/u next week to go over bone marrow bx results and to f/u the platelet count. (2) Lung cancer Qualifiers: Laterality: right Lung location: upper lobe of lung Qualified Code(s): C34.11 - Malignant neoplasm of upper lobe, right bronchus or lung Is this a current diagnosis for this admission?: Yes Plan: All rx on hold until tpenia resolves, in a 2-3 weeks time we will need to restage the cancer. - Time Time Spent with patient: 35 or more minutes
[2017-09-26] MEDS ORDERED: ASPIRIN 81 MG TABLET, ENT COATED PO SCH (10:00)
[2017-09-26] MEDS ORDERED: FUROSEMIDE 40 MG TABLET PO SCH (10:00)
[2017-09-26] MEDS: SENNOSIDES/DOCUSATE 8.6-50 MG 1 EACH TABLET PO SCH ×2 (10:04→17:00)
[2017-09-26] MEDS: BUDESONIDE/FORMOTEROL 160-4.5 MCG 60 PUFF/6 GM MDI IH SCH ×2 (10:04→22:12)
[2017-09-26] MEDS: FAMOTIDINE 20 MG TABLET PO SCH ×2 (10:05→22:11)
[2017-09-26] MEDS: FUROSEMIDE 40 MG TABLET PO SCH ×2 (10:05→22:12)
[2017-09-26] MEDS: CARVEDILOL 12.5 MG TABLET PO SCH ×2 (10:06→22:12)
--- NOTE | 2017-09-26 13:37 | PDOC PROGRESS REPORT ---
Subjective Progress Note for:: 09/26/17 Subjective:: The patient is a 67-year-old female with a past medical history of lung cancer, coronary artery disease, atrial fibrillation who was admitted on 09/16/17 for congestive heart failure. The patient is seen on morning rounds. She was found resting in bed comfortably on supplemental oxygen at 1 Lpm which is her baseline oxygen requirement. She reports that her breathing is much improved. She denies dyspnea at rest and orthopnea; she does feel slightly short of breath when ambulatory. She denies cough, chest pain, palpitations. Her primary complaint today is that she did not sleep well overnight. She does request a sleep aid if possible stating that she takes her p.m. or Restoril at home. She has no other questions or concerns Reason For Visit: CONGESTIVE HEART FAILURE Physical Exam Vital Signs: Temp Pulse Resp BP Pulse Ox 97.9 F 71 20 116/54 L 94 09/26/17 12:00 09/26/17 12:00 09/26/17 12:00 09/26/17 12:00 09/26/17 12:00 Intake & Output 09/25/17 09/26/17 09/27/17 06:59 06:59 06:59 Intake Total 2053 1721 Output Total 9150 6050 Balance -6635 -5979 Weight 99.9 kg 97.9 kg General appearance: PRESENT: no acute distress, obese, well-developed, well- nourished Head exam: PRESENT: atraumatic, normocephalic Eye exam: PRESENT: conjunctiva pink, EOMI, PERRLA. ABSENT: scleral icterus Ear exam: PRESENT: normal external ear exam Mouth exam: PRESENT: moist, tongue midline Neck exam: ABSENT: carotid bruit, JVD, lymphadenopathy, thyromegaly Respiratory exam: PRESENT: crackles - Decreased as compared to yesterday; Rt > Lt, symmetrical, unlabored. ABSENT: rales, rhonchi, wheezes Cardiovascular exam: PRESENT: RRR. ABSENT: diastolic murmur, rubs, systolic murmur Pulses: PRESENT: normal dorsalis pedis pul Vascular exam: PRESENT: normal capillary refill GI/Abdominal exam: PRESENT: normal bowel sounds, soft. ABSENT: distended, guarding, mass, organolmegaly, rebound, tenderness Rectal exam: PRESENT: deferred Extremities exam: PRESENT: full ROM, +1 edema - BLE. ABSENT: calf tenderness, clubbing, pedal edema Neurological exam: PRESENT: alert, awake, oriented to person, oriented to place , oriented to time, oriented to situation, CN II-XII grossly intact. ABSENT: motor sensory deficit Psychiatric exam: PRESENT: appropriate affect, normal mood. ABSENT: homicidal ideation, suicidal ideation Skin exam: PRESENT: dry, intact, warm. ABSENT: cyanosis, rash Results Laboratory Results: 09/26/17 05:56 09/26/17 05:56 09/26/17 09/26/17 05:56 05:56 WBC 4.3 RBC 2.82 L Hgb 9.9 L Hct 29.8 L MCV 106 H MCH 35.2 H MCHC 33.4 RDW 16.2 H Plt Count 27 L* Sodium 130.9 L Potassium 3.7 Chloride 86 L Carbon Dioxide 38 H Anion Gap 7 BUN 15 Creatinine 0.64 Est GFR ( Amer) > 60 Est GFR (Non-Af Amer) > 60 Glucose 121 H Calcium 8.7 09/16/17 09/16/17 09/16/17 14:59 14:59 21:15 Creatine Kinase < 20 L < 20 L CK-MB (CK-2) 0.38 Troponin I < 0.012 NT-Pro-B Natriuret Pep 09/16/17 09/17/17 09/17/17 21:15 03:10 03:10 Creatine Kinase < 20 L CK-MB (CK-2) 0.53 0.63 Troponin I < 0.012 < 0.012 NT-Pro-B Natriuret Pep 09/25/17 04:23 Creatine Kinase CK-MB (CK-2) Troponin I NT-Pro-B Natriuret Pep 5460 H Impressions: Abdomen Ultrasound 09/16/17 00:00 IMPRESSION: TRACE ASCITES RIGHT UPPER QUADRANT. Bone Marrow Biopsy w/ CT 09/18/17 00:00 IMPRESSION: CT GUIDED BIOPSY OF THE POSTERIOR RIGHT ILIAC CREST PERFORMED WITHOUT IMMEDIATE COMPLICATION. PATHOLOGY PENDING. Guidance Needle Placement CT 09/18/17 00:00 IMPRESSION: CT GUIDED BIOPSY OF THE POSTERIOR RIGHT ILIAC CREST PERFORMED WITHOUT IMMEDIATE COMPLICATION. PATHOLOGY PENDING. Chest X-Ray 09/25/17 00:00 IMPRESSION: Since 09/16/2017, there is been improvement in pulmonary vascular congestion and clearing of the small right pleural effusion. Right lower lobe mass between the right hilum and hemidiaphragm seen on CT 06/22 is difficult to appreciate by plain film Massive cardiomegaly with stable pacemaker Assessment & Plan - Diagnosis (1) CHF (congestive heart failure) Qualifiers: Congestive heart failure type: unspecified Congestive heart failure chronicity: unspecified Qualified Code(s): I50.9 - Heart failure, unspecified Is this a current diagnosis for this admission?: Yes Plan: ProBNP has trended down slightly from 3220-5125 with the furosemide. Echocardiogram demonstrates LVEF is 55% with mild left ventricular atrophy, mild to moderate diastolic dysfunction and borderline reduced systolic function. Repeat chest x-ray yesterday showed improvement in pulmonary vascular congestion and clearing of the right pleural effusion with massive cardiomegaly as noted on previous imaging. Continue Coreg and Cardizem. We will transition to p.o. furosemide. Continue to monitor I&Os and daily weight. Recommend Home Health with CHF tele-health program at discharge. (2) Atrial fibrillation Qualifiers: Atrial fibrillation type: chronic Qualified Code(s): I48.2 - Chronic atrial fibrillation Is this a current diagnosis for this admission?: Yes Plan: Continue home dose diltiazem. Anticoagulant is contraindicated secondary to thrombocytopenia. (3) COPD (chronic obstructive pulmonary disease) Qualifiers: Emphysema type: unspecified Is this a current diagnosis for this admission?: Yes Plan: Without exacerbation. Continue scheduled Symbicort with DuoNeb treatments every 6 hours as needed for wheezing or shortness of breath. (4) Diabetes mellitus Qualifiers: Diabetes mellitus type: type 2 Diabetes mellitus complication status: without complication Diabetes mellitus chcf insulin use: without terminologist use Qualified Code(s): E11.9 - Type 2 diabetes mellitus without complications Is this a current diagnosis for this admission?: Yes Plan: Accu-Cheks before meals and at bedtime with Humalog for sliding scale coverage. (5) Hyponatremia Is this a current diagnosis for this admission?: Yes Plan: Improved; secondary to hypervolemia. Transition to p.o. furosemide today. (6) Lung cancer Qualifiers: Laterality: right Lung location: upper lobe of lung Qualified Code(s): C34.11 - Malignant neoplasm of upper lobe, right bronchus or lung Is this a current diagnosis for this admission?: Yes Plan: Dr. Cervantes has been consulted; appreciate his assistance and recommendations. (7) Thrombocytopenia Is this a current diagnosis for this admission?: Yes Plan: Chronic. Followed by Dr. Cervantes. (8) Ventricular tachycardia Is this a current diagnosis for this admission?: Yes Plan: We will continue to monitor. (9) Patient is full code Is this a current diagnosis for this admission?: Yes - Time Time Spent with patient: 25-34 minutes Medications reviewed and adjusted accordingly: Yes Anticipated discharge: Home Within: within 48 hours
[2017-09-26] MEDS: ACETAMINOPHEN 325 MG TABLET PO PRN (16:57)
[2017-09-26] MEDS: OXYCODONE HCL IR 5 MG TABLET PO PRN (23:22)
[2017-09-26] MEDS: INSULIN LISPRO 100 UNIT/ML 3 ML VIAL SUBCUT PRN (23:22)
[2017-09-27] MEDS: DILTIAZEM HCL 30 MG TABLET PO SCH ×2 (01:30→06:10)
[2017-09-27 06:40] LABS: HEMATOCRIT 30.6 % (36.0-47.0); HEMOGLOBIN 10.1 g/dL (12.0-15.5); MEAN CORPUSCULAR HEMOGLOBIN 34.8 pg (27.0-33.4); MEAN CORPUSCULAR HGB CONC 33.1 g/dL (32.0-36.0); MEAN CORPUSCULAR VOLUME 105 fl (80-97); RED BLOOD COUNT 2.91 10^6/uL (3.72-5.28); RED CELL DISTRIBUTION WIDTH 16.3 % (11.5-14.0); WHITE BLOOD COUNT 4.1 10^3/uL (4.0-10.5)
[2017-09-27 06:47] LABS: PLATELET COUNT 25 10^3/uL (150-450)
[2017-09-27 06:57] LABS: ANION GAP 6 (5-19); BLOOD UREA NITROGEN 15 mg/dL (7-20); CALCIUM 8.8 mg/dL (8.4-10.2); CARBON DIOXIDE 38 mmol/L (22-30); CHLORIDE 86 mmol/L (98-107); GLUCOSE 113 mg/dL (75-110); POTASSIUM 3.5 mmol/L (3.6-5.0); SODIUM 130.4 mmol/L (137-145)
[2017-09-27 08:08] VITALS: BP 98/61
--- NOTE | 2017-09-27 08:55 | PDOC PROGRESS REPORT ---
Subjective Progress Note for:: 09/27/17 Subjective:: No acute events overnight Reason For Visit: CONGESTIVE HEART FAILURE Physical Exam Vital Signs: Temp Pulse Resp BP Pulse Ox 98.4 F 76 19 98/61 L 98 09/27/17 08:00 09/27/17 08:00 09/27/17 08:00 09/27/17 08:00 09/27/17 08:00 Intake & Output 09/26/17 09/27/17 09/28/17 06:59 06:59 06:59 Intake Total 1721 5224 Output Total 5201 3850 Balance -6039 -9159 Weight 97.9 kg 94.8 kg General appearance: PRESENT: no acute distress, well-developed, well-nourished Head exam: PRESENT: atraumatic, normocephalic Eye exam: PRESENT: conjunctiva pink, EOMI, PERRLA. ABSENT: scleral icterus Ear exam: PRESENT: normal external ear exam Mouth exam: PRESENT: moist, tongue midline Neck exam: ABSENT: carotid bruit, JVD, lymphadenopathy, thyromegaly Respiratory exam: PRESENT: clear to auscultation isaura. ABSENT: rales, rhonchi, wheezes Cardiovascular exam: PRESENT: RRR. ABSENT: diastolic murmur, rubs, systolic murmur Pulses: PRESENT: normal dorsalis pedis pul Vascular exam: PRESENT: normal capillary refill GI/Abdominal exam: PRESENT: normal bowel sounds, soft. ABSENT: distended, guarding, mass, organolmegaly, rebound, tenderness Rectal exam: PRESENT: deferred Extremities exam: PRESENT: full ROM. ABSENT: calf tenderness, clubbing, pedal edema Neurological exam: PRESENT: alert, awake, oriented to person, oriented to place , oriented to time, oriented to situation, CN II-XII grossly intact. ABSENT: motor sensory deficit Psychiatric exam: PRESENT: appropriate affect, normal mood. ABSENT: homicidal ideation, suicidal ideation Skin exam: PRESENT: dry, intact, warm. ABSENT: cyanosis, rash Results Laboratory Results: 09/27/17 06:12 09/27/17 06:12 09/27/17 09/27/17 06:12 06:12 WBC 4.1 RBC 2.91 L Hgb 10.1 L Hct 30.6 L MCV 105 H MCH 34.8 H MCHC 33.1 RDW 16.3 H Plt Count 25 L* Sodium 130.4 L Potassium 3.5 L Chloride 86 L Carbon Dioxide 38 H Anion Gap 6 BUN 15 Creatinine 0.60 Est GFR ( Amer) > 60 Est GFR (Non-Af Amer) > 60 Glucose 113 H Calcium 8.8 09/16/17 09/16/17 09/16/17 14:59 14:59 21:15 Creatine Kinase < 20 L < 20 L CK-MB (CK-2) 0.38 Troponin I < 0.012 NT-Pro-B Natriuret Pep 09/16/17 09/17/17 09/17/17 21:15 03:10 03:10 Creatine Kinase < 20 L CK-MB (CK-2) 0.53 0.63 Troponin I < 0.012 < 0.012 NT-Pro-B Natriuret Pep 09/25/17 04:23 Creatine Kinase CK-MB (CK-2) Troponin I NT-Pro-B Natriuret Pep 5460 H Impressions: Abdomen Ultrasound 09/16/17 00:00 IMPRESSION: TRACE ASCITES RIGHT UPPER QUADRANT. Bone Marrow Biopsy w/ CT 09/18/17 00:00 IMPRESSION: CT GUIDED BIOPSY OF THE POSTERIOR RIGHT ILIAC CREST PERFORMED WITHOUT IMMEDIATE COMPLICATION. PATHOLOGY PENDING. Guidance Needle Placement CT 09/18/17 00:00 IMPRESSION: CT GUIDED BIOPSY OF THE POSTERIOR RIGHT ILIAC CREST PERFORMED WITHOUT IMMEDIATE COMPLICATION. PATHOLOGY PENDING. Chest X-Ray 09/25/17 00:00 IMPRESSION: Since 09/16/2017, there is been improvement in pulmonary vascular congestion and clearing of the small right pleural effusion. Right lower lobe mass between the right hilum and hemidiaphragm seen on CT 06/22 is difficult to appreciate by plain film Massive cardiomegaly with stable pacemaker Assessment & Plan - Diagnosis (1) Thrombocytopenia Is this a current diagnosis for this admission?: Yes Plan: Con't monitoring, f/u outpt (2) Lung cancer Qualifiers: Laterality: right Lung location: upper lobe of lung Qualified Code(s): C34.11 - Malignant neoplasm of upper lobe, right bronchus or lung Is this a current diagnosis for this admission?: Yes Plan: Rx on hold
[2017-09-27] MEDS: BUDESONIDE/FORMOTEROL 160-4.5 MCG 60 PUFF/6 GM MDI IH SCH (10:14)
[2017-09-27] MEDS: FUROSEMIDE 40 MG TABLET PO SCH (10:15)
[2017-09-27] MEDS: FAMOTIDINE 20 MG TABLET PO SCH (10:15)
[2017-09-27] MEDS: CARVEDILOL 12.5 MG TABLET PO SCH (10:17)
[2017-09-27] MEDS: SENNOSIDES/DOCUSATE 8.6-50 MG 1 EACH TABLET PO SCH (10:18)
--- NOTE | 2017-09-27 12:59 | PDOC DISCHARGE SUMMARY ---
General - Admit/Disc Date/PCP Admission Date/Primary Care Provider: 09/16/17 09:53 THALIA DAMICO MD Discharge Date: 09/27/17 - Discharge Diagnosis (1) CHF (congestive heart failure) Is this a current diagnosis for this admission?: Yes (2) Atrial fibrillation Is this a current diagnosis for this admission?: Yes (3) COPD (chronic obstructive pulmonary disease) Is this a current diagnosis for this admission?: Yes (4) Diabetes mellitus Is this a current diagnosis for this admission?: Yes (5) Hyponatremia Is this a current diagnosis for this admission?: Yes (6) Lung cancer Is this a current diagnosis for this admission?: Yes (7) Thrombocytopenia Is this a current diagnosis for this admission?: Yes (8) Ventricular tachycardia Is this a current diagnosis for this admission?: Yes (9) Patient is full code Is this a current diagnosis for this admission?: Yes - Additional Information Resuscitation Status: Full Code Discharge Diet: Cardiac, Diabetic Discharge Activity: Activity As Tolerated, Balance Activity w/Rest, Weigh Daily Prescriptions: Furosemide [Lasix 20 mg Tablet] 20 mg PO 0600,1400 #60 tablet Home Medications: Aspirin [Aspirin EC] 81 mg PO DAILY 09/16/17 Budesonide/Formoterol Fumarate [Symbicort HFA 160-4.5 mcg Inhaler 6 gm] 2 puff IH Q12 09/16/17 Carvedilol [Coreg 25 mg Tablet] 25 mg PO Q12 09/16/17 Diltiazem HCl [Cardizem 30 mg Tablet] 30 mg PO Q6 09/16/17 Hydralazine HCl 100 mg PO Q8 09/16/17 Losartan Potassium [Cozaar 100 mg Tablet] 100 mg PO DAILY 09/16/17 Metformin HCl [Glucophage 500 mg Tablet] 1,000 mg PO Q12 09/16/17 Ondansetron HCl [Zofran 8 mg Tablet] 8 mg PO Q8HP PRN 09/16/17 Oxycodone HCl [Oxy-Ir 5 mg Tablet] 5 mg PO Q8HP PRN 09/16/17 Promethazine HCl [Phenergan 25 mg Tablet] 25 mg PO Q6HP PRN 09/16/17 Simvastatin [Zocor 40 mg Tablet] 40 mg PO QHS 09/16/17 Umeclidinium [place] [Incruse Ellipta] 1 puff IH DAILY 09/16/17 Furosemide [Lasix 20 mg Tablet] 20 mg PO 0600,1400 #60 tablet 09/27/17 History of Present Illness History of Present Illness: Per H&P by Dr. Tyson: GINNA LOPEZ is a 67 year old female who has a history of lung cancer, coronary artery disease as well as atrial fibrillation who presents with progressive shortness of breath over the last month. Patient reports that her weight has gradually increased and she had worsening lower extremity edema. She also reports having dyspnea on exertion, orthopnea, PND as well as generalized decline and fatigue. The patient reports that she has gained over 30 pounds over the last month. The patient also has not been eating very much however she has been able to drink some. The patient denied having any chest pain associated with this. She has a history of atrial fibrillation but denies any tachycardia arrhythmias. The patient was found to have congestive heart failure. This is a new diagnosis for her. Patient does relate that she has a history of having ventricular tachycardia and had a defibrillator placed earlier in the year. Patient has been getting chemotherapy and reports that her last chemotherapy was done at the end of June for her lung cancer. Patient reports that she quit smoking in September of this year. Hospital Course Hospital Course: The patient was admitted with a new diagnosis of congestive heart failure. An echocardiogram was obtained and demonstrated LVEF of 55% with borderline reduced ventricular systolic dysfunction, mild concentric left ventricular hypertrophy, and mild to moderate diastolic dysfunction. Serial troponins were negative ruling out an acute cardiac event. She was placed on IV Lasix and by nursing record is noted to have diuresed approximately 12 L with a correlating weight decrease of approximately 8 kg. The patient's ease of breathing and bilateral lower leg edema subsequently improved. She was weaned to her baseline oxygen requirement of 2 L/min via nasal cannula. Follow-up chest imaging demonstrated improvement in the pulmonary vascular congestion and a clearing of the right pleural effusion. The patient had an established diagnosis of lung cancer and therefore oncology was consulted. She underwent a bone marrow biopsy while inpatient. She is to follow-up with oncology for continued management as an outpatient. At time of discharge, the patient is stable, on her baseline supplemental oxygen requirement. She is discharged to home with a prescription for p.o. furosemide to continue until she follows up with her primary care provider next week. She also has an appointment with Dr. Cervantes, oncology, scheduled for next week. The patient is advised on a low-sodium diet and daily weights. She will be followed by home health nursing. Physical Exam Vital Signs: Temp Pulse Resp BP Pulse Ox 98.4 F 76 19 98/61 L 98 09/27/17 09:57 09/27/17 09:57 09/27/17 09:57 09/27/17 09:57 09/27/17 09:57 Intake & Output 09/26/17 09/27/17 09/28/17 06:59 06:59 06:59 Intake Total 1721 1954 Output Total 5200 1880 Balance -8458 -9567 Weight 97.9 kg 94.8 kg General appearance: PRESENT: no acute distress, obese, well-developed, well- nourished Head exam: PRESENT: atraumatic, normocephalic Eye exam: PRESENT: conjunctiva pink, EOMI, PERRLA. ABSENT: scleral icterus Ear exam: PRESENT: normal external ear exam Mouth exam: PRESENT: moist, tongue midline Neck exam: ABSENT: carotid bruit, JVD, lymphadenopathy, thyromegaly Respiratory exam: PRESENT: crackles - Lower right field, symmetrical, unlabored , other - Supplemental oxygen via nasal cannula. ABSENT: rales, rhonchi, wheezes Cardiovascular exam: PRESENT: irregular rhythm, +S1, +S2. ABSENT: diastolic murmur, rubs, systolic murmur Pulses: PRESENT: normal dorsalis pedis pul Vascular exam: PRESENT: normal capillary refill GI/Abdominal exam: PRESENT: normal bowel sounds, soft. ABSENT: distended, guarding, mass, organolmegaly, rebound, tenderness Rectal exam: PRESENT: deferred Extremities exam: PRESENT: full ROM, +1 edema - +1 bilateral lower leg pitting edema. ABSENT: calf tenderness, clubbing, pedal edema Neurological exam: PRESENT: alert, awake, oriented to person, oriented to place , oriented to time, oriented to situation, CN II-XII grossly intact. ABSENT: motor sensory deficit Psychiatric exam: PRESENT: appropriate affect, normal mood. ABSENT: homicidal ideation, suicidal ideation Skin exam: PRESENT: dry, intact, warm. ABSENT: cyanosis, rash Results Laboratory Results: 09/27/17 06:12 09/27/17 06:12 09/27/17 09/27/17 06:12 06:12 WBC 4.1 RBC 2.91 L Hgb 10.1 L Hct 30.6 L MCV 105 H MCH 34.8 H MCHC 33.1 RDW 16.3 H Plt Count 25 L* Sodium 130.4 L Potassium 3.5 L Chloride 86 L Carbon Dioxide 38 H Anion Gap 6 BUN 15 Creatinine 0.60 Est GFR ( Amer) > 60 Est GFR (Non-Af Amer) > 60 Glucose 113 H Calcium 8.8 09/16/17 09/16/17 09/16/17 14:59 14:59 21:15 Creatine Kinase < 20 L < 20 L CK-MB (CK-2) 0.38 Troponin I < 0.012 NT-Pro-B Natriuret Pep 09/16/17 09/17/17 09/17/17 21:15 03:10 03:10 Creatine Kinase < 20 L CK-MB (CK-2) 0.53 0.63 Troponin I < 0.012 < 0.012 NT-Pro-B Natriuret Pep 09/25/17 04:23 Creatine Kinase CK-MB (CK-2) Troponin I NT-Pro-B Natriuret Pep 5460 H Impressions: Abdomen Ultrasound 09/16/17 00:00 IMPRESSION: TRACE ASCITES RIGHT UPPER QUADRANT. Bone Marrow Biopsy w/ CT 09/18/17 00:00 IMPRESSION: CT GUIDED BIOPSY OF THE POSTERIOR RIGHT ILIAC CREST PERFORMED WITHOUT IMMEDIATE COMPLICATION. PATHOLOGY PENDING. Guidance Needle Placement CT 09/18/17 00:00 IMPRESSION: CT GUIDED BIOPSY OF THE POSTERIOR RIGHT ILIAC CREST PERFORMED WITHOUT IMMEDIATE COMPLICATION. PATHOLOGY PENDING. Chest X-Ray 09/25/17 00:00 IMPRESSION: Since 09/16/2017, there is been improvement in pulmonary vascular congestion and clearing of the small right pleural effusion. Right lower lobe mass between the right hilum and hemidiaphragm seen on CT 06/22 is difficult to appreciate by plain film Massive cardiomegaly with stable pacemaker Qualifiers PATEINT BEING DISCHARGED WITH ANY OF THE FOLLOWING DIAGNOSIS?: Heart Failure HF Pt being discharged on ACEI for LVEF less than 40%?: No Reason(s) for not prescribing ACEI:: Not indicated - LVEF 55% HF Pt being discharged on [facility] for LVEF less than 40%?: Yes
== END 2017-09-27 11:45 | disposition home health service (06) | DRG 292 ==
LOC: ER 05:54 → EH 09:53 → 4W 09-17 19:13
PROVIDERS: ADMIT Internal Medicine; ATTEND Internal Medicine
PROC: 3E0F73Z Introduction of Anti-inflammatory into Respiratory Tract, Via Natural or Artificial Opening (ICD-10-PCS; 2017-09-16)
PROC: 07DR3ZX Extraction of Iliac Bone Marrow, Percutaneous Approach, Diagnostic (ICD-10-PCS; principal; 2017-09-18)
DX: I11.0 Hypertensive heart disease with heart failure (principal); E87.1 Hypo-osmolality and hyponatremia; C34.11 Malignant neoplasm of upper lobe, right bronchus or lung; I47.2 Ventricular tachycardia; R18.8 Other ascites; I50.33 Acute on chronic diastolic (congestive) heart failure; I48.2 Chronic atrial fibrillation; J44.9 Chronic obstructive pulmonary disease, unspecified; E11.9 Type 2 diabetes mellitus without complications; D69.59 Other secondary thrombocytopenia; R63.5 Abnormal weight gain; D64.9 Anemia, unspecified; I25.10 Atherosclerotic heart disease of native coronary artery without angina pectoris; I25.2 Old myocardial infarction; Z79.82 Long term (current) use of aspirin; Z79.899 Other long term (current) drug therapy; Z87.891 Personal history of nicotine dependence; Z95.1 Presence of aortocoronary bypass graft; Z88.2 Allergy status to sulfonamides; Z83.3 Family history of diabetes mellitus; Z80.6 Family history of leukemia; Z95.0 Presence of cardiac pacemaker
CPT/HCPCS: 36415; 38221; 71045; 71046; 76705; 77012; 80048; 80053; 82550; 82553; 82962; 83735; 83880; 84484; 85025; 85027; 85610; 85730; 87040; 87070; 87205; 93005; 93010; 93306; 94640; 96374; 99285; A9270-GY; J1815; J1940; J2250; J2405; J3010; J3490; J7512; J7620; S0119

== ENCOUNTER 2017-10-16 11:43 | Inpatient (IN) | payer MEDICARE ==
--- NOTE | 2017-10-16 12:17 | ER Document Report ---
ED Medical Screen (RME) - General Chief Complaint: Abdominal Swelling Stated Complaint: FLUID RETENTION Mode of Arrival: Wheelchair Information source: Patient Notes: Patient is a 67-year-old female with a history of CHF presents to the emergency department complaining of abdominal swelling and bilateral lower leg swelling. Patient says that she has gained 5 pounds overnight. Patient also complains of shortness of breath while being on 2 L of NC. Patient also has small cell carcinoma of the lung. Patient also states she has not been on chemo for approximately 1 month due to myelo suppression. TRAVEL OUTSIDE OF THE [place] IN LAST 30 DAYS: No COUNTRY TRAVELED TO/FROM: [place] - Related Data Allergies/Adverse Reactions: Sulfa (Sulfonamide Antibiotics) Allergy (Verified 10/16/17 11:46) Past Medical History - General Information source: Patient - Social History Cigarette use (# per day): No Chew tobacco use (# tins/day): No Frequency of alcohol use: None Family history: Reviewed & Not Pertinent - Past Medical History Cardiac Medical History: Reports: Hx Atrial Fibrillation, Hx Coronary Artery Disease, Hx Heart Attack, Hx Hypertension Pulmonary Medical History: Reports: Hx COPD Endocrine Medical History: Reports: Hx Diabetes Mellitus Type 2 Malignancy Medical History: Reports: Hx Lung Cancer Past Surgical History: Reports: Hx Cardiac Catheterization, Hx Cardiac Surgery - aicd, Hx Coronary Artery Bypass Graft, Hx Internal Defibrillator - Immunizations Hx Diphtheria, Pertussis, Tetanus Vaccination: No History of Influenza Vaccine for 05/2017 - 10/2017 Season: Yes Influenza Administration Date for 05/2017 - 10/2017 Season: 05/27/17 Physical Exam - Vital signs Vitals: Temp Pulse Resp BP Pulse Ox 97.9 F 109 H 18 115/64 99 10/16/17 12:01 10/16/17 12:01 10/16/17 12:01 10/16/17 12:01 10/16/17 12:01 - Notes Notes: GENERAL: Alert, interacts well. No acute distress. HEAD: Normocephalic, Atraumatic. NECK: Full range of motion. Supple. Trachea midline. LUNGS: Clear to auscultation bilaterally, no wheezes, rales, or rhonchi. No respiratory distress. HEART: Regular rate and rhythm. No murmurs, gallops, or rubs. EXTREMITIES: Moves all four extremities spontaneously. 2+ pittinge edema in the BLE. Course - Vital Signs Vital signs: Temp Pulse Resp BP Pulse Ox 99.0 F 97 20 105/56 L 96 10/17/17 23:42 10/18/17 02:00 10/17/17 23:42 10/17/17 23:42 10/18/17 01:22 - Laboratory Result Diagrams: 10/17/17 05:48 10/17/17 05:48 Laboratory results interpreted by me: 10/16/17 10/16/17 10/16/17 12:56 12:56 12:56 RBC 2.80 L Hgb 9.9 L Hct 29.0 L MCV 104 H MCH 35.5 H RDW 15.5 H Plt Count 30 L* Sodium 122.0 L Chloride 83 L Carbon Dioxide 31 H BUN 26 H Est GFR (Non-Af Amer) 58 L Magnesium 1.3 L Direct Bilirubin 0.9 H Alkaline Phosphatase 151 H NT-Pro-B Natriuret Pep 7270 H Doctor's Discharge - Discharge Scribe Documentation - Scribe Written by Cindy:: Cindy Acosta, 10/16/2017 12:17 acting as scribe for :: Juan
--- NOTE | 2017-10-16 12:40 | ER Document Report ---
ED General - General Chief Complaint: Abdominal Swelling Stated Complaint: FLUID RETENTION Time Seen by Provider: 10/16/17 12:16 Mode of Arrival: Wheelchair Notes: 67-year-old lady with A. fib and congestive heart failure diagnosed a month or 2 ago presents with increased leg and abdominal swelling with dyspnea on exertion constant worsening despite Lasix in the addition of second diuretic. No CP, pressure. No n/v. Eating well. 2L at home no change. TRAVEL OUTSIDE OF THE [place] IN LAST 30 DAYS: No COUNTRY TRAVELED TO/FROM: [place] - Related Data Allergies/Adverse Reactions: Sulfa (Sulfonamide Antibiotics) Allergy (Verified 10/16/17 11:46) Past Medical History - General Information source: Patient - Social History Smoking Status: Former Smoker Frequency of alcohol use: None Drug Abuse: None Family History: Reviewed & Not Pertinent Patient has suicidal ideation: No Patient has homicidal ideation: No - Past Medical History Cardiac Medical History: Reports: Hx Atrial Fibrillation, Hx Coronary Artery Disease, Hx Heart Attack, Hx Hypertension Denies: Hx Congestive Heart Failure Pulmonary Medical History: Reports: Hx COPD Denies: Hx Asthma, Hx Bronchitis, Hx Pneumonia, Hx Tuberculosis Neurological Medical History: Denies: Hx Seizures Endocrine Medical History: Reports: Hx Diabetes Mellitus Type 2 Renal/ Medical History: Denies: Hx End Stage Renal Disease, Hx Kidney Stones, Hx Peritoneal Dialysis Malignancy Medical History: Reports: Hx Lung Cancer GI Medical History: Denies: Hx Cirrhosis, Hx Gastroesophageal Reflux Disease, Hx Ulcer Musculoskeltal Medical History: Denies Hx Arthritis, Denies Hx Multiple Sclerosis Psychiatric Medical History: Denies: Hx Bipolar Disorder, Hx Depression, Hx Schizophrenia Past Surgical History: Reports: Hx Cardiac Catheterization, Hx Cardiac Surgery - aicd, Hx Coronary Artery Bypass Graft, Hx Internal Defibrillator - Immunizations Hx Diphtheria, Pertussis, Tetanus Vaccination: No Hx Pneumococcal Vaccination: 05/27/17 Review of Systems - Review of Systems Notes: REVIEW OF SYSTEMS GEN: Denies fever, chills, weight loss ENT: Denies sore throat, nasal discharge, ear pain EYES: Denies blurry vision, eye pain, discharge CV: Denies chest pain, palpitations, edema RESP: Worsening dyspnea on exertion GI: D abdominal distention no vomiting or diarrhea MSK: Denies joint pain/swelling, and bilateral leg edema severe SKIN: Denies rash, skin lesions LYMPH: Denies swollen glands/lymph nodes NEURO: Denies headache, focal weakness or numbness, dizziness PSYCH: Denies depression, suicidal or homicidal ideation PHYSICAL EXAMINATION General: Mild distress Head: Atraumatic, normocephalic ENT: Mouth normal, oropharynx moist, no exudates or tonsillar enlargement Eyes: Conjunctiva normal, pupils equal, lids normal Neck: No JVD, supple, no guarding CVS: Normal rate, regular rhythm, no murmurs Resp: No resp distress, equal and normal breath sounds bilaterally GI: severe distension without pain or tenderness Ext: No deformities, 2+ bilateral leg edema, normal range of motion in upper and lower ext Back: No CVA or midline TTP Skin: No rash, warm Lymphatic: No lymphadeopathy noted Neuro: Awake, alert. Face symmetric. GCS 15. Physical Exam - Vital signs Vitals: Temp Pulse Resp BP Pulse Ox 97.9 F 109 H 18 115/64 99 10/16/17 12:01 10/16/17 12:01 10/16/17 12:01 10/16/17 12:01 10/16/17 12:01 Course - Re-evaluation Re-evalutation: 10/16/17 13:16 Gross volume overload likely from CHF. Differential includes liver disease. Mild crackles but stable on 2 L of oxygen. Labs sent including BNP chest x-ray EKG. Doubt acute coronary syndrome. 10/16/17 14:25 BMP grossly elevated. Labs otherwise negative. Potassium normal so give Lasix and admitted to hospitalist. - Vital Signs Vital signs: Temp Pulse Resp BP Pulse Ox 97.9 F 109 H 18 115/64 99 10/16/17 12:01 10/16/17 12:01 10/16/17 12:01 10/16/17 12:01 10/16/17 12:01 - Laboratory Result Diagrams: 10/16/17 12:56 10/16/17 12:56 Laboratory results interpreted by me: 10/16/17 10/16/17 10/16/17 12:56 12:56 12:56 RBC 2.80 L Hgb 9.9 L Hct 29.0 L MCV 104 H MCH 35.5 H RDW 15.5 H Plt Count 30 L* Sodium 122.0 L Chloride 83 L Carbon Dioxide 31 H BUN 26 H Est GFR (Non-Af Amer) 58 L Magnesium 1.3 L Direct Bilirubin 0.9 H Alkaline Phosphatase 151 H NT-Pro-B Natriuret Pep 7270 H Discharge - Discharge Clinical Impression: CHF exacerbation Qualifiers: Heart failure type: systolic Qualified Code(s): I50.23 - Acute on chronic systolic (congestive) heart failure Condition: Fair Disposition: ADMITTED INPATIENT Admitting Provider: Hospitalist Unit Admitted: Telemetry Referrals: ORION CASTANO NP-C [Primary Care Provider] - Follow up as needed
[2017-10-16 13:32] LABS: ABSOLUTE EOSINOPHILS # (AUTO) 0.1 10^3/uL (0.0-0.6); ABSOLUTE LYMPHOCYTES (AUTO) 1.1 10^3/uL (0.5-4.7); ABSOLUTE MONOCYTES (AUTO) 0.7 10^3/uL (0.1-1.4); BASOPHILS % (AUTO) 0.2 % (0-2); EOSINOPHILS % (AUTO) 1.2 % (0-6); HEMOGLOBIN 9.9 g/dL (12.0-15.5); LYMPHOCYTES % (AUTO) 16.4 % (13-45); MEAN CORPUSCULAR HEMOGLOBIN 35.5 pg (27.0-33.4); MEAN CORPUSCULAR HGB CONC 34.3 g/dL (32.0-36.0); MEAN CORPUSCULAR VOLUME 104 fl (80-97); MONOCYTES % (AUTO) 9.5 % (3-13); RED CELL DISTRIBUTION WIDTH 15.5 % (11.5-14.0); SEGMENTED NEUTROPHILS % (AUTO) 72.7 % (42-78); TOTAL CELLS COUNTED % (AUTO) 100 %; WHITE BLOOD COUNT 6.9 10^3/uL (4.0-10.5)
[2017-10-16 13:36] LABS: INTERNATIONAL RATION (INR) 0.97; PROTHROMBIN TIME 13.6 SEC (11.4-15.4)
[2017-10-16 13:37] LABS: ALANINE AMINOTRANSFERASE 26 U/L (9-52); ALBUMIN 3.6 g/dL (3.5-5.0); ALKALINE PHOSPHATASE 151 U/L (38-126); ANION GAP 8 (5-19); ASPARTATE AMINO TRANSFERASE 28 U/L (14-36); BILIRUBIN,DIRECT 0.9 mg/dL (0.0-0.4); BILIRUBIN,TOTAL 1.2 mg/dL (0.2-1.3); BLOOD UREA NITROGEN 26 mg/dL (7-20); CALCIUM 9.4 mg/dL (8.4-10.2); CARBON DIOXIDE 31 mmol/L (22-30); CHLORIDE 83 mmol/L (98-107); GLUCOSE 95 mg/dL (75-110); POTASSIUM 4.8 mmol/L (3.6-5.0); TOTAL PROTEIN 6.5 g/dL (6.3-8.2)
[2017-10-16 13:50] LABS: NT PRO BNP 7270 pg/mL (5-900); TROPONIN I < 0.012 ng/mL
[2017-10-16] MEDS ORDERED: FUROSEMIDE INJ/PF 40 MG/4 ML SDV IV ONE (14:06)
[2017-10-16 14:07] LABS: PLATELET COUNT 30 10^3/uL (150-450)
--- NOTE | 2017-10-16 14:35 | RADIOLOGY REPORT (SQ) ---
EXAM DESCRIPTION: CHEST SINGLE VIEW COMPLETED DATE/TIME: 10/16/2017 2:23 pm REASON FOR STUDY: SOB COMPARISON: 09/25/2017. EXAM PARAMETERS: NUMBER OF VIEWS: One view. TECHNIQUE: Single frontal radiographic view of the chest acquired. RADIATION DOSE: NA LIMITATIONS: None. FINDINGS: LUNGS AND PLEURA: No opacities, masses or pneumothorax. Small right pleural effusion. MEDIASTINUM AND HILAR STRUCTURES: No masses. Contour normal. HEART AND VASCULAR STRUCTURES: Cardiomegaly. Minimal vascular congestion. BONES: No acute findings. HARDWARE: Sternotomy wires, defibrillator, vascular access port. OTHER: No other significant finding. IMPRESSION: CARDIOMEGALY WITH MINIMAL VASCULAR CONGESTION. RIGHT PLEURAL EFFUSION UNCHANGED. TECHNICAL DOCUMENTATION: JOB ID: [id number] [employer]- All Rights Reserved
--- NOTE | 2017-10-16 16:27 | PDOC H&P ---
History of Present Illness Admission Date/PCP: 10/16/17 14:51 MARCO PETERSON Patient complains of: worsening abdominal distension and lower extremity swelling History of Present Illness: GINNA LOPEZ is a 67 year old female with history of lung cancer and CHF who presents with two month worsening abdominal distention and leg swelling. States that she was discharged from [facility] in [place] on 07/30/17 for PNA. Since that time she has been gaining weight despite taking Lasix 20mg at home. She does have history of HFpEF based on TTE from August 2017. Her baseline weight is 185lbs, last in April 2017. She has gained considerable weight over the last few months and currently is 220 lbs. Admits to dietary indiscretion because "its hard to find low salt foods". Has been compliant with her diuretics. Of note patient states she has a history of lung cancer, which is not actively being treated. She is followed by Dr. Cervantes. She also has thrombocytopenia. Planning to be evaluated at [facility] for blood disordered. Patient will be admitted to hospitalist service for further evaluation and assistance with diuresis. Past Medical History Cardiac Medical History: Reports: Atrial Fibrillation, Coronary Artery Disease, Myocardial Infarction, Hypertension Denies: Congestive Heart Failure Pulmonary Medical History: Reports: Chronic Obstructive Pulmonary Disease (COPD) Denies: Asthma, Bronchitis, Pneumonia, Tuberculosis Neurological Medical History: Denies: Seizures Endocrine Medical History: Reports: Diabetes Mellitus Type 2 Renal/ Medical History: Denies: End Stage Renal Disease Malignancy Medical History: Reports: Lung Cancer GI Medical History: Denies: Cirrhosis, Gastroesophageal Reflux Disease Musculoskeltal Medical History: Denies: Arthritis Psychiatric Medical History: Denies: Bipolar Disorder, Depression Hematology: Reports: Anemia Denies: Bleeding Tendencies Past Surgical History Past Surgical History: Reports: Cardiac Catheterization, Coronary Artery Bypass Graft, Internal Defibrillator Social History Information Source: Patient Smoking Status: Former Smoker Frequency of Alcohol Use: None Hx Recreational Drug Use: No Drugs: None Hx Prescription Drug Abuse: No Family History Family History: Reviewed & Not Pertinent Parental Family History Reviewed: Yes Children Family History Reviewed: NA Sibling(s) Family History Reviewed.: NA Medication/Allergy Allergies/Adverse Reactions: Sulfa (Sulfonamide Antibiotics) Allergy (Verified 10/16/17 11:46) Review of Systems All systems: reviewed and no additional remarkable complaints except as stated Physical Exam Vital Signs: Temp Pulse Resp BP Pulse Ox 97.9 F 109 H 20 115/64 99 10/16/17 12:01 10/16/17 12:01 10/16/17 14:00 10/16/17 12:01 10/16/17 12:01 General appearance: PRESENT: no acute distress, obese Head exam: PRESENT: atraumatic, normocephalic Mouth exam: PRESENT: moist Respiratory exam: PRESENT: crackles - R>L, decreased breath sounds, prolonged expiratory phas, other - On 2L NC Cardiovascular exam: PRESENT: RRR, +S1, +S2. ABSENT: tachycardia GI/Abdominal exam: PRESENT: distended, firm. ABSENT: tenderness Extremities exam: PRESENT: +2 edema - extending up to thigh Neurological exam: PRESENT: alert, awake, CN II-XII grossly intact Psychiatric exam: PRESENT: normal mood Skin exam: PRESENT: warm Results Laboratory Results: Labs- All tests 24 hr 10/16/17 10/16/17 10/16/17 12:56 12:56 12:56 WBC 6.9 RBC 2.80 L Hgb 9.9 L Hct 29.0 L MCV 104 H MCH 35.5 H MCHC 34.3 RDW 15.5 H Plt Count 30 L* Seg Neutrophils % 72.7 Lymphocytes % 16.4 Monocytes % 9.5 Eosinophils % 1.2 Basophils % 0.2 Absolute Neutrophils 5.0 Absolute Lymphocytes 1.1 Absolute Monocytes 0.7 Absolute Eosinophils 0.1 Absolute Basophils 0.0 PT 13.6 INR 0.97 Sodium 122.0 L Potassium 4.8 Chloride 83 L Carbon Dioxide 31 H Anion Gap 8 BUN 26 H Creatinine 0.96 Est GFR ( Amer) > 60 Est GFR (Non-Af Amer) 58 L Glucose 95 Calcium 9.4 Magnesium 1.3 L Total Bilirubin 1.2 Direct Bilirubin 0.9 H Neonat Total Bilirubin Not Reportable Neonat Direct Bilirubin Not Reportable Neonat Indirect Bili Not Reportable AST 28 ALT 26 Alkaline Phosphatase 151 H Troponin I NT-Pro-B Natriuret Pep Total Protein 6.5 Albumin 3.6 Lipase 93.0 10/16/17 12:56 WBC RBC Hgb Hct MCV MCH MCHC RDW Plt Count Seg Neutrophils % Lymphocytes % Monocytes % Eosinophils % Basophils % Absolute Neutrophils Absolute Lymphocytes Absolute Monocytes Absolute Eosinophils Absolute Basophils PT INR Sodium Potassium Chloride Carbon Dioxide Anion Gap BUN Creatinine Est GFR ( Amer) Est GFR (Non-Af Amer) Glucose Calcium Magnesium Total Bilirubin Direct Bilirubin Neonat Total Bilirubin Neonat Direct Bilirubin Neonat Indirect Bili AST ALT Alkaline Phosphatase Troponin I < 0.012 NT-Pro-B Natriuret Pep 7270 H Total Protein Albumin Lipase Impressions: Chest X-Ray 10/16/17 13:53 IMPRESSION: CARDIOMEGALY WITH MINIMAL VASCULAR CONGESTION. RIGHT PLEURAL EFFUSION UNCHANGED. Assessment & Plan - Diagnosis (1) CHF exacerbation Qualifiers: Heart failure type: diastolic Qualified Code(s): I50.33 - Acute on chronic diastolic (congestive) heart failure Is this a current diagnosis for this admission?: Yes Plan: Known history of diastolic CHF based on recent TTE. Acute exacerbation likely multifactorial. - Relevant admission labs: proBNP 7300, troponin negative, Cr 0.98 - CXR with cardiomegaly and right sided pleural effusion - Exam notable for abdominal distension and pitting LE edema - Received IV Lasix 40mg in ED, will continue 40mg IV daily. Depending on renal function, could consider increasing - Daily weights, strict I&Os, cardiac diet - Continue on tele for 24 hours, OK to d/c tomorrow if no events - Continue home beta-kaur and SCOTTIE-i (awaiting med reconcilitation) (2) Lung cancer Qualifiers: Laterality: right Lung location: upper lobe of lung Qualified Code(s): C34.11 - Malignant neoplasm of upper lobe, right bronchus or lung Plan: Know history of lung ca, followed by Dr. Cervantes - Treatment on hold due to thrombocytopenia (3) Thrombocytopenia Is this a current diagnosis for this admission?: Yes Plan: Unclear etiology however concern for underlying disorder (ITP, MDS, other heme malignancy) - Has appt at [facility], scheduled for later this month - NO DVT ppx due to low platelet count - Goal platelet >10K - Time Time Spent: 50 to 70 Minutes Anticipated discharge: Home with Homehealth, SNF Within: within 72 hours - Inpatient Certification Based on my medical assessment, after consideration of the patient's comorbidities, presenting symptoms, or acuity I expect that the services needed warrant INPATIENT care.: Yes I certify that my determination is in accordance with my understanding of Medicare's requirements for reasonable and necessary INPATIENT services [42 CFR 412.3e].: Yes Medical Necessity: Risk of Complication if Not Cared For in Hospital
--- NOTE | 2017-10-16 18:46 | EKG REPORT ---
SEVERITY:- ABNORMAL ECG - ATRIAL FIBRILLATION LEFT POSTERIOR FASCICULAR BLOCK CONSIDER ANTERIOR INFARCT : Confirmed by: Hunter Castañeda MD 16-Oct-2017 18:45:37
[2017-10-16] MEDS: ACETAMINOPHEN 325 MG TABLET PO PRN (20:33)
[2017-10-16 23:21] LABS: APPEARANCE,URINE CLEAR; BILIRUBIN,URINE NEGATIVE (NEGATIVE); COLOR,URINE YELLOW; GLUCOSE, URINE NEGATIVE (NEGATIVE); KETONES,URINE NEGATIVE (NEGATIVE); LEUKOCYTE ESTERASE,URINE MODERATE (NEGATIVE); NITRITE,URINE NEGATIVE (NEGATIVE); PROTEIN,URINE 30 mg/dL (NEGATIVE); URINE SPECIFIC GRAVITY 1.009; UROBILINOGEN,URINE NEGATIVE mg/dL (<2.0)
[2017-10-17] MEDS ORDERED: PROMETHAZINE HCL 25 MG TABLET PO PRN (01:54)
[2017-10-17] MEDS: OXYCODONE HCL IR 5 MG TABLET PO PRN ×3 (02:30→21:15)
[2017-10-17 07:21] LABS: ABSOLUTE EOSINOPHILS # (AUTO) 0.1 10^3/uL (0.0-0.6); ABSOLUTE LYMPHOCYTES (AUTO) 1.2 10^3/uL (0.5-4.7); ABSOLUTE MONOCYTES (AUTO) 0.6 10^3/uL (0.1-1.4); ABSOLUTE NEUT (AUTO) 3.6 10^3/uL (1.7-8.2); BASOPHILS % (AUTO) 0.5 % (0-2); EOSINOPHILS % (AUTO) 1.5 % (0-6); HEMATOCRIT 28.3 % (36.0-47.0); HEMOGLOBIN 9.5 g/dL (12.0-15.5); MEAN CORPUSCULAR HEMOGLOBIN 34.5 pg (27.0-33.4); MEAN CORPUSCULAR HGB CONC 33.4 g/dL (32.0-36.0); MEAN CORPUSCULAR VOLUME 103 fl (80-97); MONOCYTES % (AUTO) 10.3 % (3-13); RED BLOOD COUNT 2.74 10^6/uL (3.72-5.28); RED CELL DISTRIBUTION WIDTH 15.2 % (11.5-14.0); SEGMENTED NEUTROPHILS % (AUTO) 65.7 % (42-78); TOTAL CELLS COUNTED % (AUTO) 100 %; WHITE BLOOD COUNT 5.5 10^3/uL (4.0-10.5)
[2017-10-17 07:51] LABS: PLATELET COUNT 30 10^3/uL (150-450)
[2017-10-17 08:01] LABS: ANION GAP 10 (5-19); BLOOD UREA NITROGEN 26 mg/dL (7-20); CALCIUM 9.5 mg/dL (8.4-10.2); CARBON DIOXIDE 29 mmol/L (22-30); CHLORIDE 84 mmol/L (98-107); GLUCOSE 95 mg/dL (75-110); POTASSIUM 4.9 mmol/L (3.6-5.0); SODIUM 122.6 mmol/L (137-145)
[2017-10-17] MEDS ORDERED: LANSOPRAZOLE 30 MG TAB.RAP.DR PO ONE (08:30)
[2017-10-17] MEDS: ASPIRIN 81 MG TABLET, ENT COATED PO SCH (09:47)
[2017-10-17] MEDS: ACETAMINOPHEN 325 MG TABLET PO PRN (09:48)
[2017-10-17] MEDS ORDERED: FUROSEMIDE INJ/PF 40 MG/4 ML SDV IV SCH (10:00)
--- NOTE | 2017-10-17 14:09 | PDOC PROGRESS REPORT ---
Subjective Progress Note for:: 10/17/17 Subjective:: The patient is a 67-year-old female with a past medical history of lung cancer, congestive heart failure, atrial fibrillation, coronary artery disease, [place], hypertension, COPD, diabetes mellitus type 2 who was admitted on 10/16/17 for a CHF exacerbation. The patient is found sitting upright to the edge of the bed on supplemental oxygen via nasal cannula. She states that she does not appreciate a difference in her lower leg edema or abdominal distention. She denies chest pain, palpitations, dyspnea or orthopnea and cough. She has no questions or concerns at this time. Reason For Visit: HEART FAILURE Physical Exam Vital Signs: Temp Pulse Resp BP Pulse Ox 98.2 F 98 21 H 130/66 H 96 10/17/17 08:33 10/17/17 08:33 10/17/17 08:33 10/17/17 08:33 10/17/17 09:21 Intake & Output 10/16/17 10/17/17 10/18/17 06:59 06:59 06:59 Intake Total 625 Output Total 1650 Balance -1025 Weight 102 kg General appearance: PRESENT: no acute distress, obese, well-developed, well- nourished Head exam: PRESENT: atraumatic, normocephalic Eye exam: PRESENT: conjunctiva pink, EOMI, PERRLA. ABSENT: scleral icterus Ear exam: PRESENT: normal external ear exam Mouth exam: PRESENT: moist, tongue midline Neck exam: ABSENT: carotid bruit, JVD, lymphadenopathy, thyromegaly Respiratory exam: PRESENT: crackles - Bibasilar, prolonged expiratory phas, symmetrical, unlabored, other - Supplemental oxygen via cannula. ABSENT: rales , rhonchi, wheezes Cardiovascular exam: PRESENT: RRR, +S1, +S2. ABSENT: diastolic murmur, rubs, systolic murmur Pulses: PRESENT: normal dorsalis pedis pul Vascular exam: PRESENT: normal capillary refill GI/Abdominal exam: PRESENT: distended - Versus body habitus; abdomen is soft and nontender. No organomegaly or ascites palpable., normal bowel sounds, soft. ABSENT: ascites, firm, guarding, mass, organolmegaly, rebound, tenderness Rectal exam: PRESENT: deferred Extremities exam: PRESENT: full ROM, +2 edema - +2 BLE pitting edema. ABSENT: calf tenderness, clubbing, pedal edema Neurological exam: PRESENT: alert, awake, oriented to person, oriented to place , oriented to time, oriented to situation, CN II-XII grossly intact. ABSENT: motor sensory deficit Psychiatric exam: PRESENT: appropriate affect, normal mood. ABSENT: homicidal ideation, suicidal ideation Skin exam: PRESENT: dry, intact, warm. ABSENT: cyanosis, rash Results Laboratory Results: 10/17/17 05:48 10/17/17 05:48 10/16/17 10/17/17 10/17/17 23:05 05:48 05:48 WBC 5.5 RBC 2.74 L Hgb 9.5 L Hct 28.3 L MCV 103 H MCH 34.5 H MCHC 33.4 RDW 15.2 H Plt Count 30 L* Seg Neutrophils % 65.7 Lymphocytes % 22.0 Monocytes % 10.3 Eosinophils % 1.5 Basophils % 0.5 Absolute Neutrophils 3.6 Absolute Lymphocytes 1.2 Absolute Monocytes 0.6 Absolute Eosinophils 0.1 Absolute Basophils 0.0 Sodium 122.6 L Potassium 4.9 Chloride 84 L Carbon Dioxide 29 Anion Gap 10 BUN 26 H Creatinine 0.78 Est GFR ( Amer) > 60 Est GFR (Non-Af Amer) > 60 Glucose 95 Calcium 9.5 Urine Color YELLOW Urine Appearance CLEAR Urine pH 6.0 Ur Specific [place] 1.009 Urine Protein 30 H Urine Glucose (UA) NEGATIVE Urine Ketones NEGATIVE Urine Blood SMALL H Urine Nitrite NEGATIVE Ur Leukocyte Esterase MODERATE H Urine WBC (Auto) 12 Urine RBC (Auto) 1 Impressions: Chest X-Ray 10/16/17 13:53 IMPRESSION: CARDIOMEGALY WITH MINIMAL VASCULAR CONGESTION. RIGHT PLEURAL EFFUSION UNCHANGED. Assessment & Plan - Diagnosis (1) CHF (congestive heart failure) Qualifiers: Qualified Code(s): I50.9 - Heart failure, unspecified Is this a current diagnosis for this admission?: Yes Plan: CHF exacerbation secondary to dietary indiscretion evidenced by bilateral leg edema and elevated proBNP. Echocardiogram from 05/22/18 demonstrated a preserved ejection fraction; LVEF 55 % with moderate diastolic dysfunction. BNP on admission is noted to be 7270; up from 5460 at time of discharge in late August. The patient did receive IV furosemide 40 mg yesterday with good urinary output; she diuresed 1 L. She continues to have +2-+3 pitting edema bilaterally. We will increase Lasix to 40 mg IV twice daily. Continue cardiac diet. Strict I's and O's. We will fluid restrict to 1500 mL's daily. The patient is encouraged to wear CHIN hose and keep her legs elevated. We will continue the patient's home medications: Diltiazem, hydralazine, losartan Consider resuming the patient's home medication, Bumex, when transitioning back to p.o. furosemide (2) Lung cancer Qualifiers: Laterality: right Lung location: upper lobe of lung Qualified Code(s): C34.11 - Malignant neoplasm of upper lobe, right bronchus or lung Plan: Known history of lung cancer; followed by Dr. Cervantes. Treatment is on hold due to thrombocytopenia. (3) Thrombocytopenia Is this a current diagnosis for this admission?: Yes Plan: Unclear etiology. She has an appointment with [facility] scheduled for Sunday and is hopeful to be discharged in time for her to maintain that appointment. No DVT prophylaxis secondary to low platelet count. Goal platelets >10K; today PLT are 30 Bleeding precautions (4) Anemia Is this a current diagnosis for this admission?: Yes Plan: Chronic; Hgb is stable at 9.5 which is noted to be the patient's baseline. Will monitor and transfuse for less than 7. (5) Hyponatremia Is this a current diagnosis for this admission?: Yes Plan: Likely secondary to fluid volume overload. The patient does appear to have chronic hyponatremia. Na 122.6 this morning; was 130s during previous admission. The patient is fluid restricted to 1500 mL's daily. Pt is currently diuresed with IV furosemide. Seizure precautions. Will monitor closely. - Time Time Spent with patient: 25-34 minutes Anticipated discharge: Home
[2017-10-17] MEDS ORDERED: FUROSEMIDE INJ/PF 40 MG/4 ML SDV IV ONE (16:00)
[2017-10-17] MEDS: DOCUSATE SODIUM 100 MG CAPSULE PO SCH (18:22)
[2017-10-17] MEDS: DILTIAZEM HCL 30 MG TABLET PO SCH ×2 (18:22→21:17)
[2017-10-17] MEDS: SIMVASTATIN 40 MG TABLET PO SCH (21:16)
[2017-10-17] MEDS: HYDRALAZINE HCL 50 MG TABLET PO SCH (21:17)
[2017-10-17] MEDS: NYSTATIN TOPICAL POWDER 15 GM TP SCH (21:20)
[2017-10-17] MEDS ORDERED: (PENDING PHARMACY ID) (Hydralazine Hcl [Hydralazine Hcl] 100 MG) PO SCH (22:00)
[2017-10-17] MEDS: BUDESONIDE/FORMOTEROL 160-4.5 MCG 60 PUFF/6 GM MDI IH SCH (22:34)
[2017-10-18] MEDS: OXYCODONE HCL IR 5 MG TABLET PO PRN ×2 (05:22→22:30)
[2017-10-18] MEDS: HYDRALAZINE HCL 50 MG TABLET PO SCH ×3 (05:22→21:37)
[2017-10-18] MEDS: DILTIAZEM HCL 30 MG TABLET PO SCH ×3 (05:22→17:34)
[2017-10-18] MEDS ORDERED: FUROSEMIDE INJ/PF 40 MG/4 ML SDV IV SCH (06:00)
[2017-10-18 06:11] LABS: HEMATOCRIT 26.8 % (36.0-47.0); HEMOGLOBIN 9.2 g/dL (12.0-15.5); MEAN CORPUSCULAR HEMOGLOBIN 35.2 pg (27.0-33.4); MEAN CORPUSCULAR HGB CONC 34.4 g/dL (32.0-36.0); MEAN CORPUSCULAR VOLUME 102 fl (80-97); RED BLOOD COUNT 2.62 10^6/uL (3.72-5.28); RED CELL DISTRIBUTION WIDTH 15.5 % (11.5-14.0); WHITE BLOOD COUNT 5.5 10^3/uL (4.0-10.5)
[2017-10-18 06:29] LABS: ANION GAP 12 (5-19); BLOOD UREA NITROGEN 23 mg/dL (7-20); CALCIUM 9.3 mg/dL (8.4-10.2); CARBON DIOXIDE 29 mmol/L (22-30); CHLORIDE 84 mmol/L (98-107); GLUCOSE 132 mg/dL (75-110); POTASSIUM 4.6 mmol/L (3.6-5.0); SODIUM 125.1 mmol/L (137-145)
[2017-10-18 06:53] LABS: PLATELET COUNT 23 10^3/uL (150-450)
--- NOTE | 2017-10-18 09:51 | Physician Advisory Note ---
Physician Advisor ProgressNote .: [facility], I have reviewed the medical record for this patient. Physician Advisor Statement: Beautiful documentation of difference in Na from baseline. Please consider documenting, if you agree: 1. "Chronic hypoxemic respiratory failure requiring 2L O2 at baseline, due to _ ____" (COPD? CHF? ...) 2. "obesity w/BMI 41" 3. "Acute on chronic diastolic CHF, evidenced by BLE edema, high BNP, & cardiomegaly on CXR, crackles on lung exam in ED, 35# wt gain over 5mo,..." (Also: any orthopnea? MENDOZA w/ordinary exertion?) 4. "Acute on chronic hyponatremia, likely due to ____" (lung CA? Fluid overload? ...) 5. " type Afib" (persistent? paroxysmal? ...) 6. "chronic anemia, likely due to " (nutritional ___ deficiency? chronic blood loss from ____?, ...) 7. type of stage III lung CA, if known Thanks! CK
[2017-10-18] MEDS: NYSTATIN TOPICAL POWDER 15 GM TP SCH ×4 (10:11→21:38)
[2017-10-18] MEDS: LOSARTAN POTASSIUM 50 MG TABLET PO SCH (10:11)
[2017-10-18] MEDS: ASPIRIN 81 MG TABLET, ENT COATED PO SCH (10:12)
[2017-10-18] MEDS: BUDESONIDE/FORMOTEROL 160-4.5 MCG 60 PUFF/6 GM MDI IH SCH ×2 (10:12→21:38)
[2017-10-18] MEDS: DOCUSATE SODIUM 100 MG CAPSULE PO SCH ×2 (10:12→17:18)
--- NOTE | 2017-10-18 11:58 | PROGRESS NOTE E ---
Progress Note NAME: GINNA LOPEZ : 1950 AGE: 67Y DATE: 10/18/2017 ROOM: 421 SUBJECTIVE: The patient is currently sitting on the side of the bed. She states she feels a little better in comparison to yesterday. She notes that her abdominal distention is improved but bilateral lower extremity persists. The patient has been afebrile. Her blood pressure has in decent range. No recorded episodes of vomiting, diarrhea. Shortness of breath does persist, but she associates that with her COPD, lung CA, and now this heart failure. The patient does not voice any other concerns at this time. REVIEW OF SYSTEMS: The rest of the review of systems is negative. MEDICATIONS: Medications have been reviewed. OBJECTIVE: GENERAL: The patient is a 57-year-old, female who is awake, alert and oriented to person, place, time, and situation. She is verbal, conversational, and does not appear to be in any acute distress. VITAL SIGNS: As follows: Temperature is 98.5, pulse 102, respirations 16, blood pressure 108/46. Oxygen saturation 91% on 2 L nasal cannula. SKIN: Warm and dry. No rash. She is not diaphoretic. HEENT: Pupils equal, round, reactive to light and accommodation. Conjunctivae pink. There is no evidence of JVP. CARDIOVASCULAR SYSTEM: Heart is irregularly irregular. There is no murmur or rub. CHEST: Patient has bilateral basal crackles. ABDOMEN: Obese, is mildly distended. EXTREMITIES: No clubbing or cyanosis. The patient does have 3+ bilateral lower extremity edema. PSYCHIATRIC: Appropriate affect. Pleasant mood. DIAGNOSTICS: Lab values are as follows: Hematology done on 10/18/2017: WBCs are 5.5, hemoglobin 9.2, hematocrit 29.8, platelet count is 23,000. Chemistries done on 10/18/2017: Sodium is 125, potassium 4.6, chloride 94, carbon dioxide 29, BUN 23, creatinine 0.73. Glucose 132. Calcium is 9.3. IMPRESSION AND PLAN: 1. Acute on chronic diastolic congestive heart failure. We will transition the patient to Bumex IV for diuresis. Given the patient is on Bumex at home, most likely has some underlying diuretic resistance. Patient still has pitting edema. Surprisingly, she has an adequate albumin. Will continue to follow. 2. Lung cancer. The patient is followed by Dr. Cervantes. 3. Thrombocytopenia. The patient is to follow up with [facility] on Sunday. Will monitor the patient's platelet count during her stay and follow. 4. Hyponatremia, most likely, due to volume overload. The patient has been fluid restricted. We will continue with aggressive IV diuresis and follow. 5. Chronic atrial fibrillation. We will continue the patient's antiarrhythmics as she is currently rate controlled and is on a baby aspirin. 6. Diabetes mellitus type 2. We will continue sliding-scale coverage. 7. Chronic obstructive pulmonary disease. We will continue the patient's home inhalers as well as supplemental O2. 8. Acute on chronic hypoxemic and hypercapnic respiratory failure. DISPOSITION: The patient is a FULL CODE. Pending the patient's symptomatology and diagnostic findings, we will reevaluate in the a.m. Time spent on this followup including assessment, plan, physical examination, patient education, review of records is 25 minutes. DICTATING PHYSICIAN: CHARAN FIELDS NP [id number] PHY#: [id number] ID: [id number] JOB#: [id number] ACCT: [id number] cc: > MTDD
[2017-10-18] MEDS: ACETAMINOPHEN 325 MG TABLET PO PRN (13:49)
[2017-10-18] MEDS ORDERED: MAG HYDROX/AL HYDROX/SIMETH SUSP 30 ML UDCUP PO ONE (14:00)
[2017-10-18] MEDS ORDERED: METOCLOPRAMIDE HCL ORAL SOLN 10 MG/10 ML UDCUP PO ONE (14:00)
[2017-10-18] MEDS ORDERED: LIDOCAINE 2% VISCOUS SOLN 20 ML UDCUP PO ONE (14:00)
[2017-10-18] MEDS: FUROSEMIDE INJ/PF 40 MG/4 ML SDV IV SCH ×2 (14:05→21:37)
[2017-10-18] MEDS ORDERED: BUMETANIDE INJ/PF 1 MG/4 ML SDV IV SCH (18:00)
[2017-10-18] MEDS: SIMVASTATIN 40 MG TABLET PO SCH (21:38)
[2017-10-19] MEDS: DILTIAZEM HCL 30 MG TABLET PO SCH ×4 (00:58→19:20)
[2017-10-19] MEDS: FUROSEMIDE INJ/PF 40 MG/4 ML SDV IV SCH ×2 (03:23→09:51)
[2017-10-19] MEDS: HYDRALAZINE HCL 50 MG TABLET PO SCH ×3 (05:40→20:47)
[2017-10-19 06:17] LABS: HEMATOCRIT 28.2 % (36.0-47.0); HEMOGLOBIN 9.7 g/dL (12.0-15.5); MEAN CORPUSCULAR HEMOGLOBIN 35.3 pg (27.0-33.4); MEAN CORPUSCULAR HGB CONC 34.3 g/dL (32.0-36.0); MEAN CORPUSCULAR VOLUME 103 fl (80-97); RED BLOOD COUNT 2.74 10^6/uL (3.72-5.28); RED CELL DISTRIBUTION WIDTH 15.6 % (11.5-14.0); WHITE BLOOD COUNT 5.9 10^3/uL (4.0-10.5)
[2017-10-19 06:34] LABS: ANION GAP 10 (5-19); BLOOD UREA NITROGEN 22 mg/dL (7-20); CALCIUM 8.7 mg/dL (8.4-10.2); CARBON DIOXIDE 30 mmol/L (22-30); CHLORIDE 84 mmol/L (98-107); GLUCOSE 109 mg/dL (75-110); POTASSIUM 4.7 mmol/L (3.6-5.0); SODIUM 123.6 mmol/L (137-145)
[2017-10-19 06:42] LABS: PLATELET COUNT 27 10^3/uL (150-450)
[2017-10-19] MEDS: NYSTATIN TOPICAL POWDER 15 GM TP SCH ×3 (09:47→20:48)
[2017-10-19] MEDS: ASPIRIN 81 MG TABLET, ENT COATED PO SCH (09:51)
[2017-10-19] MEDS: LOSARTAN POTASSIUM 50 MG TABLET PO SCH (09:51)
[2017-10-19] MEDS: DOCUSATE SODIUM 100 MG CAPSULE PO SCH ×2 (09:51→19:20)
[2017-10-19] MEDS: BUDESONIDE/FORMOTEROL 160-4.5 MCG 60 PUFF/6 GM MDI IH SCH ×2 (09:51→20:48)
[2017-10-19] MEDS: OXYCODONE HCL IR 5 MG TABLET PO PRN ×2 (10:07→20:46)
--- NOTE | 2017-10-19 11:28 | PROGRESS NOTE E ---
Progress Note NAME: GINNA LOPEZ : 1950 AGE: 67Y DATE: 10/19/2017 ROOM: 421 SUBJECTIVE: The patient is currently lying in bed. She states that she feels a little better today, just quite tired. The patient's shortness of breath has improved. There have been no reported episodes of nausea, vomiting, diarrhea. No dizziness, chest pain. The patient does not voice any other concerns at this time. The patient is a 67-year-old female with a past medical history of lung cancer which is followed by Dr. Cervantes. The patient does have an appointment on Sunday with [facility] to follow up on her persistent thrombocytopenia in the setting of the patient's lung CA. However, the patient has developed an acute episode of heart failure resulting in bilateral lower extremity edema and pulmonary edema which has improved with aggressive diuresis today. The patient is eager for her appointment. Therefore, we will prepare for discharge and transition diuretics to p.o. and remove Miguel. REVIEW OF SYSTEMS: Rest of review of systems is negative. MEDICATIONS: Medications have been reviewed. OBJECTIVE: GENERAL: The patient is a 67-year-old female who is awake, alert and oriented to person, place, time and situation. She is verbal and conversational and does not appear to be in any acute distress. VITAL SIGNS FOLLOWS: Temperature is 99.1. Pulse 103. Respirations 20. Blood pressure is 116/52. Oxygen saturation 96% on 2 L nasal cannula. SKIN: Warm and dry. No rash. She is not diaphoretic. HEENT: Pupils equal, round and reactive to light and accommodation. Conjunctivae are pink. NECK: Patient does have JVP to the right clavicle. CARDIOVASCULAR SYSTEM: Heart is irregularly irregular. There is no rub. CHEST: Diminished. Symmetrical. Bilateral basal crackles. ABDOMEN: Distended. Bowel sounds are present. EXTREMITIES: The patient does have 3+ bilateral lower extremity edema. PSYCHIATRIC: Appropriate affect. Pleasant mood. DIAGNOSTICS: Lab values are as follows. Hematology obtained on 10/19/2017: WBCs are 5.9. Hemoglobin is 9.7. Hematocrit is 28.2. Platelet count is 27,000. Chemistry obtained on 10/19/2017: Sodium is 123. Potassium 4.7. Chloride is 94. Carbon dioxide is 30. BUN 22. Creatinine is 0.85. Glucose 109. Calcium is 8.7. Magnesium is 1.6. IMPRESSION AND PLAN: 1. [id number] DIASTOLIC CONGESTIVE HEART FAILURE. Will transition to oral diuresis given that the patient does have to be discharged for an appointment at [facility]. The patient's symptoms have significantly improved shortness of breath. However, I do feel this problem has been exacerbated by most likely hypoalbuminemia. However, her albumin is too high for transfusion at this point. Will continue to diurese, encourage keeping legs elevated, and follow. 2. LUNG CANCER. Management as per Dr. Cervantes. 3. THROMBOCYTOPENIA. The patient is to follow up with [facility] on Sunday. Will monitor platelet function during her stay. 4. HYPONATREMIA MOST LIKELY DUE TO EXCESSIVE VOLUME. The patient has been fluid restricted. Will continue with diuresis and follow. 5. CHRONIC ATRIAL FIBRILLATION. Will continue the patient's antiarrhythmics. She is currently rate controlled on a baby aspirin. 6. DIABETES MELLITUS TYPE 2. Continue sliding-scale coverage. 7. CHRONIC OBSTRUCTIVE PULMONARY DISEASE. Will continue the patient's home inhalers as well as supplemental O2. 8. [id number] HYPOXEMIC AND HYPERCAPNIC RESPIRATORY FAILURE SECONDARY TO THE ABOVE. DISPOSITION: The patient is a FULL CODE. Pending patient's symptomatology and diagnostic findings, will reevaluate in the a.m. TIME SPENT: Time spent on this followup including assessment, plan, physical examination, patient education, and review of records is 27 minutes. DICTATING PHYSICIAN: CHARAN FIELDS NP [id number] PHY#: [id number] ID: [id number] JOB#: [id number] ACCT: [id number] cc: > [facility]
[2017-10-19] MEDS ORDERED: BUMETANIDE 1 MG TABLET PO ONE (12:30)
[2017-10-19] MEDS: ONDANSETRON HCL 8 MG TABLET PO PRN ×2 (14:11→23:29)
[2017-10-19] MEDS: BUMETANIDE 1 MG TABLET PO SCH (19:19)
[2017-10-19] MEDS: SIMVASTATIN 40 MG TABLET PO SCH (20:47)
[2017-10-20] MEDS: DILTIAZEM HCL 30 MG TABLET PO SCH ×3 (00:52→11:55)
[2017-10-20] MEDS: ACETAMINOPHEN 325 MG TABLET PO PRN ×2 (01:31→14:01)
[2017-10-20 05:36] LABS: ABSOLUTE EOSINOPHILS # (AUTO) 0.1 10^3/uL (0.0-0.6); ABSOLUTE LYMPHOCYTES (AUTO) 1.3 10^3/uL (0.5-4.7); ABSOLUTE MONOCYTES (AUTO) 0.6 10^3/uL (0.1-1.4); ABSOLUTE NEUT (AUTO) 4.2 10^3/uL (1.7-8.2); BASOPHILS % (AUTO) 0.2 % (0-2); EOSINOPHILS % (AUTO) 1.6 % (0-6); HEMATOCRIT 28.4 % (36.0-47.0); HEMOGLOBIN 9.7 g/dL (12.0-15.5); LYMPHOCYTES % (AUTO) 21.2 % (13-45); MEAN CORPUSCULAR HEMOGLOBIN 34.9 pg (27.0-33.4); MEAN CORPUSCULAR HGB CONC 34.1 g/dL (32.0-36.0); MEAN CORPUSCULAR VOLUME 102 fl (80-97); MONOCYTES % (AUTO) 9.2 % (3-13); RED BLOOD COUNT 2.78 10^6/uL (3.72-5.28); RED CELL DISTRIBUTION WIDTH 15.3 % (11.5-14.0); SEGMENTED NEUTROPHILS % (AUTO) 67.8 % (42-78); TOTAL CELLS COUNTED % (AUTO) 100 %; WHITE BLOOD COUNT 6.2 10^3/uL (4.0-10.5)
[2017-10-20] MEDS: HYDRALAZINE HCL 50 MG TABLET PO SCH ×2 (05:47→13:13)
[2017-10-20 05:56] LABS: ALANINE AMINOTRANSFERASE 31 U/L (9-52); ALBUMIN 3.4 g/dL (3.5-5.0); ALKALINE PHOSPHATASE 176 U/L (38-126); ANION GAP 10 (5-19); ASPARTATE AMINO TRANSFERASE 34 U/L (14-36); BILIRUBIN,TOTAL 1.6 mg/dL (0.2-1.3); BLOOD UREA NITROGEN 21 mg/dL (7-20); CALCIUM 8.5 mg/dL (8.4-10.2); CARBON DIOXIDE 30 mmol/L (22-30); CHLORIDE 83 mmol/L (98-107); GLUCOSE 106 mg/dL (75-110); POTASSIUM 4.2 mmol/L (3.6-5.0); SODIUM 122.9 mmol/L (137-145); TOTAL PROTEIN 6.3 g/dL (6.3-8.2)
[2017-10-20 06:02] LABS: PLATELET COUNT 30 10^3/uL (150-450)
[2017-10-20] MEDS: OXYCODONE HCL IR 5 MG TABLET PO PRN (07:27)
[2017-10-20] MEDS: BUDESONIDE/FORMOTEROL 160-4.5 MCG 60 PUFF/6 GM MDI IH SCH (09:29)
[2017-10-20] MEDS: BUMETANIDE 1 MG TABLET PO SCH (09:29)
[2017-10-20] MEDS: ASPIRIN 81 MG TABLET, ENT COATED PO SCH (09:29)
[2017-10-20] MEDS: DOCUSATE SODIUM 100 MG CAPSULE PO SCH (09:30)
[2017-10-20] MEDS: NYSTATIN TOPICAL POWDER 15 GM TP SCH ×2 (09:30→13:13)
[2017-10-20] MEDS: LOSARTAN POTASSIUM 50 MG TABLET PO SCH (09:30)
[2017-10-20 13:23] VITALS: BP 130/77
--- NOTE | 2017-10-20 14:17 | PDOC DISCHARGE SUMMARY ---
General - Admit/Disc Date/PCP Admission Date/Primary Care Provider: 10/16/17 14:51 MARCO PETERSON Discharge Date: 10/20/17 - Discharge Diagnosis (1) CHF (congestive heart failure) Is this a current diagnosis for this admission?: Yes (3) Coronary artery disease Is this a current diagnosis for this admission?: Yes (4) Hyponatremia Is this a current diagnosis for this admission?: Yes (5) Lung cancer Is this a current diagnosis for this admission?: Yes (6) Thrombocytopenia Is this a current diagnosis for this admission?: Yes (7) Atrial fibrillation Is this a current diagnosis for this admission?: Yes - Additional Information Resuscitation Status: Full Code Discharge Diet: Cardiac Discharge Activity: Activity As Tolerated, Balance Activity w/Rest, Weigh Daily Prescriptions: Nystatin [Mycostatin Topical Powder 15 gm] 1 applic TP QID #30 gm Home Medications: Acetaminophen/Diphenhydramine [Tylenol Pm Ex-Strength Caplet] 2 tab PO QHS 10/16 Aspirin [Aspirin EC] 81 mg PO DAILY 10/16/17 Budesonide/Formoterol Fumarate [Symbicort 160-4.5 Mcg Inhaler] 2 puff PO Q12 Bumetanide [Bumex 2 mg Tablet] 1 tab PO QAM 10/16/17 Diltiazem HCl [Cardizem 30 mg Tablet] 30 mg PO Q6 10/16/17 Furosemide [Lasix 40 mg Tablet] 40 mg PO BID 10/16/17 Hydralazine HCl 100 mg PO Q8 10/16/17 Losartan Potassium [Cozaar 100 mg Tablet] 100 mg PO DAILY 10/16/17 Ondansetron HCl [Zofran 8 mg Tablet] 8 mg PO Q8HP PRN 10/16/17 Oxycodone HCl [Oxy-Ir 5 mg Tablet] 5 mg PO Q8HP PRN 10/16/17 Promethazine HCl [Phenergan 25 mg Tablet] 25 mg PO Q6HP PRN 10/16/17 Simvastatin [Zocor 40 mg Tablet] 40 mg PO QHS 10/16/17 Umeclidinium [place] [Incruse Ellipta] 1 puff IH DAILY 10/16/17 Docusate Sodium [Colace 100 mg Capsule] 100 mg PO BID capsule 10/20/17 Nystatin [Mycostatin Topical Powder 15 gm] 1 applic TP QID #30 gm 10/20/17 History of Present Illness History of Present Illness: GINNA LOPEZ is a 67 year old female Patient was admitted with difficulty breathing and shortness of breath as well as with bilateral leg swelling. Hospital Course Hospital Course: She has underlying lung cancer with chronic respiratory failure on home oxygen she is also on furosemide as well as Bumex and patient does have a pretty significant hyponatremia with underlying lung cancer also contributing to this. She was treated with intravenous diuretics and receive supplemental oxygen. Her sodium has not really changed much and this should be followed closely given that she is still on both diuretics as mentioned above. She has chronic thrombocytopenia and she is due to follow-up at [facility] for further evaluation and management. She seems stable for discharge although she is high risk for readmission given her underlying medical history. Her blood sugars have been relatively stable while in hospital around 100 and she has been taken off metformin for now. This can be reevaluated as outpatient. Physical Exam Vital Signs: Temp Pulse Resp BP Pulse Ox 97.6 F 112 H 18 130/77 H 96 10/20/17 12:00 10/20/17 12:00 10/20/17 12:00 10/20/17 12:00 10/20/17 12:00 Intake & Output 10/19/17 10/20/17 10/21/17 06:59 06:59 06:59 Intake Total 1362 1733 Output Total 3500 1800 Balance -2138 -67 Weight 105.2 kg 106.9 kg General appearance: PRESENT: no acute distress, cooperative, well-nourished, other - anasarca Head exam: PRESENT: atraumatic Mouth exam: PRESENT: dry mucosa Neck exam: ABSENT: carotid bruit, JVD, lymphadenopathy, thyromegaly Cardiovascular exam: PRESENT: irregular rhythm, +S1, +S2 Pulses: PRESENT: normal dorsalis pedis pul GI/Abdominal exam: PRESENT: normal bowel sounds, soft Rectal exam: PRESENT: deferred Extremities exam: PRESENT: pedal edema, other - 3+ edema. ABSENT: calf tenderness Musculoskeletal exam: PRESENT: ambulatory Neurological exam: PRESENT: alert, oriented to person, oriented to place, oriented to time. ABSENT: motor sensory deficit Psychiatric exam: PRESENT: appropriate affect Skin exam: PRESENT: other - shiny. ABSENT: jaundice Results Laboratory Results: 10/20/17 04:50 10/20/17 04:50 10/20/17 10/20/17 04:50 04:50 WBC 6.2 RBC 2.78 L Hgb 9.7 L Hct 28.4 L MCV 102 H MCH 34.9 H MCHC 34.1 RDW 15.3 H Plt Count 30 L* Seg Neutrophils % 67.8 Lymphocytes % 21.2 Monocytes % 9.2 Eosinophils % 1.6 Basophils % 0.2 Absolute Neutrophils 4.2 Absolute Lymphocytes 1.3 Absolute Monocytes 0.6 Absolute Eosinophils 0.1 Absolute Basophils 0.0 Sodium 122.9 L Potassium 4.2 Chloride 83 L Carbon Dioxide 30 Anion Gap 10 BUN 21 H Creatinine 0.87 Est GFR ( Amer) > 60 Est GFR (Non-Af Amer) > 60 Glucose 106 Calcium 8.5 Magnesium 1.6 Total Bilirubin 1.6 H AST 34 ALT 31 Alkaline Phosphatase 176 H Total Protein 6.3 Albumin 3.4 L Impressions: Chest X-Ray 10/16/17 13:53 IMPRESSION: CARDIOMEGALY WITH MINIMAL VASCULAR CONGESTION. RIGHT PLEURAL EFFUSION UNCHANGED. Qualifiers - * PATEINT BEING DISCHARGED WITH ANY OF THE FOLLOWING DIAGNOSIS?: Heart Failure HF Pt being discharged on ACEI for LVEF less than 40%?: No Reason(s) for not prescribing ACEI:: Not indicated - EF 55% HF Pt being discharged on ARBS for LVEF less than 40%?: Yes HF Pt with Afib discharged with Warfarin?: No Reason(s) for not prescribing Warfarin:: Medical Contraindication - Risk of adverse effect HF Pt discharged on evidence-based Beta Negrito:: No Reason(s) for not prescribing evidence-based Beta Negrito:: Not indicated - Diastolic dysnfunction, EF 55% Plan Discharge Plan: [place] home for follow up at [facility] as scheduled Time Spent: Greater than 30 Minutes
== END 2017-10-20 16:00 | disposition home or self-care (01) | DRG 291 ==
LOC: ER 11:43 → EH 14:51 → 4W 18:13
PROVIDERS: ADMIT Emergency Medicine; ATTEND Emergency Medicine
DX: I11.0 Hypertensive heart disease with heart failure (principal); J96.02 Acute respiratory failure with hypercapnia; C34.11 Malignant neoplasm of upper lobe, right bronchus or lung; E87.1 Hypo-osmolality and hyponatremia; I50.33 Acute on chronic diastolic (congestive) heart failure; I50.23 Acute on chronic systolic (congestive) heart failure; J44.9 Chronic obstructive pulmonary disease, unspecified; D64.9 Anemia, unspecified; I48.2 Chronic atrial fibrillation; D69.59 Other secondary thrombocytopenia; I25.10 Atherosclerotic heart disease of native coronary artery without angina pectoris; I25.2 Old myocardial infarction; E11.9 Type 2 diabetes mellitus without complications; Z95.1 Presence of aortocoronary bypass graft; Z87.891 Personal history of nicotine dependence; Z88.2 Allergy status to sulfonamides; Z79.82 Long term (current) use of aspirin; Z79.899 Other long term (current) drug therapy; Z99.81 Dependence on supplemental oxygen
CPT/HCPCS: 36415; 71045; 80048; 80053; 81001; 82962; 83690; 83735; 83880; 84484; 85025; 85027; 85610; 93005; 93010; 96374; 99285; J1940; J3490; S0119

== ENCOUNTER 2017-10-24 13:36 | Inpatient (IN) | payer MEDICARE ==
[2017-10-24] MEDS ORDERED: FUROSEMIDE INJ/PF 100 MG/10 ML SDV IV ONE (14:31)
--- NOTE | 2017-10-24 14:32 | ER Document Report ---
ED Medical Screen (RME) - General Chief Complaint: Abdominal Distention Stated Complaint: ABDOMINAL SWELLING Time Seen by Provider: 10/24/17 14:30 Notes: pt has blood cancer per Dr. Murphy. Dr. Murphy states he feels pt needs admission for iv lasix/diuresis TRAVEL OUTSIDE OF THE [place] IN LAST 30 DAYS: No COUNTRY TRAVELED TO/FROM: [place] - Related Data Allergies/Adverse Reactions: Sulfa (Sulfonamide Antibiotics) Allergy (Verified 10/16/17 11:46) Past Medical History - Social History Family history: Reviewed & Not Pertinent - Past Medical History Cardiac Medical History: Reports: Hx Atrial Fibrillation, Hx Coronary Artery Disease, Hx Heart Attack, Hx Hypertension Denies: Hx Congestive Heart Failure Pulmonary Medical History: Reports: Hx COPD Denies: Hx Asthma, Hx Bronchitis, Hx Pneumonia, Hx Tuberculosis Neurological Medical History: Denies: Hx Seizures Endocrine Medical History: Reports: Hx Diabetes Mellitus Type 2 Renal/ Medical History: Denies: Hx End Stage Renal Disease, Hx Kidney Stones, Hx Peritoneal Dialysis Malignancy Medical History: Reports: Hx Lung Cancer GI Medical History: Denies: Hx Cirrhosis, Hx Gastroesophageal Reflux Disease, Hx Ulcer Musculoskeltal Medical History: Denies Hx Arthritis, Denies Hx Multiple Sclerosis Psychiatric Medical History: Denies: Hx Bipolar Disorder, Hx Depression, Hx Schizophrenia Past Surgical History: Reports: Hx Cardiac Catheterization, Hx Cardiac Surgery - aicd, Hx Coronary Artery Bypass Graft, Hx Internal Defibrillator - Immunizations Hx Diphtheria, Pertussis, Tetanus Vaccination: No History of Influenza Vaccine for 05/2017 - 10/2017 Season: Yes Influenza Administration Date for 05/2017 - 10/2017 Season: 05/27/17 Physical Exam - Vital signs Vitals: Temp Pulse Resp BP Pulse Ox 98.2 F 108 H 20 105/58 L 100 10/24/17 13:55 10/24/17 13:55 10/24/17 13:55 10/24/17 13:55 10/24/17 13:55 Course - Vital Signs Vital signs: Temp Pulse Resp BP Pulse Ox 98.2 F 108 H 20 105/58 L 100 10/24/17 13:55 10/24/17 13:55 10/24/17 13:55 10/24/17 13:55 10/24/17 13:55
--- NOTE | 2017-10-24 14:55 | ER Document Report ---
ED General - General Chief Complaint: Abdominal Distention Stated Complaint: ABDOMINAL SWELLING Time Seen by Provider: 10/24/17 14:30 Notes: 67-year-old female to the emergency department chief complaint of "weight gain and CHF". Patient followed by oncologist locally. Has new diagnosis of leukemia. Thought to be induced by radiation oncology from lung cancer treatment in the past. Has low platelet count/thrombocytopenia which is chronic. Had a bone marrow biopsy done on Sunday of this week. Has had increased shortness of breath as well as increased weight gain. They consulted with the oncologist who recommended that patient come to the emergency department for admission to the hospital for CHF and fluid overload. Was just recently hospitalized here and was discharged. Daughter states that when she was hospitalized before they had her on diuretics but they could not ever really get a lot of fluid off of her. Complaining of most of the fluid retention on her abdomen. TRAVEL OUTSIDE OF THE [place] IN LAST 30 DAYS: No COUNTRY TRAVELED TO/FROM: [facility] Onset/Duration: Gradual, Worse - Related Data Allergies/Adverse Reactions: Sulfa (Sulfonamide Antibiotics) Allergy (Verified 10/16/17 11:46) Past Medical History - General Information source: Patient, Relative - Social History Smoking Status: Former Smoker Cigarette use (# per day): No Chew tobacco use (# tins/day): No Smoking Education Provided: No Frequency of alcohol use: None Drug Abuse: None Lives with: Family Family History: Reviewed & Not Pertinent Patient has suicidal ideation: No Patient has homicidal ideation: No - Past Medical History Cardiac Medical History: Reports: Hx Atrial Fibrillation, Hx Coronary Artery Disease, Hx Heart Attack, Hx Hypertension Denies: Hx Congestive Heart Failure Pulmonary Medical History: Reports: Hx COPD Denies: Hx Asthma, Hx Bronchitis, Hx Pneumonia, Hx Tuberculosis Neurological Medical History: Denies: Hx Seizures Endocrine Medical History: Reports: Hx Diabetes Mellitus Type 2 Renal/ Medical History: Denies: Hx End Stage Renal Disease, Hx Kidney Stones, Hx Peritoneal Dialysis Malignancy Medical History: Reports: Hx Lung Cancer GI Medical History: Denies: Hx Cirrhosis, Hx Gastroesophageal Reflux Disease, Hx Ulcer Musculoskeltal Medical History: Denies Hx Arthritis, Denies Hx Multiple Sclerosis Psychiatric Medical History: Denies: Hx Bipolar Disorder, Hx Depression, Hx Schizophrenia Past Surgical History: Reports: Hx Cardiac Catheterization, Hx Cardiac Surgery - aicd, Hx Coronary Artery Bypass Graft, Hx Internal Defibrillator - Immunizations Hx Diphtheria, Pertussis, Tetanus Vaccination: No Hx Pneumococcal Vaccination: 05/27/17 Review of Systems - Review of Systems Constitutional: denies: Chills, Fever, Malaise, Weakness EENT: denies: Double vision, Throat pain, Difficulty swallowing Cardiovascular: Dyspnea. denies: Chest pain, Palpitations, Heart racing, Syncope, Dizziness Gastrointestinal: Abdomen distended. denies: Abdominal pain, Diarrhea, Nausea Genitourinary: denies: Burning, Dysuria, Discharge, Frequency, Urgency Musculoskeletal: denies: Back pain, Gout, Joint pain Skin: denies: Lesions, Rash Hematologic/Lymphatic: Anemia, Easy bruising, Other - Leukemia, lung cancer, thrombocytopenia. denies: Blood clots Neurological/Psychological: denies: Confusion, Depression, Weakness, Numbness Physical Exam - Vital signs Vitals: Temp Pulse Resp BP Pulse Ox 98.2 F 108 H 20 105/58 L 100 10/24/17 13:55 10/24/17 13:55 10/24/17 13:55 10/24/17 13:55 10/24/17 13:55 Interpretation: Tachycardic - General General appearance: Appears well, Alert - HEENT Head: Normocephalic, Atraumatic Eyes: Normal Pupils: PERRL - Respiratory Respiratory status: No respiratory distress Chest status: Nontender Breath sounds: Rales, Other - Does have crackles bilateral lower lobes Chest palpation: Normal - Cardiovascular Rhythm: Tachycardia Heart sounds: Normal auscultation Murmur: No - Abdominal Inspection: Normal Distension: No distension Bowel sounds: Normal Tenderness: Nontender Organomegaly: No organomegaly - Back Back: Normal, Nontender - Extremities General upper extremity: Normal inspection, Nontender, Edema, Normal color, Normal ROM, Normal temperature General lower extremity: Normal inspection, Nontender, Edema, Normal color, Normal ROM, Normal temperature. No: Charlie's sign Calf: Normal. No: Tender - Neurological Neuro grossly intact: Yes Cognition: Normal Orientation: AAOx4 [place] Coma Scale Eye Opening: Spontaneous [place] Coma Scale Verbal: Oriented [place] Coma Scale Motor: Obeys Commands [place] Coma Scale Total: 15 Speech: Normal Motor strength normal: LUE, RUE, LLE, RLE Sensory: Normal - Psychological Associated symptoms: Normal affect, Normal mood - Skin Skin Temperature: Warm Skin Moisture: Dry Skin Color: Normal Course - Re-evaluation Re-evalutation: 10/24/17 15:19 Patient does have significant amount edema on exam. At this time based on her history we will go ahead and get CBC, chemistry, BMP, chest x-ray, EKG, troponin and reassess. May need to be admitted for CHF once more. 10/24/17 16:43 Patient hypernatremic, CHF with thrombocytopenia. Consulted Dr. Webster. Will admit to the hospital at this tiME 10/24/17 16:43 Laboratory 10/24/17 10/24/17 10/24/17 15:26 15:26 15:26 WBC 6.1 RBC 2.63 L Hgb 9.1 L Hct 26.9 L MCV 102 H MCH 34.8 H MCHC 34.0 RDW 15.5 H Plt Count 26 L* Seg Neutrophils % 78.5 H Lymphocytes % 11.0 L Monocytes % 9.5 Eosinophils % 0.8 Basophils % 0.2 Absolute Neutrophils 4.8 Absolute Lymphocytes 0.7 Absolute Monocytes 0.6 Absolute Eosinophils 0.0 Absolute Basophils 0.0 Sodium 118.8 L* Potassium 5.2 H Chloride 78 L Carbon Dioxide 32 H Anion Gap 9 BUN 31 H Creatinine 1.07 Est GFR ( Amer) > 60 Est GFR (Non-Af Amer) 51 L Glucose 142 H Calcium 9.5 Total Bilirubin 1.4 H Direct Bilirubin 1.0 H Neonat Total Bilirubin Not Reportable Neonat Direct Bilirubin Not Reportable Neonat Indirect Bili Not Reportable AST 33 ALT 26 Alkaline Phosphatase 173 H Troponin I < 0.012 NT-Pro-B Natriuret Pep 6380 H Total Protein 6.1 L Albumin 3.4 L Chest X-Ray 10/24/17 15:14 IMPRESSION: Trace right pleural fluid with minimal right retrocardiac airspace disease atelectasis versus pneumonia. This is similar compared to 10/16/2017. - Vital Signs Vital signs: Temp Pulse Resp BP Pulse Ox 98.2 F 108 H 0 L 124/70 98 10/24/17 13:55 10/24/17 13:55 10/24/17 15:52 10/24/17 16:04 10/24/17 16:04 - Laboratory Result Diagrams: 10/24/17 15:26 10/24/17 15:26 Laboratory results interpreted by me: 10/24/17 10/24/17 10/24/17 15:26 15:26 15:26 RBC 2.63 L Hgb 9.1 L Hct 26.9 L MCV 102 H MCH 34.8 H RDW 15.5 H Plt Count 26 L* Seg Neutrophils % 78.5 H Lymphocytes % 11.0 L Sodium 118.8 L* Potassium 5.2 H Chloride 78 L Carbon Dioxide 32 H BUN 31 H Est GFR (Non-Af Amer) 51 L Glucose 142 H Total Bilirubin 1.4 H Direct Bilirubin 1.0 H Alkaline Phosphatase 173 H NT-Pro-B Natriuret Pep 6380 H Total Protein 6.1 L Albumin 3.4 L - EKG Interpretation by Me EKG shows normal: [place], QRS Complexes, ST-T Waves Rhythm: A.Fib Discharge - Discharge Clinical Impression: Hyponatremia, Thrombocytopenia CHF (congestive heart failure) Qualifiers: Heart failure type: unspecified Heart failure chronicity: unspecified Qualified Code(s): I50.9 - Heart failure, unspecified Condition: Good Disposition: ADMITTED INPATIENT Admitting Provider: Hospitalist - [facility] Unit Admitted: Telemetry Referrals: ORION CASTANO NP-C [Primary Care Provider] - Follow up as needed
[2017-10-24 15:49] LABS: ALANINE AMINOTRANSFERASE 26 U/L (9-52); ALBUMIN 3.4 g/dL (3.5-5.0); ALKALINE PHOSPHATASE 173 U/L (38-126); ANION GAP 9 (5-19); ASPARTATE AMINO TRANSFERASE 33 U/L (14-36); BILIRUBIN,TOTAL 1.4 mg/dL (0.2-1.3); BLOOD UREA NITROGEN 31 mg/dL (7-20); CALCIUM 9.5 mg/dL (8.4-10.2); CARBON DIOXIDE 32 mmol/L (22-30); CHLORIDE 78 mmol/L (98-107); GLUCOSE 142 mg/dL (75-110); POTASSIUM 5.2 mmol/L (3.6-5.0); TOTAL PROTEIN 6.1 g/dL (6.3-8.2)
[2017-10-24 15:51] LABS: ABSOLUTE LYMPHOCYTES (AUTO) 0.7 10^3/uL (0.5-4.7); ABSOLUTE MONOCYTES (AUTO) 0.6 10^3/uL (0.1-1.4); ABSOLUTE NEUT (AUTO) 4.8 10^3/uL (1.7-8.2); BASOPHILS % (AUTO) 0.2 % (0-2); EOSINOPHILS % (AUTO) 0.8 % (0-6); HEMATOCRIT 26.9 % (36.0-47.0); HEMOGLOBIN 9.1 g/dL (12.0-15.5); MEAN CORPUSCULAR HEMOGLOBIN 34.8 pg (27.0-33.4); MEAN CORPUSCULAR VOLUME 102 fl (80-97); MONOCYTES % (AUTO) 9.5 % (3-13); RED BLOOD COUNT 2.63 10^6/uL (3.72-5.28); RED CELL DISTRIBUTION WIDTH 15.5 % (11.5-14.0); SEGMENTED NEUTROPHILS % (AUTO) 78.5 % (42-78); TOTAL CELLS COUNTED % (AUTO) 100 %; WHITE BLOOD COUNT 6.1 10^3/uL (4.0-10.5)
[2017-10-24 15:57] LABS: SODIUM 118.8 mmol/L (137-145)
[2017-10-24 16:01] LABS: NT PRO BNP 6380 pg/mL (5-900)
[2017-10-24 16:04] LABS: TROPONIN I < 0.012 ng/mL
[2017-10-24 16:20] LABS: PLATELET COUNT 26 10^3/uL (150-450)
--- NOTE | 2017-10-24 16:28 | RADIOLOGY REPORT (SQ) ---
EXAM DESCRIPTION: CHEST SINGLE VIEW COMPLETED DATE/TIME: 10/24/2017 4:05 pm REASON FOR STUDY: sob COMPARISON: AP chest 10/16/2017, 09/25/2017, 09/16/2017 CT chest 06/22/2017 EXAM PARAMETERS: NUMBER OF VIEWS: One view. TECHNIQUE: Single frontal radiographic view of the chest acquired. RADIATION DOSE: NA LIMITATIONS: None. FINDINGS: LUNGS AND PLEURA: Trace right pleural fluid blunting the lateral costophrenic sulcus uncha nged. Minimal right retrocardiac airspace disease atelectasis versus pneumonia. This is stable. Left lung clear. No left pleural fluid. No right or left pneumothorax MEDIASTINUM AND HILAR STRUCTURES: No masses. Contour normal. HEART AND VASCULAR STRUCTURES: Stable massive cardiomegaly BONES: No acute findings. HARDWARE: Old sternotomy for CABG. Right-sided permanent central line tip superior vena cava. Left- sided pacemaker OTHER: No other significant finding. IMPRESSION: Trace right pleural fluid with minimal right retrocardiac airspace disease atelectasis v ersus pneumonia. This is similar compared to 10/16/2017. TECHNICAL DOCUMENTATION: JOB ID: [id number] [employer]- All Rights Reserved Reading location - IP/workstation name: [email or web address]
[2017-10-24] MEDS ORDERED: ONDANSETRON HCL INJ/PF 4 MG/2 ML SDV IV PRN (17:02)
[2017-10-24 17:20] LABS: APPEARANCE,URINE SLIGHTLY-CLOUDY; BILIRUBIN,URINE NEGATIVE (NEGATIVE); COLOR,URINE YELLOW; GLUCOSE, URINE NEGATIVE (NEGATIVE); KETONES,URINE NEGATIVE (NEGATIVE); LEUKOCYTE ESTERASE,URINE LARGE (NEGATIVE); NITRITE,URINE POSITIVE (NEGATIVE); PROTEIN,URINE NEGATIVE (NEGATIVE); URINE SPECIFIC GRAVITY 1.008; UROBILINOGEN,URINE NEGATIVE mg/dL (<2.0)
[2017-10-24] MEDS: DILTIAZEM HCL 30 MG TABLET PO SCH ×2 (18:25→23:27)
--- NOTE | 2017-10-24 18:25 | PDOC H&P ---
History of Present Illness Admission Date/PCP: 10/24/17 16:50 MARCO PETERSON Patient complains of: Generalized swelling and difficulty breathing over the last few days History of Present Illness: GINNA LOPEZ is a 67 year old female Presents to the emergency room with complaints of generalized swelling as well as difficulty breathing which has been progressive over the last few days. She was just discharged from the hospital on October 20 by me for the same reason. Patient has had repeated episodes of anasarca as well as hyponatremia. The does have underlying lung cancer which may be contributing to hyponatremia. She wanted to go to [place] for an appointment on October 22 due to a thrombocytopenia which she did go to and she apparently had a bone marrow biopsy done results of which she is still pending. She was seen by the home health nurse today and she contacted her oncologist who advised her to come to the emergency room for further evaluation where she was found to be quite edematous as well as hyponatremic. Despite his sodium 118 there is no change in mental status and to come back on the chart patient generally runs in the low 120s to about 110s. She claims to have been compliant with her medications and with her fluid intake and restrictions as prescribed. There is no complaints of chest pain nausea vomiting confusion diaphoresis or any other pertinent symptoms. She has gained weight but unsure of how much weight she gained Past Medical History Cardiac Medical History: Reports: Atrial Fibrillation, Coronary Artery Disease, Myocardial Infarction, Hypertension Denies: Congestive Heart Failure Pulmonary Medical History: Reports: Chronic Obstructive Pulmonary Disease (COPD) Denies: Asthma, Bronchitis, Pneumonia, Tuberculosis Neurological Medical History: Denies: Seizures Endocrine Medical History: Reports: Diabetes Mellitus Type 2 Renal/ Medical History: Denies: End Stage Renal Disease Malignancy Medical History: Reports: Lung Cancer GI Medical History: Denies: Cirrhosis, Gastroesophageal Reflux Disease Musculoskeltal Medical History: Denies: Arthritis Psychiatric Medical History: Denies: Bipolar Disorder, Depression Hematology: Reports: Anemia Denies: Bleeding Tendencies Past Surgical History Past Surgical History: Reports: Cardiac Catheterization, Coronary Artery Bypass Graft, Internal Defibrillator Social History Information Source: Patient Lives with: Family Smoking Status: Former Smoker Frequency of Alcohol Use: Rare Hx Recreational Drug Use: No Drugs: None Hx Prescription Drug Abuse: No - Advance Directive Resuscitation Status: Full Code Family History Family History: Reviewed & Not Pertinent Parental Family History Reviewed: Yes - Not pertinent Children Family History Reviewed: Unknown Sibling(s) Family History Reviewed.: Unknown Medication/Allergy Home Medications: Acetaminophen/Diphenhydramine [Tylenol Pm Ex-Strength Caplet] 2 tab PO QHS 10/24 Aspirin [Aspirin EC] 81 mg PO DAILY 10/24/17 Budesonide/Formoterol Fumarate [Symbicort HFA 160-4.5 mcg Inhaler 6 gm] 2 puff IH Q12 10/24/17 Bumetanide [Bumex 2 mg Tablet] 2 mg PO DAILY 10/24/17 Diltiazem HCl [Cardizem 30 mg Tablet] 30 mg PO Q6 10/24/17 Docusate Sodium [Colace 100 mg Capsule] 100 mg PO BID 10/24/17 Furosemide [Lasix 40 mg Tablet] 40 mg PO BID 10/24/17 Hydralazine HCl 100 mg PO Q8 10/24/17 Losartan Potassium [Cozaar 100 mg Tablet] 100 mg PO DAILY 10/24/17 Metformin HCl [Metformin HCl ER] 1,000 mg PO Q12 10/24/17 Ondansetron HCl [Zofran 8 mg Tablet] 8 mg PO Q8HP PRN 10/24/17 Oxycodone HCl [Oxy-Ir 5 mg Tablet] 5 mg PO Q8HP PRN 10/24/17 Promethazine HCl [Phenergan 25 mg Tablet] 25 mg PO Q6HP PRN 10/24/17 Simvastatin [Zocor 40 mg Tablet] 40 mg PO QHS 10/24/17 Umeclidinium Gladys [Incruse Ellipta] 1 puff IH DAILY 10/24/17 Allergies/Adverse Reactions: Sulfa (Sulfonamide Antibiotics) Allergy (Verified 10/16/17 11:46) Review of Systems All systems: reviewed and no additional remarkable complaints except as stated Cardiovascular: PRESENT: orthropnea. ABSENT: palpitations Respiratory: PRESENT: dyspnea Gastrointestinal: PRESENT: bloating Physical Exam Vital Signs: Temp Pulse Resp BP Pulse Ox 98.2 F 108 H 0 L 124/70 98 10/24/17 13:55 10/24/17 13:55 10/24/17 15:52 10/24/17 16:04 10/24/17 16:04 General appearance: PRESENT: no acute distress, obese, other - Generalized anasarca Head exam: PRESENT: atraumatic Eye exam: PRESENT: periorbital swelling, PERRLA Ear exam: PRESENT: normal external ear exam Mouth exam: PRESENT: moist, tongue midline Neck exam: ABSENT: carotid bruit, JVD, lymphadenopathy, thyromegaly Respiratory exam: PRESENT: crackles, rhonchi - Bilaterally, unlabored. ABSENT: rales, wheezes Cardiovascular exam: PRESENT: irregular rhythm, +S1, +S2. ABSENT: rubs Pulses: PRESENT: normal dorsalis pedis pul GI/Abdominal exam: PRESENT: normal bowel sounds, soft. ABSENT: distended, guarding, mass, organolmegaly, rebound, tenderness Rectal exam: PRESENT: deferred Skin exam: PRESENT: dry, intact, warm. ABSENT: cyanosis, rash Results Laboratory Results: 10/24/17 16:57 Urine Color YELLOW Urine Appearance SLIGHTLY-CLOUDY Urine pH 6.0 Ur Specific [place] 1.008 Urine Protein NEGATIVE Urine Glucose (UA) NEGATIVE Urine Ketones NEGATIVE Urine Blood NEGATIVE Urine Nitrite POSITIVE H Ur Leukocyte Esterase LARGE H Urine WBC (Auto) 60 Urine RBC (Auto) 1 Impressions: Chest X-Ray 10/24/17 15:14 IMPRESSION: Trace right pleural fluid with minimal right retrocardiac airspace disease atelectasis versus pneumonia. This is similar compared to 10/16/2017. Assessment & Plan - Diagnosis (1) CHF (congestive heart failure) Qualifiers: Heart failure type: right-sided Heart failure chronicity: unspecified Qualified Code(s): I50.810 - Right heart failure, unspecified Is this a current diagnosis for this admission?: Yes Plan: She had an echocardiogram done in August 2017 which revealed an ejection fraction of 55% and left ventricular is grossly normal but with grade 2-4 mild to moderate diastolic dysfunction. The right ventricle is mild to moderate dilated with moderate to severe amount of mitral regurgitation as well as tricuspid regurgitation and pulmonary hypertension with right ventricular systolic pressure elevated I feel at this time patient especially given how severe hyponatremia may benefit from some inotropic agent like Milrinone or dobutamine. I am not sure this can be easily done here but I will go ahead and consult cardiology to see if they can help us with these. Lasix will definitely increase her hyponatremia but at this point will start on Lasix and discussed with cardiology tomorrow as to what the other options may be. (2) Hyponatremia Is this a current diagnosis for this admission?: Yes Plan: Severe however there is no neurological changes and patient generally runs around 120s. It is unclear if this is actually related to her underlying lung cancer. Will fluid restrict her and at this point given that she has been on Lasix there is little to be gained from analyzing urinary electrolytes (3) Thrombocytopenia Is this a current diagnosis for this admission?: Yes Plan: Patient recently had a biopsy done at [place] with the results still pending. Her platelet count is around her baseline. We will avoid giving her any Lovenox though we will use mechanical prophylaxis instead (4) Anemia Qualifiers: Anemia type: unspecified type Qualified Code(s): D64.9 - Anemia, unspecified Is this a current diagnosis for this admission?: Yes Plan: Hemoglobin is relatively stable and there is no indication for transfusion (5) Atrial fibrillation Qualifiers: Atrial fibrillation type: chronic Qualified Code(s): I48.2 - Chronic atrial fibrillation Is this a current diagnosis for this admission?: Yes Plan: Patient has chronic atrial fibrillation which is well controlled with metoprolol. Has not been on anticoagulant at this point this is not appropriate (6) Lung cancer Qualifiers: Laterality: right Lung location: upper lobe of lung Qualified Code(s): C34.11 - Malignant neoplasm of upper lobe, right bronchus or lung Is this a current diagnosis for this admission?: Yes Plan: No acute intervention at this time (7) Patient is full code Is this a current diagnosis for this admission?: Yes Plan: CODE STATUS is full - Time Time Spent: 50 to 70 Minutes Medications reviewed and adjusted accordingly: Yes Anticipated discharge: Home Within: within 72 hours - Inpatient Certification Medical Necessity: Need Close Monitoring Due to Risk of Patient Decompensation, Risk of Complication if Not Cared For in Hospital - Plan Summary Plan Summary: Patient's long-term prognosis is pretty poor
[2017-10-24] MEDS ORDERED: CEFTRIAXONE 1 GM/D5W RTU 1 GM/50 ML RTUPB IV SCH (19:00)
--- NOTE | 2017-10-24 19:55 | EKG REPORT ---
SEVERITY:- ABNORMAL ECG - ATRIAL FIBRILLATION, V-RATE 66-118 LEFT POSTERIOR FASCICULAR BLOCK BORDERLINE T ABNORMALITIES, INFERIOR LEADS : Confirmed by: Hunter Castañeda MD 24-Oct-2017 19:55:18
--- NOTE | 2017-10-24 21:03 | PDOC CONSULTATION ---
Consultation Consult Date: 10/24/17 Attending physician:: MADELAINE CELIS Consult reason:: CHF History of Present Illness Admission Date/PCP: 10/24/17 16:50 MARCO PETERSON Patient complains of: Shortness of breath History of Present Illness: GINNA LOPEZ is a 67 year old female Presents to the emergency room with complaints of generalized swelling as well as difficulty breathing which has been progressive over the last few days. She was just discharged from the hospital on October 20 by me for the same reason. Patient has had repeated episodes of anasarca as well as hyponatremia. The does have underlying lung cancer which may be contributing to hyponatremia. She wanted to go to [facility] for an appointment on October 22 due to a thrombocytopenia which she did go to and she apparently had a bone marrow biopsy done results of which she is still pending. She was seen by the home health nurse today and she contacted her oncologist who advised her to come to the emergency room for further evaluation where she was found to be quite edematous as well as hyponatremic. Despite his sodium 118 there is no change in mental status and to come back on the chart patient generally runs in the low 120s to about 110s. She claims to have been compliant with her medications and with her fluid intake and restrictions as prescribed. There is no complaints of chest pain nausea vomiting confusion diaphoresis or any other pertinent symptoms. She has gained weight but unsure of how much weight she gained. Patient today noted to be in atrial fibrillation on the heart monitor. I was asked to evaluate patient to help with management of congestive heart failure and atrial fibrillation. Past Medical History Cardiac Medical History: Reports: Atrial Fibrillation, Coronary Artery Disease, Myocardial Infarction, Hypertension Denies: Congestive Heart Failure Pulmonary Medical History: Reports: Chronic Obstructive Pulmonary Disease (COPD) Denies: Asthma, Bronchitis, Pneumonia, Tuberculosis Neurological Medical History: Denies: Seizures Endocrine Medical History: Reports: Diabetes Mellitus Type 2 Renal/ Medical History: Denies: End Stage Renal Disease Malignancy Medical History: Reports: Lung Cancer GI Medical History: Denies: Cirrhosis, Gastroesophageal Reflux Disease Musculoskeltal Medical History: Denies: Arthritis Psychiatric Medical History: Denies: Bipolar Disorder, Depression Hematology: Reports: Anemia Denies: Bleeding Tendencies Past Surgical History Past Surgical History: Reports: Cardiac Catheterization, Coronary Artery Bypass Graft, Coronary Stent, Internal Defibrillator Social History Information Source: Patient Lives with: Family Smoking Status: Former Smoker Frequency of Alcohol Use: Rare Hx Recreational Drug Use: No Drugs: None Hx Prescription Drug Abuse: No - Advance Directive Resuscitation Status: Full Code Family History Family History: CAD, Hypertension Parental Family History Reviewed: Yes Children Family History Reviewed: Yes Sibling(s) Family History Reviewed.: Yes Medication/Allergy Home Medications: Acetaminophen/Diphenhydramine [Tylenol Pm Ex-Strength Caplet] 2 tab PO QHS 10/24 Aspirin [Aspirin EC] 81 mg PO DAILY 10/24/17 Budesonide/Formoterol Fumarate [Symbicort HFA 160-4.5 mcg Inhaler 6 gm] 2 puff IH Q12 10/24/17 Bumetanide [Bumex 2 mg Tablet] 2 mg PO DAILY 10/24/17 Diltiazem HCl [Cardizem 30 mg Tablet] 30 mg PO Q6 10/24/17 Docusate Sodium [Colace 100 mg Capsule] 100 mg PO BID 10/24/17 Furosemide [Lasix 40 mg Tablet] 40 mg PO BID 10/24/17 Hydralazine HCl 100 mg PO Q8 10/24/17 Losartan Potassium [Cozaar 100 mg Tablet] 100 mg PO DAILY 10/24/17 Metformin HCl [Metformin HCl ER] 1,000 mg PO Q12 10/24/17 Ondansetron HCl [Zofran 8 mg Tablet] 8 mg PO Q8HP PRN 10/24/17 Oxycodone HCl [Oxy-Ir 5 mg Tablet] 5 mg PO Q8HP PRN 10/24/17 Promethazine HCl [Phenergan 25 mg Tablet] 25 mg PO Q6HP PRN 10/24/17 Simvastatin [Zocor 40 mg Tablet] 40 mg PO QHS 10/24/17 Umeclidinium [place] [Incruse Ellipta] 1 puff IH DAILY 10/24/17 Allergies/Adverse Reactions: Sulfa (Sulfonamide Antibiotics) Allergy (Verified 10/16/17 11:46) Review of Systems Review of Systems: Please see history of present illness and past medical history as wall. Constitutional: No fever or chills reported. Head : No recent chronic headaches, recent head injury. Eyes: No recent eye pain, diplopia, redness, discharge, acute visual changes. Ears: No recent chronic ear pain, acute hearing loss, ear discharge. Oral cavity: No recent ulcerations, bleeding, oral cavity discomfort. Neck: No recent acute neck pain reported. Hematologic: No recent easy bruising or bleeding or hematologic malignancy reported. Lymphatic: No recent lymphatic malignancy, chronic lymphadenopathy reported yet Cardiovascular system review: See history of present illness. History of chronic congestive heart failure, status post defibrillator placement and CABG as well as stent placement Respiratory system review: History of lung cancer being treated with chemotherapy. Mild Shortness of breath on exertion Gastrointestinal system review: Negative for any recent acute or chronic abdominal pain, hematemesis, melena, recent change in bowel habits. Genitourinary system review: No recent acute or chronic hematuria, flank pain, UTI etc. reported. Skin system review: Negative for any recent abnormal bruising, no rash, no pruritus reported. Neurologic: No prior history of strokes, mini strokes, seizure disorder. Psychologic: No history of major psychosis or major depression reported. Musculoskeletal: Minor aches and pains reported. No acute joint swelling reported. Endocrine: No recent polyuria, polydipsia, recent heat or cold intolerance. Physical Exam Vital Signs: Temp Pulse Resp BP Pulse Ox 98.0 F 108 H 25 H 108/69 96 10/24/17 18:03 10/24/17 13:55 10/24/17 19:09 10/24/17 18:26 10/24/17 19:09 Exam: GENERAL: well-nourished and in no acute distress. Alert and oriented x3 HEAD: Atraumatic, normocephalic. EYES: Pupils equal round and reactive to light, extraocular movements intact, sclera anicteric, conjunctiva are normal. ENT: TMs normal, nares patent, oropharynx clear without exudates. Moist mucous membranes. No oral ulcerations or bleeding gums noted NECK: supple without lymphadenopathy. Trachea is central. No cervical or axillary lymphadenopathy noted. Carotids are 2+, JVD 10 cm LUNGS: Respiration seems nonlabored, no significant accessory muscle action noted. Bibasilar fine crackles noted. No wheezes rales or rhonchi noted. No significant dullness noted on percussion. CHEST: Palpation of the chest wall shows no significant chest wall tenderness. No other significant abnormalities noted. HEART: [place] CORE SHAPER SIDES, No PSH, 1/6 JAMIE aortic area, 1/6 gonzalez systolic murmur mitral area, no rubs, no gallops. ABDOMEN: Soft, no significant tenderness appreciated, normoactive bowel sounds. No guarding, no rebound. No rigidity noted . No masses appreciated. EXTREMITIES: Pedal pulses are 1-2+, no calf tenderness noted. No clubbing or cyanosis. 2 + pedal edema noted NEUROLOGICAL: Focused neurological exam showed no significant neurologic deficit. Normal speech, no focal weakness appreciated. PSYCH: Normal mood, normal affect. Judgment and insight within normal limits. SKIN: No significant ecchymosis, rash, ulcerations or signs of pruritus noted. MUSCULOSKELETAL EXAM: No significant joint swelling noted. Results Laboratory Results: 10/24/17 16:57 Urine Color YELLOW Urine Appearance SLIGHTLY-CLOUDY Urine pH 6.0 Ur Specific [place] 1.008 Urine Protein NEGATIVE Urine Glucose (UA) NEGATIVE Urine Ketones NEGATIVE Urine Blood NEGATIVE Urine Nitrite POSITIVE H Ur Leukocyte Esterase LARGE H Urine WBC (Auto) 60 Urine RBC (Auto) 1 EKG Comments: Atrial fibrillation and low voltage QRS complex Impressions: Chest X-Ray 10/24/17 15:14 IMPRESSION: Trace right pleural fluid with minimal right retrocardiac airspace disease atelectasis versus pneumonia. This is similar compared to 10/16/2017. Assessment & Plan - Diagnosis (1) CHF (congestive heart failure) Qualifiers: Heart failure type: unspecified Heart failure chronicity: acute on chronic Qualified Code(s): I50.9 - Heart failure, unspecified Is this a current diagnosis for this admission?: Yes (2) Atrial fibrillation Qualifiers: Atrial fibrillation type: chronic Qualified Code(s): I48.2 - Chronic atrial fibrillation Is this a current diagnosis for this admission?: Yes (3) Hyponatremia Is this a current diagnosis for this admission?: Yes (4) Thrombocytopenia Is this a current diagnosis for this admission?: Yes (5) COPD (chronic obstructive pulmonary disease) Qualifiers: Emphysema type: unspecified Is this a current diagnosis for this admission?: Yes (6) Coronary artery disease Qualifiers: Coronary Disease-Associated Artery/Lesion type: unspecified vessel or lesion type [place] vs. transplanted heart: [place] heart Associated angina: angina presence unspecified Qualified Code(s): I25.10 - Atherosclerotic heart disease of [place] coronary artery without angina pectoris Is this a current diagnosis for this admission?: Yes (7) Diabetes mellitus Qualifiers: Diabetes mellitus type: type 2 Diabetes mellitus complication status: without complication Diabetes mellitus intermediate insulin use: without intermediate use Qualified Code(s): E11.9 - Type 2 diabetes mellitus without complications Is this a current diagnosis for this admission?: Yes (8) Lung cancer Qualifiers: Laterality: right Lung location: upper lobe of lung Qualified Code(s): C34.11 - Malignant neoplasm of upper lobe, right bronchus or lung Is this a current diagnosis for this admission?: Yes - Notes Notes: Congestive heart failure: Etiology not clear but it is acute on chronic as patient gives history of chronic CHF. A 2D echocardiogram is being ordered. Further management plans will depend on 2D echo results. In the meantime recommend IV diuretics as he was doing. Atrial fibrillation: Currently to be treated with rate control. Beta-kaur preferred in view of CHF. May also use digoxin for rate control. Unfortunately chronic anticoagulation is relatively contraindicated in view of very low platelet count. Patient understands she is at increased risk of stroke. Thrombocytopenia: Recommend oncology consultation and referral. Hyponatremia: Recommend fluid restriction. Probably part and parcel of CHF and possibly syndrome of inappropriate ADH secretion from lung cancer. COPD: Continue current therapy Coronary artery disease: Symptomatically stable. Diabetes: Recommend good control but avoid any hypoglycemia. Lung cancer: Chemotherapy is on hold because of hypotension thrombocytopenia Overall prognosis is guarded. - Time Time Spent: 30 to 50 Minutes - CODE STATUS was discussed, patient remains full code. Surrogate decision-maker unchanged. Multiple medical problems were addressed. More than 50% of the time spent coordinating care, discussing management plans with involved caregivers. Management plans discussed with involved personnels. Medical decision making was of moderate to high complexity , patient's has multiple comorbidities. Medications reviewed and adjusted accordingly: Yes
[2017-10-24] MEDS: CEFTRIAXONE SODIUM 1,000 MG in NORMAL SALINE 100 ML IV SCH (21:49)
[2017-10-24] MEDS ORDERED: (PENDING PHARMACY ID) (Hydralazine Hcl [Hydralazine Hcl] 100 MG) PO SCH (22:00)
[2017-10-24] MEDS: HYDRALAZINE HCL 50 MG TABLET PO SCH (22:10)
[2017-10-24] MEDS: FAMOTIDINE 20 MG TABLET PO SCH (22:10)
[2017-10-24] MEDS: TEMAZEPAM 7.5 MG CAPSULE PO PRN (22:11)
[2017-10-24] MEDS: SIMVASTATIN 40 MG TABLET PO SCH (22:11)
[2017-10-24] MEDS: FUROSEMIDE INJ/PF 40 MG/4 ML SDV IV SCH (22:17)
[2017-10-24] MEDS: BUDESONIDE/FORMOTEROL 160-4.5 MCG 60 PUFF/6 GM MDI IH SCH (23:27)
[2017-10-25] MEDS: OXYCODONE-ACETAMINOPHEN 5-325 MG TABLET PO PRN ×3 (01:36→21:01)
[2017-10-25] MEDS: HYDRALAZINE HCL 50 MG TABLET PO SCH ×3 (05:40→21:02)
[2017-10-25] MEDS: DILTIAZEM HCL 30 MG TABLET PO SCH ×3 (05:44→18:22)
[2017-10-25 08:42] LABS: HEMATOCRIT 28.2 % (36.0-47.0); HEMOGLOBIN 9.4 g/dL (12.0-15.5); MEAN CORPUSCULAR HEMOGLOBIN 34.4 pg (27.0-33.4); MEAN CORPUSCULAR HGB CONC 33.2 g/dL (32.0-36.0); MEAN CORPUSCULAR VOLUME 103 fl (80-97); RED BLOOD COUNT 2.73 10^6/uL (3.72-5.28); RED CELL DISTRIBUTION WIDTH 15.7 % (11.5-14.0); WHITE BLOOD COUNT 7.2 10^3/uL (4.0-10.5)
[2017-10-25 08:56] LABS: BLOOD UREA NITROGEN 29 mg/dL (7-20); CALCIUM 9.1 mg/dL (8.4-10.2); CARBON DIOXIDE 31 mmol/L (22-30); CHLORIDE 80 mmol/L (98-107); GLUCOSE 101 mg/dL (75-110)
[2017-10-25 08:58] LABS: ANION GAP 8 (5-19)
--- NOTE | 2017-10-25 09:00 | PDOC CONSULTATION ---
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 Jackson, leukemia service, for 2nd opinion, they repeated BMBx, just received call from him that marrow looks normal, that this is probably either immune mediated or just slow marrow recovery from prev chemo. She received chemotherapy last in july for the stage III lung ca. At home she has been persistently anasarcic, we have increased lasix, added bumex, i brought her in for IV lasix at office but still worsened so recommended family to bring her in here for CHF exacerbation. Past Medical History Cardiac Medical History: Reports: Atrial Fibrillation, Coronary Artery Disease, Myocardial Infarction, Hypertension Denies: Congestive Heart Failure Pulmonary Medical History: Reports: Chronic Obstructive Pulmonary Disease (COPD) Denies: Asthma, Bronchitis, Pneumonia, Tuberculosis Neurological Medical History: Denies: Seizures Endocrine Medical History: Reports: Diabetes Mellitus Type 2 Renal/ Medical History: Denies: End Stage Renal Disease Malignancy Medical History: Reports: Lung Cancer GI Medical History: Denies: Cirrhosis, Gastroesophageal Reflux Disease Musculoskeltal Medical History: Denies: Arthritis Psychiatric Medical History: Denies: Bipolar Disorder, Depression Hematology: Reports: Anemia, Other - Thrombocytopenia Denies: Bleeding Tendencies Past Surgical History Past Surgical History: Reports: Cardiac Catheterization, Coronary Artery Bypass Graft, Coronary Stent, Internal Defibrillator Social History Lives with: Family Smoking Status: Former Smoker Last Time Smoked: quit one year ago Frequency of Alcohol Use: None Hx Recreational Drug Use: No Drugs: None Hx Prescription Drug Abuse: No - Advance Directive Resuscitation Status: Full Code Family History Family History: CAD, Hypertension Parental Family History Reviewed: Yes Children Family History Reviewed: Yes Sibling(s) Family History Reviewed.: Yes Medication/Allergy Home Medications: Acetaminophen/Diphenhydramine [Tylenol Pm Ex-Strength Caplet] 2 tab PO QHS 10/24 Aspirin [Aspirin EC] 81 mg PO DAILY 10/24/17 Budesonide/Formoterol Fumarate [Symbicort HFA 160-4.5 mcg Inhaler 6 gm] 2 puff IH Q12 10/24/17 Bumetanide [Bumex 2 mg Tablet] 2 mg PO DAILY 10/24/17 Diltiazem HCl [Cardizem 30 mg Tablet] 30 mg PO Q6 10/24/17 Docusate Sodium [Colace 100 mg Capsule] 100 mg PO BID 10/24/17 Furosemide [Lasix 40 mg Tablet] 40 mg PO BID 10/24/17 Hydralazine HCl 100 mg PO Q8 10/24/17 Losartan Potassium [Cozaar 100 mg Tablet] 100 mg PO DAILY 10/24/17 Metformin HCl [Metformin HCl ER] 1,000 mg PO Q12 10/24/17 Ondansetron HCl [Zofran 8 mg Tablet] 8 mg PO Q8HP PRN 10/24/17 Oxycodone HCl [Oxy-Ir 5 mg Tablet] 5 mg PO Q8HP PRN 10/24/17 Promethazine HCl [Phenergan 25 mg Tablet] 25 mg PO Q6HP PRN 10/24/17 Simvastatin [Zocor 40 mg Tablet] 40 mg PO QHS 10/24/17 Umeclidinium [place] [Incruse Ellipta] 1 puff IH DAILY 10/24/17 Allergies/Adverse Reactions: Sulfa (Sulfonamide Antibiotics) Allergy (Verified 10/16/17 11:46) Review of Systems Constitutional: PRESENT: fatigue, weakness, weight gain Cardiovascular: PRESENT: dyspnea on exertion, edema, orthropnea Respiratory: PRESENT: cough, dyspnea Gastrointestinal: PRESENT: bloating Musculoskeletal: ABSENT: joint swelling Neurological: ABSENT: abnormal gait, abnormal speech, confusion, dizziness, focal weakness, syncope Physical Exam Vital Signs: Temp Pulse Resp BP Pulse Ox 98.2 F 98 20 104/61 97 10/25/17 07:15 10/25/17 07:15 10/25/17 07:15 10/25/17 07:15 10/25/17 07:15 Intake & Output 10/24/17 10/25/17 10/26/17 06:59 06:59 06:59 Output Total 500 Balance -500 Weight 104.1 kg General appearance: PRESENT: no acute distress Head exam: PRESENT: atraumatic Mouth exam: PRESENT: dry mucosa Neck exam: PRESENT: JVD Respiratory exam: PRESENT: clear to auscultation isaura. ABSENT: rales, rhonchi, wheezes Cardiovascular exam: PRESENT: RRR. ABSENT: diastolic murmur, rubs, systolic murmur GI/Abdominal exam: PRESENT: normal bowel sounds, soft. ABSENT: distended, guarding, mass, organolmegaly, rebound, tenderness Rectal exam: PRESENT: deferred Extremities exam: PRESENT: +2 edema Neurological exam: PRESENT: alert, awake, oriented to person, oriented to place , oriented to time, oriented to situation, CN II-XII grossly intact. ABSENT: motor sensory deficit Results Laboratory Results: 10/24/17 16:57 Urine Color YELLOW Urine Appearance SLIGHTLY-CLOUDY Urine pH 6.0 Ur Specific [place] 1.008 Urine Protein NEGATIVE Urine Glucose (UA) NEGATIVE Urine Ketones NEGATIVE Urine Blood NEGATIVE Urine Nitrite POSITIVE H Ur Leukocyte Esterase LARGE H Urine WBC (Auto) 60 Urine RBC (Auto) 1 Impressions: Chest X-Ray 10/24/17 15:14 IMPRESSION: Trace right pleural fluid with minimal right retrocardiac airspace disease atelectasis versus pneumonia. This is similar compared to 10/16/2017. Assessment & Plan - Diagnosis (1) Thrombocytopenia Is this a current diagnosis for this admission?: Yes Plan: plt ct 26, no active bleeding, hold on tranfusion unless <10, 2nd to either delayed marrow recovery vs ITP, we already attempted to rx ITP w/ steroids/IVIG in jul and aug which probably contributed to her first present for CHF, so as outpt we would initiate promacta or NPLATE. (2) Lung cancer Qualifiers: Laterality: right Lung location: upper lobe of lung Qualified Code(s): C34.11 - Malignant neoplasm of upper lobe, right bronchus or lung Is this a current diagnosis for this admission?: Yes Plan: Stage III lung ca, has been stable since d/c of chemo, she would not tolerate more rx b/c of other medical issues at present but will reimage her when other med issues are stabilized to a greater extent. - Time Time Spent: Greater than 70 Minutes - Inpatient Certification Based on my medical assessment, after consideration of the patient's comorbidities, presenting symptoms, or acuity I expect that the services needed warrant INPATIENT care.: Yes I certify that my determination is in accordance with my understanding of Medicare's requirements for reasonable and necessary INPATIENT services [42 CFR 412.3e].: Yes Medical Necessity: Risk of Complication if Not Cared For in Hospital
[2017-10-25 09:35] LABS: PLATELET COUNT 30 10^3/uL (150-450)
[2017-10-25 09:42] LABS: SODIUM 119.4 mmol/L (137-145)
[2017-10-25] MEDS ORDERED: DOCUSATE SODIUM 100 MG/10 ML UDC PO SCH (10:00)
[2017-10-25] MEDS ORDERED: (PENDING PHARMACY ID) (Umeclidinium Bromide [Incruse Ellipta] 1 PUFF) IH SCH (10:00)
[2017-10-25] MEDS ORDERED: ONDANSETRON HCL INJ/PF 4 MG/2 ML SDV IV PRN (11:30)
[2017-10-25] MEDS: DOCUSATE SODIUM 100 MG CAPSULE PO SCH (12:47)
[2017-10-25] MEDS: BUDESONIDE/FORMOTEROL 160-4.5 MCG 60 PUFF/6 GM MDI IH SCH ×2 (12:47→21:02)
[2017-10-25] MEDS: LOSARTAN POTASSIUM 50 MG TABLET PO SCH (12:47)
[2017-10-25] MEDS: FUROSEMIDE INJ/PF 40 MG/4 ML SDV IV SCH ×2 (12:47→21:02)
[2017-10-25] MEDS: FAMOTIDINE 20 MG TABLET PO SCH ×2 (12:47→21:01)
--- NOTE | 2017-10-25 16:47 | PDOC PROGRESS REPORT ---
Subjective Progress Note for:: 10/25/17 Subjective:: Patient admitted with altered breathing and shortness of breath as well as swelling generalized. Was just discharge October 20. She says she is compliant with her medications as well as diet. Reason For Visit: CHF,HYPONATREMIA, LUNG CANCER, THROMBOCYTOPENIA Physical Exam Vital Signs: Temp Pulse Resp BP Pulse Ox 98.9 F 100 20 117/66 97 10/25/17 11:45 10/25/17 11:45 10/25/17 11:45 10/25/17 11:45 10/25/17 11:45 Intake & Output 10/24/17 10/25/17 10/26/17 06:59 06:59 06:59 Output Total 500 Balance -500 Weight 104.1 kg General appearance: PRESENT: no acute distress, other - Slightly less edematous today Head exam: PRESENT: atraumatic Eye exam: PRESENT: conjunctiva pink, EOMI, PERRLA. ABSENT: scleral icterus Neck exam: ABSENT: carotid bruit, JVD, lymphadenopathy, thyromegaly Respiratory exam: PRESENT: decreased breath sounds, rales, unlabored. ABSENT: accessory muscle use, chest wall tenderness, clear to auscultation isaura, rhonchi , tachypnea, wheezes Cardiovascular exam: PRESENT: RRR. ABSENT: diastolic murmur, rubs, systolic murmur Pulses: PRESENT: normal dorsalis pedis pul GI/Abdominal exam: PRESENT: normal bowel sounds, soft. ABSENT: distended, guarding, mass, organolmegaly, rebound, tenderness Rectal exam: PRESENT: deferred Extremities exam: PRESENT: other - anasarca Neurological exam: PRESENT: alert, awake, oriented to person, oriented to time, oriented to situation Psychiatric exam: PRESENT: appropriate affect Results Laboratory Results: 10/25/17 08:00 10/25/17 08:00 10/24/17 10/25/17 10/25/17 16:57 08:00 08:00 WBC 7.2 RBC 2.73 L Hgb 9.4 L Hct 28.2 L MCV 103 H MCH 34.4 H MCHC 33.2 RDW 15.7 H Plt Count 30 L* Sodium 119.4 L* Potassium 5.0 Chloride 80 L Carbon Dioxide 31 H Anion Gap 8 BUN 29 H Creatinine 0.99 Est GFR ( Amer) > 60 Est GFR (Non-Af Amer) 56 L Glucose 101 Calcium 9.1 Urine Color YELLOW Urine Appearance SLIGHTLY-CLOUDY Urine pH 6.0 Ur Specific [place] 1.008 Urine Protein NEGATIVE Urine Glucose (UA) NEGATIVE Urine Ketones NEGATIVE Urine Blood NEGATIVE Urine Nitrite POSITIVE H Ur Leukocyte Esterase LARGE H Urine WBC (Auto) 60 Urine RBC (Auto) 1 Impressions: Chest X-Ray 10/24/17 15:14 IMPRESSION: Trace right pleural fluid with minimal right retrocardiac airspace disease atelectasis versus pneumonia. This is similar compared to 10/16/2017. Assessment & Plan - Diagnosis (1) CHF (congestive heart failure) Qualifiers: Heart failure type: unspecified Heart failure chronicity: acute on chronic Qualified Code(s): I50.9 - Heart failure, unspecified Is this a current diagnosis for this admission?: Yes Plan: She had an echocardiogram done in August 2017 which revealed an ejection fraction of 55% and left ventricular is grossly normal but with grade 2-4 mild to moderate diastolic dysfunction. The right ventricle is mild to moderate dilated with moderate to severe amount of mitral regurgitation as well as tricuspid regurgitation and pulmonary hypertension with right ventricular systolic pressure elevated I talked with Dr. Merino and he says there is really not much more to offer except to continue diuretics (2) Hyponatremia Is this a current diagnosis for this admission?: Yes Plan: Severe however there is no neurological changes and patient generally runs around 120s. It is unclear if this is actually related to her underlying lung cancer. Continue fluid restriction and Lasix and continue to monitor (3) Thrombocytopenia Is this a current diagnosis for this admission?: Yes Plan: Patient recently had a biopsy done at [facility] with the results still pending. Her platelet count is around her baseline. We will avoid giving her any Lovenox though we will use mechanical prophylaxis instead Dr. Shea consult appreciated, no intervention planned (4) Anemia Qualifiers: Anemia type: unspecified type Qualified Code(s): D64.9 - Anemia, unspecified Is this a current diagnosis for this admission?: Yes Plan: Hemoglobin is relatively stable and there is no indication for transfusion (5) Atrial fibrillation Qualifiers: Atrial fibrillation type: chronic Qualified Code(s): I48.2 - Chronic atrial fibrillation Is this a current diagnosis for this admission?: Yes Plan: Patient has chronic atrial fibrillation which is well controlled with metoprolol. Has not been on anticoagulant at this point this is not appropriate (6) Lung cancer Qualifiers: Laterality: right Lung location: upper lobe of lung Qualified Code(s): C34.11 - Malignant neoplasm of upper lobe, right bronchus or lung Is this a current diagnosis for this admission?: Yes Plan: No acute intervention at this time Dr. Shea consult appreciated (7) Patient is full code Is this a current diagnosis for this admission?: Yes Plan: CODE STATUS is full (8) UTI (urinary tract infection) Qualifiers: Urinary tract infection type: site unspecified Hematuria presence: without hematuria Qualified Code(s): N39.0 - Urinary tract infection, site not specified Is this a current diagnosis for this admission?: Yes Plan: Cont with empiric antibiotics and adjust as needed
--- NOTE | 2017-10-25 19:39 | PDOC PROGRESS REPORT ---
Subjective Progress Note for:: 10/25/17 Subjective:: Patient seems to be doing better with gradual improvement. Pt is denying any chest arm or neck discomfort. Patient denying any PND, orthopnea. Patient denied any sustained palpitations, dizziness, syncope, near syncope. Patient denying any fever chills. Patient denying any other significant discomfort. Patient is maintaining atrial fibrillation Review of systems: Rest review of systems negative. Medications: Medications have been reviewed. Reason For Visit: CHF,HYPONATREMIA, LUNG CANCER, THROMBOCYTOPENIA Physical Exam Vital Signs: Temp Pulse Resp BP Pulse Ox 98.2 F 114 H 20 104/68 100 10/25/17 15:49 10/25/17 15:49 10/25/17 15:49 10/25/17 15:49 10/25/17 15:49 Intake & Output 10/24/17 10/25/17 10/26/17 06:59 06:59 06:59 Intake Total 240 Output Total 500 450 Balance -500 -210 Weight 104.1 kg 104.1 kg Exam: GENERAL: well-nourished and in no acute distress. Alert and oriented x3 HEAD: Atraumatic, normocephalic. EYES: Pupils equal round and reactive to light, extraocular movements intact, sclera anicteric, conjunctiva are normal. ENT: TMs normal, nares patent, oropharynx clear without exudates. Moist mucous membranes. No oral ulcerations or bleeding gums noted NECK: supple without lymphadenopathy. Trachea is central. No cervical or axillary lymphadenopathy noted. Carotids are 2+, JVD 8 cm LUNGS: Respiration seems nonlabored, no significant accessory muscle action noted. Bibasilar fine crackles and few wheezes rales or rhonchi noted. No significant dullness noted on percussion. CHEST: Palpation of the chest wall shows no significant chest wall tenderness. No other significant abnormalities noted. 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 ABDOMEN: Soft, no significant tenderness appreciated, normoactive bowel sounds. No guarding, no rebound. No rigidity noted . No masses appreciated. EXTREMITIES: Pedal pulses are 1-2+, no calf tenderness noted. No clubbing or cyanosis. 1+ pedal edema noted NEUROLOGICAL: Focused neurological exam showed no significant neurologic deficit. Normal speech, no focal weakness appreciated. PSYCH: Normal mood, normal affect. Judgment and insight within normal limits. SKIN: No significant ecchymosis, rash, ulcerations or signs of pruritus noted. MUSCULOSKELETAL EXAM: No significant joint swelling noted. Results Laboratory Results: 10/25/17 08:00 10/25/17 08:00 10/25/17 10/25/17 08:00 08:00 WBC 7.2 RBC 2.73 L Hgb 9.4 L Hct 28.2 L MCV 103 H MCH 34.4 H MCHC 33.2 RDW 15.7 H Plt Count 30 L* Sodium 119.4 L* Potassium 5.0 Chloride 80 L Carbon Dioxide 31 H Anion Gap 8 BUN 29 H Creatinine 0.99 Est GFR ( Amer) > 60 Est GFR (Non-Af Amer) 56 L Glucose 101 Calcium 9.1 EKG Comments: Telemetry strip shows atrial fibrillation with controlled ventricular response. Impressions: Chest X-Ray 10/24/17 15:14 IMPRESSION: Trace right pleural fluid with minimal right retrocardiac airspace disease atelectasis versus pneumonia. This is similar compared to 10/16/2017. Assessment & Plan - Diagnosis (1) CHF (congestive heart failure) Qualifiers: Heart failure type: unspecified Heart failure chronicity: acute on chronic Qualified Code(s): I50.9 - Heart failure, unspecified Is this a current diagnosis for this admission?: Yes (2) Atrial fibrillation Qualifiers: Atrial fibrillation type: chronic Qualified Code(s): I48.2 - Chronic atrial fibrillation Is this a current diagnosis for this admission?: Yes (3) Hyponatremia Is this a current diagnosis for this admission?: Yes (4) Thrombocytopenia Is this a current diagnosis for this admission?: Yes (5) COPD (chronic obstructive pulmonary disease) Qualifiers: Emphysema type: unspecified Is this a current diagnosis for this admission?: Yes (6) Coronary artery disease Qualifiers: Coronary Disease-Associated Artery/Lesion type: unspecified vessel or lesion type [place] vs. transplanted heart: [place] heart Associated angina: angina presence unspecified Qualified Code(s): I25.10 - Atherosclerotic heart disease of [place] coronary artery without angina pectoris Is this a current diagnosis for this admission?: Yes (7) Diabetes mellitus Qualifiers: Diabetes mellitus type: type 2 Diabetes mellitus complication status: without complication Diabetes mellitus termite technician insulin use: without termite technician use Qualified Code(s): E11.9 - Type 2 diabetes mellitus without complications Is this a current diagnosis for this admission?: Yes (8) Lung cancer Qualifiers: Laterality: right Lung location: upper lobe of lung Qualified Code(s): C34.11 - Malignant neoplasm of upper lobe, right bronchus or lung Is this a current diagnosis for this admission?: Yes - Notes Notes: Patient significantly improved with diuresis. Still has significant thrombocytopenia therefore chronic anticoagulation not started for atrial fibrillation. Congestive heart failure: Etiology not clear but it is acute on chronic as patient gives history of chronic CHF. A 2D echocardiogram is being ordered. Further management plans will depend on 2D echo results. In the meantime recommend IV diuretics as you are doing. Atrial fibrillation: Currently to be treated with rate control. Beta-kaur preferred in view of CHF. May also use digoxin for rate control. Unfortunately chronic anticoagulation is relatively contraindicated in view of very low platelet count. Patient understands she is at increased risk of stroke. Thrombocytopenia: Recommend oncology consultation and referral. Hyponatremia: Recommend fluid restriction. Probably part and parcel of CHF and possibly syndrome of inappropriate ADH secretion from lung cancer. Will recheck chemistry panel tomorrow and if sodium is still low, consider starting tolvaptan therapy at 15 mg p.o. daily. COPD: Continue current therapy Coronary artery disease: Symptomatically stable. Diabetes: Recommend good control but avoid any hypoglycemia. Lung cancer: Chemotherapy is on hold because of hypotension thrombocytopenia Overall prognosis is guarded. - Time Time with patient: Greater than 35 minutes - CODE STATUS was discussed, patient remains full code. Surrogate decision-maker unchanged. Multiple medical problems were addressed. More than 50% of the time spent coordinating care, discussing management plans with involved caregivers. Management plans discussed with involved personnels. Medical decision making was of moderate to high complexity, patient's has multiple comorbidities. Medications reviewed and adjusted accordingly: Yes
[2017-10-25] MEDS: CEFTRIAXONE SODIUM 1,000 MG in NORMAL SALINE 100 ML IV SCH (20:57)
[2017-10-25] MEDS: SIMVASTATIN 40 MG TABLET PO SCH (21:01)
[2017-10-26] MEDS: TEMAZEPAM 7.5 MG CAPSULE PO PRN (00:25)
[2017-10-26] MEDS: DILTIAZEM HCL 30 MG TABLET PO SCH ×4 (00:25→17:41)
[2017-10-26] MEDS: HYDRALAZINE HCL 50 MG TABLET PO SCH ×3 (05:07→21:40)
[2017-10-26 06:10] LABS: HEMATOCRIT 27.4 % (36.0-47.0); HEMOGLOBIN 9.2 g/dL (12.0-15.5); MEAN CORPUSCULAR HEMOGLOBIN 34.4 pg (27.0-33.4); MEAN CORPUSCULAR HGB CONC 33.7 g/dL (32.0-36.0); MEAN CORPUSCULAR VOLUME 102 fl (80-97); RED BLOOD COUNT 2.68 10^6/uL (3.72-5.28); RED CELL DISTRIBUTION WIDTH 15.5 % (11.5-14.0); WHITE BLOOD COUNT 5.4 10^3/uL (4.0-10.5)
[2017-10-26 06:33] LABS: ANION GAP 8 (5-19); BLOOD UREA NITROGEN 29 mg/dL (7-20); CALCIUM 9.2 mg/dL (8.4-10.2); CARBON DIOXIDE 33 mmol/L (22-30); CHLORIDE 79 mmol/L (98-107); GLUCOSE 112 mg/dL (75-110)
[2017-10-26 06:38] LABS: SODIUM 119.8 mmol/L (137-145)
[2017-10-26 06:47] LABS: PLATELET COUNT 25 10^3/uL (150-450)
--- NOTE | 2017-10-26 08:21 | PDOC PROGRESS REPORT ---
Subjective Progress Note for:: 10/26/17 Subjective:: No acute events overnight, discussed bmbx results w/ pt today Reason For Visit: CHF,HYPONATREMIA, LUNG CANCER, THROMBOCYTOPENIA Physical Exam Vital Signs: Temp Pulse Resp BP Pulse Ox 98.4 F 75 18 115/60 97 10/26/17 05:00 10/26/17 07:00 10/26/17 05:00 10/26/17 05:00 10/26/17 05:00 Intake & Output 10/25/17 10/26/17 10/27/17 06:59 06:59 06:59 Intake Total 930 Output Total 500 1900 Balance -500 -970 Weight 104.1 kg 103.7 kg General appearance: PRESENT: no acute distress, well-developed, well-nourished Head exam: PRESENT: atraumatic, normocephalic Eye exam: PRESENT: conjunctiva pink, EOMI, PERRLA. ABSENT: scleral icterus Ear exam: PRESENT: normal external ear exam Mouth exam: PRESENT: moist, tongue midline Neck exam: ABSENT: carotid bruit, JVD, lymphadenopathy, thyromegaly Respiratory exam: PRESENT: clear to auscultation isaura. ABSENT: rales, rhonchi, wheezes Cardiovascular exam: PRESENT: RRR. ABSENT: diastolic murmur, rubs, systolic murmur Pulses: PRESENT: normal dorsalis pedis pul Vascular exam: PRESENT: normal capillary refill GI/Abdominal exam: PRESENT: normal bowel sounds, soft. ABSENT: distended, guarding, mass, organolmegaly, rebound, tenderness Rectal exam: PRESENT: deferred Extremities exam: PRESENT: full ROM. ABSENT: calf tenderness, clubbing, pedal edema Neurological exam: PRESENT: alert, awake, oriented to person, oriented to place , oriented to time, oriented to situation, CN II-XII grossly intact. ABSENT: motor sensory deficit Psychiatric exam: PRESENT: appropriate affect, normal mood. ABSENT: homicidal ideation, suicidal ideation Skin exam: PRESENT: dry, intact, warm. ABSENT: cyanosis, rash Results Laboratory Results: 10/26/17 05:12 10/26/17 05:12 10/25/17 10/25/17 10/26/17 08:00 08:00 05:12 WBC 7.2 5.4 RBC 2.73 L 2.68 L Hgb 9.4 L 9.2 L Hct 28.2 L 27.4 L MCV 103 H 102 H MCH 34.4 H 34.4 H MCHC 33.2 33.7 RDW 15.7 H 15.5 H Plt Count 30 L* 25 L* Sodium 119.4 L* Potassium 5.0 Chloride 80 L Carbon Dioxide 31 H Anion Gap 8 BUN 29 H Creatinine 0.99 Est GFR ( Amer) > 60 Est GFR (Non-Af Amer) 56 L Glucose 101 Calcium 9.1 10/26/17 05:12 WBC RBC Hgb Hct MCV MCH MCHC RDW Plt Count Sodium 119.8 L* Potassium 5.0 Chloride 79 L Carbon Dioxide 33 H Anion Gap 8 BUN 29 H Creatinine 0.94 Est GFR ( Amer) > 60 Est GFR (Non-Af Amer) 59 L Glucose 112 H Calcium 9.2 10/26/17 05:12 NT-Pro-B Natriuret Pep 7930 H Impressions: Chest X-Ray 10/24/17 15:14 IMPRESSION: Trace right pleural fluid with minimal right retrocardiac airspace disease atelectasis versus pneumonia. This is similar compared to 10/16/2017. Assessment & Plan - Diagnosis (1) Thrombocytopenia Is this a current diagnosis for this admission?: Yes Plan: 2nd to marrow supp from prev chemorx vs ITP, con't to monitor for now, NPLATE or PROMACTA as oupt (2) Lung cancer Qualifiers: Laterality: right Lung location: upper lobe of lung Qualified Code(s): C34.11 - Malignant neoplasm of upper lobe, right bronchus or lung Is this a current diagnosis for this admission?: Yes Plan: Will order further imaging as outpt, but first need fluid/cardiac status to improve and stabilize
[2017-10-26] MEDS: BUDESONIDE/FORMOTEROL 160-4.5 MCG 60 PUFF/6 GM MDI IH SCH ×2 (09:26→21:49)
[2017-10-26] MEDS: FAMOTIDINE 20 MG TABLET PO SCH ×2 (09:26→21:40)
[2017-10-26] MEDS: LOSARTAN POTASSIUM 50 MG TABLET PO SCH (09:26)
[2017-10-26] MEDS: DOCUSATE SODIUM 100 MG CAPSULE PO SCH (09:26)
[2017-10-26] MEDS: FUROSEMIDE INJ/PF 40 MG/4 ML SDV IV SCH ×2 (09:26→21:41)
[2017-10-26] MEDS: OXYCODONE-ACETAMINOPHEN 5-325 MG TABLET PO PRN ×2 (09:26→21:41)
[2017-10-26] MEDS ORDERED: GLUCAGON,HUMAN RECOMB 1 MG INJ IM PRN (13:20)
[2017-10-26] MEDS ORDERED: DEXTROSE 50%-WATER 25 GM/50 ML DISP.SYRIN IV PRN ×2 (13:20)
[2017-10-26] MEDS ORDERED: DEXTROSE 40% GEL 15 GM TUBE PO PRN ×2 (13:20)
--- NOTE | 2017-10-26 13:23 | PDOC PROGRESS REPORT ---
Subjective Progress Note for:: 10/26/17 Subjective:: Patient seems to be doing better with gradual improvement. Pt is denying any chest arm or neck discomfort. Patient denying any PND, orthopnea. Patient denied any sustained palpitations, dizziness, syncope, near syncope. Patient denying any fever chills. Patient denying any other significant discomfort. Patient is maintaining atrial fibrillation. Review of systems: Rest review of systems negative. Medications: Medications have been reviewed. Reason For Visit: CHF,HYPONATREMIA, LUNG CANCER, THROMBOCYTOPENIA Physical Exam Vital Signs: Temp Pulse Resp BP Pulse Ox 97.8 F 77 16 107/55 L 98 10/26/17 07:17 10/26/17 11:49 10/26/17 11:49 10/26/17 07:17 10/26/17 07:17 Intake & Output 10/25/17 10/26/17 10/27/17 06:59 06:59 06:59 Intake Total 930 Output Total 500 1900 Balance -500 -970 Weight 104.1 kg 103.7 kg Exam: GENERAL: well-nourished and in no acute distress. Alert and oriented x3 HEAD: Atraumatic, normocephalic. EYES: Pupils equal round and reactive to light, extraocular movements intact, sclera anicteric, conjunctiva are normal. ENT: TMs normal, nares patent, oropharynx clear without exudates. Moist mucous membranes. No oral ulcerations or bleeding gums noted NECK: supple without lymphadenopathy. Trachea is central. No cervical or axillary lymphadenopathy noted. Carotids are 2+, JVD WNL LUNGS: Respiration seems nonlabored, no significant accessory muscle action noted. Breath sounds clear to auscultation bilaterally and equal noted. No wheezes rales or rhonchi noted. No significant dullness noted on percussion. CHEST: Palpation of the chest wall shows no significant chest wall tenderness. No other significant abnormalities noted. 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 ABDOMEN: Soft, no significant tenderness appreciated, normoactive bowel sounds. No guarding, no rebound. No rigidity noted . No masses appreciated. EXTREMITIES: Pedal pulses are 1-2+, no calf tenderness noted. No clubbing or cyanosis. 1+ pedal edema noted NEUROLOGICAL: Focused neurological exam showed no significant neurologic deficit. Normal speech, no focal weakness appreciated. PSYCH: Normal mood, normal affect. Judgment and insight within normal limits. SKIN: No significant ecchymosis, rash, ulcerations or signs of pruritus noted. MUSCULOSKELETAL EXAM: No significant joint swelling noted. Results Laboratory Results: 10/26/17 05:12 10/26/17 05:12 10/26/17 10/26/17 05:12 05:12 WBC 5.4 RBC 2.68 L Hgb 9.2 L Hct 27.4 L MCV 102 H MCH 34.4 H MCHC 33.7 RDW 15.5 H Plt Count 25 L* Sodium 119.8 L* Potassium 5.0 Chloride 79 L Carbon Dioxide 33 H Anion Gap 8 BUN 29 H Creatinine 0.94 Est GFR ( Amer) > 60 Est GFR (Non-Af Amer) 59 L Glucose 112 H Calcium 9.2 10/26/17 05:12 NT-Pro-B Natriuret Pep 7930 H Impressions: Chest X-Ray 10/24/17 15:14 IMPRESSION: Trace right pleural fluid with minimal right retrocardiac airspace disease atelectasis versus pneumonia. This is similar compared to 10/16/2017. Assessment & Plan - Diagnosis (1) CHF (congestive heart failure) Qualifiers: Heart failure type: unspecified Heart failure chronicity: acute on chronic Qualified Code(s): I50.9 - Heart failure, unspecified Is this a current diagnosis for this admission?: Yes (2) Atrial fibrillation Qualifiers: Atrial fibrillation type: chronic Qualified Code(s): I48.2 - Chronic atrial fibrillation Is this a current diagnosis for this admission?: Yes (3) Hyponatremia Is this a current diagnosis for this admission?: Yes (4) Thrombocytopenia Is this a current diagnosis for this admission?: Yes (5) COPD (chronic obstructive pulmonary disease) Qualifiers: Emphysema type: unspecified Is this a current diagnosis for this admission?: Yes (6) Coronary artery disease Qualifiers: Coronary Disease-Associated Artery/Lesion type: unspecified vessel or lesion type [place] vs. transplanted heart: [place] heart Associated angina: angina presence unspecified Qualified Code(s): I25.10 - Atherosclerotic heart disease of [place] coronary artery without angina pectoris Is this a current diagnosis for this admission?: Yes (7) Diabetes mellitus Qualifiers: Diabetes mellitus type: type 2 Diabetes mellitus complication status: without complication Diabetes mellitus penitentiary insulin use: without penitentiary use Qualified Code(s): E11.9 - Type 2 diabetes mellitus without complications Is this a current diagnosis for this admission?: Yes (8) Lung cancer Qualifiers: Laterality: right Lung location: upper lobe of lung Qualified Code(s): C34.11 - Malignant neoplasm of upper lobe, right bronchus or lung Is this a current diagnosis for this admission?: Yes - Notes Notes: Patient significantly improved with diuresis. Patient seems fairly compensated at this point. Patient had a previous echocardiogram and that will be reviewed. Congestive heart failure: 2D echo reviewed. Patient noted to have diastolic dysfunction and also enlargement of the right ventricle suggestive of right heart failure. Recommend continuation of diuretic therapy. Recommend proper treatment of underlying pulmonary condition. Patient will benefit from sleep study and possibly evaluation for nocturnal hypoxemia and nocturnal oxygen supplementation. Atrial fibrillation: Currently to be treated with rate control. May consider adding calcium channel kaur for rate control now that we know LVEF is relatively well-preserved. Unfortunately chronic anticoagulation is relatively contraindicated in view of very low platelet count. Patient understands she is at increased risk of stroke. Thrombocytopenia: Patient being followed by oncologist. Hyponatremia: Recommend fluid restriction. Probably part and parcel of CHF and possibly syndrome of inappropriate ADH secretion from lung cancer. Will recheck chemistry panel tomorrow and if sodium is still low, consider starting tolvaptan therapy at 15 mg p.o. daily. COPD: Continue current therapy Coronary artery disease: Symptomatically stable. Diabetes: Recommend good control but avoid any hypoglycemia. Lung cancer: Chemotherapy is on hold because of thrombocytopenia Overall prognosis is guarded. - Time Time with patient: Greater than 35 minutes - CODE STATUS was discussed, patient remains full code. Surrogate decision-maker unchanged. Multiple medical problems were addressed. More than 50% of the time spent coordinating care, discussing management plans with involved caregivers. Management plans discussed with involved personnels. Medical decision making was of moderate to high complexity, patient's has multiple comorbidities. Medications reviewed and adjusted accordingly: Yes
--- NOTE | 2017-10-26 18:35 | PDOC PROGRESS REPORT ---
Subjective Progress Note for:: 10/26/17 Subjective:: Patient thinks that her swelling is continuing to improve. No new significant pain. She is able to get up to the bedside commode without too much difficulty. Her breathing is stable. No hematemesis or sputum production. No fever or chills. No chest pain. No abdominal pain nausea vomiting. Eating without difficulty. Reason For Visit: CHF,HYPONATREMIA, LUNG CANCER, THROMBOCYTOPENIA Physical Exam Vital Signs: Temp Pulse Resp BP Pulse Ox 98.3 F 90 20 98/54 L 93 10/26/17 15:39 10/26/17 15:39 10/26/17 15:39 10/26/17 15:39 10/26/17 15:39 Intake & Output 10/25/17 10/26/17 10/27/17 06:59 06:59 06:59 Intake Total 930 750 Output Total 500 1900 700 Balance -500 -970 50 Weight 104.1 kg 103.7 kg General appearance: PRESENT: no acute distress, cooperative, obese Head exam: PRESENT: atraumatic, normocephalic Eye exam: PRESENT: conjunctiva pink. ABSENT: scleral icterus Ear exam: PRESENT: normal external ear exam. ABSENT: drainage Mouth exam: PRESENT: moist Respiratory exam: PRESENT: decreased breath sounds, rales. ABSENT: rhonchi, wheezes Pulses: PRESENT: normal radial pulses GI/Abdominal exam: PRESENT: normal bowel sounds, soft. ABSENT: distended, guarding, tenderness Rectal exam: PRESENT: deferred Extremities exam: PRESENT: +2 edema Musculoskeletal exam: PRESENT: ambulatory, tenderness Neurological exam: PRESENT: alert, awake, oriented to person, oriented to place , oriented to situation, CN II-XII grossly intact Psychiatric exam: PRESENT: appropriate affect. ABSENT: anxious Skin exam: PRESENT: dry, intact, warm Results Laboratory Results: 10/26/17 05:12 10/26/17 05:12 10/26/17 10/26/17 05:12 05:12 WBC 5.4 RBC 2.68 L Hgb 9.2 L Hct 27.4 L MCV 102 H MCH 34.4 H MCHC 33.7 RDW 15.5 H Plt Count 25 L* Sodium 119.8 L* Potassium 5.0 Chloride 79 L Carbon Dioxide 33 H Anion Gap 8 BUN 29 H Creatinine 0.94 Est GFR ( Amer) > 60 Est GFR (Non-Af Amer) 59 L Glucose 112 H Calcium 9.2 10/26/17 05:12 NT-Pro-B Natriuret Pep 7930 H Impressions: Chest X-Ray 10/24/17 15:14 IMPRESSION: Trace right pleural fluid with minimal right retrocardiac airspace disease atelectasis versus pneumonia. This is similar compared to 10/16/2017. Assessment & Plan - Diagnosis (1) CHF (congestive heart failure) Qualifiers: Heart failure type: unspecified Heart failure chronicity: acute on chronic Qualified Code(s): I50.9 - Heart failure, unspecified Is this a current diagnosis for this admission?: Yes Plan: Continue current diuresis plan. Continue to monitor electrolytes. (2) Hyponatremia Is this a current diagnosis for this admission?: Yes Plan: Almost up to 120 today. Slow upward trend. Will recheck tomorrow. Low 120s is her baseline. 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 (3) Thrombocytopenia Is this a current diagnosis for this admission?: Yes Plan: Extremely low. No active bleeding. Continue to monitor. For this reason chemotherapy is on hold. (4) Atrial fibrillation Qualifiers: Atrial fibrillation type: chronic Qualified Code(s): I48.2 - Chronic atrial fibrillation Is this a current diagnosis for this admission?: Yes Plan: Continue rate control with diltiazem 120 mg daily. Secondary to thrombocytopenia patient is not anticoagulated. (5) Lung cancer Qualifiers: Laterality: right Lung location: upper lobe of lung Qualified Code(s): C34.11 - Malignant neoplasm of upper lobe, right bronchus or lung Is this a current diagnosis for this admission?: Yes Plan: She is being followed by the oncology group. - Time Time Spent with patient: 25-34 minutes Medications reviewed and adjusted accordingly: Yes Anticipated discharge: Home - Inpatient Certification Based on my medical assessment, after consideration of the patient's comorbidities, presenting symptoms, or acuity I expect that the services needed warrant INPATIENT care.: Yes I certify that my determination is in accordance with my understanding of Medicare's requirements for reasonable and necessary INPATIENT services [42 CFR 412.3e].: Yes Medical Necessity: Significant Comorbidiites Make Outpatient Treatment Too Risky , Need Close Monitoring Due to Risk of Patient Decompensation, Risk of Complication if Not Cared For in Hospital
[2017-10-26] MEDS: CEFTRIAXONE SODIUM 1,000 MG in NORMAL SALINE 100 ML IV SCH (21:40)
[2017-10-26] MEDS: SIMVASTATIN 40 MG TABLET PO SCH (21:40)
[2017-10-27] MEDS: DILTIAZEM HCL 30 MG TABLET PO SCH ×4 (01:10→17:19)
[2017-10-27] MEDS: HYDRALAZINE HCL 50 MG TABLET PO SCH ×3 (05:53→21:09)
[2017-10-27 07:07] LABS: HEMATOCRIT 27.3 % (36.0-47.0); HEMOGLOBIN 9.3 g/dL (12.0-15.5); MEAN CORPUSCULAR HEMOGLOBIN 34.7 pg (27.0-33.4); MEAN CORPUSCULAR HGB CONC 33.9 g/dL (32.0-36.0); MEAN CORPUSCULAR VOLUME 102 fl (80-97); RED BLOOD COUNT 2.66 10^6/uL (3.72-5.28); RED CELL DISTRIBUTION WIDTH 15.8 % (11.5-14.0); WHITE BLOOD COUNT 5.5 10^3/uL (4.0-10.5)
[2017-10-27 07:23] LABS: BLOOD UREA NITROGEN 26 mg/dL (7-20); CALCIUM 9.2 mg/dL (8.4-10.2); CARBON DIOXIDE 34 mmol/L (22-30); CHLORIDE 80 mmol/L (98-107); GLUCOSE 127 mg/dL (75-110); POTASSIUM 4.7 mmol/L (3.6-5.0)
[2017-10-27 07:32] LABS: ANION GAP 6 (5-19)
[2017-10-27 07:36] LABS: SODIUM 120.2 mmol/L (137-145)
[2017-10-27] MEDS ORDERED: FUROSEMIDE INJ/PF 40 MG/4 ML SDV IV ONE (08:00)
[2017-10-27 08:08] LABS: PLATELET COUNT 22 10^3/uL (150-450)
[2017-10-27] MEDS: DOCUSATE SODIUM 100 MG CAPSULE PO SCH (10:52)
[2017-10-27] MEDS: FAMOTIDINE 20 MG TABLET PO SCH ×2 (10:52→21:09)
[2017-10-27] MEDS: BUDESONIDE/FORMOTEROL 160-4.5 MCG 60 PUFF/6 GM MDI IH SCH ×2 (10:52→21:09)
[2017-10-27] MEDS: LOSARTAN POTASSIUM 50 MG TABLET PO SCH (10:52)
--- NOTE | 2017-10-27 11:46 | PDOC PROGRESS REPORT ---
Subjective Progress Note for:: 10/27/17 Subjective:: Patient states that she was up all night voiding. She is requesting a Miguel Catheter. She states that she had this last visit and was much more comfortable. Reason For Visit: CHF,HYPONATREMIA, LUNG CANCER, THROMBOCYTOPENIA Physical Exam Vital Signs: Temp Pulse Resp BP Pulse Ox 98.3 F 86 16 128/59 H 97 10/27/17 07:41 10/27/17 09:30 10/27/17 09:30 10/27/17 07:41 10/27/17 09:30 Intake & Output 10/26/17 10/27/17 10/28/17 06:59 06:59 06:59 Intake Total 930 2077 Output Total 1900 2200 Balance -970 -123 Weight 103.7 kg 105.5 kg General appearance: PRESENT: no acute distress, obese Exam: 67 year old female sitting up in chair. Head exam: PRESENT: atraumatic Respiratory exam: PRESENT: unlabored Extremities exam: PRESENT: +2 edema Neurological exam: PRESENT: alert, awake Psychiatric exam: PRESENT: appropriate affect Results Laboratory Results: 10/27/17 06:54 10/27/17 06:54 10/27/17 10/27/17 06:54 06:54 WBC 5.5 RBC 2.66 L Hgb 9.3 L Hct 27.3 L MCV 102 H MCH 34.7 H MCHC 33.9 RDW 15.8 H Plt Count 22 L* Sodium 120.2 L* Potassium 4.7 Chloride 80 L Carbon Dioxide 34 H Anion Gap 6 BUN 26 H Creatinine 0.83 Est GFR ( Amer) > 60 Est GFR (Non-Af Amer) > 60 Glucose 127 H Calcium 9.2 10/26/17 05:12 NT-Pro-B Natriuret Pep 7930 H Impressions: Chest X-Ray 10/24/17 15:14 IMPRESSION: Trace right pleural fluid with minimal right retrocardiac airspace disease atelectasis versus pneumonia. This is similar compared to 10/16/2017. Assessment & Plan - Diagnosis (1) Breast cancer Plan: All treatment currently on hold during hospital admission. (2) Thrombocytopenia Is this a current diagnosis for this admission?: Yes Plan: Due to prior therapy for cancer. Levels are stable. No treatment required at this time. Will watch for bleeding. - Plan Summary Plan Summary: I will order Miguel Cath per patient request. I did speak with Dr. Sprague and she agrees.
[2017-10-27] MEDS: IPRATROPIUM/ALBUTEROL 0.5-2.5 MG/3 ML AMPUL NEB PRN (14:24)
--- NOTE | 2017-10-27 16:30 | PDOC PROGRESS REPORT ---
Subjective Progress Note for:: 10/27/17 Subjective:: Patient seems to be doing better with gradual improvement. Pt is denying any chest arm or neck discomfort. Patient denying any PND, orthopnea. Patient denied any sustained palpitations, dizziness, syncope, near syncope. Patient denying any fever chills. Patient denying any other significant discomfort. Patient is maintaining atrial fibrillation. Intermittent ventricular paced beats noted. Review of systems: Rest review of systems negative. Medications: Medications have been reviewed. Reason For Visit: CHF,HYPONATREMIA, LUNG CANCER, THROMBOCYTOPENIA Physical Exam Vital Signs: Temp Pulse Resp BP Pulse Ox 98.4 F 112 H 20 132/64 H 100 10/27/17 11:45 10/27/17 14:24 10/27/17 14:24 10/27/17 11:45 10/27/17 14:24 Intake & Output 10/26/17 10/27/17 10/28/17 06:59 06:59 06:59 Intake Total 930 2077 Output Total 1900 2200 Balance -970 -123 Weight 103.7 kg 105.5 kg Exam: GENERAL: well-nourished and in no acute distress. Alert and oriented x3 HEAD: Atraumatic, normocephalic. EYES: Pupils equal round and reactive to light, extraocular movements intact, sclera anicteric, conjunctiva are normal. ENT: TMs normal, nares patent, oropharynx clear without exudates. Moist mucous membranes. No oral ulcerations or bleeding gums noted NECK: supple without lymphadenopathy. Trachea is central. No cervical or axillary lymphadenopathy noted. Carotids are 2+, JVD 8 cm LUNGS: Respiration seems nonlabored, no significant accessory muscle action noted. Bibasilar fine crackles and few scattered wheezes rales or rhonchi noted. No significant dullness noted on percussion. CHEST: Palpation of the chest wall shows no significant chest wall tenderness. No other significant abnormalities noted. Pacemaker noted left side of chest. HEART: [place] [employer], No PSH, 1/6 JAMIE aortic area, 1/6 gonzalez systolic murmur mitral area, no rubs, no gallops. ABDOMEN: Soft, no significant tenderness appreciated, normoactive bowel sounds. No guarding, no rebound. No rigidity noted . No masses appreciated. EXTREMITIES: Pedal pulses are 1-2+, no calf tenderness noted. No clubbing or cyanosis. 1-2 + pedal edema noted NEUROLOGICAL: Focused neurological exam showed no significant neurologic deficit. Normal speech, no focal weakness appreciated. PSYCH: Normal mood, normal affect. Judgment and insight within normal limits. SKIN: No significant ecchymosis, rash, ulcerations or signs of pruritus noted. MUSCULOSKELETAL EXAM: No significant joint swelling noted. Results Laboratory Results: 10/27/17 06:54 10/27/17 06:54 10/27/17 10/27/17 06:54 06:54 WBC 5.5 RBC 2.66 L Hgb 9.3 L Hct 27.3 L MCV 102 H MCH 34.7 H MCHC 33.9 RDW 15.8 H Plt Count 22 L* Sodium 120.2 L* Potassium 4.7 Chloride 80 L Carbon Dioxide 34 H Anion Gap 6 BUN 26 H Creatinine 0.83 Est GFR ( Amer) > 60 Est GFR (Non-Af Amer) > 60 Glucose 127 H Calcium 9.2 10/26/17 05:12 NT-Pro-B Natriuret Pep 7930 H EKG Comments: Shows atrial fibrillation with controlled ventricular response. Intermittent paced ventricular beats noted. Impressions: Chest X-Ray 10/24/17 15:14 IMPRESSION: Trace right pleural fluid with minimal right retrocardiac airspace disease atelectasis versus pneumonia. This is similar compared to 10/16/2017. Assessment & Plan - Diagnosis (1) CHF (congestive heart failure) Qualifiers: Heart failure type: unspecified Heart failure chronicity: acute on chronic Qualified Code(s): I50.9 - Heart failure, unspecified Is this a current diagnosis for this admission?: Yes (2) Atrial fibrillation Qualifiers: Atrial fibrillation type: chronic Qualified Code(s): I48.2 - Chronic atrial fibrillation Is this a current diagnosis for this admission?: Yes (3) Hyponatremia Is this a current diagnosis for this admission?: Yes (4) Thrombocytopenia Is this a current diagnosis for this admission?: Yes (5) COPD (chronic obstructive pulmonary disease) Qualifiers: Emphysema type: unspecified Is this a current diagnosis for this admission?: Yes (6) Coronary artery disease Qualifiers: Coronary Disease-Associated Artery/Lesion type: unspecified vessel or lesion type [place] vs. transplanted heart: [place] heart Associated angina: angina presence unspecified Qualified Code(s): I25.10 - Atherosclerotic heart disease of [place] coronary artery without angina pectoris Is this a current diagnosis for this admission?: Yes (7) Diabetes mellitus Qualifiers: Diabetes mellitus type: type 2 Diabetes mellitus complication status: without complication Diabetes mellitus residential insulin use: without residential use Qualified Code(s): E11.9 - Type 2 diabetes mellitus without complications Is this a current diagnosis for this admission?: Yes (8) Lung cancer Qualifiers: Laterality: right Lung location: upper lobe of lung Qualified Code(s): C34.11 - Malignant neoplasm of upper lobe, right bronchus or lung Is this a current diagnosis for this admission?: Yes - Notes Notes: Congestive heart failure: 2D echo reviewed. Patient noted to have diastolic dysfunction and also enlargement of the right ventricle suggestive of right heart failure. Recommend continuation of diuretic therapy. Recommend proper treatment of underlying pulmonary condition. Patient will benefit from sleep study and possibly evaluation for nocturnal hypoxemia and nocturnal oxygen supplementation. Atrial fibrillation: Currently to be treated with rate control. May consider adding calcium channel kaur for rate control now that we know LVEF is relatively well-preserved. Unfortunately chronic anticoagulation is relatively contraindicated in view of very low platelet count. Patient understands she is at increased risk of stroke. Thrombocytopenia: Patient being followed by oncologist. Hyponatremia: Recommend fluid restriction. Probably part and parcel of CHF and possibly syndrome of inappropriate ADH secretion from lung cancer. Will recheck chemistry panel tomorrow and if sodium is still low, consider starting tolvaptan therapy at 7.5 mg p.o. daily. May also consider demeclocycline. COPD: Continue current therapy Coronary artery disease: Symptomatically stable. Diabetes: Recommend good control but avoid any hypoglycemia. Lung cancer: Chemotherapy is on hold because of thrombocytopenia Overall prognosis is guarded. - Time Time with patient: 15-25 minutes - CODE STATUS was discussed, patient remains full code. Surrogate decision-maker unchanged. Multiple medical problems were addressed. More than 50% of the time spent coordinating care, discussing management plans with involved caregivers. Management plans discussed with involved personnels. Medical decision making was of moderate to high complexity , patient's has multiple comorbidities. Medications reviewed and adjusted accordingly: Yes
[2017-10-27] MEDS: OXYCODONE-ACETAMINOPHEN 5-325 MG TABLET PO PRN (17:19)
[2017-10-27] MEDS: FUROSEMIDE INJ/PF 40 MG/4 ML SDV IV SCH (17:19)
[2017-10-27] MEDS: CEFTRIAXONE SODIUM 1,000 MG in NORMAL SALINE 100 ML IV SCH (20:14)
--- NOTE | 2017-10-27 21:00 | PDOC PROGRESS REPORT ---
Subjective Progress Note for:: 10/27/17 Subjective:: Feeling pretty good today, breathing continued to imrpove, no new pain, good UOP , swelling improving. No fever or chills. Reason For Visit: CHF,HYPONATREMIA, LUNG CANCER, THROMBOCYTOPENIA Physical Exam Vital Signs: Temp Pulse Resp BP Pulse Ox 98.4 F 88 20 125/67 90 L 10/27/17 16:00 10/27/17 16:00 10/27/17 16:00 10/27/17 16:00 10/27/17 16:00 Intake & Output 10/26/17 10/27/17 10/28/17 06:59 06:59 06:59 Intake Total 930 2077 904 Output Total 1900 2200 1450 Balance -970 123 -546 Weight 103.7 kg 105.5 kg General appearance: PRESENT: no acute distress, cooperative, disheveled, obese Head exam: PRESENT: atraumatic, normocephalic Ear exam: PRESENT: normal external ear exam Mouth exam: PRESENT: moist, neck supple Respiratory exam: PRESENT: decreased breath sounds, rales. ABSENT: unlabored Cardiovascular exam: PRESENT: RRR. ABSENT: systolic murmur Pulses: PRESENT: normal radial pulses GI/Abdominal exam: PRESENT: normal bowel sounds, soft. ABSENT: distended, tenderness Rectal exam: PRESENT: deferred Extremities exam: PRESENT: +2 edema Musculoskeletal exam: PRESENT: ambulatory Neurological exam: PRESENT: alert, awake, oriented to person, oriented to place , oriented to situation, CN II-XII grossly intact Psychiatric exam: PRESENT: appropriate affect. ABSENT: anxious Skin exam: PRESENT: dry, warm Results Laboratory Results: 10/27/17 06:54 10/27/17 06:54 10/27/17 10/27/17 06:54 06:54 WBC 5.5 RBC 2.66 L Hgb 9.3 L Hct 27.3 L MCV 102 H MCH 34.7 H MCHC 33.9 RDW 15.8 H Plt Count 22 L* Sodium 120.2 L* Potassium 4.7 Chloride 80 L Carbon Dioxide 34 H Anion Gap 6 BUN 26 H Creatinine 0.83 Est GFR ( Amer) > 60 Est GFR (Non-Af Amer) > 60 Glucose 127 H Calcium 9.2 10/26/17 05:12 NT-Pro-B Natriuret Pep 7930 H Impressions: Chest X-Ray 10/24/17 15:14 IMPRESSION: Trace right pleural fluid with minimal right retrocardiac airspace disease atelectasis versus pneumonia. This is similar compared to 10/16/2017. Assessment & Plan - Diagnosis (1) CHF (congestive heart failure) Qualifiers: Heart failure type: unspecified Heart failure chronicity: acute on chronic Qualified Code(s): I50.9 - Heart failure, unspecified Is this a current diagnosis for this admission?: Yes Plan: Patient's edema dyspnea and electrolytes are improving. Continue diuresis. Continue to monitor electrolytes. (2) Hyponatremia Is this a current diagnosis for this admission?: Yes Plan: Sodium is up to 120.2 with fluid restriction and diuresis for CHF. 120s is about her baseline, we will continue to monitor. Mental status changes. (3) Thrombocytopenia Is this a current diagnosis for this admission?: Yes Plan: Platelets still in the 20s. Still being monitored by oncology. No evidence of active bleeding. Chemo is on hold secondary to thrombocytopenia. (4) Atrial fibrillation Qualifiers: Atrial fibrillation type: chronic Qualified Code(s): I48.2 - Chronic atrial fibrillation Is this a current diagnosis for this admission?: Yes Plan: This evening heart rate is well controlled. Continue diltiazem and monitor heart rate. Not anticoagulate secondary to severe thrombocytopenia. (5) Lung cancer Qualifiers: Laterality: right Lung location: upper lobe of lung Qualified Code(s): C34.11 - Malignant neoplasm of upper lobe, right bronchus or lung Is this a current diagnosis for this admission?: Yes - Time Time Spent with patient: 25-34 minutes - Inpatient Certification Based on my medical assessment, after consideration of the patient's comorbidities, presenting symptoms, or acuity I expect that the services needed warrant INPATIENT care.: Yes I certify that my determination is in accordance with my understanding of Medicare's requirements for reasonable and necessary INPATIENT services [42 CFR 412.3e].: Yes Medical Necessity: Significant Comorbidiites Make Outpatient Treatment Too Risky , Need Close Monitoring Due to Risk of Patient Decompensation, Risk of Complication if Not Cared For in Hospital
[2017-10-27] MEDS: SIMVASTATIN 40 MG TABLET PO SCH (21:09)
[2017-10-27] MEDS: INSULIN LISPRO 100 UNIT/ML 3 ML VIAL SUBCUT PRN (21:53)
[2017-10-28] MEDS: TEMAZEPAM 7.5 MG CAPSULE PO PRN (00:38)
[2017-10-28] MEDS: DILTIAZEM HCL 30 MG TABLET PO SCH ×4 (00:38→18:24)
[2017-10-28] MEDS: OXYCODONE-ACETAMINOPHEN 5-325 MG TABLET PO PRN ×2 (04:28→10:25)
[2017-10-28] MEDS: HYDRALAZINE HCL 50 MG TABLET PO SCH ×3 (06:55→21:56)
[2017-10-28] MEDS: FUROSEMIDE INJ/PF 40 MG/4 ML SDV IV SCH ×2 (06:55→18:24)
[2017-10-28] MEDS: LOSARTAN POTASSIUM 50 MG TABLET PO SCH (10:21)
[2017-10-28] MEDS: BUDESONIDE/FORMOTEROL 160-4.5 MCG 60 PUFF/6 GM MDI IH SCH ×2 (10:25→21:56)
[2017-10-28] MEDS: FAMOTIDINE 20 MG TABLET PO SCH ×2 (10:25→21:57)
[2017-10-28] MEDS: DOCUSATE SODIUM 100 MG CAPSULE PO SCH (10:25)
[2017-10-28] MEDS: IPRATROPIUM/ALBUTEROL 0.5-2.5 MG/3 ML AMPUL NEB PRN ×2 (10:32→20:17)
--- NOTE | 2017-10-28 14:34 | PDOC PROGRESS REPORT ---
Subjective Progress Note for:: 10/28/17 Subjective:: Patient seems to be doing better with gradual improvement. Pt is denying any chest arm or neck discomfort. Patient denying any PND, orthopnea. Patient denied any sustained palpitations, dizziness, syncope, near syncope. Patient denying any fever chills. Patient denying any other significant discomfort. Patient still noted to have significant pedal edema. Sodium is still low. Platelet count still low. Patient is maintaining atrial fibrillation. Intermittent ventricular paced beats noted. Review of systems: Rest review of systems negative. Medications: Medications have been reviewed. Reason For Visit: CHF,HYPONATREMIA, LUNG CANCER, THROMBOCYTOPENIA Physical Exam Vital Signs: Temp Pulse Resp BP Pulse Ox 98.6 F 84 18 142/61 H 100 10/28/17 12:00 10/28/17 12:00 10/28/17 12:00 10/28/17 12:00 10/28/17 12:00 Intake & Output 10/27/17 10/28/17 10/29/17 06:59 06:59 06:59 Intake Total 2077 1364 Output Total 2200 3450 Balance -123 -2086 Weight 105.5 kg 104.1 kg Exam: GENERAL: well-nourished and in no acute distress. Alert and oriented x3 HEAD: Atraumatic, normocephalic. EYES: Pupils equal round and reactive to light, extraocular movements intact, sclera anicteric, conjunctiva are normal. ENT: TMs normal, nares patent, oropharynx clear without exudates. Moist mucous membranes. No oral ulcerations or bleeding gums noted NECK: supple without lymphadenopathy. Trachea is central. No cervical or axillary lymphadenopathy noted. Carotids are 2+, JVD 10 cm LUNGS: Respiration seems nonlabored, no significant accessory muscle action noted. Bibasilar crackles noted. No wheezes rales or rhonchi noted. No significant dullness noted on percussion. CHEST: Palpation of the chest wall shows no significant chest wall tenderness. No other significant abnormalities noted. 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 ABDOMEN: Soft, no significant tenderness appreciated, normoactive bowel sounds. No guarding, no rebound. No rigidity noted . No masses appreciated. EXTREMITIES: Pedal pulses are 1-2+, no calf tenderness noted. No clubbing or cyanosis. 2 + pedal edema noted NEUROLOGICAL: Focused neurological exam showed no significant neurologic deficit. Normal speech, no focal weakness appreciated. PSYCH: Normal mood, normal affect. Judgment and insight within normal limits. SKIN: No significant ecchymosis, skin is noted to be warm. MUSCULOSKELETAL EXAM: No significant acute joint swelling noted. Results Laboratory Results: 10/27/17 06:54 10/27/17 06:54 10/26/17 05:12 NT-Pro-B Natriuret Pep 7930 H EKG Comments: Telemetry shows atrial fibrillation with controlled ventricular response. Impressions: Chest X-Ray 10/24/17 15:14 IMPRESSION: Trace right pleural fluid with minimal right retrocardiac airspace disease atelectasis versus pneumonia. This is similar compared to 10/16/2017. Assessment & Plan - Diagnosis (1) CHF (congestive heart failure) Qualifiers: Heart failure type: unspecified Heart failure chronicity: acute on chronic Qualified Code(s): I50.9 - Heart failure, unspecified Is this a current diagnosis for this admission?: Yes (2) Atrial fibrillation Qualifiers: Atrial fibrillation type: chronic Qualified Code(s): I48.2 - Chronic atrial fibrillation Is this a current diagnosis for this admission?: Yes (3) Hyponatremia Is this a current diagnosis for this admission?: Yes (4) Thrombocytopenia Is this a current diagnosis for this admission?: Yes (5) COPD (chronic obstructive pulmonary disease) Qualifiers: Emphysema type: unspecified Is this a current diagnosis for this admission?: Yes (6) Coronary artery disease Qualifiers: Coronary Disease-Associated Artery/Lesion type: unspecified vessel or lesion type [place] vs. transplanted heart: [place] heart Associated angina: angina presence unspecified Qualified Code(s): I25.10 - Atherosclerotic heart disease of [place] coronary artery without angina pectoris Is this a current diagnosis for this admission?: Yes (7) Diabetes mellitus Qualifiers: Diabetes mellitus type: type 2 Diabetes mellitus complication status: without complication Diabetes mellitus mcfp insulin use: without mcfp use Qualified Code(s): E11.9 - Type 2 diabetes mellitus without complications Is this a current diagnosis for this admission?: Yes (8) Lung cancer Qualifiers: Laterality: right Lung location: upper lobe of lung Qualified Code(s): C34.11 - Malignant neoplasm of upper lobe, right bronchus or lung Is this a current diagnosis for this admission?: Yes - Notes Notes: Seems like leg swelling is somewhat increased. JVP also seems increased. Serum sodium is still low. Will repeat lab work tomorrow. Will consider increasing diuretic therapy. Patient instructed about salt and fluid restriction. Congestive heart failure: 2D echo reviewed. Patient noted to have diastolic dysfunction and also enlargement of the right ventricle suggestive of right heart failure. Recommend continuation of diuretic therapy. Recommend proper treatment of underlying pulmonary condition. Patient will benefit from sleep study and possibly evaluation for nocturnal hypoxemia and nocturnal oxygen supplementation. Atrial fibrillation: Currently to be treated with rate control. May consider adding calcium channel kaur for rate control now that we know LVEF is relatively well-preserved. Unfortunately chronic anticoagulation is relatively contraindicated in view of very low platelet count. Patient understands she is at increased risk of stroke. Thrombocytopenia: Patient being followed by oncologist. Hyponatremia: Recommend fluid restriction. Probably part and parcel of CHF and possibly syndrome of inappropriate ADH secretion from lung cancer. Will recheck chemistry panel tomorrow and if sodium is still low, consider starting tolvaptan therapy at 7.5 mg p.o. daily. May also consider demeclocycline. COPD: Continue current therapy Coronary artery disease: Symptomatically stable. Diabetes: Recommend good control but avoid any hypoglycemia. Lung cancer: Chemotherapy is on hold because of thrombocytopenia Overall prognosis is guarded. - Time Time with patient: 15-25 minutes - CODE STATUS was discussed, patient remains full code. Surrogate decision-maker unchanged. Multiple medical problems were addressed. More than 50% of the time spent coordinating care, discussing management plans with involved caregivers. Management plans discussed with involved personnels. Medical decision making was of moderate to high complexity , patient's has multiple comorbidities. Medications reviewed and adjusted accordingly: Yes
[2017-10-28 16:16] LABS: ANION GAP 7 (5-19); BLOOD UREA NITROGEN 21 mg/dL (7-20); CALCIUM 8.8 mg/dL (8.4-10.2); CARBON DIOXIDE 32 mmol/L (22-30); CHLORIDE 83 mmol/L (98-107); GLUCOSE 161 mg/dL (75-110); POTASSIUM 4.9 mmol/L (3.6-5.0); SODIUM 122.2 mmol/L (137-145)
[2017-10-28] MEDS: ACETAMINOPHEN 325 MG TABLET PO PRN (16:27)
--- NOTE | 2017-10-28 16:30 | PDOC PROGRESS REPORT ---
Subjective Progress Note for:: 10/28/17 Subjective:: pt breathing fine, eating fine, legs still pretty swollen she tells me, she got sleep last night once potts placed and she could sleep through the night due to potts so she feels more rested and less winded. No chest pain or bleeding, no constipation or diarrhea, no fever or chills. Reason For Visit: CHF,HYPONATREMIA, LUNG CANCER, THROMBOCYTOPENIA Physical Exam Vital Signs: Temp Pulse Resp BP Pulse Ox 98.6 F 84 18 142/61 H 100 10/28/17 12:00 10/28/17 12:00 10/28/17 12:00 10/28/17 12:00 10/28/17 12:00 Intake & Output 10/27/17 10/28/17 10/29/17 06:59 06:59 06:59 Intake Total 2077 1364 Output Total 2200 3450 Balance -123 -2086 Weight 105.5 kg 104.1 kg General appearance: PRESENT: no acute distress, cooperative, morbidly obese Head exam: PRESENT: atraumatic, normocephalic Eye exam: PRESENT: conjunctiva pink Ear exam: PRESENT: normal external ear exam Mouth exam: PRESENT: moist, neck supple, tongue midline Neck exam: ABSENT: lymphadenopathy Respiratory exam: PRESENT: decreased breath sounds, rales, unlabored. ABSENT: rhonchi, tachypnea, wheezes Cardiovascular exam: PRESENT: irregular rhythm. ABSENT: tachycardia Pulses: PRESENT: normal radial pulses GI/Abdominal exam: PRESENT: normal bowel sounds, soft. ABSENT: distended, guarding, tenderness Rectal exam: PRESENT: deferred Gentrourinary exam: PRESENT: indwelling catheter, other - draining clear yellow urine Musculoskeletal exam: PRESENT: ambulatory. ABSENT: deformity Neurological exam: PRESENT: alert, awake, oriented to person, oriented to place , oriented to situation, CN II-XII grossly intact Psychiatric exam: PRESENT: appropriate affect. ABSENT: anxious Skin exam: PRESENT: dry, intact, warm Results Laboratory Results: 10/27/17 06:54 10/26/17 05:12 NT-Pro-B Natriuret Pep 7930 H Impressions: Chest X-Ray 10/24/17 15:14 IMPRESSION: Trace right pleural fluid with minimal right retrocardiac airspace disease atelectasis versus pneumonia. This is similar compared to 10/16/2017. Assessment & Plan - Diagnosis (1) CHF (congestive heart failure) Qualifiers: Heart failure type: unspecified Heart failure chronicity: acute on chronic Qualified Code(s): I50.9 - Heart failure, unspecified Is this a current diagnosis for this admission?: Yes Plan: Pt continues on BID IV lasix, has had negative fluid balance over last few days , breathing is fine, her LE edema is not imrpoving. Na is pending ofr today. Will cont to diurese, monitor fluid balance, reordered daily weights, cont fluid restrict. Will order albumin to see if hypoproteinemia contributing. (2) Hyponatremia Is this a current diagnosis for this admission?: Yes Plan: Has been slowing improving with fluid restriction and CHF treatment. 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 It appears she has had stable hyponatremia and is asymptomatic in the 120's. WIll cont to monitor. (3) Thrombocytopenia Is this a current diagnosis for this admission?: Yes Plan: still low, chemo on hold, watch for bleeding. (4) Atrial fibrillation Qualifiers: Atrial fibrillation type: chronic Qualified Code(s): I48.2 - Chronic atrial fibrillation Is this a current diagnosis for this admission?: Yes Plan: rate well controlled on diltiazem, cannot anticoagulate with thrombocytopenia. (5) Lung cancer Qualifiers: Laterality: right Lung location: upper lobe of lung Qualified Code(s): C34.11 - Malignant neoplasm of upper lobe, right bronchus or lung Is this a current diagnosis for this admission?: Yes Plan: pt has undergone some chemo and radiation, treatment has been on hold due to CHF and thrombocytopenia, oncology following closely. - Time Time Spent with patient: 15-24 minutes Medications reviewed and adjusted accordingly: Yes - Inpatient Certification Medical Necessity: Significant Comorbidiites Make Outpatient Treatment Too Risky , Need Close Monitoring Due to Risk of Patient Decompensation, Risk of Complication if Not Cared For in Hospital
[2017-10-28] MEDS: CEFTRIAXONE SODIUM 1,000 MG in NORMAL SALINE 100 ML IV SCH (20:30)
[2017-10-28] MEDS: SIMVASTATIN 40 MG TABLET PO SCH (21:57)
[2017-10-29] MEDS: OXYCODONE-ACETAMINOPHEN 5-325 MG TABLET PO PRN
[2017-10-29] MEDS: DILTIAZEM HCL 30 MG TABLET PO SCH ×4 (05:38→18:30)
[2017-10-29] MEDS: HYDRALAZINE HCL 50 MG TABLET PO SCH ×3 (05:38→21:23)
[2017-10-29] MEDS: FUROSEMIDE INJ/PF 40 MG/4 ML SDV IV SCH (05:39)
[2017-10-29 06:36] LABS: ABSOLUTE LYMPHOCYTES (AUTO) 1.4 10^3/uL (0.5-4.7); ABSOLUTE MONOCYTES (AUTO) 0.7 10^3/uL (0.1-1.4); ABSOLUTE NEUT (AUTO) 3.6 10^3/uL (1.7-8.2); BASOPHILS % (AUTO) 0.7 % (0-2); EOSINOPHILS % (AUTO) 0.8 % (0-6); HEMATOCRIT 28.3 % (36.0-47.0); HEMOGLOBIN 9.6 g/dL (12.0-15.5); LYMPHOCYTES % (AUTO) 23.9 % (13-45); MEAN CORPUSCULAR HEMOGLOBIN 34.9 pg (27.0-33.4); MEAN CORPUSCULAR VOLUME 103 fl (80-97); MONOCYTES % (AUTO) 12.2 % (3-13); RED BLOOD COUNT 2.76 10^6/uL (3.72-5.28); RED CELL DISTRIBUTION WIDTH 15.7 % (11.5-14.0); SEGMENTED NEUTROPHILS % (AUTO) 62.4 % (42-78); TOTAL CELLS COUNTED % (AUTO) 100 %; WHITE BLOOD COUNT 5.8 10^3/uL (4.0-10.5)
[2017-10-29 06:43] LABS: ANION GAP 5 (5-19); BLOOD UREA NITROGEN 18 mg/dL (7-20); CALCIUM 9.2 mg/dL (8.4-10.2); CARBON DIOXIDE 36 mmol/L (22-30); CHLORIDE 85 mmol/L (98-107); GLUCOSE 106 mg/dL (75-110); POTASSIUM 4.3 mmol/L (3.6-5.0); SODIUM 126.4 mmol/L (137-145)
[2017-10-29] MEDS: ACETAMINOPHEN 325 MG TABLET PO PRN (06:48)
--- NOTE | 2017-10-29 08:12 | PDOC PROGRESS REPORT ---
Subjective Progress Note for:: 10/29/17 Subjective:: No acute events overnight, having less anasarca but response w/ lasix has not been as brisk as previously. Reason For Visit: CHF,HYPONATREMIA, LUNG CANCER, THROMBOCYTOPENIA Physical Exam Vital Signs: Temp Pulse Resp BP Pulse Ox 98.3 F 94 20 110/54 L 96 10/29/17 03:16 10/29/17 03:16 10/29/17 03:16 10/29/17 03:16 10/29/17 03:16 Intake & Output 10/28/17 10/29/17 10/30/17 06:59 06:59 06:59 Intake Total 1364 229 Output Total 3450 2800 Balance -2088 -7551 Weight 104.1 kg 103.3 kg General appearance: PRESENT: no acute distress, well-developed, well-nourished Head exam: PRESENT: atraumatic, normocephalic Eye exam: PRESENT: conjunctiva pink, EOMI, PERRLA. ABSENT: scleral icterus Ear exam: PRESENT: normal external ear exam Mouth exam: PRESENT: moist, tongue midline Neck exam: ABSENT: carotid bruit, JVD, lymphadenopathy, thyromegaly Respiratory exam: PRESENT: clear to auscultation isaura. ABSENT: rales, rhonchi, wheezes Cardiovascular exam: PRESENT: RRR. ABSENT: diastolic murmur, rubs, systolic murmur Pulses: PRESENT: normal dorsalis pedis pul Vascular exam: PRESENT: normal capillary refill GI/Abdominal exam: PRESENT: normal bowel sounds, soft. ABSENT: distended, guarding, mass, organolmegaly, rebound, tenderness Rectal exam: PRESENT: deferred Extremities exam: PRESENT: full ROM. ABSENT: calf tenderness, clubbing, pedal edema Neurological exam: PRESENT: alert, awake, oriented to person, oriented to place , oriented to time, oriented to situation, CN II-XII grossly intact. ABSENT: motor sensory deficit Psychiatric exam: PRESENT: appropriate affect, normal mood. ABSENT: homicidal ideation, suicidal ideation Skin exam: PRESENT: dry, intact, warm. ABSENT: cyanosis, rash Results Laboratory Results: 10/29/17 06:03 10/28/17 10/29/17 15:00 06:03 Sodium 122.2 L 126.4 L Potassium 4.9 4.3 Chloride 83 L 85 L Carbon Dioxide 32 H 36 H Anion Gap 7 5 BUN 21 H 18 Creatinine 0.74 0.72 Est GFR ( Amer) > 60 > 60 Est GFR (Non-Af Amer) > 60 > 60 Glucose 161 H 106 Calcium 8.8 9.2 Magnesium 1.6 10/26/17 10/29/17 05:12 06:03 NT-Pro-B Natriuret Pep 7930 H 9390 H Impressions: Chest X-Ray 10/24/17 15:14 IMPRESSION: Trace right pleural fluid with minimal right retrocardiac airspace disease atelectasis versus pneumonia. This is similar compared to 10/16/2017. Assessment & Plan - Diagnosis (1) Thrombocytopenia Is this a current diagnosis for this admission?: Yes Plan: Stable so far, will follow (2) Lung cancer Qualifiers: Laterality: right Lung location: upper lobe of lung Qualified Code(s): C34.11 - Malignant neoplasm of upper lobe, right bronchus or lung Is this a current diagnosis for this admission?: Yes Plan: will re-eval as outpt
[2017-10-29 08:34] LABS: PLATELET COUNT 28 10^3/uL (150-450)
--- NOTE | 2017-10-29 09:33 | PDOC PROGRESS REPORT ---
Subjective Progress Note for:: 10/29/17 Subjective:: Slept poorly last night due to body aches, breathing seems ok, leg swelling not improved really, can get up to commode alone and feel pretty [place], not walking other than that, no new chest or abd pain. No constipation. Eating fine. o feer or chills, no bleeding seen. Reason For Visit: CHF,HYPONATREMIA, LUNG CANCER, THROMBOCYTOPENIA Physical Exam Vital Signs: Temp Pulse Resp BP Pulse Ox 98.3 F 96 20 110/54 L 96 10/29/17 03:16 10/29/17 07:00 10/29/17 03:16 10/29/17 03:16 10/29/17 03:16 Intake & Output 10/28/17 10/29/17 10/30/17 06:59 06:59 06:59 Intake Total 1364 229 Output Total 3450 2800 Balance -4841 -5658 Weight 104.1 kg 103.3 kg General appearance: PRESENT: no acute distress, cooperative, obese Head exam: PRESENT: atraumatic, normocephalic Eye exam: PRESENT: conjunctiva pink Mouth exam: PRESENT: moist, neck supple Respiratory exam: PRESENT: decreased breath sounds, rales, unlabored. ABSENT: rhonchi, tachypnea, wheezes Cardiovascular exam: PRESENT: RRR. ABSENT: systolic murmur GI/Abdominal exam: PRESENT: normal bowel sounds, soft. ABSENT: distended, tenderness Rectal exam: PRESENT: deferred Neurological exam: PRESENT: alert, awake, oriented to person, oriented to place , oriented to situation, CN II-XII grossly intact Psychiatric exam: PRESENT: appropriate affect. ABSENT: anxious Skin exam: PRESENT: dry, warm Results Laboratory Results: 10/29/17 06:03 10/29/17 06:03 10/28/17 10/29/17 10/29/17 15:00 06:03 06:03 WBC 5.8 RBC 2.76 L Hgb 9.6 L Hct 28.3 L MCV 103 H MCH 34.9 H MCHC 34.0 RDW 15.7 H Plt Count 28 L* Seg Neutrophils % 62.4 Lymphocytes % 23.9 Monocytes % 12.2 Eosinophils % 0.8 Basophils % 0.7 Absolute Neutrophils 3.6 Absolute Lymphocytes 1.4 Absolute Monocytes 0.7 Absolute Eosinophils 0.0 Absolute Basophils 0.0 Sodium 122.2 L 126.4 L Potassium 4.9 4.3 Chloride 83 L 85 L Carbon Dioxide 32 H 36 H Anion Gap 7 5 BUN 21 H 18 Creatinine 0.74 0.72 Est GFR ( Amer) > 60 > 60 Est GFR (Non-Af Amer) > 60 > 60 Glucose 161 H 106 Calcium 8.8 9.2 Magnesium 1.6 10/26/17 10/29/17 05:12 06:03 NT-Pro-B Natriuret Pep 7930 H 9390 H Impressions: Chest X-Ray 10/24/17 15:14 IMPRESSION: Trace right pleural fluid with minimal right retrocardiac airspace disease atelectasis versus pneumonia. This is similar compared to 10/16/2017. Assessment & Plan - Diagnosis (1) CHF (congestive heart failure) Qualifiers: Heart failure type: unspecified Heart failure chronicity: acute on chronic Qualified Code(s): I50.9 - Heart failure, unspecified Is this a current diagnosis for this admission?: Yes Plan: lung status improving. LE edema, which is likely multifactorial, not greatly improved. her Na is increasing with CHF therapy and fluid restriction. Cardiology following. (2) Hyponatremia Is this a current diagnosis for this admission?: Yes Plan: Improving appropriately with fluid restriction and diuresis. Cont to monitor for safety. The thought is that she has a component of SIADH as well due to lung CA. (3) Thrombocytopenia Is this a current diagnosis for this admission?: Yes Plan: stable low, thought to be suppressed due to chemotherapy, oncology monitoring. No active bleeding. (4) Atrial fibrillation Qualifiers: Atrial fibrillation type: chronic Qualified Code(s): I48.2 - Chronic atrial fibrillation Is this a current diagnosis for this admission?: Yes Plan: non tachycardic, no changes in diltiazem today, no anticoagulation due to thrombocytopenia (5) Lung cancer Qualifiers: Laterality: right Lung location: upper lobe of lung Qualified Code(s): C34.11 - Malignant neoplasm of upper lobe, right bronchus or lung Is this a current diagnosis for this admission?: Yes Plan: she is being followed closely by oncology while here, no tx currently due to other inhibiting medical problems - Time Time Spent with patient: 15-24 minutes Medications reviewed and adjusted accordingly: Yes - Inpatient Certification Based on my medical assessment, after consideration of the patient's comorbidities, presenting symptoms, or acuity I expect that the services needed warrant INPATIENT care.: Yes I certify that my determination is in accordance with my understanding of Medicare's requirements for reasonable and necessary INPATIENT services [42 CFR 412.3e].: Yes Medical Necessity: Need Close Monitoring Due to Risk of Patient Decompensation, Risk of Complication if Not Cared For in Hospital
[2017-10-29] MEDS: DOCUSATE SODIUM 100 MG CAPSULE PO SCH (09:55)
[2017-10-29] MEDS: BUDESONIDE/FORMOTEROL 160-4.5 MCG 60 PUFF/6 GM MDI IH SCH ×2 (09:55→22:56)
[2017-10-29] MEDS: LOSARTAN POTASSIUM 50 MG TABLET PO SCH (09:55)
[2017-10-29] MEDS: FUROSEMIDE INJ/PF 100 MG/10 ML SDV IV SCH ×2 (09:55→21:10)
[2017-10-29] MEDS: FAMOTIDINE 20 MG TABLET PO SCH ×2 (09:55→21:18)
--- NOTE | 2017-10-29 19:50 | PDOC PROGRESS REPORT ---
Subjective Progress Note for:: 10/29/17 Subjective:: No new complaint except feeling fatigued and tired. Complains of lack of sleep. Pt is denying any chest arm or neck discomfort. Patient denying any PND , orthopnea. Patient denied any sustained palpitations, dizziness, syncope, near syncope. Patient denying any fever chills. Patient denying any other significant discomfort. Patient still noted to have significant pedal edema. Sodium is still low but has significantly improved overnight. Platelet count still low, shows improving trend. Patient is maintaining atrial fibrillation. Intermittent ventricular paced beats noted. Review of systems: Rest review of systems negative. Medications: Medications have been reviewed. Reason For Visit: CHF,HYPONATREMIA, LUNG CANCER, THROMBOCYTOPENIA Physical Exam Vital Signs: Temp Pulse Resp BP Pulse Ox 97.9 F 90 17 134/74 H 100 10/29/17 11:02 10/29/17 16:07 10/29/17 12:52 10/29/17 16:07 10/29/17 16:07 Intake & Output 10/28/17 10/29/17 10/30/17 06:59 06:59 06:59 Intake Total 1364 229 496 Output Total 3450 2800 2700 Balance -9404 -4461 -2204 Weight 104.1 kg 103.3 kg Exam: GENERAL: well-nourished and in no acute distress. Alert and oriented x3 HEAD: Atraumatic, normocephalic. EYES: Pupils equal round and reactive to light, extraocular movements intact, sclera anicteric, conjunctiva are normal. ENT: TMs normal, nares patent, oropharynx clear without exudates. Moist mucous membranes. No oral ulcerations or bleeding gums noted NECK: supple without lymphadenopathy. Trachea is central. No cervical or axillary lymphadenopathy noted. Carotids are 2+, JVD 8-10 cm LUNGS: Respiration seems nonlabored, no significant accessory muscle action noted. Bibasilar fine crackles noted. No significant dullness noted. CHEST: Palpation of the chest wall shows no significant chest wall tenderness. No other significant abnormalities noted. HEART: [place] [employer] CYTOLOGY, No PSH, 1/6 JAMIE aortic area, 1/6 gonzalez systolic murmur mitral area, no rubs, no gallops. ABDOMEN: Soft, no significant tenderness appreciated, normoactive bowel sounds. No guarding, no rebound. No rigidity noted . No masses appreciated. EXTREMITIES: Pedal pulses are 1-2+, no calf tenderness noted. No clubbing or cyanosis. 1-2 + pedal edema noted NEUROLOGICAL: Focused neurological exam showed no significant neurologic deficit. Normal speech, no focal weakness appreciated. PSYCH: Normal mood, normal affect. Judgment and insight within normal limits. SKIN: No significant ecchymosis, skin is noted to be warm. MUSCULOSKELETAL EXAM: No significant acute joint swelling noted. Results Laboratory Results: 10/29/17 06:03 10/29/17 06:03 10/29/17 10/29/17 06:03 06:03 WBC 5.8 RBC 2.76 L Hgb 9.6 L Hct 28.3 L MCV 103 H MCH 34.9 H MCHC 34.0 RDW 15.7 H Plt Count 28 L* Seg Neutrophils % 62.4 Lymphocytes % 23.9 Monocytes % 12.2 Eosinophils % 0.8 Basophils % 0.7 Absolute Neutrophils 3.6 Absolute Lymphocytes 1.4 Absolute Monocytes 0.7 Absolute Eosinophils 0.0 Absolute Basophils 0.0 Sodium 126.4 L Potassium 4.3 Chloride 85 L Carbon Dioxide 36 H Anion Gap 5 BUN 18 Creatinine 0.72 Est GFR ( Amer) > 60 Est GFR (Non-Af Amer) > 60 Glucose 106 Calcium 9.2 Magnesium 1.6 10/26/17 10/29/17 05:12 06:03 NT-Pro-B Natriuret Pep 7930 H 9390 H EKG Comments: Shows atrial fibrillation with intermittent ventricular paced beats. Impressions: Chest X-Ray 10/24/17 15:14 IMPRESSION: Trace right pleural fluid with minimal right retrocardiac airspace disease atelectasis versus pneumonia. This is similar compared to 10/16/2017. Assessment & Plan - Diagnosis (1) CHF (congestive heart failure) Qualifiers: Heart failure type: unspecified Heart failure chronicity: acute on chronic Qualified Code(s): I50.9 - Heart failure, unspecified Is this a current diagnosis for this admission?: Yes (2) Atrial fibrillation Qualifiers: Atrial fibrillation type: chronic Qualified Code(s): I48.2 - Chronic atrial fibrillation Is this a current diagnosis for this admission?: Yes (3) Hyponatremia Is this a current diagnosis for this admission?: Yes (4) Thrombocytopenia Is this a current diagnosis for this admission?: Yes (5) COPD (chronic obstructive pulmonary disease) Qualifiers: Emphysema type: unspecified Is this a current diagnosis for this admission?: Yes (6) Coronary artery disease Qualifiers: Coronary Disease-Associated Artery/Lesion type: unspecified vessel or lesion type [place] vs. transplanted heart: [place] heart Associated angina: angina presence unspecified Qualified Code(s): I25.10 - Atherosclerotic heart disease of [place] coronary artery without angina pectoris Is this a current diagnosis for this admission?: Yes (7) Diabetes mellitus Qualifiers: Diabetes mellitus type: type 2 Diabetes mellitus complication status: without complication Diabetes mellitus half-way insulin use: without half-way use Qualified Code(s): E11.9 - Type 2 diabetes mellitus without complications Is this a current diagnosis for this admission?: Yes (8) Lung cancer Qualifiers: Laterality: right Lung location: upper lobe of lung Qualified Code(s): C34.11 - Malignant neoplasm of upper lobe, right bronchus or lung Is this a current diagnosis for this admission?: Yes - Notes Notes: Patient was placed on increased dose of diuretics. Consider restarting chronic anticoagulation when feasible from oncology point of view. Congestive heart failure: 2D echo reviewed. Patient noted to have diastolic dysfunction and also enlargement of the right ventricle suggestive of right heart failure. Have increased IV diuretics. Recommend proper treatment of underlying pulmonary condition. Patient will benefit from sleep study and possibly evaluation for nocturnal hypoxemia and nocturnal oxygen supplementation. Atrial fibrillation: Currently to be treated with rate control. Heart rate seems well controlled. Unfortunately chronic anticoagulation is relatively contraindicated in view of very low platelet count. Patient understands she is at increased risk of stroke. However once feasible to start chronic anticoagulation, consider restarting it. Thrombocytopenia: Patient being followed by oncologist. Hyponatremia: Recommend fluid restriction. Probably part and parcel of CHF and possibly syndrome of inappropriate ADH secretion from lung cancer. Serum sodium has improved significantly. COPD: Continue current therapy Coronary artery disease: Symptomatically stable. Diabetes: Recommend good control but avoid any hypoglycemia. Lung cancer: Chemotherapy is on hold because of thrombocytopenia. Will leave management plans to oncologist. Overall prognosis is guarded. - Time Time with patient: 15-25 minutes - CODE STATUS was discussed, patient remains full code. Surrogate decision-maker unchanged. Multiple medical problems were addressed. More than 50% of the time spent coordinating care, discussing management plans with involved caregivers. Management plans discussed with involved personnels. Medical decision making was of moderate to high complexity , patient's has multiple comorbidities. Medications reviewed and adjusted accordingly: Yes
[2017-10-29] MEDS: CEFTRIAXONE SODIUM 1,000 MG in NORMAL SALINE 100 ML IV SCH (20:49)
[2017-10-29] MEDS: IPRATROPIUM/ALBUTEROL 0.5-2.5 MG/3 ML AMPUL NEB PRN (21:00)
[2017-10-29] MEDS: OXYCODONE HCL IR 5 MG TABLET PO PRN (21:04)
[2017-10-29] MEDS: TEMAZEPAM 7.5 MG CAPSULE PO PRN (21:07)
[2017-10-29] MEDS: SIMVASTATIN 40 MG TABLET PO SCH (21:18)
--- NOTE | 2017-10-29 21:48 | EKG REPORT ---
SEVERITY:- ABNORMAL ECG - ATRIAL FIBRILLATION PAIRED VENTRICULAR PREMATURE COMPLEXES RIGHT AXIS DEVIATION CONSIDER ANTERIOR INFARCT BORDERLINE T WAVE ABNORMALITIES : Confirmed by: Christiano Merino 29-Oct-2017 21:47:26
[2017-10-29] MEDS ORDERED: BUDESONIDE/FORMOTEROL 160-4.5 MCG 60 PUFF/6 GM MDI IH ONE (22:42)
[2017-10-29] MEDS: INSULIN LISPRO 100 UNIT/ML 3 ML VIAL SUBCUT PRN (22:43)
[2017-10-30] MEDS: DILTIAZEM HCL 30 MG TABLET PO SCH ×3 (03:01→12:32)
[2017-10-30] MEDS: HYDRALAZINE HCL 50 MG TABLET PO SCH ×3 (06:12→21:33)
--- NOTE | 2017-10-30 08:30 | PDOC PROGRESS REPORT ---
Subjective Progress Note for:: 10/30/17 Subjective:: Feels slightly less edematous today, seems a little bit less edematous on physical exam as well Reason For Visit: CHF,HYPONATREMIA, LUNG CANCER, THROMBOCYTOPENIA Physical Exam Vital Signs: Temp Pulse Resp BP Pulse Ox 99.3 F 113 H 16 137/74 H 98 10/30/17 03:15 10/30/17 03:15 10/30/17 03:15 10/30/17 03:15 10/30/17 03:10 Intake & Output 10/29/17 10/30/17 10/31/17 06:59 06:59 06:59 Intake Total 229 1222 Output Total 2800 2990 Balance -8117 -7242 Weight 103.3 kg 100.8 kg General appearance: PRESENT: no acute distress, well-developed, well-nourished Head exam: PRESENT: atraumatic, normocephalic Eye exam: PRESENT: conjunctiva pink, EOMI, PERRLA. ABSENT: scleral icterus Ear exam: PRESENT: normal external ear exam Mouth exam: PRESENT: moist, tongue midline Neck exam: ABSENT: carotid bruit, JVD, lymphadenopathy, thyromegaly Respiratory exam: PRESENT: clear to auscultation isaura. ABSENT: rales, rhonchi, wheezes Cardiovascular exam: PRESENT: RRR. ABSENT: diastolic murmur, rubs, systolic murmur Pulses: PRESENT: normal dorsalis pedis pul Vascular exam: PRESENT: normal capillary refill GI/Abdominal exam: PRESENT: normal bowel sounds, soft. ABSENT: distended, guarding, mass, organolmegaly, rebound, tenderness Rectal exam: PRESENT: deferred Extremities exam: PRESENT: full ROM. ABSENT: calf tenderness, clubbing, pedal edema Neurological exam: PRESENT: alert, awake, oriented to person, oriented to place , oriented to time, oriented to situation, CN II-XII grossly intact. ABSENT: motor sensory deficit Psychiatric exam: PRESENT: appropriate affect, normal mood. ABSENT: homicidal ideation, suicidal ideation Skin exam: PRESENT: dry, intact, warm. ABSENT: cyanosis, rash Results Laboratory Results: 10/29/17 06:03 Plt Count 28 L* 10/26/17 10/29/17 05:12 06:03 NT-Pro-B Natriuret Pep 7930 H 9390 H Impressions: Chest X-Ray 10/24/17 15:14 IMPRESSION: Trace right pleural fluid with minimal right retrocardiac airspace disease atelectasis versus pneumonia. This is similar compared to 10/16/2017. Assessment & Plan - Diagnosis (1) Thrombocytopenia Is this a current diagnosis for this admission?: Yes Plan: We will up as outpatient, we will now monitor her peripherally, will see patient next most likely as an outpatient (2) Lung cancer Qualifiers: Laterality: right Lung location: upper lobe of lung Qualified Code(s): C34.11 - Malignant neoplasm of upper lobe, right bronchus or lung Is this a current diagnosis for this admission?: Yes Plan: No further treatment planned at present
[2017-10-30 08:31] LABS: HEMATOCRIT 28.9 % (36.0-47.0); HEMOGLOBIN 9.8 g/dL (12.0-15.5); MEAN CORPUSCULAR HEMOGLOBIN 34.7 pg (27.0-33.4); MEAN CORPUSCULAR HGB CONC 33.9 g/dL (32.0-36.0); MEAN CORPUSCULAR VOLUME 102 fl (80-97); RED BLOOD COUNT 2.82 10^6/uL (3.72-5.28); RED CELL DISTRIBUTION WIDTH 16.4 % (11.5-14.0); WHITE BLOOD COUNT 7.6 10^3/uL (4.0-10.5)
[2017-10-30 08:43] LABS: ANION GAP 9 (5-19); BLOOD UREA NITROGEN 18 mg/dL (7-20); CALCIUM 9.1 mg/dL (8.4-10.2); CARBON DIOXIDE 35 mmol/L (22-30); CHLORIDE 85 mmol/L (98-107); GLUCOSE 108 mg/dL (75-110); POTASSIUM 4.1 mmol/L (3.6-5.0); SODIUM 129.2 mmol/L (137-145)
[2017-10-30 09:11] LABS: PLATELET COUNT 31 10^3/uL (150-450)
[2017-10-30] MEDS: FUROSEMIDE INJ/PF 100 MG/10 ML SDV IV SCH ×2 (10:16→21:34)
[2017-10-30] MEDS: LOSARTAN POTASSIUM 50 MG TABLET PO SCH (10:16)
[2017-10-30] MEDS: DOCUSATE SODIUM 100 MG CAPSULE PO SCH (10:16)
[2017-10-30] MEDS: FAMOTIDINE 20 MG TABLET PO SCH ×2 (10:16→21:33)
[2017-10-30] MEDS: BUDESONIDE/FORMOTEROL 160-4.5 MCG 60 PUFF/6 GM MDI IH SCH ×2 (10:16→21:34)
[2017-10-30] MEDS: IPRATROPIUM/ALBUTEROL 0.5-2.5 MG/3 ML AMPUL NEB PRN (12:20)
[2017-10-30] MEDS: OXYCODONE HCL IR 5 MG TABLET PO PRN ×2 (12:32→19:46)
--- NOTE | 2017-10-30 12:57 | PDOC PROGRESS REPORT ---
Subjective Progress Note for:: 10/30/17 Subjective:: Patient was placed on increasing dose of Lasix IV at 80 mg p.o. twice daily. Today patient feeling better with less leg swelling. No new complaint except feeling fatigued and tired. Complains of lack of sleep. Pt is denying any chest arm or neck discomfort. Patient denying any PND , orthopnea. Patient denied any sustained palpitations, dizziness, syncope, near syncope. Patient denying any fever chills. Patient denying any other significant discomfort. Patient still noted to have significant pedal edema. Sodium is still low but has significantly improved overnight. Platelet count still low, shows improving trend. Patient is maintaining atrial fibrillation. Intermittent ventricular paced beats noted. Review of systems: Rest review of systems negative. Medications: Medications have been reviewed. Reason For Visit: CHF,HYPONATREMIA, LUNG CANCER, THROMBOCYTOPENIA Physical Exam Vital Signs: Temp Pulse Resp BP Pulse Ox 99.3 F 121 H 20 122/71 98 10/30/17 11:16 10/30/17 12:20 10/30/17 12:20 10/30/17 11:16 10/30/17 12:20 Intake & Output 10/29/17 10/30/17 10/31/17 06:59 06:59 06:59 Intake Total 229 1222 Output Total 2800 4650 Balance -2571 -3428 Weight 103.3 kg 100.8 kg Exam: GENERAL: well-nourished and in no acute distress. Alert and oriented x3 HEAD: Atraumatic, normocephalic. EYES: Pupils equal round and reactive to light, extraocular movements intact, sclera anicteric, conjunctiva are normal. ENT: TMs normal, nares patent, oropharynx clear without exudates. Moist mucous membranes. No oral ulcerations or bleeding gums noted NECK: supple without lymphadenopathy. Trachea is central. No cervical or axillary lymphadenopathy noted. Carotids are 2+, JVD 10 cm LUNGS: Respiration seems nonlabored, no significant accessory muscle action noted. Breath sounds clear to auscultation bilaterally and equal noted. No wheezes rales or rhonchi noted. No significant dullness noted on percussion. CHEST: Palpation of the chest wall shows no significant chest wall tenderness. No other significant abnormalities noted. 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 ABDOMEN: Soft, no significant tenderness appreciated, normoactive bowel sounds. No guarding, no rebound. No rigidity noted . No masses appreciated. EXTREMITIES: Pedal pulses are 1-2+, no calf tenderness noted. No clubbing or cyanosis. 1-2 + pedal edema noted NEUROLOGICAL: Focused neurological exam showed no significant neurologic deficit. Normal speech, no focal weakness appreciated. PSYCH: Normal mood, normal affect. Judgment and insight within normal limits. SKIN: No significant ecchymosis, skin is noted to be warm. MUSCULOSKELETAL EXAM: No significant acute joint swelling noted. Results Laboratory Results: 10/30/17 08:15 10/30/17 08:15 10/30/17 10/30/17 08:15 08:15 WBC 7.6 RBC 2.82 L Hgb 9.8 L Hct 28.9 L MCV 102 H MCH 34.7 H MCHC 33.9 RDW 16.4 H Plt Count 31 L Sodium 129.2 L Potassium 4.1 Chloride 85 L Carbon Dioxide 35 H Anion Gap 9 BUN 18 Creatinine 0.72 Est GFR ( Amer) > 60 Est GFR (Non-Af Amer) > 60 Glucose 108 Calcium 9.1 Magnesium 1.5 L 10/26/17 10/29/17 05:12 06:03 NT-Pro-B Natriuret Pep 7930 H 9390 H Impressions: Chest X-Ray 10/24/17 15:14 IMPRESSION: Trace right pleural fluid with minimal right retrocardiac airspace disease atelectasis versus pneumonia. This is similar compared to 10/16/2017. Assessment & Plan - Diagnosis (1) CHF (congestive heart failure) Qualifiers: Heart failure type: unspecified Heart failure chronicity: acute on chronic Qualified Code(s): I50.9 - Heart failure, unspecified Is this a current diagnosis for this admission?: Yes (2) Atrial fibrillation Qualifiers: Atrial fibrillation type: chronic Qualified Code(s): I48.2 - Chronic atrial fibrillation Is this a current diagnosis for this admission?: Yes (3) Hyponatremia Is this a current diagnosis for this admission?: Yes (4) Thrombocytopenia Is this a current diagnosis for this admission?: Yes (5) COPD (chronic obstructive pulmonary disease) Qualifiers: Emphysema type: unspecified Is this a current diagnosis for this admission?: Yes (6) Coronary artery disease Qualifiers: Coronary Disease-Associated Artery/Lesion type: unspecified vessel or lesion type [place] vs. transplanted heart: [place] heart Associated angina: angina presence unspecified Qualified Code(s): I25.10 - Atherosclerotic heart disease of [place] coronary artery without angina pectoris Is this a current diagnosis for this admission?: Yes (7) Diabetes mellitus Qualifiers: Diabetes mellitus type: type 2 Diabetes mellitus complication status: without complication Diabetes mellitus fci insulin use: without fci use Qualified Code(s): E11.9 - Type 2 diabetes mellitus without complications Is this a current diagnosis for this admission?: Yes (8) Lung cancer Qualifiers: Laterality: right Lung location: upper lobe of lung Qualified Code(s): C34.11 - Malignant neoplasm of upper lobe, right bronchus or lung Is this a current diagnosis for this admission?: Yes - Notes Notes: Congestive heart failure: 2D echo reviewed. Patient noted to have diastolic dysfunction and also enlargement of the right ventricle suggestive of right heart failure. Have increased IV diuretics. Was placed on Lasix 80 mg p.o. twice daily yesterday. Recommend proper treatment of underlying pulmonary condition. Patient will benefit from sleep study and possibly evaluation for nocturnal hypoxemia and nocturnal oxygen supplementation. Atrial fibrillation: Currently to be treated with rate control. Heart rate seems well controlled. Unfortunately chronic anticoagulation is relatively contraindicated in view of very low platelet count. Patient understands she is at increased risk of stroke. However once feasible to start chronic anticoagulation, consider restarting it. Thrombocytopenia: Patient being followed by oncologist. Platelet count improving. Hyponatremia: Recommend fluid restriction. Probably part and parcel of CHF and possibly syndrome of inappropriate ADH secretion from lung cancer. Serum sodium has improved significantly. COPD: Continue current therapy Coronary artery disease: Symptomatically stable. Diabetes: Recommend good control but avoid any hypoglycemia. Lung cancer: Chemotherapy is on hold because of thrombocytopenia. Will leave management plans to oncologist. Overall prognosis is guarded. - Time Time with patient: 15-25 minutes - CODE STATUS was discussed, patient remains full code. Surrogate decision-maker unchanged. Multiple medical problems were addressed. More than 50% of the time spent coordinating care, discussing management plans with involved caregivers. Management plans discussed with involved personnels. Medical decision making was of moderate to high complexity , patient's has multiple comorbidities. Medications reviewed and adjusted accordingly: Yes
[2017-10-30] MEDS ORDERED: METOPROLOL TARTRATE PF/INJ 5 MG/5 ML SDV IV PRN (13:12)
--- NOTE | 2017-10-30 15:45 | PDOC PROGRESS REPORT ---
Subjective Progress Note for:: 10/30/17 Subjective:: Patient with a history of CHF, lung cancer and thrombocytopenia. Patient states she still short of breath with activity. Patient still pretty swollen. Patient A. fib not well controlled. Patient heart rate again into the 150s at times. Patient is currently complaining of urinary symptoms. Reason For Visit: CHF,HYPONATREMIA, LUNG CANCER, THROMBOCYTOPENIA Physical Exam Vital Signs: Temp Pulse Resp BP Pulse Ox 99.3 F 121 H 20 122/71 98 10/30/17 11:16 10/30/17 12:20 10/30/17 12:20 10/30/17 11:16 10/30/17 12:20 Intake & Output 10/29/17 10/30/17 10/31/17 06:59 06:59 06:59 Intake Total 229 1222 Output Total 2800 4650 Balance -2571 -3428 Weight 103.3 kg 100.8 kg General appearance: PRESENT: no acute distress, morbidly obese Head exam: PRESENT: normocephalic Eye exam: PRESENT: EOMI. ABSENT: scleral icterus Ear exam: PRESENT: normal external ear exam Mouth exam: PRESENT: moist Neck exam: ABSENT: carotid bruit, JVD, lymphadenopathy, thyromegaly Respiratory exam: PRESENT: clear to auscultation isaura. ABSENT: rales, rhonchi, wheezes Cardiovascular exam: PRESENT: RRR. ABSENT: diastolic murmur, rubs, systolic murmur Vascular exam: PRESENT: normal capillary refill GI/Abdominal exam: PRESENT: normal bowel sounds, soft. ABSENT: distended, guarding, mass, organolmegaly, rebound, tenderness Rectal exam: PRESENT: deferred Gentrourinary exam: PRESENT: indwelling catheter Extremities exam: PRESENT: full ROM, +2 edema. ABSENT: calf tenderness, clubbing, pedal edema Neurological exam: PRESENT: alert, awake, oriented to person, oriented to place , oriented to time, oriented to situation, CN II-XII grossly intact. ABSENT: motor sensory deficit Psychiatric exam: PRESENT: appropriate affect, normal mood. ABSENT: homicidal ideation, suicidal ideation Skin exam: PRESENT: dry, intact, warm. ABSENT: cyanosis, rash Results Laboratory Results: 10/30/17 08:15 10/30/17 08:15 10/30/17 10/30/17 08:15 08:15 WBC 7.6 RBC 2.82 L Hgb 9.8 L Hct 28.9 L MCV 102 H MCH 34.7 H MCHC 33.9 RDW 16.4 H Plt Count 31 L Sodium 129.2 L Potassium 4.1 Chloride 85 L Carbon Dioxide 35 H Anion Gap 9 BUN 18 Creatinine 0.72 Est GFR ( Amer) > 60 Est GFR (Non-Af Amer) > 60 Glucose 108 Calcium 9.1 Magnesium 1.5 L 10/26/17 10/29/17 05:12 06:03 NT-Pro-B Natriuret Pep 7930 H 9390 H Impressions: Chest X-Ray 10/24/17 15:14 IMPRESSION: Trace right pleural fluid with minimal right retrocardiac airspace disease atelectasis versus pneumonia. This is similar compared to 10/16/2017. Assessment & Plan - Diagnosis (1) CHF (congestive heart failure) Qualifiers: Heart failure type: unspecified Heart failure chronicity: acute on chronic Qualified Code(s): I50.9 - Heart failure, unspecified Is this a current diagnosis for this admission?: Yes Plan: Patient with acute on chronic what appears to be diastolic heart failure. Patient with significant edema minimally improved. Patient is on 80 mg of Lasix twice a day. Will add metolazone. (2) Dysuria Is this a current diagnosis for this admission?: Yes Plan: Patient has Miguel in place. Will ask for UA. Will start patient on Pyridium. (3) Hyponatremia Is this a current diagnosis for this admission?: Yes Plan: Improvement with diuresis and fluid restriction. Patient may have a component of SIADH as she does have a lung cancer. (4) Thrombocytopenia Is this a current diagnosis for this admission?: Yes Plan: Patient with persistent thrombus cytopenia. Patient was evaluated by oncology hematology. Plan is for follow-up as outpatient. (5) Atrial fibrillation Qualifiers: Atrial fibrillation type: chronic Qualified Code(s): I48.2 - Chronic atrial fibrillation Is this a current diagnosis for this admission?: Yes Plan: Chronic atrial fibrillation does not appear well-controlled at this time. Patient on diltiazem 30 every 6. This has been transitioned to 120 mg p.o. twice daily. Will start patient on metoprolol 2.5 mg every 4 IV push for heart rate greater than 110. Patient not on anticoagulation due to her thrombocytopenia. (6) Lung cancer Qualifiers: Laterality: right Lung location: upper lobe of lung Qualified Code(s): C34.11 - Malignant neoplasm of upper lobe, right bronchus or lung Is this a current diagnosis for this admission?: Yes Plan: Management by oncology. (7) Hypomagnesemia Is this a current diagnosis for this admission?: Yes Plan: Patient magnesium level 1.5. Patient started on supplemental magnesium. Patient also given 2 g IV. - Time Time Spent with patient: 15-24 minutes Medications reviewed and adjusted accordingly: Yes Anticipated discharge: Home - Inpatient Certification Medical Necessity: Other - Patient with extensive pedal edema which is affecting her ability to ambulate. Patient still requiring aggressive diuresis with IV Lasix.
[2017-10-30] MEDS ORDERED: METOLAZONE 2.5 MG TABLET PO ONE (16:30)
[2017-10-30] MEDS ORDERED: DILTIAZEM HCL 90 MG TABLET PO ONE (16:30)
[2017-10-30] MEDS: MAGNESIUM SULFATE/D5W 1 GM/100 ML RTUPB IV SCH ×2 (17:31→18:38)
[2017-10-30 17:38] LABS: APPEARANCE,URINE SLIGHTLY-CLOUDY; BILIRUBIN,URINE NEGATIVE (NEGATIVE); COLOR,URINE YELLOW; GLUCOSE, URINE NEGATIVE (NEGATIVE); KETONES,URINE NEGATIVE (NEGATIVE); LEUKOCYTE ESTERASE,URINE MODERATE (NEGATIVE); NITRITE,URINE NEGATIVE (NEGATIVE); PROTEIN,URINE 30 mg/dL (NEGATIVE); UROBILINOGEN,URINE NEGATIVE mg/dL (<2.0)
[2017-10-30] MEDS: DILTIAZEM HCL 120 MG CAP.SR.24H PO SCH (21:33)
[2017-10-30] MEDS: PHENAZOPYRIDINE HCL 100 MG TABLET PO SCH (21:33)
[2017-10-30] MEDS: SIMVASTATIN 40 MG TABLET PO SCH (21:33)
[2017-10-31] MEDS: HYDRALAZINE HCL 50 MG TABLET PO SCH (05:29)
[2017-10-31] MEDS: PHENAZOPYRIDINE HCL 100 MG TABLET PO SCH ×3 (05:30→22:44)
[2017-10-31 07:23] LABS: ANION GAP 9 (5-19); BLOOD UREA NITROGEN 19 mg/dL (7-20); CALCIUM 9.2 mg/dL (8.4-10.2); CARBON DIOXIDE 35 mmol/L (22-30); CHLORIDE 86 mmol/L (98-107); GLUCOSE 106 mg/dL (75-110); POTASSIUM 3.8 mmol/L (3.6-5.0); SODIUM 129.6 mmol/L (137-145)
[2017-10-31] MEDS ORDERED: HYDRALAZINE HCL 50 MG TABLET PO SCH (07:42)
[2017-10-31] MEDS: ACETAMINOPHEN 325 MG TABLET PO PRN (09:59)
[2017-10-31] MEDS ORDERED: METOLAZONE 2.5 MG TABLET PO SCH ×2 (10:00)
[2017-10-31] MEDS: BUDESONIDE/FORMOTEROL 160-4.5 MCG 60 PUFF/6 GM MDI IH SCH ×2 (10:13→22:44)
[2017-10-31] MEDS: DOCUSATE SODIUM 100 MG CAPSULE PO SCH (10:15)
[2017-10-31] MEDS: MAGNESIUM OXIDE 400 MG TABLET PO SCH (10:15)
[2017-10-31] MEDS: LOSARTAN POTASSIUM 50 MG TABLET PO SCH (10:16)
[2017-10-31] MEDS: DILTIAZEM HCL 120 MG CAP.SR.24H PO SCH ×2 (10:17→22:44)
[2017-10-31] MEDS: METOLAZONE 5 MG TABLET PO SCH (10:19)
[2017-10-31] MEDS: FAMOTIDINE 20 MG TABLET PO SCH ×2 (10:20→22:44)
[2017-10-31] MEDS: FUROSEMIDE INJ/PF 100 MG/10 ML SDV IV SCH ×2 (10:21→22:44)
[2017-10-31] MEDS: HYDRALAZINE HCL 25 MG TABLET PO SCH ×2 (13:30→22:44)
[2017-10-31] MEDS: OXYCODONE HCL IR 5 MG TABLET PO PRN (13:35)
--- NOTE | 2017-10-31 17:46 | PDOC PROGRESS REPORT ---
Subjective Progress Note for:: 10/31/17 Subjective:: Patient with a history of CHF, lung cancer and thrombocytopenia. 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 Patient would like to go home by the weekend. Reason For Visit: CHF,HYPONATREMIA, LUNG CANCER, THROMBOCYTOPENIA Physical Exam Vital Signs: Temp Pulse Resp BP Pulse Ox 98.6 F 103 H 20 116/51 L 95 10/31/17 11:17 10/31/17 11:17 10/31/17 11:17 10/31/17 11:17 10/31/17 11:17 Intake & Output 10/30/17 10/31/17 11/01/17 06:59 06:59 06:59 Intake Total 1222 1501 550 Output Total 4650 3075 1400 Balance -7816 -6264 -850 Weight 100.8 kg 98.7 kg General appearance: PRESENT: no acute distress Head exam: PRESENT: normocephalic Eye exam: PRESENT: EOMI. ABSENT: scleral icterus Ear exam: PRESENT: normal external ear exam Mouth exam: PRESENT: moist Neck exam: ABSENT: carotid bruit, JVD, lymphadenopathy, thyromegaly Respiratory exam: PRESENT: clear to auscultation isaura. ABSENT: rales, rhonchi, wheezes Cardiovascular exam: PRESENT: irregular rhythm. ABSENT: diastolic murmur, rubs , systolic murmur GI/Abdominal exam: PRESENT: distended, normal bowel sounds, soft. ABSENT: guarding, mass, organolmegaly, rebound, tenderness Rectal exam: PRESENT: deferred Gentrourinary exam: PRESENT: indwelling catheter Extremities exam: PRESENT: full ROM, pedal edema. ABSENT: calf tenderness, clubbing Neurological exam: PRESENT: alert, awake, oriented to person, oriented to place , oriented to time, oriented to situation, CN II-XII grossly intact. ABSENT: motor sensory deficit Psychiatric exam: PRESENT: appropriate affect, normal mood. ABSENT: homicidal ideation, suicidal ideation Skin exam: PRESENT: dry, intact, warm. ABSENT: cyanosis, rash Results Laboratory Results: 10/30/17 08:15 10/31/17 06:45 10/30/17 10/31/17 17:10 06:45 Sodium 129.6 L Potassium 3.8 Chloride 86 L Carbon Dioxide 35 H Anion Gap 9 BUN 19 Creatinine 0.76 Est GFR ( Amer) > 60 Est GFR (Non-Af Amer) > 60 Glucose 106 Calcium 9.2 Magnesium 1.7 Urine Color YELLOW Urine Appearance SLIGHTLY-CLOUDY Urine pH 7.0 Ur Specific [place] 1.010 Urine Protein 30 H Urine Glucose (UA) NEGATIVE Urine Ketones NEGATIVE Urine Blood MODERATE H Urine Nitrite NEGATIVE Ur Leukocyte Esterase MODERATE H Urine WBC (Auto) 28 Urine RBC (Auto) 5 10/26/17 10/29/17 05:12 06:03 NT-Pro-B Natriuret Pep 7930 H 9390 H Impressions: Chest X-Ray 10/24/17 15:14 IMPRESSION: Trace right pleural fluid with minimal right retrocardiac airspace disease atelectasis versus pneumonia. This is similar compared to 10/16/2017. Assessment & Plan - Diagnosis (1) CHF (congestive heart failure) Qualifiers: Heart failure type: unspecified Heart failure chronicity: acute on chronic Qualified Code(s): I50.9 - Heart failure, unspecified Is this a current diagnosis for this admission?: Yes Plan: Patient with acute on chronic what appears to be diastolic heart failure. Patient with significant edema minimally improved. Patient is on 80 mg of Lasix twice a day. Metolazone was increased to 5 mg p.o. daily. CHIN ricardo ordered. (2) Dysuria Is this a current diagnosis for this admission?: Yes Plan: Patient has Miguel in place. UA shows leukocyte esterase. Will start patient on ceftriaxone for 3 days. Continue Pyridium. (3) Hyponatremia Is this a current diagnosis for this admission?: Yes Plan: Improvement with diuresis and fluid restriction. Patient may have a component of SIADH as she does have a lung cancer. (4) Thrombocytopenia Is this a current diagnosis for this admission?: Yes Plan: Patient with persistent thrombocytopenia. Patient was evaluated by oncology hematology. Plan is for follow-up as outpatient. (5) Atrial fibrillation Qualifiers: Atrial fibrillation type: chronic Qualified Code(s): I48.2 - Chronic atrial fibrillation Is this a current diagnosis for this admission?: Yes Plan: Chronic atrial fibrillation, now better control with adjustment of the Cardizem. Patient not on any anticoagulation due to her thrombocytopenia. (6) Lung cancer Qualifiers: Laterality: right Lung location: upper lobe of lung Qualified Code(s): C34.11 - Malignant neoplasm of upper lobe, right bronchus or lung Is this a current diagnosis for this admission?: Yes Plan: Management by oncology. (7) Hypomagnesemia Is this a current diagnosis for this admission?: Yes Plan: Check magnesium 1.7. Will give patient 1 g of IV magnesium. - Time Time Spent with patient: 15-24 minutes Anticipated discharge: Home with Homehealth Within: within 48 hours - Inpatient Certification Medical Necessity: Significant Comorbidiites Make Outpatient Treatment Too Risky - Patient still with significant amount of swelling. Plan is to work with PT., Need Close Monitoring Due to Risk of Patient Decompensation
[2017-10-31] MEDS: INSULIN LISPRO 100 UNIT/ML 3 ML VIAL SUBCUT PRN (18:21)
[2017-10-31] MEDS ORDERED: POTASSIUM CHLORIDE 20 MEQ/15 ML UDCUP PO ONE (19:00)
[2017-10-31] MEDS ORDERED: MAGNESIUM SULFATE/D5W 1 GM/100 ML RTUPB IV ONE (19:00)
[2017-10-31] MEDS: SIMVASTATIN 40 MG TABLET PO SCH (22:44)
[2017-10-31] MEDS: CEFTRIAXONE 2 GM/D5W RTU 2 GM/50 ML RTUPB IV SCH (22:44)
[2017-11-01] MEDS: PHENAZOPYRIDINE HCL 100 MG TABLET PO SCH ×3 (06:13→22:03)
[2017-11-01] MEDS: HYDRALAZINE HCL 25 MG TABLET PO SCH ×3 (06:14→22:03)
[2017-11-01 07:12] LABS: ANION GAP 10 (5-19); BLOOD UREA NITROGEN 17 mg/dL (7-20); CALCIUM 9.6 mg/dL (8.4-10.2); CARBON DIOXIDE 37 mmol/L (22-30); CHLORIDE 81 mmol/L (98-107); GLUCOSE 117 mg/dL (75-110); POTASSIUM 3.9 mmol/L (3.6-5.0); SODIUM 127.5 mmol/L (137-145)
[2017-11-01] MEDS: BUDESONIDE/FORMOTEROL 160-4.5 MCG 60 PUFF/6 GM MDI IH SCH ×2 (09:36→22:03)
[2017-11-01] MEDS: DOCUSATE SODIUM 100 MG CAPSULE PO SCH (09:38)
[2017-11-01] MEDS: METOLAZONE 5 MG TABLET PO SCH (09:39)
[2017-11-01] MEDS: LOSARTAN POTASSIUM 50 MG TABLET PO SCH (09:41)
[2017-11-01] MEDS: FAMOTIDINE 20 MG TABLET PO SCH ×2 (09:41→22:03)
[2017-11-01] MEDS: MAGNESIUM OXIDE 400 MG TABLET PO SCH (09:41)
[2017-11-01] MEDS: DILTIAZEM HCL 120 MG CAP.SR.24H PO SCH ×2 (09:42→22:03)
[2017-11-01] MEDS: FUROSEMIDE INJ/PF 100 MG/10 ML SDV IV SCH ×2 (09:55→22:03)
[2017-11-01] MEDS: MAGNESIUM SULFATE/D5W 1 GM/100 ML RTUPB IV SCH ×2 (11:54→13:16)
[2017-11-01] MEDS: OXYCODONE HCL IR 5 MG TABLET PO PRN ×2 (14:34→23:34)
[2017-11-01] MEDS: CEFTRIAXONE 2 GM/D5W RTU 2 GM/50 ML RTUPB IV SCH (22:03)
[2017-11-01] MEDS: SIMVASTATIN 40 MG TABLET PO SCH (22:03)
[2017-11-02] MEDS: HYDRALAZINE HCL 25 MG TABLET PO SCH ×3 (05:39→21:29)
[2017-11-02] MEDS: PHENAZOPYRIDINE HCL 100 MG TABLET PO SCH ×3 (05:40→21:28)
[2017-11-02 06:59] LABS: ANION GAP 10 (5-19); BLOOD UREA NITROGEN 18 mg/dL (7-20); CALCIUM 9.2 mg/dL (8.4-10.2); CARBON DIOXIDE 37 mmol/L (22-30); CHLORIDE 80 mmol/L (98-107); GLUCOSE 123 mg/dL (75-110); POTASSIUM 3.3 mmol/L (3.6-5.0); SODIUM 126.5 mmol/L (137-145)
--- NOTE | 2017-11-02 07:38 | PDOC PROGRESS REPORT ---
Subjective Progress Note for:: 11/01/17 Subjective:: Patient with a history of CHF, lung cancer and thrombocytopenia. Patient still with significant swelling. Patient feels that there is slight improvement. Patient is concerned about going home as she has sick family at the house. Reason For Visit: CHF,HYPONATREMIA, LUNG CANCER, THROMBOCYTOPENIA Physical Exam Vital Signs: Temp Pulse Resp BP Pulse Ox 97.7 F 78 19 115/50 L 98 11/01/17 19:36 11/01/17 19:36 11/01/17 19:36 11/01/17 19:36 11/01/17 19:36 Intake & Output 10/31/17 11/01/17 11/02/17 06:59 06:59 06:59 Intake Total 1501 1610 579 Output Total 3075 3400 3100 Balance -1574 -1130 -5181 Weight 98.7 kg 98.7 kg General appearance: PRESENT: no acute distress, obese Head exam: PRESENT: normocephalic Eye exam: PRESENT: EOMI. ABSENT: scleral icterus Ear exam: PRESENT: normal external ear exam Mouth exam: PRESENT: moist Teeth exam: PRESENT: edentulous Neck exam: ABSENT: carotid bruit, JVD, lymphadenopathy, thyromegaly Respiratory exam: PRESENT: clear to auscultation isaura. ABSENT: rales, rhonchi, wheezes Cardiovascular exam: PRESENT: RRR. ABSENT: diastolic murmur, rubs, systolic murmur GI/Abdominal exam: PRESENT: normal bowel sounds, soft. ABSENT: distended, guarding, mass, organolmegaly, rebound, tenderness Rectal exam: PRESENT: deferred Extremities exam: PRESENT: pedal edema. ABSENT: calf tenderness, clubbing Neurological exam: PRESENT: alert, awake, oriented to person, oriented to place , oriented to time, oriented to situation, CN II-XII grossly intact. ABSENT: motor sensory deficit Psychiatric exam: PRESENT: appropriate affect, normal mood. ABSENT: homicidal ideation, suicidal ideation Skin exam: PRESENT: dry, intact, warm. ABSENT: cyanosis, rash Results Laboratory Results: 10/30/17 08:15 11/01/17 06:34 11/01/17 06:34 Sodium 127.5 L Potassium 3.9 Chloride 81 L Carbon Dioxide 37 H Anion Gap 10 BUN 17 Creatinine 0.73 Est GFR ( Amer) > 60 Est GFR (Non-Af Amer) > 60 Glucose 117 H Calcium 9.6 Magnesium 1.7 10/26/17 10/29/17 05:12 06:03 NT-Pro-B Natriuret Pep 7930 H 9390 H Impressions: Chest X-Ray 10/24/17 15:14 IMPRESSION: Trace right pleural fluid with minimal right retrocardiac airspace disease atelectasis versus pneumonia. This is similar compared to 10/16/2017. Assessment & Plan - Diagnosis (1) CHF (congestive heart failure) Qualifiers: Heart failure type: unspecified Heart failure chronicity: acute on chronic Qualified Code(s): I50.9 - Heart failure, unspecified Is this a current diagnosis for this admission?: Yes Plan: Patient with acute on chronic what appears to be diastolic heart failure. Patient with significant edema which is slowly improving. Patient is on 80 mg of Lasix twice a day. Metolazone was increased to 5 mg p.o. daily. Consider adding spironolactone if hypokalemia becomes an issue. (2) Hyponatremia Is this a current diagnosis for this admission?: Yes Plan: Improvement with diuresis and fluid restriction. Patient complaining about fluid restriction. Fluid restriction increased from 3082-7165. Patient may have a component of SIADH as she does have a lung cancer. (3) Thrombocytopenia Is this a current diagnosis for this admission?: Yes Plan: Patient with persistent thrombocytopenia. Patient was evaluated by oncology hematology. Plan is for follow-up as outpatient. (4) Atrial fibrillation Qualifiers: Atrial fibrillation type: chronic Qualified Code(s): I48.2 - Chronic atrial fibrillation Is this a current diagnosis for this admission?: Yes Plan: Chronic atrial fibrillation, now better control with adjustment of the Cardizem. Patient not on any anticoagulation due to her thrombocytopenia. (5) Lung cancer Qualifiers: Laterality: right Lung location: upper lobe of lung Qualified Code(s): C34.11 - Malignant neoplasm of upper lobe, right bronchus or lung Is this a current diagnosis for this admission?: Yes Plan: Management by oncology. (6) Hypomagnesemia Is this a current diagnosis for this admission?: Yes Plan: Check magnesium 1.7. Patient on IV and p.o. replacement. Will continue to monitor. (7) UTI (urinary tract infection) Qualifiers: Urinary tract infection type: site unspecified Hematuria presence: without hematuria Qualified Code(s): N39.0 - Urinary tract infection, site not specified Is this a current diagnosis for this admission?: Yes Plan: Patient has Miguel in place. Patient has Miguel in place. UA showing leukocyte esterase and patient complaining of burning. Patient started on ceftriaxone and Pyridium. - Time Time Spent with patient: 15-24 minutes Anticipated discharge: Home Within: within 72 hours
[2017-11-02] MEDS ORDERED: LOSARTAN POTASSIUM 50 MG TABLET PO SCH (07:39)
[2017-11-02] MEDS: OXYCODONE HCL IR 5 MG TABLET PO PRN ×2 (07:40→20:47)
[2017-11-02] MEDS: MAGNESIUM SULFATE/D5W 1 GM/100 ML RTUPB IV SCH ×2 (08:12→10:05)
[2017-11-02] MEDS ORDERED: SPIRONOLACTONE 25 MG TABLET PO SCH (10:00)
[2017-11-02] MEDS: SPIRONOLACTONE 25 MG TABLET PO SCH (10:07)
[2017-11-02] MEDS: BUDESONIDE/FORMOTEROL 160-4.5 MCG 60 PUFF/6 GM MDI IH SCH ×2 (10:11→21:28)
[2017-11-02] MEDS: POTASSIUM CHLORIDE 10 MEQ TABLET.SA PO SCH ×2 (10:12→15:13)
[2017-11-02] MEDS: DOCUSATE SODIUM 100 MG CAPSULE PO SCH (10:14)
[2017-11-02] MEDS: METOLAZONE 5 MG TABLET PO SCH (10:14)
[2017-11-02] MEDS: FAMOTIDINE 20 MG TABLET PO SCH ×2 (10:14→21:28)
[2017-11-02] MEDS: MAGNESIUM OXIDE 400 MG TABLET PO SCH (10:14)
[2017-11-02] MEDS: FUROSEMIDE INJ/PF 100 MG/10 ML SDV IV SCH (10:15)
[2017-11-02] MEDS: DILTIAZEM HCL 120 MG CAP.SR.24H PO SCH ×2 (10:15→21:28)
[2017-11-02] MEDS ORDERED: NA PHOS,M-B/NA PHOS,DI-BA (ADULT) 133 ML ENEMA PR PRN (10:39)
[2017-11-02] MEDS ORDERED: BISACODYL 5 MG TABEC PO ONE (10:39)
[2017-11-02] MEDS ORDERED: SORBITOL 70% SOLUTION 30 ML UDC PO ONE (11:30)
--- NOTE | 2017-11-02 14:31 | PDOC PROGRESS REPORT ---
Subjective Progress Note for:: 11/02/17 Subjective:: Patient with a history of CHF, lung cancer and thrombocytopenia. Patient still with significant swelling. Patient states that family members at home are better. Patient is currently complaining of constipation. P she is hoping to be discharged tomorrow. Reason For Visit: CHF,HYPONATREMIA, LUNG CANCER, THROMBOCYTOPENIA Physical Exam Vital Signs: Temp Pulse Resp BP Pulse Ox 98.2 F 146 H 18 120/65 97 11/02/17 11:11 11/02/17 11:11 11/02/17 11:11 11/02/17 11:11 11/02/17 11:11 Intake & Output 11/01/17 11/02/17 11/03/17 06:59 06:59 06:59 Intake Total 1610 1137 Output Total 3400 6250 Balance -1790 -5113 Weight 98.7 kg 94.2 kg General appearance: PRESENT: no acute distress, obese Head exam: PRESENT: normocephalic Eye exam: PRESENT: EOMI, PERRLA. ABSENT: scleral icterus Ear exam: PRESENT: normal external ear exam Mouth exam: PRESENT: moist, tongue midline Teeth exam: PRESENT: edentulous Neck exam: ABSENT: carotid bruit, JVD, lymphadenopathy, thyromegaly Respiratory exam: PRESENT: clear to auscultation isaura. ABSENT: rales, rhonchi, wheezes Cardiovascular exam: PRESENT: RRR. ABSENT: diastolic murmur, rubs, systolic murmur GI/Abdominal exam: PRESENT: normal bowel sounds, soft. ABSENT: distended, guarding, mass, organolmegaly, rebound, tenderness Rectal exam: PRESENT: deferred Extremities exam: PRESENT: full ROM, pedal edema. ABSENT: calf tenderness, clubbing Musculoskeletal exam: PRESENT: other - Right upper chest wall port Neurological exam: PRESENT: alert, awake, oriented to person, oriented to place , oriented to time, oriented to situation, CN II-XII grossly intact. ABSENT: motor sensory deficit Psychiatric exam: PRESENT: appropriate affect, normal mood. ABSENT: homicidal ideation, suicidal ideation Skin exam: PRESENT: dry, intact, warm. ABSENT: cyanosis, rash Results Laboratory Results: 10/30/17 08:15 11/02/17 05:46 11/02/17 05:46 Sodium 126.5 L Potassium 3.3 L Chloride 80 L Carbon Dioxide 37 H Anion Gap 10 BUN 18 Creatinine 0.73 Est GFR ( Amer) > 60 Est GFR (Non-Af Amer) > 60 Glucose 123 H Calcium 9.2 Magnesium 1.7 10/26/17 10/29/17 05:12 06:03 NT-Pro-B Natriuret Pep 7930 H 9390 H Impressions: Chest X-Ray 10/24/17 15:14 IMPRESSION: Trace right pleural fluid with minimal right retrocardiac airspace disease atelectasis versus pneumonia. This is similar compared to 10/16/2017. Assessment & Plan - Diagnosis (1) CHF (congestive heart failure) Qualifiers: Heart failure type: diastolic Heart failure chronicity: acute on chronic Qualified Code(s): I50.33 - Acute on chronic diastolic (congestive) heart failure Is this a current diagnosis for this admission?: Yes Plan: Patient with acute on chronic what appears to be diastolic heart failure. Patient with significant edema which is slowly improving. Patient is on 80 mg of Lasix twice a day. Metolazone was increased to 5 mg p.o. daily. Patient has lost 20 pounds. (2) Hyponatremia Is this a current diagnosis for this admission?: Yes Plan: Stable. Fluid restriction increased from 0452-1841. Patient may have a component of SIADH as she does have a lung cancer. 2 use Lasix and fluid restriction. (3) Thrombocytopenia Is this a current diagnosis for this admission?: Yes Plan: Patient with persistent thrombocytopenia. Patient was evaluated by oncology hematology. Plan is for follow-up as outpatient. Platelet count is a little better today. (4) Atrial fibrillation Qualifiers: Atrial fibrillation type: chronic Qualified Code(s): I48.2 - Chronic atrial fibrillation Is this a current diagnosis for this admission?: Yes Plan: Chronic atrial fibrillation, now better control with adjustment of the Cardizem. Patient not on any anticoagulation due to her thrombocytopenia. (5) Lung cancer Qualifiers: Laterality: right Lung location: upper lobe of lung Qualified Code(s): C34.11 - Malignant neoplasm of upper lobe, right bronchus or lung Is this a current diagnosis for this admission?: Yes Plan: Management by oncology. (6) Hypomagnesemia Is this a current diagnosis for this admission?: Yes Plan: Change despite replacement. Patient on IV and p.o. replacement. Will continue to monitor. (7) UTI (urinary tract infection) Qualifiers: Urinary tract infection type: site unspecified Hematuria presence: without hematuria Qualified Code(s): N39.0 - Urinary tract infection, site not specified Is this a current diagnosis for this admission?: Yes (8) Hypokalemia Plan: Potassium 3.3 most likely due to the use of Lasix. Will consider starting spironolactone which is potassium sparing. Will replace potassium and monitor. - Time Time Spent with patient: Less than 15 minutes Anticipated discharge: Home with Homehealth Within: within 24 hours
[2017-11-02] MEDS: LOSARTAN POTASSIUM 50 MG TABLET PO SCH (19:32)
[2017-11-02] MEDS: SIMVASTATIN 40 MG TABLET PO SCH (21:28)
[2017-11-02] MEDS: CEFTRIAXONE 2 GM/D5W RTU 2 GM/50 ML RTUPB IV SCH (21:29)
[2017-11-03] MEDS: PHENAZOPYRIDINE HCL 100 MG TABLET PO SCH ×3 (06:18→21:58)
[2017-11-03] MEDS: HYDRALAZINE HCL 25 MG TABLET PO SCH ×3 (06:18→22:56)
[2017-11-03] MEDS: BUDESONIDE/FORMOTEROL 160-4.5 MCG 60 PUFF/6 GM MDI IH SCH ×2 (09:28→21:58)
[2017-11-03] MEDS: SPIRONOLACTONE 25 MG TABLET PO SCH (09:28)
[2017-11-03] MEDS: DILTIAZEM HCL 120 MG CAP.SR.24H PO SCH ×2 (09:29→21:58)
[2017-11-03] MEDS: MAGNESIUM OXIDE 400 MG TABLET PO SCH (09:30)
[2017-11-03] MEDS: FUROSEMIDE 80 MG TABLET PO SCH ×2 (09:30→17:27)
[2017-11-03] MEDS: FAMOTIDINE 20 MG TABLET PO SCH ×2 (09:31→21:58)
[2017-11-03] MEDS: LOSARTAN POTASSIUM 50 MG TABLET PO SCH (09:31)
[2017-11-03] MEDS: DOCUSATE SODIUM 100 MG CAPSULE PO SCH (09:31)
[2017-11-03] MEDS: OXYCODONE HCL IR 5 MG TABLET PO PRN ×2 (10:31→18:30)
[2017-11-03] MEDS: INSULIN LISPRO 100 UNIT/ML 3 ML VIAL SUBCUT PRN (11:41)
[2017-11-03] MEDS ORDERED: POTASSIUM CHLORIDE 10 MEQ TABLET.SA PO ONE (11:46)
[2017-11-03 12:45] LABS: ANION GAP 10 (5-19); BLOOD UREA NITROGEN 16 mg/dL (7-20); CALCIUM 9.5 mg/dL (8.4-10.2); CARBON DIOXIDE 37 mmol/L (22-30); CHLORIDE 79 mmol/L (98-107); GLUCOSE 154 mg/dL (75-110); SODIUM 126.3 mmol/L (137-145)
--- NOTE | 2017-11-03 18:01 | PDOC PROGRESS REPORT ---
Subjective Progress Note for:: 10/31/17 Subjective:: Patient was placed on increasing dose of Lasix IV at 80 mg twice daily plan is to continue with it. Today patient feeling better with less leg swelling. No new complaint except feeling fatigued and tired. Pt is denying any chest arm or neck discomfort. Patient denying any PND, orthopnea. Patient denied any sustained palpitations, dizziness, syncope, near syncope. Patient denying any fever chills. Patient denying any other significant discomfort. Patient still noted to have significant pedal edema. Sodium is still low but has significantly improved overnight. Platelet count still low, shows improving trend. Patient is maintaining atrial fibrillation. Intermittent ventricular paced beats noted. Review of systems: Rest review of systems negative. Medications: Medications have been reviewed. Reason For Visit: CHF,HYPONATREMIA, LUNG CANCER, THROMBOCYTOPENIA Physical Exam Vital Signs: Temp Pulse Resp BP Pulse Ox 98.0 F 89 17 120/65 92 10/31/17 16:09 10/31/17 19:00 10/31/17 16:09 10/31/17 16:09 10/31/17 16:09 Intake & Output 10/30/17 10/31/17 11/01/17 06:59 06:59 06:59 Intake Total 1222 1501 550 Output Total 4650 3075 1400 Balance -0251 -5347 -850 Weight 100.8 kg 98.7 kg Exam: GENERAL: well-nourished and in no acute distress. Alert and oriented x3 HEAD: Atraumatic, normocephalic. EYES: Pupils equal round and reactive to light, extraocular movements intact, sclera anicteric, conjunctiva are normal. ENT: TMs normal, nares patent, oropharynx clear without exudates. Moist mucous membranes. No oral ulcerations or bleeding gums noted NECK: supple without lymphadenopathy. Trachea is central. No cervical or axillary lymphadenopathy noted. Carotids are 2+, JVD 8 cm LUNGS: Respiration seems nonlabored, no significant accessory muscle action noted. Bibasilar fine crackles, no wheezes rales or rhonchi noted. No significant dullness noted on percussion. CHEST: Palpation of the chest wall shows no significant chest wall tenderness. No other significant abnormalities noted. 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 ABDOMEN: Soft, no significant tenderness appreciated, normoactive bowel sounds. No guarding, no rebound. No rigidity noted . No masses appreciated. EXTREMITIES: Pedal pulses are 1-2+, no calf tenderness noted. No clubbing or cyanosis. 2 + pedal edema noted NEUROLOGICAL: Focused neurological exam showed no significant neurologic deficit. Normal speech, no focal weakness appreciated. PSYCH: Normal mood, normal affect. Judgment and insight within normal limits. SKIN: No significant ecchymosis, skin is noted to be warm. MUSCULOSKELETAL EXAM: No significant acute joint swelling noted. Results Laboratory Results: 10/30/17 08:15 10/31/17 06:45 10/31/17 06:45 Sodium 129.6 L Potassium 3.8 Chloride 86 L Carbon Dioxide 35 H Anion Gap 9 BUN 19 Creatinine 0.76 Est GFR ( Amer) > 60 Est GFR (Non-Af Amer) > 60 Glucose 106 Calcium 9.2 Magnesium 1.7 10/26/17 10/29/17 05:12 06:03 NT-Pro-B Natriuret Pep 7930 H 9390 H EKG Comments: Telemetry shows chronic atrial fibrillation with intermittent ventricular paced beats. Impressions: Chest X-Ray 10/24/17 15:14 IMPRESSION: Trace right pleural fluid with minimal right retrocardiac airspace disease atelectasis versus pneumonia. This is similar compared to 10/16/2017. Assessment & Plan - Diagnosis (1) CHF (congestive heart failure) Qualifiers: Heart failure type: diastolic Heart failure chronicity: acute on chronic Qualified Code(s): I50.33 - Acute on chronic diastolic (congestive) heart failure Is this a current diagnosis for this admission?: Yes (2) Atrial fibrillation Qualifiers: Atrial fibrillation type: chronic Qualified Code(s): I48.2 - Chronic atrial fibrillation Is this a current diagnosis for this admission?: Yes (3) Hyponatremia Is this a current diagnosis for this admission?: Yes (4) Thrombocytopenia Is this a current diagnosis for this admission?: Yes (5) COPD (chronic obstructive pulmonary disease) Qualifiers: Emphysema type: unspecified Is this a current diagnosis for this admission?: Yes (6) Coronary artery disease Qualifiers: Coronary Disease-Associated Artery/Lesion type: unspecified vessel or lesion type [place] vs. 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 Patient noted to have diastolic dysfunction and also enlargement of the right ventricle suggestive of right heart failure. Have increased IV diuretics. Continue with IV Lasix 80 mg twice daily. Recommend proper treatment of underlying pulmonary condition. Better option would have been torsemide but patient insurance may not cover it. Also did not add Zaroxolyn as this might worsen patient's hyponatremia. Patient will benefit from sleep study and possibly evaluation for nocturnal hypoxemia and nocturnal oxygen supplementation. Atrial fibrillation: Currently to be treated with rate control. Heart rate seems well controlled. Unfortunately chronic anticoagulation is relatively contraindicated in view of very low platelet count. Patient understands she is at increased risk of stroke. However once feasible to start chronic anticoagulation, consider restarting it. Thrombocytopenia: Patient being followed by oncologist. Platelet count improving. Hyponatremia: Recommend fluid restriction. Probably part and parcel of CHF and possibly syndrome of inappropriate ADH secretion from lung cancer. Serum sodium has improved significantly. COPD: Continue current therapy Coronary artery disease: Symptomatically stable. Diabetes: Recommend good control but avoid any hypoglycemia. Lung cancer: Chemotherapy is on hold because of thrombocytopenia. Will leave management plans to oncologist. Overall prognosis is guarded. - Time Time with patient: 15-25 minutes - CODE STATUS was discussed, patient remains full code. Surrogate decision-maker unchanged. Multiple medical problems were addressed. More than 50% of the time spent coordinating care, discussing management plans with involved caregivers. Management plans discussed with involved personnels. Medical decision making was of moderate to high complexity , patient's has multiple comorbidities. Medications reviewed and adjusted accordingly: Yes
--- NOTE | 2017-11-03 18:04 | PDOC PROGRESS REPORT ---
Subjective Progress Note for:: 11/01/17 Subjective:: Patient was placed on Lasix 80 mg p.o. twice daily. Swelling about the same.. No new complaint except feeling fatigued and tired. Pt is denying any chest arm or neck discomfort. Patient denying any PND, orthopnea. Patient denied any sustained palpitations, dizziness, syncope, near syncope. Patient denying any fever chills. Patient denying any other significant discomfort. Patient still noted to have significant pedal edema. Sodium is still low but has significantly improved overnight. Platelet count still low, shows improving trend. Patient is maintaining atrial fibrillation. Intermittent ventricular paced beats noted. Review of systems: Rest review of systems negative. Medications: Medications have been reviewed. Reason For Visit: CHF,HYPONATREMIA, LUNG CANCER, THROMBOCYTOPENIA Physical Exam Vital Signs: Temp Pulse Resp BP Pulse Ox 97.7 F 78 19 115/50 L 98 11/01/17 19:36 11/01/17 19:36 11/01/17 19:36 11/01/17 19:36 11/01/17 19:36 Intake & Output 10/31/17 11/01/17 11/02/17 06:59 06:59 06:59 Intake Total 1501 1610 579 Output Total 3075 3400 3100 Balance -1574 -4230 -6141 Weight 98.7 kg 98.7 kg Exam: GENERAL: well-nourished and in no acute distress. Alert and oriented x3 HEAD: Atraumatic, normocephalic. EYES: Pupils equal round and reactive to light, extraocular movements intact, sclera anicteric, conjunctiva are normal. ENT: TMs normal, nares patent, oropharynx clear without exudates. Moist mucous membranes. No oral ulcerations or bleeding gums noted NECK: supple without lymphadenopathy. Trachea is central. No cervical or axillary lymphadenopathy noted. Carotids are 2+, JVD 8 cm LUNGS: Respiration seems nonlabored, no significant accessory muscle action noted. Few bibasilar fine crackles noted. No wheezes rales or rhonchi noted. No significant dullness noted on percussion. CHEST: Palpation of the chest wall shows no significant chest wall tenderness. No other significant abnormalities noted. 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 ABDOMEN: Soft, no significant tenderness appreciated, normoactive bowel sounds. No guarding, no rebound. No rigidity noted . No masses appreciated. EXTREMITIES: Pedal pulses are 1-2+, no calf tenderness noted. No clubbing or cyanosis. 2 + pedal edema noted NEUROLOGICAL: Focused neurological exam showed no significant neurologic deficit. Normal speech, no focal weakness appreciated. PSYCH: Normal mood, normal affect. Judgment and insight within normal limits. SKIN: No significant ecchymosis, skin is noted to be warm. MUSCULOSKELETAL EXAM: No significant acute joint swelling noted. Results Laboratory Results: 10/30/17 08:15 11/01/17 06:34 11/01/17 06:34 Sodium 127.5 L Potassium 3.9 Chloride 81 L Carbon Dioxide 37 H Anion Gap 10 BUN 17 Creatinine 0.73 Est GFR ( Amer) > 60 Est GFR (Non-Af Amer) > 60 Glucose 117 H Calcium 9.6 Magnesium 1.7 10/26/17 10/29/17 05:12 06:03 NT-Pro-B Natriuret Pep 7930 H 9390 H EKG Comments: Telemetry shows atrial fibrillation with controlled ventricular response and occasional ventricular paced beats. Impressions: Chest X-Ray 10/24/17 15:14 IMPRESSION: Trace right pleural fluid with minimal right retrocardiac airspace disease atelectasis versus pneumonia. This is similar compared to 10/16/2017. Assessment & Plan - Diagnosis (1) CHF (congestive heart failure) Qualifiers: Heart failure type: diastolic Heart failure chronicity: acute on chronic Qualified Code(s): I50.33 - Acute on chronic diastolic (congestive) heart failure Is this a current diagnosis for this admission?: Yes (2) Atrial fibrillation Qualifiers: Atrial fibrillation type: chronic Qualified Code(s): I48.2 - Chronic atrial fibrillation Is this a current diagnosis for this admission?: Yes (3) Hyponatremia Is this a current diagnosis for this admission?: Yes (4) Thrombocytopenia Is this a current diagnosis for this admission?: Yes (5) COPD (chronic obstructive pulmonary disease) Qualifiers: Emphysema type: unspecified Is this a current diagnosis for this admission?: Yes (6) Coronary artery disease Qualifiers: Coronary Disease-Associated Artery/Lesion type: unspecified vessel or lesion type [place] vs. transplanted heart: [place] heart Associated angina: angina presence unspecified Qualified Code(s): I25.10 - Atherosclerotic heart disease of [place] coronary artery without angina pectoris Is this a current diagnosis for this admission?: Yes (7) Diabetes mellitus Qualifiers: Diabetes mellitus type: type 2 Diabetes mellitus [facility] insulin use: without long term care phlebotomist use Diabetes mellitus complication status: without complication Qualified Code(s): E11.9 - Type 2 diabetes mellitus without complications Is this a current diagnosis for this admission?: Yes (8) Lung cancer Qualifiers: Laterality: right Lung location: upper lobe of lung Qualified Code(s): C34.11 - Malignant neoplasm of upper lobe, right bronchus or lung Is this a current diagnosis for this admission?: Yes - Notes Notes: Congestive heart failure: 2D echo reviewed. Patient noted to have diastolic dysfunction and also enlargement of the right ventricle suggestive of right heart failure. Have increased IV diuretics. Continue with Lasix 80 mg p.o twice daily. May consider switch to torsemide for better action. Recommend proper treatment of underlying pulmonary condition. Patient will benefit from sleep study and possibly evaluation for nocturnal hypoxemia and nocturnal oxygen supplementation. This can be completed as an outpatient. Atrial fibrillation: Currently to be treated with rate control. Heart rate seems well controlled. Unfortunately chronic anticoagulation is relatively contraindicated in view of very low platelet count. Patient understands she is at increased risk of stroke. However once feasible to start chronic anticoagulation, consider restarting it. Thrombocytopenia: Patient being followed by oncologist. Platelet count improving. Hyponatremia: Recommend fluid restriction. Probably part and parcel of CHF and possibly syndrome of inappropriate ADH secretion from lung cancer. Serum sodium has improved significantly. COPD: Continue current therapy Coronary artery disease: Symptomatically stable. Diabetes: Recommend good control but avoid any hypoglycemia. Lung cancer: Chemotherapy is on hold because of thrombocytopenia. Will leave management plans to oncologist. Overall prognosis is guarded. - Time Time with patient: 15-25 minutes - CODE STATUS was discussed, patient remains full code. Surrogate decision-maker unchanged. Multiple medical problems were addressed. More than 50% of the time spent coordinating care, discussing management plans with involved caregivers. Management plans discussed with involved personnels. Medical decision making was of moderate to high complexity , patient's has multiple comorbidities. Medications reviewed and adjusted accordingly: Yes
--- NOTE | 2017-11-03 18:49 | PDOC PROGRESS REPORT ---
Subjective Progress Note for:: 11/03/17 Subjective:: Patient states her leg swelling has improved significantly. Her breathing is pretty good today. She is anxious to have her Miguel catheter removed. She has been able to ambulate in her room. Chest pain. No fevers or chills. She is eating and drinking without difficulty. She is moving her bowels without difficulty. No evidence of bleeding. Reason For Visit: CHF,HYPONATREMIA, LUNG CANCER, THROMBOCYTOPENIA Physical Exam Vital Signs: Temp Pulse Resp BP Pulse Ox 97.5 F 82 19 111/53 L 98 11/03/17 15:38 11/03/17 15:38 11/03/17 15:38 11/03/17 15:38 11/03/17 15:38 Intake & Output 11/02/17 11/03/17 11/04/17 06:59 06:59 07:59 Intake Total 1137 1528 910 Output Total 6250 1275 1000 Balance -5113 253 -90 Weight 94.2 kg 94.2 kg General appearance: PRESENT: no acute distress, cooperative, morbidly obese Head exam: PRESENT: atraumatic, normocephalic Ear exam: PRESENT: normal external ear exam Mouth exam: PRESENT: moist, tongue midline Respiratory exam: PRESENT: clear to auscultation isaura, unlabored. ABSENT: rales , rhonchi, wheezes Cardiovascular exam: PRESENT: RRR. ABSENT: systolic murmur GI/Abdominal exam: PRESENT: normal bowel sounds, soft. ABSENT: distended, guarding, tenderness Gentrourinary exam: PRESENT: indwelling catheter - With orange colored urine, on Pyridium Extremities exam: PRESENT: +1 edema Neurological exam: PRESENT: alert, awake, oriented to person, oriented to place , oriented to situation, CN II-XII grossly intact Psychiatric exam: PRESENT: appropriate affect. ABSENT: anxious Skin exam: PRESENT: dry, warm Results Laboratory Results: 10/30/17 08:15 11/03/17 12:13 11/03/17 12:13 Sodium 126.3 L Potassium 4.0 Chloride 79 L Carbon Dioxide 37 H Anion Gap 10 BUN 16 Creatinine 0.66 Est GFR ( Amer) > 60 Est GFR (Non-Af Amer) > 60 Glucose 154 H Calcium 9.5 10/26/17 10/29/17 05:12 06:03 NT-Pro-B Natriuret Pep 7930 H 9390 H Impressions: Chest X-Ray 10/24/17 15:14 IMPRESSION: Trace right pleural fluid with minimal right retrocardiac airspace disease atelectasis versus pneumonia. This is similar compared to 10/16/2017. Assessment & Plan - Diagnosis (1) CHF (congestive heart failure) Qualifiers: Heart failure type: diastolic Heart failure chronicity: acute on chronic Qualified Code(s): I50.33 - Acute on chronic diastolic (congestive) heart failure Is this a current diagnosis for this admission?: Yes Plan: Is improving on Lasix 80 mg p.o. twice daily and spironolactone. We will continue this regimen and recheck her electrolytes tomorrow. If her electrolytes are stable she will be discharged home on this regimen. (2) Hyponatremia Is this a current diagnosis for this admission?: Yes Plan: Stable in the mid 120s. This improved with her fluid hydration and diuresis for CHF. 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 (3) Thrombocytopenia Is this a current diagnosis for this admission?: Yes Plan: Thrombocytopenia after chemotherapy persists. Oncology is following closely. This has hindered her continuation of chemotherapy for her lung cancer. No active bleeding. Platelets are 31 today (4) Atrial fibrillation Qualifiers: Atrial fibrillation type: chronic Qualified Code(s): I48.2 - Chronic atrial fibrillation Is this a current diagnosis for this admission?: Yes Plan: Stable heart rate, no changes in medication regimen today. (5) Lung cancer Qualifiers: Laterality: right Lung location: upper lobe of lung Qualified Code(s): C34.11 - Malignant neoplasm of upper lobe, right bronchus or lung Is this a current diagnosis for this admission?: Yes Plan: Patient is followed closely by oncology. She will follow-up with her oncologist as an outpatient. - Time Time Spent with patient: 15-24 minutes Medications reviewed and adjusted accordingly: Yes - Inpatient Certification Based on my medical assessment, after consideration of the patient's comorbidities, presenting symptoms, or acuity I expect that the services needed warrant INPATIENT care.: Yes I certify that my determination is in accordance with my understanding of Medicare's requirements for reasonable and necessary INPATIENT services [42 CFR 412.3e].: Yes Medical Necessity: Significant Comorbidiites Make Outpatient Treatment Too Risky , Need Close Monitoring Due to Risk of Patient Decompensation, Risk of Complication if Not Cared For in Hospital
[2017-11-03] MEDS: SIMVASTATIN 40 MG TABLET PO SCH (21:58)
[2017-11-03] MEDS: CEFTRIAXONE 2 GM/D5W RTU 2 GM/50 ML RTUPB IV SCH (21:58)
[2017-11-04] MEDS: OXYCODONE HCL IR 5 MG TABLET PO PRN (00:41)
[2017-11-04] MEDS: PHENAZOPYRIDINE HCL 100 MG TABLET PO SCH ×2 (06:11→14:50)
[2017-11-04] MEDS: HYDRALAZINE HCL 25 MG TABLET PO SCH ×2 (06:11→14:50)
[2017-11-04] MEDS: ACETAMINOPHEN 325 MG TABLET PO PRN (06:11)
[2017-11-04 08:56] LABS: HEMATOCRIT 28.9 % (36.0-47.0); HEMOGLOBIN 9.6 g/dL (12.0-15.5); MEAN CORPUSCULAR HEMOGLOBIN 33.9 pg (27.0-33.4); MEAN CORPUSCULAR HGB CONC 33.1 g/dL (32.0-36.0); MEAN CORPUSCULAR VOLUME 102 fl (80-97); RED BLOOD COUNT 2.82 10^6/uL (3.72-5.28); RED CELL DISTRIBUTION WIDTH 15.4 % (11.5-14.0); WHITE BLOOD COUNT 6.1 10^3/uL (4.0-10.5)
[2017-11-04 09:12] LABS: ANION GAP 11 (5-19); BLOOD UREA NITROGEN 21 mg/dL (7-20); CALCIUM 9.2 mg/dL (8.4-10.2); CARBON DIOXIDE 33 mmol/L (22-30); CHLORIDE 81 mmol/L (98-107); POTASSIUM 3.6 mmol/L (3.6-5.0); SODIUM 125.2 mmol/L (137-145)
[2017-11-04 09:13] LABS: GLUCOSE 113 mg/dL (75-110)
[2017-11-04 09:30] LABS: PLATELET COUNT 37 10^3/uL (150-450)
[2017-11-04] MEDS: LOSARTAN POTASSIUM 50 MG TABLET PO SCH (10:06)
[2017-11-04] MEDS: SPIRONOLACTONE 25 MG TABLET PO SCH (10:06)
[2017-11-04] MEDS: DILTIAZEM HCL 120 MG CAP.SR.24H PO SCH (10:06)
[2017-11-04] MEDS: BUDESONIDE/FORMOTEROL 160-4.5 MCG 60 PUFF/6 GM MDI IH SCH (10:06)
[2017-11-04] MEDS: FAMOTIDINE 20 MG TABLET PO SCH (10:06)
[2017-11-04] MEDS: DOCUSATE SODIUM 100 MG CAPSULE PO SCH (10:06)
[2017-11-04] MEDS: MAGNESIUM OXIDE 400 MG TABLET PO SCH (10:06)
[2017-11-04] MEDS: FUROSEMIDE 80 MG TABLET PO SCH (10:06)
[2017-11-04 14:03] VITALS: BP 115/62
--- NOTE | 2017-11-04 15:12 | PDOC PROGRESS REPORT ---
Subjective Progress Note for:: 11/04/17 Subjective:: Patient laying flat in bed, reading on her digital reader. Pt is denying any chest arm or neck discomfort. Patient denying any PND, orthopnea. Patient denied any sustained palpitations, dizziness, syncope, near syncope. Patient denying any fever chills. Patient denying any other significant discomfort. Leg edema seems improved. Patient is wearing support stockings. She is suspected to be discharged either later on today or tomorrow. Medications were reviewed. Patient is maintaining atrial fibrillation. Intermittent ventricular paced beats noted. Review of systems: Rest review of systems negative. Medications: Medications have been reviewed. Reason For Visit: CHF,HYPONATREMIA, LUNG CANCER, THROMBOCYTOPENIA Physical Exam Vital Signs: Temp Pulse Resp BP Pulse Ox 98.9 F 100 22 H 120/97 H 100 11/04/17 13:59 11/04/17 14:00 11/04/17 13:59 11/04/17 13:59 11/04/17 13:59 Intake & Output 11/03/17 11/04/17 11/05/17 05:59 06:59 06:59 Intake Total Output Total Balance Weight Exam: GENERAL: well-nourished and in no acute distress. Alert and oriented x3 HEAD: Atraumatic, normocephalic. EYES: Pupils equal round and reactive to light, extraocular movements intact, sclera anicteric, conjunctiva are normal. ENT: TMs normal, nares patent, oropharynx clear without exudates. Moist mucous membranes. No oral ulcerations or bleeding gums noted NECK: supple without lymphadenopathy. Trachea is central. No cervical or axillary lymphadenopathy noted. Carotids are 2+, JVD WNL LUNGS: Respiration seems nonlabored, no significant accessory muscle action noted. Breath sounds clear to auscultation bilaterally and equal noted. No wheezes rales or rhonchi noted. No significant dullness noted on percussion. CHEST: Palpation of the chest wall shows no significant chest wall tenderness. No other significant abnormalities noted. HEART: [place] [employer], No PSH, 1/6 JAMIE aortic area, 1/6 gonzalez systolic murmur mitral area, no rubs, no gallops. ABDOMEN: Soft, no significant tenderness appreciated, normoactive bowel sounds. No guarding, no rebound. No rigidity noted . No masses appreciated. EXTREMITIES: Pedal pulses are 1-2+, no calf tenderness noted. No clubbing or cyanosis.1+ pedal edema noted NEUROLOGICAL: Focused neurological exam showed no significant neurologic deficit. Normal speech, no focal weakness appreciated. PSYCH: Normal mood, normal affect. Judgment and insight within normal limits. SKIN: No significant ecchymosis, skin is noted to be warm. MUSCULOSKELETAL EXAM: No significant acute joint swelling noted. Results Laboratory Results: 11/04/17 08:22 11/04/17 08:22 11/04/17 11/04/17 08:22 08:22 WBC 6.1 RBC 2.82 L Hgb 9.6 L Hct 28.9 L MCV 102 H MCH 33.9 H MCHC 33.1 RDW 15.4 H Plt Count 37 L Sodium 125.2 L Potassium 3.6 Chloride 81 L Carbon Dioxide 33 H Anion Gap 11 BUN 21 H Creatinine 0.77 Est GFR ( Amer) > 60 Est GFR (Non-Af Amer) > 60 Glucose 113 H Calcium 9.2 Magnesium 1.6 10/26/17 10/29/17 05:12 06:03 NT-Pro-B Natriuret Pep 7930 H 9390 H Impressions: Chest X-Ray 10/24/17 15:14 IMPRESSION: Trace right pleural fluid with minimal right retrocardiac airspace disease atelectasis versus pneumonia. This is similar compared to 10/16/2017. Assessment & Plan - Diagnosis (1) CHF (congestive heart failure) Qualifiers: Heart failure type: diastolic Heart failure chronicity: acute on chronic Qualified Code(s): I50.33 - Acute on chronic diastolic (congestive) heart failure Is this a current diagnosis for this admission?: Yes (2) Atrial fibrillation Qualifiers: Atrial fibrillation type: chronic Qualified Code(s): I48.2 - Chronic atrial fibrillation Is this a current diagnosis for this admission?: Yes (3) Hyponatremia Is this a current diagnosis for this admission?: Yes (4) Thrombocytopenia Is this a current diagnosis for this admission?: Yes (5) COPD (chronic obstructive pulmonary disease) Qualifiers: Emphysema type: unspecified Is this a current diagnosis for this admission?: Yes (6) Coronary artery disease Qualifiers: Coronary Disease-Associated Artery/Lesion type: unspecified vessel or lesion type [place] vs. 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 Patient noted to have diastolic dysfunction and also enlargement of the right ventricle suggestive of right heart failure. Patient has been on a stable regimen. Patient instructed more strict fluid restriction. Continue Lasix at 80 mg p.o. twice daily. Patient will benefit from sleep study and possibly evaluation for nocturnal hypoxemia and nocturnal oxygen supplementation. This can be completed as an outpatient. Atrial fibrillation: Currently to be treated with rate control. Heart rate seems well controlled. Unfortunately chronic anticoagulation is relatively contraindicated in view of very low platelet count. Patient understands she is at increased risk of stroke. However once feasible to start chronic anticoagulation, consider restarting it. Thrombocytopenia: Patient being followed by oncologist. Platelet count improving. Platelet count is now in the 30s. Hyponatremia: Recommend fluid restriction. Probably part and parcel of CHF and possibly syndrome of inappropriate ADH secretion from lung cancer. Serum sodium has improved significantly. COPD: Continue current therapy Coronary artery disease: Symptomatically stable. Diabetes: Recommend good control but avoid any hypoglycemia. Lung cancer: Chemotherapy is on hold because of thrombocytopenia. Will leave management plans to oncologist. Overall prognosis is guarded. Patient can follow-up with me if she wishes for management of CHF. - Time Time with patient: 15-25 minutes - CODE STATUS was discussed, patient remains full code. Surrogate decision-maker unchanged. Multiple medical problems were addressed. More than 50% of the time spent coordinating care, discussing management plans with involved caregivers. Management plans discussed with involved personnels. Medical decision making was of moderate to high complexity , patient's has multiple comorbidities. Medications reviewed and adjusted accordingly: Yes
--- NOTE | 2017-11-04 17:54 | PDOC DISCHARGE SUMMARY ---
General - Admit/Disc Date/PCP Admission Date/Primary Care Provider: 10/24/17 16:50 MARCO PETERSON Discharge Date: 11/04/17 - Discharge Diagnosis (1) CHF (congestive heart failure) Is this a current diagnosis for this admission?: Yes Summary: Right heart failure and diastolic dysfunction. It has been difficult to diurese this patient and ultimately we were successful with lasix 80 mg po BID and spironolactone 12.5 mg daily. Electrolytes stable. Fluids restriction was strict. Patient advised to call Dr. Merino for close cardiology followup. (2) Hyponatremia Is this a current diagnosis for this admission?: Yes Summary: Multifactorial with CHF and SIADH. Her sodium was 119.8 on admit and 125 on discharge, improved with diuresis and fluid restriction. 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 She knows she needs close out patient follow up. (3) Thrombocytopenia Is this a current diagnosis for this admission?: Yes Summary: secondary to chemo, her oncologists are aware and will follow. Plts starting to trend upward. (4) Atrial fibrillation Is this a current diagnosis for this admission?: Yes Summary: stable, DCed on diltiazem. She is not anticoagulated secondary to severe thrombocytopenia. She is aware of the risks of not being anticoagulated. (5) Lung cancer Is this a current diagnosis for this admission?: Yes Summary: Patient's chemotherapy is on hold secondary to severe thrombocytopenia. I spoke with 1 of her oncologists within the last few days who shared that she had been worked up recently for leukemia, workup was negative. She has been followed closely by the oncologist during the hospitalization and she will call their office tomorrow for a follow-up appointment. - Additional Information Resuscitation Status: Full Code Discharge Diet: Cardiac Discharge Activity: Balance Activity w/Rest Prescriptions: Diltiazem HCl [Cardizem Cd 120 mg Capsule] 120 mg PO Q12 #60 cap.sr.24h Docusate Sodium [Colace 100 mg Capsule] 100 mg PO DAILY #30 capsule Famotidine [Pepcid 20 mg Tablet] 20 mg PO Q12 #60 tablet Furosemide [Lasix 80 mg Tablet] 80 mg PO BID 14 Days #28 tablet Spironolactone [Aldactone 25 mg Tablet] 12.5 mg PO DAILY #14 tablet Home Medications: Acetaminophen/Diphenhydramine [Tylenol Pm Ex-Strength Caplet] 2 tab PO QHS 10/24 Budesonide/Formoterol Fumarate [Symbicort HFA 160-4.5 mcg Inhaler 6 gm] 2 puff IH Q12 10/24/17 Hydralazine HCl 100 mg PO Q8 10/24/17 Losartan Potassium [Cozaar 100 mg Tablet] 100 mg PO DAILY 10/24/17 Metformin HCl [Metformin HCl ER] 1,000 mg PO Q12 10/24/17 Ondansetron HCl [Zofran 8 mg Tablet] 8 mg PO Q8HP PRN 10/24/17 Oxycodone HCl [Oxy-Ir 5 mg Tablet] 5 mg PO Q8HP PRN 10/24/17 Promethazine HCl [Phenergan 25 mg Tablet] 25 mg PO Q6HP PRN 10/24/17 Simvastatin [Zocor 40 mg Tablet] 40 mg PO QHS 10/24/17 Umeclidinium [place] [Incruse Ellipta] 1 puff IH DAILY 10/24/17 Diltiazem HCl [Cardizem Cd 120 mg Capsule] 120 mg PO Q12 #60 cap.sr.24h Docusate Sodium [Colace 100 mg Capsule] 100 mg PO DAILY #30 capsule 11/04/17 Famotidine [Pepcid 20 mg Tablet] 20 mg PO Q12 #60 tablet 11/04/17 Furosemide [Lasix 80 mg Tablet] 80 mg PO BID 14 Days #28 tablet 11/04/17 Spironolactone [Aldactone 25 mg Tablet] 12.5 mg PO DAILY #14 tablet 11/04/17 History of Present Illness History of Present Illness: GINNA LOPEZ is a 67 year old female who presented to the hospital with generalized swelling and difficulty breathing over the last few days History of Present Illness: GINNA LOPEZ is a 67 year old female who Presents to the emergency room with complaints of generalized swelling as well as difficulty breathing which has been progressive over the last few days. She was just discharged from the hospital on October 20 by me for the same reason. Patient has had repeated episodes of anasarca as well as hyponatremia. The does have underlying lung cancer which may be contributing to hyponatremia. She wanted to go to [place] for an appointment on October 22 due to a thrombocytopenia which she did go to and she apparently had a bone marrow biopsy done results of which she is still pending. She was seen by the home health nurse today and she contacted her oncologist who advised her to come to the emergency room for further evaluation where she was found to be quite edematous as well as hyponatremic. Despite his sodium 118 there is no change in mental status and to come back on the chart patient generally runs in the low 120s to about 110s. She claims to have been compliant with her medications and with her fluid intake and restrictions as prescribed. There is no complaints of chest pain nausea vomiting confusion diaphoresis or any other pertinent symptoms. She has gained weight but unsure of how much weight she gained Hospital Course Hospital Course: 67-year-old woman who has lung cancer who was admitted to the hospital with anasarca. She was found to have a multifactorial anasarca with right heart failure and diastolic dysfunction contributing. It is also possible that chemotherapeutic agent is contributing. She could also have a nutritional component to her edema. She was hyponatremic which is also multifactorial, related to CHF and SIADH/lung cancer. She was diuresed over the course of her stay. Ultimately she was doing well on Lasix 80 mg p.o. twice daily and Spironolactone 12.5 mg daily. Her potassium was stable for discharge. She was also on a fluid restriction during the hospitalization. Sodium stabilized in the mid 120s. She will be followed closely as an outpatient. She is asked to see the net sorter upon discharge, Dr. Merino was following her while she was in the hospital. Patient also has severe thrombocytopenia secondary to chemotherapy. Oncology is following. She is not anticoagulated for her A. fib secondary to this. Her platelets were showing a slow upward trend towards discharge. Of note, for her A. fib, she is rate controlled on oral diltiazem. She was treated for urinary tract infection during the hospitalization. She was weak initially but then regained strength and was able to ambulate and eat and drink without difficulty. She was moving her bowels and urinating without difficulty upon discharge. He is to return to medical care with any concerning symptoms. Physical Exam Vital Signs: Temp Pulse Resp BP Pulse Ox 98.9 F 100 22 H 120/97 H 100 11/04/17 13:59 11/04/17 14:00 11/04/17 13:59 11/04/17 13:59 11/04/17 13:59 Intake & Output 11/03/17 11/04/17 11/05/17 05:59 06:59 06:59 Intake Total Output Total Balance Weight Results Laboratory Results: 11/04/17 08:22 11/04/17 08:22 11/04/17 11/04/17 08:22 08:22 WBC 6.1 RBC 2.82 L Hgb 9.6 L Hct 28.9 L MCV 102 H MCH 33.9 H MCHC 33.1 RDW 15.4 H Plt Count 37 L Sodium 125.2 L Potassium 3.6 Chloride 81 L Carbon Dioxide 33 H Anion Gap 11 BUN 21 H Creatinine 0.77 Est GFR ( Amer) > 60 Est GFR (Non-Af Amer) > 60 Glucose 113 H Calcium 9.2 Magnesium 1.6 10/26/17 10/29/17 05:12 06:03 NT-Pro-B Natriuret Pep 7930 H 9390 H Impressions: Chest X-Ray 10/24/17 15:14 IMPRESSION: Trace right pleural fluid with minimal right retrocardiac airspace disease atelectasis versus pneumonia. This is similar compared to 10/16/2017. Qualifiers - * PATEINT BEING DISCHARGED WITH ANY OF THE FOLLOWING DIAGNOSIS?: Heart Failure HF Pt being discharged on ACEI for LVEF less than 40%?: No Reason(s) for not prescribing ACEI:: Not indicated - She has a preserved ejection fraction HF Pt being discharged on ARBS for LVEF less than 40%?: No Reason(s) for not prescribing ARBS:: Not indicated - She has a preserved ejection fraction HF Pt with Afib discharged with Warfarin?: No Reason(s) for not prescribing Warfarin:: Medical Contraindication - Thrombocytopenia precluding anticoagulation HF Pt discharged on evidence-based Beta Kaur:: No Reason(s) for not prescribing evidence-based Beta Kaur:: Not indicated - Patient is rate controlled for A. fib on diltiazem. She will see net sorter in follow-up to be assessed for appropriateness of beta kaur.
== END 2017-11-04 16:00 | disposition home health service (06) | DRG 291 ==
LOC: ER 13:36 → EH 16:50 → 4S 22:52
PROVIDERS: ADMIT Student in an Organized Health Care Education/Training Program; ATTEND Student in an Organized Health Care Education/Training Program
DX: I13.2 Hypertensive heart and chronic kidney disease with heart failure and with stage 5 chronic kidney disease, or end stage renal disease (principal); N18.6 End stage renal disease; I50.33 Acute on chronic diastolic (congestive) heart failure; E87.1 Hypo-osmolality and hyponatremia; N39.0 Urinary tract infection, site not specified; C34.11 Malignant neoplasm of upper lobe, right bronchus or lung; C95.90 Leukemia, unspecified not having achieved remission; E11.22 Type 2 diabetes mellitus with diabetic chronic kidney disease; D69.6 Thrombocytopenia, unspecified; R19.00 Intra-abdominal and pelvic swelling, mass and lump, unspecified site; D64.9 Anemia, unspecified; I48.2 Chronic atrial fibrillation; I25.10 Atherosclerotic heart disease of native coronary artery without angina pectoris; Z87.891 Personal history of nicotine dependence; Z79.84 Long term (current) use of oral hypoglycemic drugs; Z79.82 Long term (current) use of aspirin; Z79.51 Long term (current) use of inhaled steroids; Z79.899 Other long term (current) drug therapy
CPT/HCPCS: 36415; 36591; 71045; 80048; 80053; 81001; 82962; 83735; 83880; 84484; 85025; 85027; 93005; 93010; 94640; 96374; 99285; G8978-GP; G8979-GP; J0696; J1815; J1940; J3475; J3490; J7620

== ENCOUNTER 2017-11-20 20:18 | Inpatient (IN) | payer MEDICARE ==
[2017-11-20 20:51] LABS: ABSOLUTE MONOCYTES (AUTO) 0.8 10^3/uL (0.1-1.4); ABSOLUTE NEUT (AUTO) 10.4 10^3/uL (1.7-8.2); BASOPHILS % (AUTO) 0.3 % (0-2); EOSINOPHILS % (AUTO) 0.1 % (0-6); HEMATOCRIT 28.5 % (36.0-47.0); HEMOGLOBIN 9.4 g/dL (12.0-15.5); MEAN CORPUSCULAR HEMOGLOBIN 33.8 pg (27.0-33.4); MEAN CORPUSCULAR HGB CONC 32.9 g/dL (32.0-36.0); MEAN CORPUSCULAR VOLUME 103 fl (80-97); MONOCYTES % (AUTO) 6.3 % (3-13); RED BLOOD COUNT 2.78 10^6/uL (3.72-5.28); RED CELL DISTRIBUTION WIDTH 15.8 % (11.5-14.0); SEGMENTED NEUTROPHILS % (AUTO) 85.3 % (42-78); TOTAL CELLS COUNTED % (AUTO) 100 %; WHITE BLOOD COUNT 12.2 10^3/uL (4.0-10.5)
--- NOTE | 2017-11-20 21:00 | RADIOLOGY REPORT (SQ) ---
EXAM DESCRIPTION: CHEST SINGLE VIEW COMPLETED DATE/TIME: 11/20/2017 8:49 pm REASON FOR STUDY: shortness of breath COMPARISON: 10/24/2017. EXAM PARAMETERS: NUMBER OF VIEWS: One view. TECHNIQUE: Single frontal radiographic view of the chest acquired. RADIATION DOSE: NA LIMITATIONS: None. FINDINGS: LUNGS AND PLEURA: Airspace disease in the right lung with right pleural effusion. MEDIASTINUM AND HILAR STRUCTURES: No masses. Contour normal. HEART AND VASCULAR STRUCTURES: Cardiomegaly, unchanged. BONES: No acute findings. HARDWARE: Sternotomy wires. Defibrillator. Vascular access port. OTHER: No other significant finding. IMPRESSION: STABLE CARDIOMEGALY. INTERVAL DEVELOPMENT OF RIGHT PLEURAL EFFUSION AND AIRSPACE DISEAS E IN THE RIGHT LUNG, PROBABLY PNEUMONIA ALTHOUGH ASYMMETRIC PULMONARY EDEMA ANOTHER POSSIBILITY. TECHNICAL DOCUMENTATION: JOB ID: [id number] [employer]- All Rights Reserved Reading location - IP/workstation name: [email or web address]
[2017-11-20 21:02] LABS: ALANINE AMINOTRANSFERASE 22 U/L (9-52); ALBUMIN 4.2 g/dL (3.5-5.0); ALKALINE PHOSPHATASE 173 U/L (38-126); ANION GAP 9 (5-19); ASPARTATE AMINO TRANSFERASE 32 U/L (14-36); BILIRUBIN,DIRECT 1.3 mg/dL (0.0-0.4); BILIRUBIN,TOTAL 1.8 mg/dL (0.2-1.3); BLOOD UREA NITROGEN 71 mg/dL (7-20); CALCIUM 10.7 mg/dL (8.4-10.2); CARBON DIOXIDE 32 mmol/L (22-30); CHLORIDE 89 mmol/L (98-107); GLUCOSE 99 mg/dL (75-110); SODIUM 129.5 mmol/L (137-145); TOTAL PROTEIN 7.7 g/dL (6.3-8.2)
[2017-11-20 21:03] LABS: CREATINE KINASE < 20 U/L (30-135)
[2017-11-20 21:05] LABS: POTASSIUM 6.6 mmol/L (3.6-5.0)
[2017-11-20 21:13] LABS: PLATELET COUNT 23 10^3/uL (150-450)
[2017-11-20] MEDS ORDERED: FUROSEMIDE INJ/PF 40 MG/4 ML SDV IV ONE (21:23)
[2017-11-20] MEDS ORDERED: NITROGLYCERIN/D5W 50 MG/250 ML RTUINJ IV PRN (21:23)
[2017-11-20 21:26] LABS: CREATINE KINASE MB < 0.22 ng/mL (<4.55); TROPONIN I < 0.012 ng/mL
--- NOTE | 2017-11-20 21:58 | ER Document Report ---
ED General - General Mode of Arrival: Medic Information source: Patient TRAVEL OUTSIDE OF THE [place] IN LAST 30 DAYS: No COUNTRY TRAVELED TO/FROM: [place] <MARITZA WARE - Last Filed: 11/21/17 00:49> <RANDMEGLAURENCE - Last Filed: 11/21/17 01:07> - General Chief Complaint: Breathing Difficulty Stated Complaint: DIFFICULTY BREATHING Time Seen by Provider: 11/20/17 21:06 Notes: Patient is a 67-year-old female with a history of lung cancer, CHF, pneumonia, COPD, A. fib, [place] and cardiac stents presents to the emergency department complaining of difficulty breathing onset this morning. Patient states she was hardly able to get out of bed due to her difficulty breathing. Patient also complains of abdominal pain when sitting and some nausea. Patient denies any chest pain, vomiting, diarrhea, or blood in stool. Daughter also complained of right sided rib pain further stating the patient fell recently. Patient normally wears 2 L of O2 at home. Patient was discharged from the hospitalist on November 04, 2017. Patient has a follow-up appointment with Dr. Cervantes on 11/22/2017. Patients PCP is IRVIN Pearl. (MARITZA WARE) - Related Data Allergies/Adverse Reactions: Sulfa (Sulfonamide Antibiotics) Allergy (Verified 10/16/17 11:46) Past Medical History - General Information source: Patient, Relative - Social History Smoking Status: Former Smoker Family History: CAD, Hypertension Patient has suicidal ideation: No Patient has homicidal ideation: No - Past Medical History Cardiac Medical History: Reports: Hx Atrial Fibrillation, Hx Congestive Heart Failure, Hx Coronary Artery Disease, Hx Heart Attack, Hx Hypertension, Other - thrombocytopenia Pulmonary Medical History: Reports: Hx COPD Endocrine Medical History: Reports: Hx Diabetes Mellitus Type 2 Malignancy Medical History: Reports: Hx Lung Cancer Past Surgical History: Reports: Hx Cardiac Catheterization, Hx Cardiac Surgery - aicd, Hx Coronary Artery Bypass Graft, Hx Coronary Stent, Hx Internal Defibrillator - Immunizations Hx Diphtheria, Pertussis, Tetanus Vaccination: No Hx Pneumococcal Vaccination: 05/27/17 <MARITZA WARE - Last Filed: 11/21/17 00:49> Review of Systems - Review of Systems Constitutional: No symptoms reported EENT: No symptoms reported Cardiovascular: No symptoms reported Respiratory: See HPI, Short of breath Gastrointestinal: See HPI, Abdominal pain Genitourinary: No symptoms reported Female Genitourinary: No symptoms reported Musculoskeletal: No symptoms reported Skin: No symptoms reported Hematologic/Lymphatic: No symptoms reported Neurological/Psychological: No symptoms reported -: Yes All other systems reviewed and negative <MARITZA WARE - Last Filed: 11/21/17 00:49> Physical Exam <MARITZA WARE - Last Filed: 11/21/17 00:49> <LAURENCE ZHANG - Last Filed: 11/21/17 01:07> - Vital signs Vitals: Resp Pulse Ox 20 97 11/20/17 22:25 11/20/17 22:25 - Notes Notes: GENERAL: Alert, interacts well. Appears short of breath, talking in 2-3 words sentences. HEAD: Normocephalic, atraumatic. EYES: Pupils equal, round, and reactive to light. Extraocular movements intact. ENT: Oral mucosa moist, tongue midline. NECK: Full range of motion. Supple. Trachea midline. LUNGS: Diffuse crackles, right greater than left. Tachypneic, appears short of breath. Talking in 2-3 word sentences. HEART: Irregularly irregular. No murmurs, gallops or rubs. ABDOMEN: Soft, non-tender. Non-distended. Bowel sounds present in all 4 quadrants. EXTREMITIES: Moves all 4 extremities spontaneously. 3+ pitting edema to the level of her knees. Radial and dorsalis pedis pulses 2/4 bilaterally. No cyanosis. NEUROLOGICAL: Alert and oriented x3. Normal speech. PSYCH: Normal affect, normal mood. SKIN: Warm, dry, normal turgor. Bruising across right ribs, consistent with fall. (MARITZA WARE) Course - Laboratory Result Diagrams: 11/20/17 19:30 11/20/17 19:30 <MARITZA WARE - Last Filed: 11/21/17 00:49> - Laboratory Result Diagrams: 11/20/17 19:30 11/20/17 19:30 <LAURENCE ZHANG - Last Filed: 11/21/17 01:07> - Re-evaluation Re-evalutation: 11/21/17 01:03 Patient appears acutely short of breath, was placed on BiPAP and started on Lasix as well as nitroglycerin for her obvious congestive heart failure, patient is much more comfortable on the BiPAP, nitro drip, Lasix. Miguel catheter was placed both for her I and O's as well as for patient comfort. CBC shows new leukocytosis, chronic anemia, chronic thrombocytopenia, arterial blood gas grossly unremarkable, it does show low PO2 but pulse ox is 96%, chemistries are grossly abnormal, it does show a chronic hyponatremia at 129.5 which is actually somewhat improved from usual, potassium is newly elevated at 6.6, there is no anion gap, patient has acute renal failure new from 2 weeks ago with a BUN of 71 and a creatinine of 1.97, cardiac enzymes negative, proBNP markedly elevated at 10,400, urinalysis shows protein but no ketones, there is no signs of dehydration. Chest x-ray shows both right-sided pneumonia as well as asymmetric pulmonary edema and a pleural effusion. This is new from prior chest x-ray. Given the new leukocytosis patient was started on antibiotics in addition to treatment for acute congestive heart failure. No hyperacute T waves, no peaked T waves, no QRS widening therefore no indication for emergent dialysis this evening however patient is given Kayexalate in addition to the Lasix. Discussed case with Dr. Lino the hospitalist who agrees to accept the patient to his service in admission status on the [facility]. (LAURENCE ZHANG) - Vital Signs Vital signs: Temp Pulse Resp BP Pulse Ox 20 97 11/20/17 22:25 11/20/17 22:25 - Laboratory Laboratory results interpreted by me: 11/20/17 11/20/17 11/20/17 19:30 19:30 19:30 WBC 12.2 H RBC 2.78 L Hgb 9.4 L Hct 28.5 L MCV 103 H MCH 33.8 H RDW 15.8 H Plt Count 23 L* Seg Neutrophils % 85.3 H Lymphocytes % 8.0 L Absolute Neutrophils 10.4 H ABG pO2 ABG Total CO2 Sodium 129.5 L Potassium 6.6 H* Chloride 89 L Carbon Dioxide 32 H BUN 71 H Creatinine 1.97 H Est GFR ( Amer) 31 L Est GFR (Non-Af Amer) 25 L Calcium 10.7 H Total Bilirubin 1.8 H Direct Bilirubin 1.3 H Alkaline Phosphatase 173 H Creatine Kinase < 20 L NT-Pro-B Natriuret Pep 25688 H Urine Protein 11/20/17 11/20/17 22:04 23:10 WBC RBC Hgb Hct MCV MCH RDW Plt Count Seg Neutrophils % Lymphocytes % Absolute Neutrophils ABG pO2 78.4 L ABG Total CO2 25.2 H Sodium Potassium Chloride Carbon Dioxide BUN Creatinine Est GFR ( Amer) Est GFR (Non-Af Amer) Calcium Total Bilirubin Direct Bilirubin Alkaline Phosphatase Creatine Kinase NT-Pro-B Natriuret Pep Urine Protein 30 H - EKG Interpretation by Me Additional EKG results interpreted by me: 11/21/17 01:06 EKG shows atrial fibrillation, tachycardic at a rate of 108, right axis deviation, no STEMI, poor R-wave progression. Permanent interpretation. (LAURENCE ZHANG) Critical Care Note - Critical Care Note Total time excluding time spent on procedures (mins): 45 <LAURENCE ZHANG - Last Filed: 11/21/17 01:07> Discharge <MARITZA WARE - Last Filed: 11/21/17 00:49> - [facility] Admitted: [facility] <LAURENCE ZHANG - Last Filed: 11/21/17 01:07> - Discharge Clinical Impression: Thrombocytopenia, Hyponatremia, Hyperkalemia CHF (congestive heart failure) Qualifiers: Heart failure type: unspecified Heart failure chronicity: acute on chronic Qualified Code(s): I50.9 - Heart failure, unspecified Atrial fibrillation Qualifiers: Atrial fibrillation type: chronic Qualified Code(s): I48.2 - Chronic atrial fibrillation Lung cancer Qualifiers: Laterality: right Lung location: lower lobe of lung Qualified Code(s): C34.31 - Malignant neoplasm of lower lobe, right bronchus or lung Acute renal failure Qualifiers: Acute renal failure type: unspecified Qualified Code(s): N17.9 - Acute kidney failure, unspecified Condition: Critical Disposition: ADMITTED INPATIENT Scribe Attestation: 11/21/17 01:07 I personally performed the services described in the documentation, reviewed and edited the documentation which was dictated to the scribe in my presence, and it accurately records my words and actions. (LAURENCE ZHANG) Scribe Documentation - Scribe Written by Yovanae:: Cindy Acosta, 11/20/2017 22:11 acting as scribe for :: Jil <MARITZA WARE - Last Filed: 11/21/17 00:49>
[2017-11-20 22:15] LABS: ARTERIAL BLOOD BASE EXCESS 0.1 mmol/L; ARTERIAL BLOOD FIO2 3L; ARTERIAL BLOOD HCO3 24.1 mmol/L (20-26); ARTERIAL BLOOD PCO2 36.5 mmHg (35-45); ARTERIAL BLOOD PH 7.44 (7.35-7.45); ARTERIAL BLOOD PO2 78.4 mmHg (80-100); ARTERIAL BLOOD TOTAL CO2 25.2 mmol/L (21-25)
[2017-11-20 23:25] LABS: APPEARANCE,URINE CLEAR; BILIRUBIN,URINE NEGATIVE (NEGATIVE); COLOR,URINE YELLOW; GLUCOSE, URINE NEGATIVE (NEGATIVE); KETONES,URINE NEGATIVE (NEGATIVE); LEUKOCYTE ESTERASE,URINE NEGATIVE (NEGATIVE); NITRITE,URINE NEGATIVE (NEGATIVE); PROTEIN,URINE 30 mg/dL (NEGATIVE); URINE SPECIFIC GRAVITY 1.009; UROBILINOGEN,URINE NEGATIVE mg/dL (<2.0)
[2017-11-20] MEDS ORDERED: LEVOFLOXACIN 750 MG/D5W RTU 750 MG/150 ML RTUPB IV ONE (23:41)
[2017-11-20] MEDS ORDERED: CEFEPIME HCL 0.5 GM in DEXTROSE 5%-WATER 25 ML IV ONE (23:43)
[2017-11-20] MEDS ORDERED: SODIUM POLYSTYRENE SULFONATE 15 GM/60 ML PO ONE (23:56)
[2017-11-21] MEDS ORDERED: LACTULOSE SYRUP 20 GM/30 ML UDCUP PO ONE (00:05)
[2017-11-21] MEDS ORDERED: IPRATROPIUM/ALBUTEROL 0.5-2.5 MG/3 ML AMPUL NEB PRN (00:06)
[2017-11-21] MEDS ORDERED: ACETAMINOPHEN 325 MG TABLET PO PRN (00:06)
[2017-11-21] MEDS ORDERED: GUAIFENESIN SYRP 200 MG/10 ML UDC PO PRN (00:06)
[2017-11-21] MEDS ORDERED: CHLORPHENIRAMINE MALEATE 4 MG TABLET PO ONE (00:09)
[2017-11-21] MEDS ORDERED: FLUTICASONE NASAL SPRAY 50 MCG/SPRY 120 SPRAY/16 GM NASL ONE (00:30)
[2017-11-21] MEDS ORDERED: FAMOTIDINE 20 MG TABLET PO ONE (00:30)
[2017-11-21] MEDS ORDERED: DILTIAZEM HCL 120 MG CAP.SR.24H PO ONE (01:00)
[2017-11-21] MEDS ORDERED: HYDRALAZINE HCL 50 MG TABLET PO SCH (02:00)
[2017-11-21] MEDS ORDERED: CEFEPIME 1 GM/D5W RTU 1 GM/50 ML RTUPB IV ONE (02:44)
[2017-11-21] MEDS ORDERED: CHLORPHENIRAMINE MALEATE 4 MG TABLET ONE (03:17)
[2017-11-21] MEDS ORDERED: FLUTICASONE NASAL SPRAY 50 MCG/SPRY 120 SPRAY/16 GM ONE (03:18)
[2017-11-21 04:25] LABS: ABSOLUTE LYMPHOCYTES (AUTO) 1.1 10^3/uL (0.5-4.7); ABSOLUTE MONOCYTES (AUTO) 0.5 10^3/uL (0.1-1.4); BASOPHILS % (AUTO) 0.2 % (0-2); EOSINOPHILS % (AUTO) 0.1 % (0-6); HEMATOCRIT 25.2 % (36.0-47.0); HEMOGLOBIN 8.4 g/dL (12.0-15.5); LYMPHOCYTES % (AUTO) 14.4 % (13-45); MEAN CORPUSCULAR HEMOGLOBIN 33.9 pg (27.0-33.4); MEAN CORPUSCULAR HGB CONC 33.3 g/dL (32.0-36.0); MEAN CORPUSCULAR VOLUME 102 fl (80-97); RED BLOOD COUNT 2.47 10^6/uL (3.72-5.28); RED CELL DISTRIBUTION WIDTH 15.7 % (11.5-14.0); SEGMENTED NEUTROPHILS % (AUTO) 78.3 % (42-78); TOTAL CELLS COUNTED % (AUTO) 100 %; WHITE BLOOD COUNT 7.6 10^3/uL (4.0-10.5)
[2017-11-21] MEDS: IPRATROPIUM/ALBUTEROL 0.5-2.5 MG/3 ML AMPUL NEB SCH ×3 (04:32→20:24)
[2017-11-21 04:47] LABS: ANION GAP 9 (5-19); BLOOD UREA NITROGEN 61 mg/dL (7-20); CALCIUM 9.8 mg/dL (8.4-10.2); CARBON DIOXIDE 30 mmol/L (22-30); CHLORIDE 93 mmol/L (98-107); GLUCOSE 136 mg/dL (75-110); SODIUM 132.2 mmol/L (137-145)
[2017-11-21 04:48] LABS: PLATELET COUNT 19 10^3/uL (150-450)
[2017-11-21 04:56] LABS: POTASSIUM 5.4 mmol/L (3.6-5.0)
[2017-11-21] MEDS ORDERED: HEPARIN SOD (PORCINE) 5,000 UNIT/ML 1 ML SYRINGE SUBCUT SCH (06:00)
--- NOTE | 2017-11-21 07:54 | EKG REPORT ---
SEVERITY:- ABNORMAL ECG - ATRIAL FIBRILLATION IRBBB AND LPFB PROBABLE INFERIOR INFARCT, AGE INDETERMINATE ABNRM R PROG, CONSIDER ASMI OR LEAD PLACEMENT : Confirmed by: Hunter Castañeda MD 21-Nov-2017 07:53:12
--- NOTE | 2017-11-21 08:51 | PDOC CONSULTATION ---
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 Presents again w/ severe SOB/MENDOZA, felt to possibly have pneumonia vs CHF related pulm edema, plt ct 19k. Past Medical History Cardiac Medical History: Reports: Atrial Fibrillation, Congestive Heart Failure , Coronary Artery Disease, Myocardial Infarction, Hypertension, Other - thrombocytopenia Pulmonary Medical History: Reports: Chronic Obstructive Pulmonary Disease (COPD) Denies: Asthma, Bronchitis, Pneumonia, Tuberculosis Neurological Medical History: Denies: Seizures Endocrine Medical History: Reports: Diabetes Mellitus Type 2 Renal/ Medical History: Denies: End Stage Renal Disease Malignancy Medical History: Reports: Lung Cancer - Stage III only lung involvement, rx w/ only 3 wk of chemo/xrt in jul GI Medical History: Denies: Cirrhosis, Gastroesophageal Reflux Disease Musculoskeltal Medical History: Denies: Arthritis Psychiatric Medical History: Denies: Bipolar Disorder, Depression Hematology: Reports: Anemia Denies: Bleeding Tendencies Past Surgical History Past Surgical History: Reports: Cardiac Catheterization, Coronary Artery Bypass Graft, Coronary Stent, Internal Defibrillator Social History Information Source: Patient Smoking Status: Former Smoker Last Time Smoked: 2016 Frequency of Alcohol Use: None Hx Recreational Drug Use: No Drugs: None Hx Prescription Drug Abuse: No - Advance Directive Resuscitation Status: Full Code Family History Family History: CAD, Hypertension Parental Family History Reviewed: Yes Children Family History Reviewed: Yes Sibling(s) Family History Reviewed.: Yes Medication/Allergy Home Medications: Acetaminophen/Diphenhydramine [Tylenol Pm Ex-Strength Caplet] 2 tab PO QHS 10/24 Budesonide/Formoterol Fumarate [Symbicort HFA 160-4.5 mcg Inhaler 6 gm] 2 puff IH Q12 10/24/17 Hydralazine HCl 100 mg PO Q8 10/24/17 Losartan Potassium [Cozaar 100 mg Tablet] 100 mg PO DAILY 10/24/17 Metformin HCl [Metformin HCl ER] 1,000 mg PO Q12 10/24/17 Ondansetron HCl [Zofran 8 mg Tablet] 8 mg PO Q8HP PRN 10/24/17 Oxycodone HCl [Oxy-Ir 5 mg Tablet] 5 mg PO Q8HP PRN 10/24/17 Promethazine HCl [Phenergan 25 mg Tablet] 25 mg PO Q6HP PRN 10/24/17 Simvastatin [Zocor 40 mg Tablet] 40 mg PO QHS 10/24/17 Diltiazem HCl [Cardizem Cd 120 mg Capsule] 120 mg PO Q12 #60 cap.sr.24h Docusate Sodium [Colace 100 mg Capsule] 100 mg PO DAILY #30 capsule 11/04/17 Famotidine [Pepcid 20 mg Tablet] 20 mg PO Q12 #60 tablet 11/04/17 Furosemide [Lasix 80 mg Tablet] 80 mg PO BID 14 Days #28 tablet 11/04/17 Allergies/Adverse Reactions: Sulfa (Sulfonamide Antibiotics) Allergy (Verified 10/16/17 11:46) Review of Systems Constitutional: PRESENT: fatigue, weakness, weight gain Cardiovascular: PRESENT: chest pain, dyspnea on exertion Respiratory: PRESENT: dyspnea Gastrointestinal: PRESENT: bloating Neurological: ABSENT: abnormal gait, abnormal speech, confusion, dizziness, focal weakness, syncope Physical Exam Vital Signs: Temp Pulse Resp BP Pulse Ox 98.6 F 99 22 H 97/45 L 98 11/21/17 07:19 11/21/17 07:19 11/21/17 07:19 11/21/17 07:19 11/21/17 07:19 Intake & Output 11/20/17 11/21/17 11/22/17 06:59 06:59 06:59 Intake Total 300 Output Total 1450 Balance -1150 Weight 82.5 kg General appearance: PRESENT: no acute distress Respiratory exam: PRESENT: crackles, rales, tachypnea Cardiovascular exam: PRESENT: RRR. ABSENT: diastolic murmur, rubs, systolic murmur GI/Abdominal exam: PRESENT: ascites Rectal exam: PRESENT: deferred Neurological exam: PRESENT: alert, awake, oriented to person, oriented to place , oriented to time, oriented to situation, CN II-XII grossly intact. ABSENT: motor sensory deficit Results Laboratory Results: 11/21/17 04:00 11/21/17 04:00 11/21/17 11/21/17 04:00 04:00 WBC 7.6 RBC 2.47 L Hgb 8.4 L Hct 25.2 L MCV 102 H MCH 33.9 H MCHC 33.3 RDW 15.7 H Plt Count 19 L* Seg Neutrophils % 78.3 H Lymphocytes % 14.4 Monocytes % 7.0 Eosinophils % 0.1 Basophils % 0.2 Absolute Neutrophils 6.0 Absolute Lymphocytes 1.1 Absolute Monocytes 0.5 Absolute Eosinophils 0.0 Absolute Basophils 0.0 Sodium 132.2 L Potassium 5.4 H D Chloride 93 L Carbon Dioxide 30 Anion Gap 9 BUN 61 H Creatinine 1.72 H Est GFR ( Amer) 36 L Est GFR (Non-Af Amer) 29 L Glucose 136 H Calcium 9.8 Impressions: Chest X-Ray 11/20/17 20:20 IMPRESSION: STABLE CARDIOMEGALY. INTERVAL DEVELOPMENT OF RIGHT PLEURAL EFFUSION AND AIRSPACE DISEASE IN THE RIGHT LUNG, PROBABLY PNEUMONIA ALTHOUGH ASYMMETRIC PULMONARY EDEMA ANOTHER POSSIBILITY. Status: Image reviewed by me Assessment & Plan - Diagnosis (1) Thrombocytopenia Is this a current diagnosis for this admission?: Yes Plan: Will start NPLATE per our previous outpt orders, will order here, d/w w/ nursing and hospitalist team, spent >70min in discussions and coordination of care (2) Lung cancer Qualifiers: Laterality: right Lung location: lower lobe of lung Qualified Code(s): C34.31 - Malignant neoplasm of lower lobe, right bronchus or lung Is this a current diagnosis for this admission?: Yes Plan: plan restaging imaging w/ CT chest w/ contrast and MRI liver (d/w hospitalist team, this will restage ABD for lung ca but will also eval for other causes of recurrent anasarca, look at possible cirrhosis) - Time Time Spent: Greater than 70 Minutes - Inpatient Certification Based on my medical assessment, after consideration of the patient's comorbidities, presenting symptoms, or acuity I expect that the services needed warrant INPATIENT care.: Yes I certify that my determination is in accordance with my understanding of Medicare's requirements for reasonable and necessary INPATIENT services [42 CFR 412.3e].: Yes Medical Necessity: Need For Continuous Telemetry Monitoring, Need for IV Antibiotics
[2017-11-21] MEDS ORDERED: ROMIPLOSTIM SUBCUT PRN (09:05)
[2017-11-21] MEDS ORDERED: DISPOSABLE SUBCUT PRN (09:05)
[2017-11-21] MEDS: CEFEPIME 2 GM/D5W RTU 2 GM/50 ML RTUPB IV SCH ×2 (09:08→23:49)
[2017-11-21] MEDS: DILTIAZEM HCL 120 MG CAP.SR.24H PO SCH ×2 (09:09→23:49)
[2017-11-21] MEDS: FUROSEMIDE INJ/PF 20 MG/2 ML SDV IV SCH ×2 (09:09→23:48)
[2017-11-21] MEDS: DOCUSATE SODIUM 100 MG CAPSULE PO SCH (09:10)
[2017-11-21] MEDS: FAMOTIDINE 20 MG TABLET PO SCH ×2 (09:10→23:48)
[2017-11-21] MEDS: FLUTICASONE NASAL SPRAY 50 MCG/SPRY 120 SPRAY/16 GM NASL SCH ×2 (09:56→23:48)
[2017-11-21] MEDS: BUDESONIDE/FORMOTEROL 160-4.5 MCG 60 PUFF/6 GM MDI IH SCH ×2 (09:56→23:48)
[2017-11-21] MEDS: LEVOFLOXACIN 500 MG/D5W RTU 500 MG/100 ML RTUPB IV SCH (09:57)
[2017-11-21] MEDS ORDERED: MINERAL OIL ENEMA 133 ML PR SCH (10:00)
[2017-11-21] MEDS: OXYCODONE HCL IR 5 MG TABLET PO PRN ×2 (10:52→19:55)
[2017-11-21 13:02] LABS: ANION GAP 11 (5-19); BLOOD UREA NITROGEN 59 mg/dL (7-20); CALCIUM 10.1 mg/dL (8.4-10.2); CARBON DIOXIDE 30 mmol/L (22-30); CHLORIDE 92 mmol/L (98-107); GLUCOSE 138 mg/dL (75-110); POTASSIUM 5.2 mmol/L (3.6-5.0); SODIUM 132.6 mmol/L (137-145)
[2017-11-21] MEDS ORDERED: SODIUM POLYSTYRENE SULFONATE 15 GM/60 ML PO ONE (16:00)
--- NOTE | 2017-11-21 16:31 | RADIOLOGY REPORT (SQ) ---
EXAM DESCRIPTION: CT CHEST WITH COMPLETED DATE/TIME: 11/21/2017 4:16 pm REASON FOR STUDY: PNA vs Pulm edema; CA staging COMPARISON: 06/22/2017 TECHNIQUE: CT scan of the chest performed using helical scanning technique with dynamic intravenous contrast injection. Images reviewed with lung, soft tissue and bone windows. Reconstructed coronal and sagittal MPR images reviewed. All images stored on PACS. All CT scanners at this facility use dose modulation, iterative reconstruction, and/or weight based d osing when appropriate to reduce radiation dose to as low as reasonably achievable (ALARA). [facility]: Dose Right [facility]: CareDose [facility]: Dose Right [facility]: Teradose 4D [facility]: [employer] CONTRAST TYPE AND DOSE: See separate report of the same date. RENAL FUNCTION: See separate report of the same date. RADIATION DOSE: CT Rad equipment meets quality standard of care and radiation dose reduction techniq ues were employed. CTDIvol: 9.0 - 15.0 mGy. DLP: 2651 mGy-cm. . LIMITATIONS: Motion. FINDINGS: LUNGS AND PLEURA: There is segmental airspace disease with near collapse of the right lowe r lobe. Small subpulmonic pleural effusion. More patchy subsegmental airspace disease in the right upper lobe and middle lobe. Trace left pleural effusion. There is a background of chronic interstit ial lung disease. HILAR AND MEDIASTINAL STRUCTURES: No identified masses or abnormal nodes. HEART AND VASCULAR STRUCTURES: Cardiomegaly. Pacemaker. No pericardial effusion. HARDWARE: CABG. UPPER ABDOMEN: See separate report of the CT of the abdomen. THYROID AND OTHER SOFT TISSUES: No masses. No adenopathy. BONES: No significant finding. OTHER: Right-sided port tip in the SVC. IMPRESSION: 1. Right lower lobe consolidation and subpulmonic pleural effusion. Less extensive airspace disease in the middle lobe and right upper lobe. Pattern is more consistent with aspiration or infection. TECHNICAL DOCUMENTATION: JOB ID: [id number] Quality ID # [id number]: Final reports with documentation of one or more dose reduction techniques (e.g., Au tomated exposure control, adjustment of the mA and/or kV according to patient size, use of iterative reconstruction technique) 2010 [employer]- All Rights Reserved Reading location - IP/workstation name: [email or web address]
--- NOTE | 2017-11-21 16:44 | RADIOLOGY REPORT (SQ) ---
EXAM DESCRIPTION: CT ABD/PELVIS WITH IV ONLY COMPLETED DATE/TIME: 11/21/2017 4:16 pm REASON FOR STUDY: PNA vs Pulm edema; CA staging COMPARISON: 06/22/2017 TECHNIQUE: CT scan of the abdomen and pelvis performed using helical scanning technique with dynamic intravenous contrast injection. No oral contrast. Images reviewed with lung, soft tissue, and bone windows. Reconstructed coronal and sagittal MPR images reviewed. Delayed images for evaluation of the urinary system also acquired. All images stored on PACS. All CT scanners at this facility use dose modulation, iterative reconstruction, and/or weight based d osing when appropriate to reduce radiation dose to as low as reasonably achievable (ALARA). [facility]: Dose Right [facility]: CareDose [facility]: Dose Right [facility]: Teradose 4D [facility]: [employer] CONTRAST TYPE AND DOSE: contrast/concentration: Isovue 300.00 mg/ml; Total Contrast Delivered: 75.0 ml; Total Saline Delivered: 70.0 ml RENAL FUNCTION: BUN 59 creatinine 1.5 RADIATION DOSE: . LIMITATIONS: None. FINDINGS: LOWER CHEST: See separate report of the CT of the chest. LIVER: Normal size. No masses. No dilated ducts. SPLEEN: Normal size. No focal lesions. PANCREAS: No masses. No significant calcifications. No adjacent inflammation or peripancreatic fluid collections. Pancreatic duct not dilated. GALLBLADDER: No identified stones by CT criteria. No inflammatory changes to suggest cholecystitis. ADRENAL GLANDS: No significant masses or asymmetry. RIGHT KIDNEY AND URETER: No solid masses. No significant calcifications. No hydronephrosis or hyd roureter. LEFT KIDNEY AND URETER: No solid masses. No significant calcifications. No hydronephrosis or hydr oureter. AORTA AND VESSELS: No aneurysm. RETROPERITONEUM: No retroperitoneal adenopathy, hemorrhage or masses. BOWEL AND PERITONEAL CAVITY: Mild ascites. No adenopathy. No free air. No bowel obstruction. Dive rticula distal descending and sigmoid colon. APPENDIX: Normal. PELVIS: Miguel catheter in urinary bladder. Free fluid. No adenopathy. ABDOMINAL WALL: No masses. No hernias. BONES: No acute findings. OTHER: No other significant finding. IMPRESSION: Mild ascites. TECHNICAL DOCUMENTATION: JOB ID: [id number] Quality ID # [id number]: Final reports with documentation of one or more dose reduction techniques (e.g., Au tomated exposure control, adjustment of the mA and/or kV according to patient size, use of iterative reconstruction technique) 2010 [employer]- All Rights Reserved Reading location - IP/workstation name: [email or web address]
--- NOTE | 2017-11-21 17:20 | PDOC PROGRESS REPORT ---
Subjective Progress Note for:: 11/21/17 Subjective:: The patient is a 59-year-old female with a past medical history significant for lung cancer, CHF, COPD, A. fib, NC with cardiac stents who was admitted on for a right lower lobe pneumonia and CHF exacerbation. The patient is seen on morning rounds. She is found resting in bed comfortably on supplemental oxygen at 2 L/min. She remembers me from her previous admission. She states that she is feeling slightly better today but does continue to have chest discomfort with deep breath and coughing, dyspnea greater than her baseline, and productive cough. She states that her edema is actually improved as compared to her last admission. She denies dietary discretion or difficulty in managing her medications. She reports that she is followed by home health nursing for her CHF. She is understandably frustrated by her readmission and is slightly tearful this morning. Reason For Visit: LUNG CA. PNEUMONIA, THROMBOCYTOPENIA, CHF, ACUTE Physical Exam Vital Signs: Temp Pulse Resp BP Pulse Ox 98.6 F 101 H 20 109/60 99 11/21/17 15:43 11/21/17 16:08 11/21/17 16:08 11/21/17 15:43 11/21/17 16:08 Intake & Output 11/20/17 11/21/17 11/22/17 06:59 06:59 06:59 Intake Total 300 417 Output Total 1450 1000 Balance -1150 -583 Weight 82.5 kg General appearance: PRESENT: no acute distress, cooperative, well-developed, well-nourished, other - Overweight Head exam: PRESENT: atraumatic, normocephalic Eye exam: PRESENT: conjunctiva pink, EOMI, PERRLA. ABSENT: scleral icterus Ear exam: PRESENT: normal external ear exam Mouth exam: PRESENT: moist, tongue midline Neck exam: ABSENT: carotid bruit, JVD, lymphadenopathy, thyromegaly Respiratory exam: PRESENT: decreased breath sounds - Bibasilar, prolonged expiratory phas, rhonchi, symmetrical, unlabored, wheezes - Expiratory wheezing , other - Supplemental oxygen. ABSENT: rales Cardiovascular exam: PRESENT: RRR, +S1, +S2. ABSENT: diastolic murmur, rubs, systolic murmur Pulses: PRESENT: normal dorsalis pedis pul Vascular exam: PRESENT: normal capillary refill GI/Abdominal exam: PRESENT: normal bowel sounds, soft. ABSENT: distended, guarding, mass, organolmegaly, rebound, tenderness Rectal exam: PRESENT: deferred Extremities exam: PRESENT: full ROM, +2 edema - Pitting; bilateral lower extremity. ABSENT: calf tenderness, clubbing, pedal edema Neurological exam: PRESENT: alert, awake, oriented to person, oriented to place , oriented to time, oriented to situation, CN II-XII grossly intact. ABSENT: motor sensory deficit Psychiatric exam: PRESENT: appropriate affect, normal mood, other - Tearful. ABSENT: homicidal ideation, suicidal ideation Skin exam: PRESENT: dry, intact, warm. ABSENT: cyanosis, rash Results Laboratory Results: 11/21/17 04:00 11/21/17 12:19 11/21/17 11/21/17 11/21/17 04:00 04:00 12:19 WBC 7.6 RBC 2.47 L Hgb 8.4 L Hct 25.2 L MCV 102 H MCH 33.9 H MCHC 33.3 RDW 15.7 H Plt Count 19 L* Seg Neutrophils % 78.3 H Lymphocytes % 14.4 Monocytes % 7.0 Eosinophils % 0.1 Basophils % 0.2 Absolute Neutrophils 6.0 Absolute Lymphocytes 1.1 Absolute Monocytes 0.5 Absolute Eosinophils 0.0 Absolute Basophils 0.0 Sodium 132.2 L 132.6 L Potassium 5.4 H D 5.2 H Chloride 93 L 92 L Carbon Dioxide 30 30 Anion Gap 9 11 BUN 61 H 59 H Creatinine 1.72 H 1.45 H Est GFR ( Amer) 36 L 43 L Est GFR (Non-Af Amer) 29 L 36 L Glucose 136 H 138 H Calcium 9.8 10.1 11/21/17 12:19 NT-Pro-B Natriuret Pep 41706 H Impressions: Chest X-Ray 11/20/17 20:20 IMPRESSION: STABLE CARDIOMEGALY. INTERVAL DEVELOPMENT OF RIGHT PLEURAL EFFUSION AND AIRSPACE DISEASE IN THE RIGHT LUNG, PROBABLY PNEUMONIA ALTHOUGH ASYMMETRIC PULMONARY EDEMA ANOTHER POSSIBILITY. Abdomen/Pelvis CT 11/21/17 00:00 IMPRESSION: Mild ascites. Chest CT 11/21/17 00:00 IMPRESSION: 1. Right lower lobe consolidation and subpulmonic pleural effusion. Less extensive airspace disease in the middle lobe and right upper lobe. Pattern is more consistent with aspiration or infection. Assessment & Plan - Diagnosis (1) Right lower lobe pneumonia Is this a current diagnosis for this admission?: Yes Plan: The patient is admitted to [facility] on continuous cardiac telemetry. Contrasted CT of the chest today demonstrates a right lower lobe infiltrate with mild right middle and upper lobe airspace disease consistent with infection or aspiration pneumonia. Blood cultures are pending. The patient is receiving cefepime and IV Levaquin. She is provided scheduled and as needed nebulizer treatments. Supplemental oxygen as required to maintain oxygen saturations greater than 88% BiPAP nightly and as needed. Incentive spirometry and flutter valve to bedside. (2) CHF exacerbation Is this a current diagnosis for this admission?: Yes Plan: BNP is elevated to greater than 12,000 today. The patient has +2 pitting edema to bilateral lower extremities. Echocardiogram is pending. The patient did receive IV furosemide 80 mg 1 yesterday in the emergency department; will continue 20 mg IV twice daily. Continue diltiazem 120 mg p.o. every 12 hours, spironolactone 12.5 mg p.o. daily. I have consulted Dr. Merino; appreciate his assistance in managing this patient. (3) Acute renal failure Qualifiers: Acute renal failure type: unspecified Qualified Code(s): N17.9 - Acute kidney failure, unspecified Plan: Likely secondary to CHF exacerbation Creatinine is trending down; of note, the patient did receive a contrasted CT today and so anticipate a bump in creatinine tomorrow. We will continue to avoid nephrotoxic medications when able. Optimize cardiac output; plan as above. (4) Hyperkalemia Is this a current diagnosis for this admission?: Yes Plan: Trending down following Kayexalate and IV furosemide. Continue to diuresis with IV furosemide. We will repeat Kayexalate 1 today. We will monitor with serial BMP. (5) Lung cancer Qualifiers: Laterality: right Lung location: lower lobe of lung Qualified Code(s): C34.31 - Malignant neoplasm of lower lobe, right bronchus or lung Is this a current diagnosis for this admission?: Yes Plan: Dr. Cervantes has been consulted appreciate his assistance in managing this patient. (6) COPD (chronic obstructive pulmonary disease) Qualifiers: Emphysema type: unspecified Is this a current diagnosis for this admission?: Yes Plan: We will continue the patient's home medication; Symbicort. Consider steroids; holding for now. Remaining plan as above. (7) Atrial fibrillation Qualifiers: Atrial fibrillation type: chronic Qualified Code(s): I48.2 - Chronic atrial fibrillation Is this a current diagnosis for this admission?: Yes Plan: Rate controlled with Cardizem. Daily aspirin. Cardiology has been consulted. - Time Time Spent with patient: 25-34 minutes Medications reviewed and adjusted accordingly: Yes Anticipated discharge: Home - Inpatient Certification Based on my medical assessment, after consideration of the patient's comorbidities, presenting symptoms, or acuity I expect that the services needed warrant INPATIENT care.: Yes I certify that my determination is in accordance with my understanding of Medicare's requirements for reasonable and necessary INPATIENT services [42 CFR 412.3e].: Yes Medical Necessity: Need Close Monitoring Due to Risk of Patient Decompensation, Need For IV Fluids, Need for Nebulizer Therapy and Monitoring of Response, Need for IV Antibiotics
--- NOTE | 2017-11-21 18:19 | XCELERA REPORT ---
[address] [address] Transthoracic Echocardiogram Report Name: GINNA LOPEZ Age: 67 yrs Gender: Female : 1950 Patient Status: Inpatient Patient Location: [address] [place] [address] Study Date: 11/21/2017 01:40 PM Height: 63 in Weight: 181 lb BSA: 1.9 m2 Procedure: A complete two-dimensional transthoracic echocardiogram was performed (2D, M-mode, spectral and color flow Doppler). The study was technically good with many images being of high quality. Reason For Study: CHF exacerbation Ordering Physician: MARCO MARTEL Performed By: Billie Aguilera Interpretation Summary The left ventricular ejection fraction is normal. The right ventricle is moderate to severely dilated. The right ventricular systolic function is moderately reduced. Doppler measurements suggest normal left ventricular diastolic function The left ventricle is grossly normal size. There is mild concentric left ventricular hypertrophy. Wall motion cannot be accurately commented on, but no definite regional wall motion abnormalities noted. The right atrium is moderate to severely dilated. The left atrium is mildly dilated. There is no mitral valve stenosis. There is a moderate amount of mitral regurgitation There is no aortic valve stenosis No aortic regurgitation is present. There is a moderate to severe amount of tricuspid regurgitation There is mild pulmonary hypertension by echo Right ventricular systolic pressure is estimated to be elevated at 30- 40mmHg. The aortic root is not well visualized. The inferior vena cava appeared normal and decreased < 50% with respiration (RAP 10-15 mmHg) There is no pericardial effusion. MMode/2D Measurements & Calculations RVDd: 4.5 cm LVIDd: 4.5 cm FS: 31.7 % Ao root diam: 2.1 cm IVSd: 1.3 cm LVIDs: 3.1 cm EDV(Teich): LVPWd: 1.3 cm 94.8 ml Ao root area: 3.6 cm2 ESV(Teich): LA dimension: 4.6 cm 38.1 ml EF(Teich): 59.8 % LA A2Cs: LA A4Cs: LA length: 7.1 cmLA Vol Index (BP): 22.2 cm2 29.8 cm2 42.5 ml/m2 LA Volume: 78.8 ml Doppler Measurements & Calculations MV E max marilynn: MV P1/2t max marilynn: Ao V2 max: LV V1 max P.5 cm/sec 185.8 cm/sec 154.2 cm/sec 3.2 mmHg MV P1/2t: 77.2 msec Ao max PG: LV V1 max: 9.5 mmHg 89.8 cm/sec MVA(P1/2t): 2.9 cm2 MV dec slope: 705.2 cm/sec2 PA V2 max: PI end-d marilynn: TR max marilynn: 118.5 cm/sec 168.3 cm/sec 268.8 cm/sec PA max P.6 mmHg TR max P.9 mmHg Left Ventricle The left ventricle is grossly normal size. There is mild concentric left ventricular hypertrophy. The left ventricular ejection fraction is normal. Doppler measurements suggest normal left ventricular diastolic function. Wall motion cannot be accurately commented on, but no definite regional wall motion abnormalities noted. Right Ventricle The right ventricle is moderate to severely dilated. There is normal right ventricular wall thickness. The right ventricular systolic function is moderately reduced. Atria The right atrium is moderate to severely dilated. The left atrium is mildly dilated. Interarterial septum not well visualized and not well dopplered. Cannot comment on ASD/PFO presence. Mitral Valve The mitral valve leaflets are sclerotic and show some degree of functional abnormality. There is no mitral valve stenosis. There is a moderate amount of mitral regurgitation. Aortic Valve The aortic valve is not well visualized secondary to technical limitations. The aortic valve opens well. There is no aortic valve stenosis. No aortic regurgitation is present. Tricuspid Valve The tricuspid valve is not well visualized secondary to technical limitations. There is no tricuspid stenosis. There is a moderate to severe amount of tricuspid regurgitation. There is mild pulmonary hypertension by echo. Right ventricular systolic pressure is estimated to be elevated at 30-40mmHg. Pulmonic Valve The pulmonic valve is not well seen, but is grossly normal. There is no pulmonic valvular stenosis. There is a mild to moderate amount of pulmonic regurgitation. Great Vessels The aortic root is not well visualized. The inferior vena cava appeared normal and decreased < 50% with respiration (RAP 10-15 mmHg). Effusions There is no pericardial effusion. : MARCO MARTEL > Christiano Merino
--- NOTE | 2017-11-21 19:29 | PDOC CONSULTATION ---
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 Presents again w/ severe SOB/MENDOZA, felt to possibly have pneumonia vs CHF related pulm edema, plt ct 19k. I was asked to see patient to help with management. Patient did have a 2D echocardiogram which was reviewed. Patient was seen by me during last admission. Past Medical History Cardiac Medical History: Reports: Atrial Fibrillation, Congestive Heart Failure , Coronary Artery Disease, Myocardial Infarction, Hypertension, Other - thrombocytopenia Pulmonary Medical History: Reports: Chronic Obstructive Pulmonary Disease (COPD) Denies: Asthma, Bronchitis, Pneumonia, Tuberculosis Neurological Medical History: Denies: Seizures Endocrine Medical History: Reports: Diabetes Mellitus Type 2 Renal/ Medical History: Denies: End Stage Renal Disease Malignancy Medical History: Reports: Lung Cancer - Stage III only lung involvement, rx w/ only 3 wk of chemo/xrt in jul GI Medical History: Denies: Cirrhosis, Gastroesophageal Reflux Disease Musculoskeltal Medical History: Denies: Arthritis Psychiatric Medical History: Denies: Bipolar Disorder, Depression Hematology: Reports: Anemia Denies: Bleeding Tendencies Past Surgical History Past Surgical History: Reports: Cardiac Catheterization, Coronary Artery Bypass Graft, Coronary Stent, Internal Defibrillator Social History Information Source: Patient Smoking Status: Former Smoker Last Time Smoked: 2016 Frequency of Alcohol Use: None Hx Recreational Drug Use: No Drugs: None Hx Prescription Drug Abuse: No - Advance Directive Resuscitation Status: Full Code Family History Family History: CAD, Hypertension Parental Family History Reviewed: Yes Children Family History Reviewed: Yes Sibling(s) Family History Reviewed.: Yes Medication/Allergy Home Medications: Acetaminophen/Diphenhydramine [Tylenol Pm Ex-Strength Caplet] 2 each PO QHS Budesonide/Formoterol Fumarate [Symbicort Hfa 160-4.5 Mcg Inhaler 6 gm] 2 puff IH Q12 11/21/17 Diltiazem HCl [Cardizem Cd 120 mg Capsule] 1 cap.sr PO Q12 11/21/17 Docusate Sodium [Colace 100 mg Capsule] 100 mg PO DAILY 11/21/17 Famotidine [Pepcid 20 mg Tablet] 20 mg PO Q12 11/21/17 Furosemide [Lasix 80 mg Tablet] 80 mg PO BID 11/21/17 Hydralazine HCl 100 mg PO Q8 11/21/17 Losartan Potassium [Cozaar 100 mg Tablet] 100 mg PO DAILY 11/21/17 Metformin HCl [Metformin HCl ER] 1,000 mg PO BIDBS 11/21/17 Ondansetron HCl [Zofran 8 mg Tablet] 8 mg PO Q8HP PRN 11/21/17 Oxycodone HCl [Oxy-Ir 5 mg Tablet] 5 mg PO Q8HP PRN 11/21/17 Promethazine HCl [Phenergan 25 mg Tablet] 25 mg PO Q6HP PRN 11/21/17 Simvastatin [Zocor 40 mg Tablet] 40 mg PO QHS 11/21/17 Spironolactone [Aldactone 25 mg Tablet] 12.5 mg PO DAILY 11/21/17 Umeclidinium Delta [Incruse Ellipta] 1 puff IH DAILY 11/21/17 Allergies/Adverse Reactions: Sulfa (Sulfonamide Antibiotics) Allergy (Verified 10/16/17 11:46) Review of Systems Review of Systems: Please see history of present illness and past medical history as wall. Constitutional: No fever or chills reported. General fatigue and tiredness reported. Head : No recent chronic headaches, recent head injury. Eyes: No recent eye pain, diplopia, redness, discharge, acute visual changes. Ears: No recent chronic ear pain, acute hearing loss, ear discharge. Oral cavity: No recent ulcerations, bleeding, oral cavity discomfort. Neck: No recent acute neck pain reported. Hematologic: recent easy bruising. Patient has chronically low platelet count. Lymphatic: No recent lymphatic malignancy, chronic lymphadenopathy reported yet Cardiovascular system review: See history of present illness. Respiratory system review: No recent chronic cough, hemoptysis, blood clots in the lungs reported. Shortness of breath on exertion Gastrointestinal system review: Negative for any recent acute or chronic abdominal pain, hematemesis, melena, recent change in bowel habits. Genitourinary system review: No recent acute or chronic hematuria, flank pain, UTI etc. reported. Skin system review: Negative for any recent abnormal bruising, no rash, no pruritus reported. Neurologic: No prior history of strokes, mini strokes, seizure disorder. Psychologic: No history of major psychosis or major depression reported. Musculoskeletal: Minor aches and pains reported. No acute joint swelling reported. Endocrine: No recent polyuria, polydipsia, recent heat or cold intolerance. Physical Exam Vital Signs: Temp Pulse Resp BP Pulse Ox 98.6 F 101 H 20 109/60 99 11/21/17 15:43 11/21/17 16:08 11/21/17 16:08 11/21/17 15:43 11/21/17 16:08 Intake & Output 11/20/17 11/21/17 11/22/17 06:59 06:59 06:59 Intake Total 300 979 Output Total 1450 1500 Balance -1150 -521 Weight 82.5 kg Exam: GENERAL: well-nourished and in no acute distress. Alert and oriented x3 HEAD: Atraumatic, normocephalic. EYES: Pupils equal round and reactive to light, extraocular movements intact, sclera anicteric, conjunctiva are normal. ENT: TMs normal, nares patent, oropharynx clear without exudates. Moist mucous membranes. No oral ulcerations or bleeding gums noted NECK: supple without lymphadenopathy. Trachea is central. No cervical or axillary lymphadenopathy noted. Carotids are 2+, JVD 10-12 cm LUNGS: Respiration seems nonlabored, no significant accessory muscle action noted. Bibasilar fine crackles noted. No wheezes rales or rhonchi noted. No significant dullness noted on percussion. CHEST: Palpation of the chest wall shows no significant chest wall tenderness. No other significant abnormalities noted. HEART: [place] [employer]OR, No PSH, 1/6 JAMIE aortic area, 1/6 gonzalez systolic murmur mitral area, no rubs, no gallops. ABDOMEN: Soft, no significant tenderness appreciated, normoactive bowel sounds. No guarding, no rebound. No rigidity noted . No masses appreciated. EXTREMITIES: Pedal pulses are 1-2+, no calf tenderness noted. No clubbing or cyanosis. 1-2 + pedal edema noted NEUROLOGICAL: Focused neurological exam showed no significant neurologic deficit. Normal speech, no focal weakness appreciated. PSYCH: Normal mood, normal affect. Judgment and insight within normal limits. SKIN: No significant ecchymosis, skin is noted to be warm. MUSCULOSKELETAL EXAM: No significant acute joint swelling noted. Results Laboratory Results: 11/21/17 04:00 11/21/17 12:19 11/21/17 11/21/17 11/21/17 04:00 04:00 12:19 WBC 7.6 RBC 2.47 L Hgb 8.4 L Hct 25.2 L MCV 102 H MCH 33.9 H MCHC 33.3 RDW 15.7 H Plt Count 19 L* Seg Neutrophils % 78.3 H Lymphocytes % 14.4 Monocytes % 7.0 Eosinophils % 0.1 Basophils % 0.2 Absolute Neutrophils 6.0 Absolute Lymphocytes 1.1 Absolute Monocytes 0.5 Absolute Eosinophils 0.0 Absolute Basophils 0.0 Sodium 132.2 L 132.6 L Potassium 5.4 H D 5.2 H Chloride 93 L 92 L Carbon Dioxide 30 30 Anion Gap 9 11 BUN 61 H 59 H Creatinine 1.72 H 1.45 H Est GFR ( Amer) 36 L 43 L Est GFR (Non-Af Amer) 29 L 36 L Glucose 136 H 138 H Calcium 9.8 10.1 11/21/17 12:19 NT-Pro-B Natriuret Pep 22644 H EKG Comments: Atrial fibrillation with controlled ventricular response. No acute ST-T wave changes are noted Impressions: Chest X-Ray 11/20/17 20:20 IMPRESSION: STABLE CARDIOMEGALY. INTERVAL DEVELOPMENT OF RIGHT PLEURAL EFFUSION AND AIRSPACE DISEASE IN THE RIGHT LUNG, PROBABLY PNEUMONIA ALTHOUGH ASYMMETRIC PULMONARY EDEMA ANOTHER POSSIBILITY. Abdomen/Pelvis CT 11/21/17 00:00 IMPRESSION: Mild ascites. Chest CT 11/21/17 00:00 IMPRESSION: 1. Right lower lobe consolidation and subpulmonic pleural effusion. Less extensive airspace disease in the middle lobe and right upper lobe. Pattern is more consistent with aspiration or infection. Assessment & Plan - Diagnosis (1) CHF exacerbation Qualifiers: Heart failure type: right-sided Qualified Code(s): I50.813 - Acute on chronic right heart failure Is this a current diagnosis for this admission?: Yes (2) Atrial fibrillation Qualifiers: Atrial fibrillation type: chronic Qualified Code(s): I48.2 - Chronic atrial fibrillation Is this a current diagnosis for this admission?: Yes (3) Hyponatremia Is this a current diagnosis for this admission?: Yes (4) Lung cancer Qualifiers: Laterality: right Lung location: lower lobe of lung Qualified Code(s): C34.31 - Malignant neoplasm of lower lobe, right bronchus or lung Is this a current diagnosis for this admission?: Yes (5) Thrombocytopenia Is this a current diagnosis for this admission?: Yes (6) COPD (chronic obstructive pulmonary disease) Qualifiers: Emphysema type: unspecified Is this a current diagnosis for this admission?: Yes (7) Coronary artery disease Qualifiers: Coronary Disease-Associated Artery/Lesion type: unspecified vessel or lesion type [place] vs. transplanted heart: [place] heart Associated angina: angina presence unspecified Qualified Code(s): I25.10 - Atherosclerotic heart disease of [place] coronary artery without angina pectoris Is this a current diagnosis for this admission?: Yes (8) Diabetes mellitus Qualifiers: Diabetes mellitus type: type 2 Diabetes mellitus fpc insulin use: without rat exterminator use Diabetes mellitus complication status: without complication Qualified Code(s): E11.9 - Type 2 diabetes mellitus without complications Is this a current diagnosis for this admission?: Yes (9) Mitral regurgitation Qualifiers: Cardiac valve disease etiology: etiology unspecified Qualified Code(s): I34.0 - Nonrheumatic mitral (valve) insufficiency Is this a current diagnosis for this admission?: Yes (10) Tricuspid regurgitation Qualifiers: Cardiac valve disease etiology: etiology unspecified Qualified Code(s): I07.1 - Rheumatic tricuspid insufficiency Is this a current diagnosis for this admission?: Yes (11) Recurrent right pleural effusion Is this a current diagnosis for this admission?: Yes (12) Right lower lobe pneumonia Qualifiers: Pneumonia type: due to unspecified organism Qualified Code(s): J18.1 - Lobar pneumonia, unspecified organism Is this a current diagnosis for this admission?: Yes - Notes Notes: Patient has numerous and serious medical problems. However current presentation seems to be related to CHF with exacerbation. 2D echo obtained shows worsening RV systolic function and also worsening RV enlargement. RVSP seems lower which could indicate worsening RV function. At this point will recommend IV diuretics, adequate oxygenation, positive pressure noninvasive ventilation, pulmonary consultation etc. Patient does have normal LVEF, moderate mitral regurgitation, moderate to severe tricuspid regurgitation. Patient does have right pleural effusion which seems relatively small and there is underlying pneumonia versus atelectasis. May consider antibiotic therapy. Chronic atrial fibrillation: Rate is well controlled. Will leave decision regarding anticoagulation with Dr. Cervantes. Patient always has low platelet count therefore there may be a relative contraindication. Overall prognosis is guarded, given multitudes of cardiac and other issues. - Time Time Spent: 30 to 50 Minutes - CODE STATUS was discussed, patient remains full code. Surrogate decision-maker unchanged. Multiple medical problems were addressed. More than 50% of the time spent coordinating care, discussing management plans with involved caregivers. Management plans discussed with involved personnels. Medical decision making was of moderate to high complexity , patient's has multiple comorbidities. Medications reviewed and adjusted accordingly: Yes
[2017-11-21] MEDS ORDERED: DEXTROSE 50%-WATER SYRINGE 25 GM/50 ML DOSE IV PRN (19:56)
[2017-11-21] MEDS ORDERED: INSULIN LISPRO 100 UNIT/ML 3 ML VIAL SUBCUT PRN (19:56)
[2017-11-21] MEDS ORDERED: DEXTROSE 40% GEL 15 GM TUBE PO PRN (19:56)
[2017-11-21] MEDS ORDERED: GLUCAGON,HUMAN RECOMB 1 MG INJ IM PRN (19:56)
[2017-11-21] MEDS ORDERED: DEXTROSE 40% GEL 15 GM TUBE X 2 PO PRN (19:56)
[2017-11-21] MEDS ORDERED: DEXTROSE 50%-WATER SYRINGE 12.5 GM/25 ML DOSE IV PRN (19:56)
[2017-11-21] MEDS: SIMVASTATIN 40 MG TABLET PO SCH (23:49)
[2017-11-22] MEDS: IPRATROPIUM/ALBUTEROL 0.5-2.5 MG/3 ML AMPUL NEB SCH ×2 (04:05→11:22)
[2017-11-22 06:41] LABS: ABSOLUTE EOSINOPHILS # (AUTO) 0.1 10^3/uL (0.0-0.6); ABSOLUTE LYMPHOCYTES (AUTO) 1.2 10^3/uL (0.5-4.7); ABSOLUTE MONOCYTES (AUTO) 0.7 10^3/uL (0.1-1.4); ABSOLUTE NEUT (AUTO) 4.7 10^3/uL (1.7-8.2); BASOPHILS % (AUTO) 0.5 % (0-2); EOSINOPHILS % (AUTO) 1.5 % (0-6); HEMATOCRIT 26.6 % (36.0-47.0); HEMOGLOBIN 8.9 g/dL (12.0-15.5); LYMPHOCYTES % (AUTO) 18.1 % (13-45); MEAN CORPUSCULAR HEMOGLOBIN 34.3 pg (27.0-33.4); MEAN CORPUSCULAR HGB CONC 33.3 g/dL (32.0-36.0); MEAN CORPUSCULAR VOLUME 103 fl (80-97); RED BLOOD COUNT 2.58 10^6/uL (3.72-5.28); SEGMENTED NEUTROPHILS % (AUTO) 68.9 % (42-78); TOTAL CELLS COUNTED % (AUTO) 100 %; WHITE BLOOD COUNT 6.8 10^3/uL (4.0-10.5)
[2017-11-22 06:49] LABS: ANION GAP 9 (5-19); BLOOD UREA NITROGEN 40 mg/dL (7-20); CALCIUM 9.5 mg/dL (8.4-10.2); CARBON DIOXIDE 32 mmol/L (22-30); CHLORIDE 92 mmol/L (98-107); GLUCOSE 100 mg/dL (75-110); POTASSIUM 4.5 mmol/L (3.6-5.0); SODIUM 133.4 mmol/L (137-145)
[2017-11-22 07:42] LABS: PLATELET COUNT 17 10^3/uL (150-450)
--- NOTE | 2017-11-22 08:38 | PDOC PROGRESS REPORT ---
Subjective Progress Note for:: 11/22/17 Subjective:: Feels a little better. I reviewed her CT images and echo report, there is progressive R lung collapse and atelectasis, had long discussion w/ daughter, hospitalist team, Dr. Merino/aissatou, spent >45 min in discussion and coordination of care. There is progressive worsening of both the R lung and also R heart both contributing to her SOB/MENDOZA, today discussed DNR and hospice w/ pt and family. They are going to discuss this but at present want to continue current care to see if things can be improved. Reason For Visit: LUNG CA. PNEUMONIA, THROMBOCYTOPENIA, CHF, ACUTE Physical Exam Vital Signs: Temp Pulse Resp BP Pulse Ox 99.2 F 89 18 107/70 96 11/22/17 03:55 11/22/17 06:59 11/22/17 04:05 11/22/17 03:55 11/22/17 04:05 Intake & Output 11/21/17 11/22/17 11/23/17 06:59 06:59 06:59 Intake Total 300 1029 Output Total 1450 2900 Balance -1150 -1871 Weight 82.5 kg 82 kg General appearance: PRESENT: no acute distress, well-developed, well-nourished Head exam: PRESENT: atraumatic, normocephalic Eye exam: PRESENT: conjunctiva pink, EOMI, PERRLA. ABSENT: scleral icterus Ear exam: PRESENT: normal external ear exam Mouth exam: PRESENT: moist, tongue midline Neck exam: ABSENT: carotid bruit, JVD, lymphadenopathy, thyromegaly Respiratory exam: PRESENT: clear to auscultation isaura. ABSENT: rales, rhonchi, wheezes Cardiovascular exam: PRESENT: RRR. ABSENT: diastolic murmur, rubs, systolic murmur Pulses: PRESENT: normal dorsalis pedis pul Vascular exam: PRESENT: normal capillary refill GI/Abdominal exam: PRESENT: normal bowel sounds, soft. ABSENT: distended, guarding, mass, organolmegaly, rebound, tenderness Rectal exam: PRESENT: deferred Extremities exam: PRESENT: full ROM. ABSENT: calf tenderness, clubbing, pedal edema Neurological exam: PRESENT: alert, awake, oriented to person, oriented to place , oriented to time, oriented to situation, CN II-XII grossly intact. ABSENT: motor sensory deficit Psychiatric exam: PRESENT: appropriate affect, normal mood. ABSENT: homicidal ideation, suicidal ideation Skin exam: PRESENT: dry, intact, warm. ABSENT: cyanosis, rash Results Laboratory Results: 11/22/17 06:25 11/22/17 06:25 11/21/17 11/22/17 11/22/17 12:19 06:25 06:25 WBC 6.8 RBC 2.58 L Hgb 8.9 L Hct 26.6 L MCV 103 H MCH 34.3 H MCHC 33.3 RDW 16.0 H Plt Count 17 L* Seg Neutrophils % 68.9 Lymphocytes % 18.1 Monocytes % 11.0 Eosinophils % 1.5 Basophils % 0.5 Absolute Neutrophils 4.7 Absolute Lymphocytes 1.2 Absolute Monocytes 0.7 Absolute Eosinophils 0.1 Absolute Basophils 0.0 Sodium 132.6 L 133.4 L Potassium 5.2 H 4.5 Chloride 92 L 92 L Carbon Dioxide 30 32 H Anion Gap 11 9 BUN 59 H 40 H Creatinine 1.45 H 1.16 Est GFR ( Amer) 43 L 56 L Est GFR (Non-Af Amer) 36 L 46 L Glucose 138 H 100 Calcium 10.1 9.5 11/21/17 12:19 NT-Pro-B Natriuret Pep 03159 H Impressions: Chest X-Ray 11/20/17 20:20 IMPRESSION: STABLE CARDIOMEGALY. INTERVAL DEVELOPMENT OF RIGHT PLEURAL EFFUSION AND AIRSPACE DISEASE IN THE RIGHT LUNG, PROBABLY PNEUMONIA ALTHOUGH ASYMMETRIC PULMONARY EDEMA ANOTHER POSSIBILITY. Abdomen/Pelvis CT 11/21/17 00:00 IMPRESSION: Mild ascites. Chest CT 11/21/17 00:00 IMPRESSION: 1. Right lower lobe consolidation and subpulmonic pleural effusion. Less extensive airspace disease in the middle lobe and right upper lobe. Pattern is more consistent with aspiration or infection. Assessment & Plan - Diagnosis (1) Thrombocytopenia Is this a current diagnosis for this admission?: Yes Plan: NPLATE given yesterday, can take 3-7 days to see response, will need to keep adjusting dosing. Would d/c all anticoagulants, hold any plt transfusion unless pt bleeding or plt ct <10. (2) Lung cancer Qualifiers: Laterality: right Lung location: lower lobe of lung Qualified Code(s): C34.31 - Malignant neoplasm of lower lobe, right bronchus or lung Is this a current diagnosis for this admission?: Yes Plan: Maybe progressive, no disease outside lung, her other medical issues and PS will not allow further treatment at this time, unlikely to ever be a candidate for further therapy. - Time Time Spent with patient: 35 or more minutes
[2017-11-22] MEDS ORDERED: (PENDING PHARMACY ID) (Umeclidinium Bromide [Incruse Ellipta] 1 PUFF) IH SCH (10:00)
[2017-11-22] MEDS ORDERED: ASPIRIN 81 MG TABLET, CHEWABLE PO SCH (10:00)
[2017-11-22] MEDS: CEFEPIME 2 GM/D5W RTU 2 GM/50 ML RTUPB IV SCH ×2 (10:43→22:16)
[2017-11-22] MEDS: SPIRONOLACTONE 25 MG TABLET PO SCH (10:45)
[2017-11-22] MEDS: DILTIAZEM HCL 120 MG CAP.SR.24H PO SCH ×2 (10:46→22:15)
[2017-11-22] MEDS: FAMOTIDINE 20 MG TABLET PO SCH ×2 (10:47→22:15)
[2017-11-22] MEDS: FUROSEMIDE INJ/PF 20 MG/2 ML SDV IV SCH ×2 (10:47→22:15)
[2017-11-22] MEDS: BUDESONIDE/FORMOTEROL 160-4.5 MCG 60 PUFF/6 GM MDI IH SCH ×2 (10:48→22:16)
[2017-11-22] MEDS: FLUTICASONE NASAL SPRAY 50 MCG/SPRY 120 SPRAY/16 GM NASL SCH ×2 (10:49→22:16)
[2017-11-22] MEDS: DOCUSATE SODIUM 100 MG CAPSULE PO SCH (11:01)
[2017-11-22] MEDS: LEVOFLOXACIN 500 MG/D5W RTU 500 MG/100 ML RTUPB IV SCH (11:57)
--- NOTE | 2017-11-22 12:42 | PDOC PROGRESS REPORT ---
Subjective Progress Note for:: 11/22/17 Subjective:: Patient seems to be doing somewhat better with gradual improvement. Pt is denying any chest arm or neck discomfort. Patient denying any PND, orthopnea. Patient denied any sustained palpitations, dizziness, syncope, near syncope. Patient denying any fever chills. Patient denying any other significant discomfort. Patient is maintaining chronic atrial fibrillation. Review of systems: Rest review of systems negative. Medications: Medications have been reviewed. Reason For Visit: LUNG CA. PNEUMONIA, THROMBOCYTOPENIA, CHF, ACUTE Physical Exam Vital Signs: Temp Pulse Resp BP Pulse Ox 98.9 F 84 18 111/68 100 11/22/17 07:33 11/22/17 07:33 11/22/17 07:33 11/22/17 07:33 11/22/17 09:55 Intake & Output 11/21/17 11/22/17 11/23/17 06:59 06:59 06:59 Intake Total 300 1029 400 Output Total 1450 2900 400 Balance -1150 -1871 0 Weight 82.5 kg 82 kg Exam: GENERAL: well-nourished and in no acute distress. Alert and oriented x3 HEAD: Atraumatic, normocephalic. EYES: Pupils equal round and reactive to light, extraocular movements intact, sclera anicteric, conjunctiva are normal. ENT: TMs normal, nares patent, oropharynx clear without exudates. Moist mucous membranes. No oral ulcerations or bleeding gums noted NECK: supple without lymphadenopathy. Trachea is central. No cervical or axillary lymphadenopathy noted. Carotids are 2+, JVD WNL LUNGS: Respiration seems nonlabored, no significant accessory muscle action noted. Bibasilar fine crackles and few scattered wheezes rales or rhonchi noted. Right basal diminished breath sounds and dullness noted on percussion. CHEST: Palpation of the chest wall shows no significant chest wall tenderness. No other significant abnormalities noted. 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 ABDOMEN: Soft, no significant tenderness appreciated, normoactive bowel sounds. No guarding, no rebound. No rigidity noted . No masses appreciated. EXTREMITIES: Pedal pulses are 1-2+, no calf tenderness noted. No clubbing or cyanosis. 1+ pedal edema noted NEUROLOGICAL: Focused neurological exam showed no significant neurologic deficit. Normal speech, no focal weakness appreciated. PSYCH: Normal mood, normal affect. Judgment and insight within normal limits. SKIN: No significant ecchymosis, skin is noted to be warm. MUSCULOSKELETAL EXAM: No significant acute joint swelling noted. Results Laboratory Results: 11/22/17 06:25 11/22/17 06:25 11/21/17 11/22/17 11/22/17 12:19 06:25 06:25 WBC 6.8 RBC 2.58 L Hgb 8.9 L Hct 26.6 L MCV 103 H MCH 34.3 H MCHC 33.3 RDW 16.0 H Plt Count 17 L* Seg Neutrophils % 68.9 Lymphocytes % 18.1 Monocytes % 11.0 Eosinophils % 1.5 Basophils % 0.5 Absolute Neutrophils 4.7 Absolute Lymphocytes 1.2 Absolute Monocytes 0.7 Absolute Eosinophils 0.1 Absolute Basophils 0.0 Sodium 132.6 L 133.4 L Potassium 5.2 H 4.5 Chloride 92 L 92 L Carbon Dioxide 30 32 H Anion Gap 11 9 BUN 59 H 40 H Creatinine 1.45 H 1.16 Est GFR ( Amer) 43 L 56 L Est GFR (Non-Af Amer) 36 L 46 L Glucose 138 H 100 Calcium 10.1 9.5 11/21/17 12:19 NT-Pro-B Natriuret Pep 39962 H EKG Comments: Telemetry strip shows atrial fibrillation with controlled ventricular response. Impressions: Chest X-Ray 11/20/17 20:20 IMPRESSION: STABLE CARDIOMEGALY. INTERVAL DEVELOPMENT OF RIGHT PLEURAL EFFUSION AND AIRSPACE DISEASE IN THE RIGHT LUNG, PROBABLY PNEUMONIA ALTHOUGH ASYMMETRIC PULMONARY EDEMA ANOTHER POSSIBILITY. Abdomen/Pelvis CT 11/21/17 00:00 IMPRESSION: Mild ascites. Chest CT 11/21/17 00:00 IMPRESSION: 1. Right lower lobe consolidation and subpulmonic pleural effusion. Less extensive airspace disease in the middle lobe and right upper lobe. Pattern is more consistent with aspiration or infection. Assessment & Plan - Diagnosis (1) CHF exacerbation Qualifiers: Heart failure type: right-sided Qualified Code(s): I50.813 - Acute on chronic right heart failure Is this a current diagnosis for this admission?: Yes (2) Atrial fibrillation Qualifiers: Atrial fibrillation type: chronic Qualified Code(s): I48.2 - Chronic atrial fibrillation Is this a current diagnosis for this admission?: Yes (3) Hyponatremia Is this a current diagnosis for this admission?: Yes (4) Lung cancer Qualifiers: Laterality: right Lung location: lower lobe of lung Qualified Code(s): C34.31 - Malignant neoplasm of lower lobe, right bronchus or lung Is this a current diagnosis for this admission?: Yes (5) Thrombocytopenia Is this a current diagnosis for this admission?: Yes (6) COPD (chronic obstructive pulmonary disease) Qualifiers: Emphysema type: unspecified Is this a current diagnosis for this admission?: Yes (7) Coronary artery disease Qualifiers: Coronary Disease-Associated Artery/Lesion type: unspecified vessel or lesion type [place] vs. 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 Diabetes mellitus complication status: without complication Qualified Code(s): E11.9 - Type 2 diabetes mellitus without complications Is this a current diagnosis for this admission?: Yes (9) Mitral regurgitation Qualifiers: Cardiac valve disease etiology: etiology unspecified Qualified Code(s): I34.0 - Nonrheumatic mitral (valve) insufficiency Is this a current diagnosis for this admission?: Yes (10) Tricuspid regurgitation Qualifiers: Cardiac valve disease etiology: etiology unspecified Qualified Code(s): I07.1 - Rheumatic tricuspid insufficiency Is this a current diagnosis for this admission?: Yes (11) Recurrent right pleural effusion Is this a current diagnosis for this admission?: Yes (12) Right lower lobe pneumonia Qualifiers: Pneumonia type: due to unspecified organism Qualified Code(s): J18.1 - Lobar pneumonia, unspecified organism Is this a current diagnosis for this admission?: Yes - Notes Notes: CHF exacerbation: Continue IV diuretic therapy. Will add small dose of digoxin. Atrial fibrillation: Currently just Rx with rate controlled. [place] not a candidate for chronic anticoagulation due to increased risk of bleeding and chronically low platelet count. Hyponatremia: Rx with fluid restriction. Lung cancer: Seems to have progressed based on report by the oncologist. Patient currently made a DO NOT RESUSCITATE. I am told that they are seeking hospice care. COPD and underlying pulmonary status: Possibly worse. May consider pulmonology evaluation. Coronary artery disease: Patient is status post CABG, currently no signs of ongoing ischemia. Diabetes: Being adequately managed by hospitalist. Mitral regurgitation: At least moderate. Patient does have a prominent murmur. Patient does have a extensive jet. Tricuspid regurgitation, moderate to severe. Patient does have a underlying pacemaker leads traversing through the tricuspid valve. Recurrent right pleural effusion and right lower lobe pneumonia versus atelectasis: Most likely secondary to lung cancer. May consider pulmonary evaluation if clinically indicated. Patient has numerous and serious medical problems. However current presentation seems to be related to CHF with exacerbation. 2D echo obtained shows worsening RV systolic function and also worsening RV enlargement. RVSP seems lower which could indicate worsening RV function. At this point will recommend IV diuretics, adequate oxygenation, positive pressure noninvasive ventilation, pulmonary consultation etc. Patient does have normal LVEF, moderate mitral regurgitation, moderate to severe tricuspid regurgitation. Patient does have right pleural effusion which seems relatively small and there is underlying pneumonia versus atelectasis. May consider antibiotic therapy. Chronic atrial fibrillation: Rate is well controlled. Will leave decision regarding anticoagulation with Dr. Cervantes. Patient always has low platelet count therefore there may be a relative contraindication. Overall prognosis is guarded, given multitudes of cardiac and other issues.
--- NOTE | 2017-11-22 13:32 | PDOC PROGRESS REPORT ---
Subjective Progress Note for:: 11/22/17 Subjective:: The patient is a 59-year-old female with a past medical history significant for lung cancer, CHF, COPD, A. fib, [place] with cardiac stents who was admitted on for a right lower lobe pneumonia and CHF exacerbation. The patient is seen on morning rounds with her daughter, Nydia, raymond. He is found sitting up to the edge of the bed on supplemental oxygen at 2 L/min which is her home O2 oxygen requirement. She states that she is feeling much better today and notes that her leg edema has decreased significantly. She states that she has been ambulatory to the restroom with assistance and is beginning to feel stir crazy. She does continue to report slight chest discomfort and dyspnea with exertion, though states that this is much improved as compared to day of admission. We reviewed the results of her echocardiogram suggesting right-sided heart failure as well as lung cancer and repeated admissions. The patient and family member to decide to be a DNR/DNI. They are interested in meeting with hospice to discuss this option for follow discharge. Reason For Visit: LUNG CA. PNEUMONIA, THROMBOCYTOPENIA, CHF, ACUTE Physical Exam Vital Signs: Temp Pulse Resp BP Pulse Ox 98.9 F 84 18 111/68 100 11/22/17 07:33 11/22/17 07:33 11/22/17 07:33 11/22/17 07:33 11/22/17 09:55 Intake & Output 11/21/17 11/22/17 11/23/17 06:59 06:59 06:59 Intake Total 300 1029 400 Output Total 1450 2900 400 Balance -1150 -1871 0 Weight 82.5 kg 82 kg General appearance: PRESENT: no acute distress, cooperative, well-developed, well-nourished, other - OVerweight Head exam: PRESENT: atraumatic, normocephalic Eye exam: PRESENT: conjunctiva pink, EOMI, PERRLA. ABSENT: scleral icterus Ear exam: PRESENT: normal external ear exam Mouth exam: PRESENT: moist, tongue midline Neck exam: ABSENT: carotid bruit, JVD, lymphadenopathy, thyromegaly Respiratory exam: PRESENT: prolonged expiratory phas, symmetrical, unlabored, wheezes - Slight expiratory wheeze, other - Supplemental oxygen at 2 L/min. ABSENT: rales, rhonchi Cardiovascular exam: PRESENT: RRR, systolic murmur. ABSENT: diastolic murmur, rubs Pulses: PRESENT: normal dorsalis pedis pul Vascular exam: PRESENT: normal capillary refill GI/Abdominal exam: PRESENT: normal bowel sounds, soft. ABSENT: distended, guarding, mass, organolmegaly, rebound, tenderness Rectal exam: PRESENT: deferred Extremities exam: PRESENT: full ROM, pedal edema - Trace pitting edema bilateral lower extremities. ABSENT: calf tenderness, clubbing Musculoskeletal exam: PRESENT: ambulatory Neurological exam: PRESENT: alert, awake, oriented to person, oriented to place , oriented to time, oriented to situation, CN II-XII grossly intact. ABSENT: motor sensory deficit Psychiatric exam: PRESENT: appropriate affect, normal mood. ABSENT: homicidal ideation, suicidal ideation Skin exam: PRESENT: dry, intact, warm. ABSENT: cyanosis, rash Results Laboratory Results: 11/22/17 06:25 11/22/17 06:25 11/22/17 11/22/17 06:25 06:25 WBC 6.8 RBC 2.58 L Hgb 8.9 L Hct 26.6 L MCV 103 H MCH 34.3 H MCHC 33.3 RDW 16.0 H Plt Count 17 L* Seg Neutrophils % 68.9 Lymphocytes % 18.1 Monocytes % 11.0 Eosinophils % 1.5 Basophils % 0.5 Absolute Neutrophils 4.7 Absolute Lymphocytes 1.2 Absolute Monocytes 0.7 Absolute Eosinophils 0.1 Absolute Basophils 0.0 Sodium 133.4 L Potassium 4.5 Chloride 92 L Carbon Dioxide 32 H Anion Gap 9 BUN 40 H Creatinine 1.16 Est GFR ( Amer) 56 L Est GFR (Non-Af Amer) 46 L Glucose 100 Calcium 9.5 11/21/17 12:19 NT-Pro-B Natriuret Pep [id number] H Impressions: Chest X-Ray 11/20/17 20:20 IMPRESSION: STABLE CARDIOMEGALY. INTERVAL DEVELOPMENT OF RIGHT PLEURAL EFFUSION AND AIRSPACE DISEASE IN THE RIGHT LUNG, PROBABLY PNEUMONIA ALTHOUGH ASYMMETRIC PULMONARY EDEMA ANOTHER POSSIBILITY. Abdomen/Pelvis CT 11/21/17 00:00 IMPRESSION: Mild ascites. Chest CT 11/21/17 00:00 IMPRESSION: 1. Right lower lobe consolidation and subpulmonic pleural effusion. Less extensive airspace disease in the middle lobe and right upper lobe. Pattern is more consistent with aspiration or infection. Assessment & Plan - Diagnosis (1) Right lower lobe pneumonia Qualifiers: Pneumonia type: due to unspecified organism Qualified Code(s): J18.1 - Lobar pneumonia, unspecified organism Is this a current diagnosis for this admission?: Yes Plan: The patient is admitted to [facility] on continuous cardiac telemetry. Contrasted CT of the chest today demonstrates a right lower lobe infiltrate with mild right middle and upper lobe airspace disease consistent with infection or aspiration pneumonia. Blood cultures no growth today The patient is receiving cefepime and IV Levaquin; will narrow antibiotics as cultures result. She is provided as needed nebulizer treatments. Supplemental oxygen as required to maintain oxygen saturations greater than 88% BiPAP nightly and as needed. Incentive spirometry and flutter valve to bedside. Discussed with Dr. Cervantes the patient prognosis and consideration of right- sided heart failure. Dr. Cervantes recommended the patient and family member to consider DNR status. I then spoke with the patient and her daughter, Nydia. They do agree to DNR/DNI at this time understanding that she would have very poor outcomes following a code. They are also interested in discharging with [facility], however, do ask to meet with the hospice sales representative electric service prior to making their final decision. Jennifer from [facility] is contacted and she has made arrangements to meet with the patient and family members today. (2) CHF exacerbation Qualifiers: Heart failure type: right-sided Qualified Code(s): I50.813 - Acute on chronic right heart failure Is this a current diagnosis for this admission?: Yes Plan: BNP is elevated to greater than 12,000. BLE and respiratory status is gradually improving. Echocardiogram demonstrates a normal left ventricular ejection fraction, moderate and severe right atrium dilatation, mildly debilitated right atrium, with a moderately reduced right ventricular systolic function. Will continue 20 mg IV twice daily. Continue diltiazem 120 mg p.o. every 12 hours, spironolactone 12.5 mg p.o. daily. Low-dose digoxin added by tool maker. I have consulted Dr. Merino; appreciate his assistance in managing this patient. (3) Acute renal failure Qualifiers: Acute renal failure type: unspecified Qualified Code(s): N17.9 - Acute kidney failure, unspecified Plan: Resolved. Likely secondary to CHF exacerbation Creatinine is trending down; of note, the patient did receive a contrasted CT today and so anticipate a bump in creatinine tomorrow. We will continue to avoid nephrotoxic medications when able. Optimize cardiac output; plan as above. (4) Hyperkalemia Is this a current diagnosis for this admission?: Yes Plan: Resolved. Trending down following Kayexalate and IV furosemide. We will monitor with serial BMP. (5) Lung cancer Qualifiers: Laterality: right Lung location: lower lobe of lung Qualified Code(s): C34.31 - Malignant neoplasm of lower lobe, right bronchus or lung Is this a current diagnosis for this admission?: Yes Plan: Dr. Cervantes has been consulted appreciate his assistance in managing this patient. Plan as above. (6) COPD (chronic obstructive pulmonary disease) Qualifiers: Emphysema type: unspecified Is this a current diagnosis for this admission?: Yes Plan: We will continue the patient's home medication; Symbicort. Consider steroids; holding for now. Remaining plan as above. (7) Atrial fibrillation Qualifiers: Atrial fibrillation type: chronic Qualified Code(s): I48.2 - Chronic atrial fibrillation Is this a current diagnosis for this admission?: Yes Plan: Rate controlled with Cardizem. Aspirin has been discontinued. The patient is not a candidate for chronic anticoagulation secondary to malignancy and chronically low platelets; platelets today are 17. Cardiology has been consulted. - Time Time Spent with patient: 35 or more minutes Anticipated discharge: Hospice - Home w/ hospice Within: within 24 hours
[2017-11-22] MEDS: OXYCODONE HCL IR 5 MG TABLET PO PRN ×2 (15:02→22:15)
[2017-11-22] MEDS: SIMVASTATIN 40 MG TABLET PO SCH (22:15)
--- NOTE | 2017-11-23 06:59 | Progress Note ---
Provider Note Provider Note: oncology: had long discussion with daughter and family, they have met with hospice and will likely dc home w hospice today
[2017-11-23] MEDS: FUROSEMIDE INJ/PF 20 MG/2 ML SDV IV SCH (09:54)
[2017-11-23] MEDS: FAMOTIDINE 20 MG TABLET PO SCH (09:54)
[2017-11-23] MEDS: FLUTICASONE NASAL SPRAY 50 MCG/SPRY 120 SPRAY/16 GM NASL SCH (09:55)
[2017-11-23] MEDS: DILTIAZEM HCL 120 MG CAP.SR.24H PO SCH (09:55)
[2017-11-23] MEDS: SPIRONOLACTONE 25 MG TABLET PO SCH (09:55)
[2017-11-23] MEDS: DOCUSATE SODIUM 100 MG CAPSULE PO SCH (09:55)
[2017-11-23] MEDS: BUDESONIDE/FORMOTEROL 160-4.5 MCG 60 PUFF/6 GM MDI IH SCH (09:56)
[2017-11-23] MEDS: LEVOFLOXACIN 500 MG/D5W RTU 500 MG/100 ML RTUPB IV SCH (09:56)
[2017-11-23] MEDS: CEFEPIME 2 GM/D5W RTU 2 GM/50 ML RTUPB IV SCH (10:01)
--- NOTE | 2017-11-23 10:30 | PDOC DISCHARGE SUMMARY ---
General - Admit/Disc Date/PCP Admission Date/Primary Care Provider: 11/21/17 00:18 Discharge Date: 11/23/17 - Discharge Diagnosis (1) Right lower lobe pneumonia Is this a current diagnosis for this admission?: Yes (2) CHF exacerbation Is this a current diagnosis for this admission?: Yes (4) Hyperkalemia Is this a current diagnosis for this admission?: Yes (5) Lung cancer Is this a current diagnosis for this admission?: Yes (6) COPD (chronic obstructive pulmonary disease) Is this a current diagnosis for this admission?: Yes (7) Atrial fibrillation Is this a current diagnosis for this admission?: Yes - Additional Information Resuscitation Status: Full Code Discharge Diet: Cardiac, Diabetic Discharge Activity: Activity As Tolerated, Balance Activity w/Rest, Weigh Daily Prescriptions: Fluticasone Propionate [Flonase Nasal [place] 50 Mcg/[place] 16 gm] 2 spray NASL Q12 #1 spray.pump Ipratropium/Albuterol Sulfate [Duoneb 3 ml Ampul] 3 ml NEB Q6HP PRN #120 vial.neb PRN Reason: Shortness Of Breath Levofloxacin [Levaquin 750 mg Tablet] 750 mg PO DAILY #5 tablet Home Medications: Acetaminophen/Diphenhydramine [Tylenol Pm Ex-Strength Caplet] 2 each PO QHS Budesonide/Formoterol Fumarate [Symbicort HFA 160-4.5 mcg Inhaler 6 gm] 2 puff IH Q12 11/21/17 Diltiazem HCl [Cardizem Cd 120 mg Capsule] 1 cap.sr PO Q12 11/21/17 Docusate Sodium [Colace 100 mg Capsule] 100 mg PO DAILY 11/21/17 Famotidine [Pepcid 20 mg Tablet] 20 mg PO Q12 11/21/17 Furosemide [Lasix 80 mg Tablet] 80 mg PO BID 11/21/17 Hydralazine HCl 100 mg PO Q8 11/21/17 Losartan Potassium [Cozaar 100 mg Tablet] 100 mg PO DAILY 11/21/17 Metformin HCl [Metformin HCl ER] 1,000 mg PO BIDBS 11/21/17 Ondansetron HCl [Zofran 8 mg Tablet] 8 mg PO Q8HP PRN 11/21/17 Oxycodone HCl [Oxy-Ir 5 mg Tablet] 5 mg PO Q8HP PRN 11/21/17 Promethazine HCl [Phenergan 25 mg Tablet] 25 mg PO Q6HP PRN 11/21/17 Simvastatin [Zocor 40 mg Tablet] 40 mg PO QHS 11/21/17 Spironolactone [Aldactone 25 mg Tablet] 12.5 mg PO DAILY 11/21/17 Umeclidinium [place] [Incruse Ellipta] 1 puff IH DAILY 11/21/17 Budesonide/Formoterol Fumarate [Symbicort HFA 160-4.5 mcg Inhaler 6 gm] 2 puff IH Q12 inhaler 11/23/17 Diltiazem HCl [Cardizem Cd 120 mg Capsule] 120 mg PO Q12 cap.sr.24h 11/23/17 Docusate Sodium [Colace 100 mg Capsule] 100 mg PO DAILY capsule 11/23/17 Famotidine [Pepcid 20 mg Tablet] 20 mg PO Q12 tablet 11/23/17 Fluticasone Propionate [Flonase Nasal [place] 50 Mcg/[place] 16 gm] 2 spray NASL Q12 #1 spray.pump 11/23/17 Hydralazine HCl [Apresoline 50 mg Tablet] 100 mg PO Q8A tablet 11/23/17 Ipratropium/Albuterol Sulfate [Duoneb 3 ml Ampul] 3 ml NEB Q6HP PRN #120 vial.neb 11/23/17 Levofloxacin [Levaquin 750 mg Tablet] 750 mg PO DAILY #5 tablet 11/23/17 Oxycodone HCl [Oxy-Ir 5 mg Tablet] 5 mg PO Q8HP PRN tablet 11/23/17 Simvastatin [Zocor 40 mg Tablet] 40 mg PO QHS tablet 11/23/17 History of Present Illness History of Present Illness: GINNA LOPEZ is a 67 year old female with a past medical history significant for lung cancer, CHF, COPD, A. fib, CA with cardiac stents who was admitted on for a right lower lobe pneumonia and CHF exacerbation. The patient is seen on morning rounds. She is found resting in bed comfortably on supplemental oxygen at 2 L/min. She remembers me from her previous admission. She states that she is feeling slightly better today but does continue to have chest discomfort with deep breath and coughing, dyspnea greater than her baseline, and productive cough. She states that her edema is actually improved as compared to her last admission. She denies dietary discretion or difficulty in managing her medications. She reports that she is followed by home health nursing for her CHF. She is understandably frustrated by her readmission and is slightly tearful this morning. Hospital Course Hospital Course: The patient was admitted with a RLL PNA, CHF exacerbation, and Acute on Chronic respiratory failure with hypoxia in the presence of known Lung CA. The patient was empirically placed on Cefepime and Levaquin for coverage of a health care associated pneumonia. The patient's oncologist was consulted and followed the patient over the course of this admission. A Contrasted CT of the Chest, ABD/Pelvis was obtained to evaluate malignancy and to assist in differentiating between pneumonia and pulmonary edema. Imaging revealed a right lower lobe consolidation with mild middle and upper lobe suggestive of pneumonia or aspiration as well as mild abdominal ascites. Cardiology was also consulted and an echocardiogram was obtained. Echo demonstrated worsening right ventricular systolic function and worsening RV enlargement. Based on this information, the patient and family members decided that they wished to change code status to a DNR/DNI and to arrange for discharge to home with hospice services. The patient did receive NPLATE this admission for platelet count of 17. The patient has no active bleeding and is hemodynamically stable. The patient's respiratory status has improved; she has not required BiPAP support for >48 hours and is currently maintaining oxygen saturations on her baseline oxygen requirement of 2lpm. At time of discharge, the patient is in stable condition, afebrile, pain free, and tolerating a regular diet. She will be discharged to home with Hospice services. Physical Exam Vital Signs: Temp Pulse Resp BP Pulse Ox 97.8 F 104 H 18 107/44 L 90 L 11/23/17 07:00 11/23/17 07:00 11/23/17 07:00 11/23/17 07:00 11/23/17 07:00 Intake & Output 11/22/17 11/23/17 11/24/17 06:59 06:59 06:59 Intake Total 1029 1320 Output Total 2900 2500 Balance -1871 -1180 Weight 82 kg 85.6 kg General appearance: PRESENT: no acute distress, cooperative - pleasant, well- developed, well-nourished, other - overweight Head exam: PRESENT: atraumatic, normocephalic Eye exam: PRESENT: conjunctiva pink, EOMI, PERRLA. ABSENT: scleral icterus Ear exam: PRESENT: normal external ear exam Mouth exam: PRESENT: moist, tongue midline Neck exam: ABSENT: carotid bruit, JVD, lymphadenopathy, thyromegaly Respiratory exam: PRESENT: prolonged expiratory phas, rhonchi, symmetrical, unlabored, other - Supplemental oxygen at 2lpm. ABSENT: accessory muscle use, chest wall tenderness, crackles, rales, tachypnea, wheezes Cardiovascular exam: PRESENT: RRR, +S1, +S2. ABSENT: diastolic murmur, rubs, systolic murmur, tachycardia Pulses: PRESENT: normal dorsalis pedis pul Vascular exam: PRESENT: normal capillary refill GI/Abdominal exam: PRESENT: normal bowel sounds, soft. ABSENT: distended, guarding, mass, organolmegaly, rebound, tenderness Rectal exam: PRESENT: deferred Extremities exam: PRESENT: full ROM, +1 edema - +1 pitting edema to BLE. ABSENT : calf tenderness, clubbing, pedal edema Neurological exam: PRESENT: alert, awake, oriented to person, oriented to place , oriented to time, oriented to situation, CN II-XII grossly intact. ABSENT: motor sensory deficit Psychiatric exam: PRESENT: appropriate affect, normal mood. ABSENT: homicidal ideation, suicidal ideation Skin exam: PRESENT: dry, intact, warm. ABSENT: cyanosis, rash Results Laboratory Results: 11/22/17 06:25 11/22/17 06:25 11/21/17 12:19 NT-Pro-B Natriuret Pep [id number] H Impressions: Chest X-Ray 11/20/17 20:20 IMPRESSION: STABLE CARDIOMEGALY. INTERVAL DEVELOPMENT OF RIGHT PLEURAL EFFUSION AND AIRSPACE DISEASE IN THE RIGHT LUNG, PROBABLY PNEUMONIA ALTHOUGH ASYMMETRIC PULMONARY EDEMA ANOTHER POSSIBILITY. Abdomen/Pelvis CT 11/21/17 00:00 IMPRESSION: Mild ascites. Chest CT 11/21/17 00:00 IMPRESSION: 1. Right lower lobe consolidation and subpulmonic pleural effusion. Less extensive airspace disease in the middle lobe and right upper lobe. Pattern is more consistent with aspiration or infection. Qualifiers - * PATEINT BEING DISCHARGED WITH ANY OF THE FOLLOWING DIAGNOSIS?: Heart Failure HF Pt being discharged on ACEI for LVEF less than 40%?: No Reason(s) for not prescribing ACEI:: Hospice Care HF Pt being discharged on ARBS for LVEF less than 40%?: No Reason(s) for not prescribing ARBS:: Hospice Care HF Pt with Afib discharged with Warfarin?: No Reason(s) for not prescribing Warfarin:: Contraindicated - Malignancy, PLT 17 HF Pt discharged on evidence-based Beta [place]:: No Reason(s) for not prescribing evidence-based Beta [place]:: Hospice Care Plan Discharge Plan: [facility]. Time Spent: Greater than 30 Minutes
[2017-11-23] MEDS: OXYCODONE HCL IR 5 MG TABLET PO PRN (11:05)
--- NOTE | 2017-11-23 13:29 | PDOC PROGRESS REPORT ---
Subjective Progress Note for:: 11/23/17 Subjective:: Patient seems to be doing somewhat better with gradual improvement. Pt is denying any chest arm or neck discomfort. Patient denying any PND, orthopnea. Patient denied any sustained palpitations, dizziness, syncope, near syncope. Patient denying any fever chills. Patient denying any other significant discomfort. Patient is maintaining chronic atrial fibrillation. Review of systems: Rest review of systems negative. Medications: Medications have been reviewed. Reason For Visit: LUNG CA. PNEUMONIA, THROMBOCYTOPENIA, CHF, ACUTE Physical Exam Vital Signs: Temp Pulse Resp BP Pulse Ox 99.2 F 106 H 18 110/68 93 11/23/17 10:58 11/23/17 10:58 11/23/17 10:58 11/23/17 10:58 11/23/17 10:58 Intake & Output 11/22/17 11/23/17 11/24/17 06:59 06:59 06:59 Intake Total 1029 1320 300 Output Total 2900 2500 400 Balance -1871 -1180 -100 Weight 82 kg 85.6 kg Exam: GENERAL: well-nourished and in no acute distress. Alert and oriented x3 HEAD: Atraumatic, normocephalic. EYES: Pupils equal round and reactive to light, extraocular movements intact, sclera anicteric, conjunctiva are normal. ENT: TMs normal, nares patent, oropharynx clear without exudates. Moist mucous membranes. No oral ulcerations or bleeding gums noted NECK: supple without lymphadenopathy. Trachea is central. No cervical or axillary lymphadenopathy noted. Carotids are 2+, JVD 8 cm LUNGS: Respiration seems nonlabored, no significant accessory muscle action noted. Bibasilar fine crackles noted. Bilateral scattered mild wheezing noted. Mild dullness noted right base. CHEST: Palpation of the chest wall shows no significant chest wall tenderness. No other significant abnormalities noted. HEART: [employer], No PSH, 1/6 JAMIE aortic area, 1/6 gonzalez systolic murmur mitral area, no rubs, no gallops. ABDOMEN: Soft, no significant tenderness appreciated, normoactive bowel sounds. No guarding, no rebound. No rigidity noted . No masses appreciated. EXTREMITIES: Pedal pulses are 1-2+, no calf tenderness noted. No clubbing or cyanosis. 1+ pedal edema noted NEUROLOGICAL: Focused neurological exam showed no significant neurologic deficit. Normal speech, no focal weakness appreciated. PSYCH: Normal mood, normal affect. Judgment and insight within normal limits. SKIN: No significant ecchymosis, skin is noted to be warm. MUSCULOSKELETAL EXAM: No significant acute joint swelling noted. Results Laboratory Results: 11/22/17 06:25 11/22/17 06:25 11/21/17 12:19 NT-Pro-B Natriuret Pep [id number] H EKG Comments: Shows atrial fibrillation with controlled ventricular response. Impressions: Chest X-Ray 11/20/17 20:20 IMPRESSION: STABLE CARDIOMEGALY. INTERVAL DEVELOPMENT OF RIGHT PLEURAL EFFUSION AND AIRSPACE DISEASE IN THE RIGHT LUNG, PROBABLY PNEUMONIA ALTHOUGH ASYMMETRIC PULMONARY EDEMA ANOTHER POSSIBILITY. Abdomen/Pelvis CT 11/21/17 00:00 IMPRESSION: Mild ascites. Chest CT 11/21/17 00:00 IMPRESSION: 1. Right lower lobe consolidation and subpulmonic pleural effusion. Less extensive airspace disease in the middle lobe and right upper lobe. Pattern is more consistent with aspiration or infection. Assessment & Plan - Diagnosis (1) CHF exacerbation Qualifiers: Heart failure type: right-sided Qualified Code(s): I50.813 - Acute on chronic right heart failure Is this a current diagnosis for this admission?: Yes (2) Atrial fibrillation Qualifiers: Atrial fibrillation type: chronic Qualified Code(s): I48.2 - Chronic atrial fibrillation Is this a current diagnosis for this admission?: Yes (3) Hyponatremia Is this a current diagnosis for this admission?: Yes (4) Lung cancer Qualifiers: Laterality: right Lung location: lower lobe of lung Qualified Code(s): C34.31 - Malignant neoplasm of lower lobe, right bronchus or lung Is this a current diagnosis for this admission?: Yes (5) Thrombocytopenia Is this a current diagnosis for this admission?: Yes (6) COPD (chronic obstructive pulmonary disease) Qualifiers: Emphysema type: unspecified Is this a current diagnosis for this admission?: Yes (7) Coronary artery disease Qualifiers: Coronary Disease-Associated Artery/Lesion type: unspecified vessel or lesion type [place] vs. transplanted heart: [place] heart Associated angina: angina presence unspecified Qualified Code(s): I25.10 - Atherosclerotic heart disease of [place] coronary artery without angina pectoris Is this a current diagnosis for this admission?: Yes (8) Diabetes mellitus Qualifiers: Diabetes mellitus type: type 2 Diabetes mellitus senior living insulin use: without senior living use Diabetes mellitus complication status: without complication Qualified Code(s): E11.9 - Type 2 diabetes mellitus without complications Is this a current diagnosis for this admission?: Yes (9) Mitral regurgitation Qualifiers: Cardiac valve disease etiology: etiology unspecified Qualified Code(s): I34.0 - Nonrheumatic mitral (valve) insufficiency Is this a current diagnosis for this admission?: Yes (10) Tricuspid regurgitation Qualifiers: Cardiac valve disease etiology: etiology unspecified Qualified Code(s): I07.1 - Rheumatic tricuspid insufficiency Is this a current diagnosis for this admission?: Yes (11) Recurrent right pleural effusion Is this a current diagnosis for this admission?: Yes (12) Right lower lobe pneumonia Qualifiers: Pneumonia type: due to unspecified organism Qualified Code(s): J18.1 - Lobar pneumonia, unspecified organism Is this a current diagnosis for this admission?: Yes - Notes Notes: CHF exacerbation: Continue IV diuretic therapy. Added low-dose digoxin at 0.125 mg p.o. every 12. Recommend checking a level in 5 days as an outpatient. Atrial fibrillation: Currently just Rx with rate controlled. [place] not a candidate for chronic anticoagulation due to increased risk of bleeding and chronically low platelet count. Hyponatremia: Rx with fluid restriction. Lung cancer: Seems to have progressed based on report by the oncologist. Patient currently made a DO NOT RESUSCITATE. I am told that they are seeking hospice care. COPD and underlying pulmonary status: Possibly worse. May consider pulmonology evaluation. Coronary artery disease: Patient is status post CABG, currently no signs of ongoing ischemia. Diabetes: Being adequately managed by hospitalist. Mitral regurgitation: At least moderate. Patient does have a prominent murmur. Patient does have a extensive jet. Tricuspid regurgitation, moderate to severe. Patient does have a underlying pacemaker leads traversing through the tricuspid valve. Recurrent right pleural effusion and right lower lobe pneumonia versus atelectasis: Most likely secondary to lung cancer. May consider pulmonary evaluation if clinically indicated. Patient has numerous and serious medical problems. However current presentation seems to be related to CHF with exacerbation. 2D echo obtained shows worsening RV systolic function and also worsening RV enlargement. RVSP seems lower which could indicate worsening RV function. At this point will recommend IV diuretics, adequate oxygenation, positive pressure noninvasive ventilation, pulmonary consultation etc. Patient does have normal LVEF, moderate mitral regurgitation, moderate to severe tricuspid regurgitation. Patient does have right pleural effusion which seems relatively small and there is underlying pneumonia versus atelectasis. May consider antibiotic therapy. Chronic atrial fibrillation: Rate is well controlled. Will leave decision regarding anticoagulation with Dr. Cervantes. Patient always has low platelet count therefore there may be a relative contraindication. Overall prognosis is guarded, given multitudes of cardiac and other issues. - Time Time with patient: Greater than 35 minutes - CODE STATUS was discussed, patient remains DNR. Surrogate decision-maker unchanged. Multiple medical problems were addressed. More than 50% of the time spent coordinating care, discussing management plans with involved caregivers. Management plans discussed with involved personnels. Medical decision making was of moderate to high complexity , patient's has multiple comorbidities. Medications reviewed and adjusted accordingly: Yes
[2017-11-23 14:52] VITALS: BP 100/60
[2017-11-24] MEDS ORDERED: DIGOXIN 0.125 MG TABLET PO SCH (10:00)
== END 2017-11-23 16:08 | disposition hospice, home (50) | DRG 193 ==
LOC: ER 20:18 → EH 11-21 00:18 → 3S 11-21 02:23
PROVIDERS: ADMIT Internal Medicine; ATTEND Internal Medicine
PROC: 5A09457 Assistance with Respiratory Ventilation, 24-96 Consecutive Hours, Continuous Positive Airway Pressure (ICD-10-PCS; principal; 2017-11-20)
PROC: 3E0F73Z Introduction of Anti-inflammatory into Respiratory Tract, Via Natural or Artificial Opening (ICD-10-PCS; 2017-11-21)
DX: J18.1 Lobar pneumonia, unspecified organism (principal); J96.21 Acute and chronic respiratory failure with hypoxia; D69.3 Immune thrombocytopenic purpura; E87.1 Hypo-osmolality and hyponatremia; C34.31 Malignant neoplasm of lower lobe, right bronchus or lung; N17.9 Acute kidney failure, unspecified; D69.6 Thrombocytopenia, unspecified; Z66 Do not resuscitate; E87.5 Hyperkalemia; J44.9 Chronic obstructive pulmonary disease, unspecified; I50.813 Acute on chronic right heart failure; I48.91 Unspecified atrial fibrillation; I25.10 Atherosclerotic heart disease of native coronary artery without angina pectoris; I11.0 Hypertensive heart disease with heart failure; E11.9 Type 2 diabetes mellitus without complications; I08.1 Rheumatic disorders of both mitral and tricuspid valves; D63.8 Anemia in other chronic diseases classified elsewhere; E66.3 Overweight; Z68.33 Body mass index [BMI] 33.0-33.9, adult; I25.2 Old myocardial infarction; Z79.899 Other long term (current) drug therapy; Z95.5 Presence of coronary angioplasty implant and graft; Z95.1 Presence of aortocoronary bypass graft; Z87.891 Personal history of nicotine dependence; Z88.2 Allergy status to sulfonamides; Z82.49 Family history of ischemic heart disease and other diseases of the circulatory system
CPT/HCPCS: 36415; 51702; 71045; 71260; 74177; 80048; 80053; 81001; 82550; 82553; 82803; 82962; 83880; 84484; 85025; 87040; 93005; 93010; 93306; 94640; 94660; 94667; 94668; 94799; 96365; 96375; 99291; J0692; J1940; J1956; J2796; J3490; J7620